=== PATIENT | female | born 1940 | race Caucasian/White ===

== ENCOUNTER 2017-02-03 16:09 | Emergency (ER) | payer OTHER ==
[~2017-02-03] VITALS: Ht 154.9 cm; Wt 76.2 kg
[~2017-02-03 16:09] MED LIST: BENAZEPRIL HCL/1 TA1 PO; BENAZEPRIL HYDR20 M1 PO; LEVAQUIN250 MG PO; PRILOSEC40 MG PO
--- NOTE | 2017-02-03 16:09 | NUR ---
Patient BIBA BLS, transferred to bed 7. Dr. Crawford and RN evaluating patient at bedside.
[2017-02-03 16:25] VITALS: BP 168/73
--- NOTE | 2017-02-03 16:25 | NUR ---
76 /F BIBA FROM HOME FOR LOW BACK PAIN ALL DAY AWAKE AND ALERT ON ARRIVAL. DENIES N/V/D; SKIN IS PINK/WARM/DRY; AAOX4 WITH EVEN AND STEADY GAIT; LUNGS CLEAR BL; HR EVEN AND REGULAR; PT DENIES ANY FEVER, CP, SOB, OR COUGH AT THIS TIME; PATIENT STATES PAIN OF 4/10 AT THIS TIME; VSS; PATIENT POSITIONED FOR COMFORT; HOB ELEVATED; BEDRAILS UP X2; BED DOWN. ER MD MADE AWARE OF PT STATUS.
--- NOTE | 2017-02-03 17:21 | NUR ---
Patient taken to CT scan via gurney by [employer].
--- NOTE | 2017-02-03 19:08 | NUR ---
Pt report given to JOSH ROSALES. Transfer of care at this time.
[2017-02-03] MEDS ORDERED: ACETAMINOPHEN 325 MG TAB PO ONE (20:30)
[2017-02-03 20:57] VITALS: BP 142/72
--- NOTE | 2017-02-03 20:57 | NUR ---
Patient discharged with v/s stable. Written and verbal after care instructions given and explained. Patient alert, oriented and verbalized understanding of instructions. Ambulatory with steady gait. All questions addressed prior to discharge. ID band removed. Patient advised to follow up with PMD. Rx of MOTRIN 600MG given. Patient educated on indication of medication including possible reaction and side effects. Opportunity to ask questions provided and answered.
== END 2017-02-03 20:57 | disposition home or self-care (01) ==
LOC: MED 16:10
DX: M54.5 Low back pain (principal); F41.9 Anxiety disorder, unspecified; I12.9 Hypertensive chronic kidney disease with stage 1 through stage 4 chronic kidney disease, or unspecified chronic kidney disease; N18.4 Chronic kidney disease, stage 4 (severe); J44.9 Chronic obstructive pulmonary disease, unspecified; Z90.710 Acquired absence of both cervix and uterus; Z90.49 Acquired absence of other specified parts of digestive tract; Z88.0 Allergy status to penicillin; Z88.2 Allergy status to sulfonamides; Z88.5 Allergy status to narcotic agent; Z98.890 Other specified postprocedural states

== ENCOUNTER 2017-03-19 13:56 | Emergency (ER) | payer OTHER ==
[~2017-03-19] VITALS: Ht 154.9 cm; Wt 74.8 kg
[~2017-03-19 13:56] MED LIST changes: +BENA20TA5 PO; -BENAZEPRIL HCL/1 TA1 PO; -BENAZEPRIL HYDR20 M1 PO; -LEVAQUIN250 MG PO; +OMEP40EC1 PO; -PRILOSEC40 MG PO
[2017-03-19 14:23] VITALS: BP 140/106
--- NOTE | 2017-03-19 19:16 | NUR ---
Patient to [facility].
--- NOTE | 2017-03-19 19:22 | NUR ---
76F BIB FAMILY C/O BL LOWER BACK PAIN, THROBBING, RADIATES UP BACK, 05/12 X 2 MONTHS; PT STATES NO TRAUMA OR INJURY TO SITE AT THIS TIME; PT STATES " I WOKE UP ONE DAY AND JUST HAD THIS PAIN"; PT AA&OX4, PERRLA, BL LUNG SOUNDS CLEAR, RR EVEN/UNLABORED, SKIN IS WARM/DRY/INTACT AT THIS TIME; PT STATES NO N/V/D AT THIS TIME; PT RESTING IN CHAIR, POSITIONED FOR COMFORT; ER MD MADE AWARE OF STATUS. WILL CONTINUE TO MONITOR.
[2017-03-19] MEDS ORDERED: KETOROLAC 30 MG/ML VIAL IM ONE (19:30)
[2017-03-19 20:00] VITALS: BP 180/83
--- NOTE | 2017-03-19 20:00 | NUR ---
Patient discharged with BP 180/83; PT STATES NO N/V/D, HEADACHE, DIZZINESS, VISION CHANGES OR BLURRY VISION AT THIS TIME ER MD DR. BLANCO NOTIFIED AND AWARE. Written and verbal after care instructions given and explained. Patient alert, oriented and verbalized understanding of instructions. Ambulatory with steady gait. All questions addressed prior to discharge. ID band removed. Patient advised to follow up with PMD. Rx of VALIUM 2MG TAB & NORCO 5MG-325MG TAB given. Patient educated on indication of medication including possible reaction and side effects. Opportunity to ask questions provided and answered.
== END 2017-03-19 20:00 | disposition home or self-care (01) ==
LOC: MED 13:56
DX: M80.08XA Age-related osteoporosis with current pathological fracture, vertebra(e), initial encounter for fracture (principal); J44.9 Chronic obstructive pulmonary disease, unspecified; I10 Essential (primary) hypertension; I12.9 Hypertensive chronic kidney disease with stage 1 through stage 4 chronic kidney disease, or unspecified chronic kidney disease; N18.4 Chronic kidney disease, stage 4 (severe); Z88.0 Allergy status to penicillin; Z88.2 Allergy status to sulfonamides; Z88.6 Allergy status to analgesic agent; Z88.5 Allergy status to narcotic agent; Z90.710 Acquired absence of both cervix and uterus
CPT/HCPCS: 72072; 72100; 96372; 99284; J1885

== ENCOUNTER 2018-06-15 19:51 | Emergency (ER) | payer OTHER ==
[~2018-06-15] VITALS: Ht 157.5 cm; Wt 82.2 kg
[~2018-06-15 19:51] MED LIST changes: -BENA20TA5 PO; +BENA20TA88 PO
[2018-06-15 20:00] VITALS: BP 170/100
--- NOTE | 2018-06-15 20:05 | NUR ---
PATIENT AMBULATED TO ER BED 11.
--- NOTE | 2018-06-15 20:26 | NUR ---
PT PRESENTS TO ED WITH C/O BILAT EYE REDNESS, ITCHING, AND BURNING X 3 WEEKS. PT REPORTS BLURRY VISION X 3 WEEKS WELL. PT DENIES ANY TRAUMA OR FOREIGN BODY IN EYE. PT PLACED IN BED. PENDING MD JO.
[2018-06-15 20:39] VITALS: BP 170/100
--- NOTE | 2018-06-15 20:40 | NUR ---
Patient discharged with v/s stable. Written and verbal after care instructions given and explained. Patient alert, oriented and verbalized understanding of instructions. Ambulatory with steady gait. All questions addressed prior to discharge. ID band removed. Patient advised to follow up with PMD. Rx of PANATOL given. Patient educated on indication of medication including possible reaction and side effects. Opportunity to ask questions provided and answered.
== END 2018-06-15 20:39 | disposition home or self-care (01) ==
LOC: MED 19:51
DX: H10.13 Acute atopic conjunctivitis, bilateral (principal); J44.9 Chronic obstructive pulmonary disease, unspecified; I12.9 Hypertensive chronic kidney disease with stage 1 through stage 4 chronic kidney disease, or unspecified chronic kidney disease; N18.4 Chronic kidney disease, stage 4 (severe); Z88.0 Allergy status to penicillin; Z88.6 Allergy status to analgesic agent; Z88.2 Allergy status to sulfonamides; Z79.899 Other long term (current) drug therapy
CPT/HCPCS: 99283

== ENCOUNTER 2018-08-18 11:42 | Observation (INO) | payer OTHER ==
[~2018-08-18] VITALS: Ht 154.9 cm; Wt 77.1 kg
[2018-08-18 11:47] VITALS: BP 183/91
[2018-08-18] MEDS ORDERED: NITROGLYCERIN 2% 1 GM PKT TP ONE (12:00)
[2018-08-18] MEDS ORDERED: ASPIRIN 81 MG TAB.CHEW PO ONE (12:00)
[2018-08-18 12:21] LABS: BASOPHILS % (AUTO) 0.4 % (0.0-2.0); EOSINOPHILS # (AUTO) 0.3 K/uL (0-0.4); EOSINOPHILS % (AUTO) 5.2 % (0.0-4.0); HEMATOCRIT 45.8 % (36-48); HEMOGLOBIN 15.3 g/dL (12.0-16.0); LYMPHOCYTES # (AUTO) 1.6 K/uL (2.5-16.5); LYMPHOCYTES % (AUTO) 32.1 % (20.5-51.1); MEAN CORPUSCULAR HEMOGLOBIN 29 pg (27-31); MEAN CORPUSCULAR HGB CONC 34 g/dL (33-37); MEAN CORPUSCULAR VOLUME 85.8 fL (80-94); MONOCYTES # (AUTO) 0.3 K/uL (0.8-1.0); MONOCYTES % (AUTO) 6.1 % (1.7-9.3); NEUTROPHILS # (AUTO) 2.8 K/uL (1.8-7.7); NEUTROPHILS % (AUTO) 56.2 % (42.2-75.2); PLATELET COUNT (AUTO) 238 K/uL (140-450); RED BLOOD CELL COUNT(AUTO) 5.34 MIL/uL (4.20-5.40); RED CELL DISTRIBUTION WIDTH 12.6 % (11.6-13.7); WHITE BLOOD COUNT (AUTO) 4.9 K/uL (4.8-10.8)
[2018-08-18 12:40] LABS: ANION GAP 11.4 (8-16); CARBON DIOXIDE 27.5 mmol/L (21-32); CHLORIDE 104 mmol/L (98-107); CREATININE 1.3 mg/dL (0.6-1.3); GLUCOSE 120 mg/dL (74-106); POTASSIUM 3.9 mmol/L (3.5-5.1); SODIUM SERUM 139 mmol/L (136-145); UREA NITROGEN, BLOOD 22 mg/dL (7-18)
[2018-08-18 12:46] LABS: ALBUMIN 4.1 g/dL (3.4-5.0); ASPARTATE AMINOTRANSFERASE 27 U/L (15-37); TOTAL BILIRUBIN 0.4 mg/dL (0.0-1.0)
[2018-08-18 12:50] LABS: D-DIMER < 100 ng/ml (0-400); PROTHROMBIN TIME 9.6 secs (10.8-13.4)
[2018-08-18] MEDS ORDERED: LORazepam 2 MG/ML VIAL IM/IVP PRN (13:50)
[2018-08-18] MEDS ORDERED: DOCUSATE SODIUM 100 MG GELCAP PO PRN (13:50)
[2018-08-18] MEDS: NACL 0.9% 1,000 ML IV SCH (13:50)
[2018-08-18] MEDS ORDERED: ACETAMINOPHEN 325 MG TAB PO PRN (13:50)
[2018-08-18] MEDS ORDERED: ONDANSETRON 4 MG/2 ML VIAL IM/IVP PRN (13:50)
[2018-08-18] MEDS ORDERED: NITROGLYCERIN 0.4 MG TAB SL PRN (14:15)
[2018-08-18] MEDS ORDERED: BENAZEPRIL 20 MG TAB PO SCH ×2 (14:15→15:10)
[2018-08-18 14:35] VITALS: BP 162/74
[2018-08-18] MEDS ORDERED: METOPROLOL 25 MG TAB PO SCH (15:07)
[2018-08-18] MEDS ORDERED: PANTOPRAZOLE 40 MG TABEC PO SCH (15:08)
[2018-08-18 16:00] VITALS: BP 142/69
[2018-08-18] MEDS ORDERED: KETOROLAC 30 MG/ML VIAL IVP PRN (17:05)
[2018-08-18 18:48] LABS: APPEARANCE,URINE CLEAR (CLEAR); BILIRUBIN,URINE NEGATIVE (NEGATIVE); BLOOD, URINE NEGATIVE (NEGATIVE); COLOR,URINE YELLOW (YELLOW); LEUKOCYTE ESTERASE ,URINE NEGATIVE (NEGATIVE); NITRITE, URINE NEGATIVE (NEGATIVE); PH,URINE 7.5 (5.0-9.0); UGLUCOSE NEGATIVE (NEGATIVE)
[2018-08-18 20:00] VITALS: BP 120/46
[2018-08-18] MEDS: METOPROLOL 25 MG TAB PO SCH (20:07)
[2018-08-18] MEDS ORDERED: ALBUTEROL SULFATE/IPRATROPIU 3 ML SOL IH PRN (20:45)
[2018-08-18] MEDS ORDERED: ADA30 PO (20:47)
[2018-08-18] MEDS ORDERED: TRI48 PO (20:47)
[2018-08-19 00:56] VITALS: BP 124/40
[2018-08-19 04:35] VITALS: BP 139/60
[2018-08-19 08:00] VITALS: BP 155/54
[2018-08-19] MEDS ORDERED: FAMOTIDINE 20 MG TAB PO SCH (09:00)
[2018-08-19] MEDS ORDERED: LISINOPRIL 5 MG TAB PO SCH (09:00)
[2018-08-19] MEDS ORDERED: NIFEdipine 30 MG TABER PO SCH (09:00)
[2018-08-19] MEDS ORDERED: ASPIRIN 81 MG TAB.CHEW PO SCH (09:00)
[2018-08-19] MEDS ORDERED: BENAZEPRIL 20 MG TAB PO SCH (09:00)
[2018-08-19] MEDS: NACL 0.9% 1,000 ML IV SCH (09:39)
[2018-08-19] MEDS: METOPROLOL 25 MG TAB PO SCH (09:41)
[2018-08-19] MEDS ORDERED: FENOFIBRATE 48 MG TAB PO SCH (11:13)
[2018-08-19 12:00] VITALS: BP 151/52
[2018-08-19 16:00] VITALS: BP 132/50
[2018-08-19] MEDS ORDERED: INFLUENZA VIRUS VACCINE QUAD 0.5 ML SYR IMVAC PRN (16:35)
[2018-08-19 17:21] VITALS: BP 132/50
[2018-08-19] MEDS ORDERED: LISI-424 PO (18:06)
[2018-08-19] MEDS ORDERED: FAMO20TA13 PO (18:06)
[2018-08-19] MEDS ORDERED: ASPI81CT95 PO (18:06)
[2018-08-19] MEDS ORDERED: TRI48 PO (18:06)
[2018-08-19] MEDS ORDERED: ADA30 PO (18:06)
[2018-08-19] MEDS ORDERED: ATOR20TA40 PO (18:06)
[2018-08-19] MEDS ORDERED: ATORVASTATIN 20 MG TAB PO SCH (21:00)
[2018-08-20] MEDS ORDERED: FENOFIBRATE 48 MG TAB PO SCH (09:00)
== END 2018-08-19 19:25 | disposition still patient (30) ==
LOC: MED 11:42 → MTU 13:57 → INTOOBSV 13:57 → MTU 08-19 15:30
PROVIDERS: ADMIT General Practice; ATTEND General Practice
DX: R07.89 Other chest pain (principal); K21.9 Gastro-esophageal reflux disease without esophagitis; J98.11 Atelectasis; I10 Essential (primary) hypertension; J44.9 Chronic obstructive pulmonary disease, unspecified; E78.5 Hyperlipidemia, unspecified; I70.0 Atherosclerosis of aorta; E66.9 Obesity, unspecified; Z68.32 Body mass index [BMI] 32.0-32.9, adult; Z88.5 Allergy status to narcotic agent; Z88.0 Allergy status to penicillin; Z88.2 Allergy status to sulfonamides
CPT/HCPCS: 36415; 71045; 80053; 81003; 83880; 84484; 85025; 85379; 85610; 85730; 87081; 93005; 93925; 94760; 96372; 96374; 99284; G0378; J1644; J1885; J7030; Q0092; 99285

== ENCOUNTER 2018-12-16 02:30 | Inpatient (IN) | payer OTHER ==
[~2018-12-16] VITALS: Ht 149.9 cm; Wt 83.0 kg
[2018-12-16] VITALS (7 sets, daily range): BP systolic 124–170; BP diastolic 45–92
[~2018-12-16 02:30] MED LIST changes: +ASPI81CT95 PO; +ATOR20TA40 PO; -BENA20TA88 PO; +FAMO20TA13 PO; +NIFE30TE98 PO; -OMEP40EC1 PO; +TRI48 PO
--- NOTE | 2018-12-16 02:35 | NUR ---
PT TAKEN TO BED 6
--- NOTE | 2018-12-16 02:40 | NUR ---
78 Y/O F PRESENTED TO ED WITH C/O CHEST PAIN X7 HOURS. AAOX4. 9/10 PAIN, CONTINUOUS AND SHARP. PER PT "IT JUST HURTS SO BAD. SO BAD I HAD MY WAKE UP MY GRANDDUAGHTER TO BRING ME HERE." L ARM NUMBESS. EQUAL BILATERAL GRASPS. ABLE TO MOVE DIGITS FREELY. PER PT FEELING NAUSEOUS. DENIES VOMITTING AND DIARRHEA. BEDRAILS X2 UP. BED IN LOWEST POSTION. ERMD NOTIFIED. WILL CONTINUE TO MONITOR. ALLERGIES; MORPHINE, PCN, SULFA, BENADRYL PMH; HTN, HYPERLIDIPEMIA, COPD
[2018-12-16] MEDS ORDERED: ASPIRIN 81 MG TAB.CHEW PO ONE (02:45)
[2018-12-16 03:02] LABS: BASOPHILS % (AUTO) 0.7 % (0.0-2.0); EOSINOPHILS # (AUTO) 0.2 K/uL (0-0.4); EOSINOPHILS % (AUTO) 3.8 % (0.0-4.0); HEMATOCRIT 44.2 % (36-48); HEMOGLOBIN 14.7 g/dL (12.0-16.0); LYMPHOCYTES % (AUTO) 31.6 % (20.5-51.1); MEAN CORPUSCULAR HEMOGLOBIN 28 pg (27-31); MEAN CORPUSCULAR HGB CONC 33 g/dL (33-37); MONOCYTES # (AUTO) 0.4 K/uL (0.8-1.0); MONOCYTES % (AUTO) 6.5 % (1.7-9.3); NEUTROPHILS # (AUTO) 3.6 K/uL (1.8-7.7); NEUTROPHILS % (AUTO) 57.4 % (42.2-75.2); PLATELET COUNT (AUTO) 218 K/uL (140-450); RED CELL DISTRIBUTION WIDTH 12.5 % (11.6-13.7); WHITE BLOOD COUNT (AUTO) 6.4 K/uL (4.8-10.8)
[2018-12-16 03:18] LABS: ALBUMIN 3.9 g/dL (3.4-5.0); ANION GAP 10.9 (8-16); ASPARTATE AMINOTRANSFERASE 19 U/L (15-37); CARBON DIOXIDE 26.5 mmol/L (21-32); CHLORIDE 101 mmol/L (98-107); CREATININE 1.3 mg/dL (0.6-1.3); GLUCOSE 138 mg/dL (74-106); POTASSIUM 3.4 mmol/L (3.5-5.1); SODIUM SERUM 135 mmol/L (136-145); TOTAL BILIRUBIN 0.5 mg/dL (0.0-1.0); UREA NITROGEN, BLOOD 28 mg/dL (7-18)
[2018-12-16 03:30] LABS: APPEARANCE,URINE CLEAR (CLEAR); BILIRUBIN,URINE NEGATIVE (NEGATIVE); BLOOD, URINE 1+ (NEGATIVE); COLOR,URINE YELLOW (YELLOW); LEUKOCYTE ESTERASE ,URINE NEGATIVE (NEGATIVE); NITRITE, URINE NEGATIVE (NEGATIVE); UGLUCOSE NEGATIVE (NEGATIVE)
[2018-12-16] MEDS ORDERED: KETOROLAC 15 MG/ML VIAL IVP ONE (03:35)
[2018-12-16 03:38] LABS: RBC,URINE 0-5 /HPF (0-5); WBC,URINE 0-5 /HPF (0-5)
--- NOTE | 2018-12-16 03:50 | NUR ---
PT STILL COMPLAINING OF CHEST PAIN, 9/[address] DIAZ NOTIFIED.
[2018-12-16] MEDS ORDERED: NITROGLYCERIN 0.4 MG TAB SL ONE (04:00)
--- NOTE | 2018-12-16 04:10 | NUR ---
PT AMBULATED TO RESTROOM. STEADY GAIT.
[2018-12-16] MEDS ORDERED: ONDANSETRON 4 MG/2 ML VIAL IM/IVP PRN (04:35)
[2018-12-16] MEDS ORDERED: ACETAMINOPHEN 325 MG TAB PO PRN (04:35)
[2018-12-16] MEDS ORDERED: DOCUSATE SODIUM 100 MG GELCAP PO PRN (04:35)
--- NOTE | 2018-12-16 04:50 | NUR ---
Patient will be admitted to care of Dr Wu. Admited to [facility] [place]. Will go to room 111A Belongings list completed. Report to Tiago Niño RN. VSS at time of transfer. Transfer of care at this time.
[2018-12-16 04:57] LABS: PROTHROMBIN TIME 9.8 secs (10.8-13.4)
--- NOTE | 2018-12-16 05:05 | NUR ---
Patient arrived in unit via rjadwin, accompanied by two ARTIFICIAL LEATHER CALENDER OPERATOR's; patient is able to ambulate from gurney to bed with no assistance. Introduced self, updated board, oriented patient to room and hospital environment. Patient is A/Ox4, able to make needs known. No SOB or distress noted, on room air. Chief complaint of chest pain. Diagnosis is chest pain. IV site on left forearm, 20 gauge, saline locked. Skin intact. Vitals upon admission are as follows: BP 124/53, RR 16, HR 63, Temp 98.4 F, O2Sat 93% on room air. Bed in the lowest position, call light within reach. Initial assessment done. Will continue to monitor.
[2018-12-16 05:15] LABS: CHOL/HDL RATIO 3.2 (1-4.5); FREE T4 (FREE THYROXINE) 1.07 ng/dL (0.76-1.46); MAGNESIUM 2.1 mg/dL (1.8-2.4); PHOSPHORUS 3.1 mg/dL (2.5-4.9); THYROID STIMULATING HORMONE 3.02 uIU/mL (0.34-3.74)
[2018-12-16] MEDS: NACL 0.9% 1,000 ML IV SCH (05:30)
--- NOTE | 2018-12-16 07:20 | NUR ---
Endorsed patient to AM shift RN for continuity of care; patient in stable condition.
--- NOTE | 2018-12-16 07:21 | NUR ---
RECEIVED BEDSIDE REPORT FROM ICE CREAM FREEZER HELPER NURSE. PATIENT IS AWAKE, ALERT AND ORIENTEDX4. NO SIGNS OF DISTRESS ON RA. SKIN IS INTACT. IV ON L FA 20G INFUSING NS AT 60. CLEAN, DRY AND INTACT. PATIENT IS CONTINENT. CALL LIGHT WITHIN REACH. NO COMPLAINTS AT THIS TIME. BED IN LOW POSITION. PATIENT ABLE TO MAKE NEEDS KNOWN.
--- NOTE | 2018-12-16 08:00 | NUR ---
RECEIVED PATIENT IN BED ,AWAKE A/OX4 NO S/S OF RESP DISTRESS NOTED COMPLAIN OF BACK PAIN ,WILL MEDICATED IV SITE LEFT FA FINESSE 22 INTACT AND PATENT .IVF INFUSING WELL. PLAN OF CARE DISCUSSED WITH THE PATIENT VITALS STABLE WILL CONTINUE TO MONITOR.
--- NOTE | 2018-12-16 08:00 | NUR ---
GAVE BEDSIDE REPORT TO JOSH DHALIWAL. ENDORSED PATIENT IN STABLE CONDITION. TOLD HER PATIENT NEEDS TO BE TRANSFERRED TO [facility]
--- NOTE | 2018-12-16 09:57 | NUR ---
PATIENT HAS BEEN SCREENED AND CATEGORIZED MODERATE NUTRITION RISK. PATIENT WILL BE SEEN WITHIN 3-5 DAYS OF ADMISSION. 12/18/18PETEY [address]
--- NOTE | 2018-12-16 10:00 | NUR ---
DUE MEDS GIVEN TOLERATED WELL. MEDICATED WITH NORCO FOR BACK PAIN , C/O NAUSEA ZOFRAN IV GIVEN . MORNING CARE GIVEN AMBULATE TO BATHROOM NO WEAKNESS NOTED AT THIS TIME
[2018-12-16] MEDS ORDERED: NITROGLYCERIN 0.4 MG TAB SL PRN (10:15)
[2018-12-16] MEDS: FENOFIBRATE 48 MG TAB PO SCH (10:16)
[2018-12-16] MEDS: NIFEdipine 30 MG TABER PO SCH (10:17)
[2018-12-16] MEDS: ECOTRIN 81 MG TABEC PO SCH (10:17)
[2018-12-16] MEDS: HYDROcodone/APAP 7.5/325 MG 1 TAB PO PRN (10:20)
[2018-12-16] MEDS ORDERED: MEDICATION REC. PHARMACY CONS. 1 EA MISC MC PRN (11:10)
[2018-12-16] MEDS ORDERED: POTASSIUM CHLORIDE 10 MEQ TABER PO SCH (11:50)
--- NOTE | 2018-12-16 12:00 | NUR ---
VITALS STABLE DUE MEDS GIVEN AT THIS TIME
--- NOTE | 2018-12-16 14:00 | NUR ---
RESTING NO DISTRESS NOTED ,DENIES ANY PAIN AT THIS TIME
--- NOTE | 2018-12-16 16:00 | NUR ---
AMBULATE TO THE BATHROOM NO WEAKNESS NOTED VITALS STABLE.
--- NOTE | 2018-12-16 18:30 | NUR ---
SAFETY MAINTAINED CALL LIGHT IN REACH , STABLE CONDITION THROUGH OUT THE DAY
--- NOTE | 2018-12-16 19:28 | NUR ---
ENDORSE THE CARE TO JENNA MORENO
--- NOTE | 2018-12-16 19:29 | NUR ---
RECEIVED PATIENT AT BEDSIDE FROM DAY SHIFT NURSE, PT AWAKE AND NO SOB OR ANY RESP DISTRESS NOTED. IV 22 GAUGE LOCATED IN LEFT FOREARM AND SITE INTACT, PATENT, AND ASYMPTOMATIC. PLAN OF CARE DISCUSSED WITH THE PATIENT. CALL LIGHT WITHIN REACH. WILL CONTINUE TO MONITOR.
[2018-12-16] MEDS: ATORVASTATIN 20 MG TAB PO SCH (21:49)
[2018-12-16] MEDS: PANTOPRAZOLE 40 MG TABEC PO SCH (21:50)
[2018-12-16] MEDS: METOPROLOL 25 MG TAB PO SCH (21:52)
--- NOTE | 2018-12-16 21:52 | NUR ---
DUE MEDICATION ADMINISTERED, PT TOLERATED WELL, NO DISTRESS NOTED, CALL LIGHT WITHIN REACH, WILL CONTINUE TO MONITOR.
[2018-12-17] VITALS: BP 132/50
--- NOTE | 2018-12-17 00:10 | NUR ---
CHECKED ON PT, V/S TAKEN, WNL, PT SLEEPING, NO DISTRESS NOTED, CALL LIGHT WITHIN REACH, WILL CONTINUE TO MONITOR.
[2018-12-17] MEDS: NACL 0.9% 1,000 ML IV SCH ×3 (00:37→21:27)
--- NOTE | 2018-12-17 02:25 | NUR ---
PT SLEEPING, CALL LIGHT WITHIN REACH, WILL CONTINUE TO MONITOR.
[2018-12-17 04:00] VITALS: BP 154/63
--- NOTE | 2018-12-17 04:36 | NUR ---
CHECKED ON PT, V/S TAKEN, WITHIN PT BASELINE, PT AMBULATED TO RESTROOM AND BACK TO BED, TOLERATED WELL, CALL LIGHT WITHIN REACH, WILL CONTINUE TO MONITOR.
--- NOTE | 2018-12-17 07:30 | NUR ---
ENDORSED PT TO DAY SHIFT NURSE MATT RN, PT STABLE, NO DISTRESS NOTED, CALL LIGHT WITHIN REACH.
--- NOTE | 2018-12-17 07:31 | NUR ---
REPORT RECEIVED FROM REGULATOR MECHANIC NURSE, PT AWAKE ALERT, RESP EVEN UNLABORED, SKIN WARM DRY COLOR WNL, PT DENIES ANY CHEST PAIN OR SOB, APPEARS IN NO ACUTE DISTRESS, POC REVIEWED, PT DENIES ANY IMMEDIATE NEEDS, ALL SAFETY MEASURES IN PLACE, WILL CONTINUE TO MONITOR.
[2018-12-17 08:00] VITALS: BP 135/36
[2018-12-17 08:09] LABS: ANION GAP 10.5 (8-16); CHLORIDE 107 mmol/L (98-107); CREATININE 1.1 mg/dL (0.6-1.3); GLUCOSE 93 mg/dL (74-106); POTASSIUM 4.5 mmol/L (3.5-5.1); SODIUM SERUM 140 mmol/L (136-145); UREA NITROGEN, BLOOD 25 mg/dL (7-18)
[2018-12-17 08:33] LABS: BASOPHILS % (AUTO) 0.5 % (0.0-2.0); EOSINOPHILS # (AUTO) 0.2 K/uL (0-0.4); EOSINOPHILS % (AUTO) 4.4 % (0.0-4.0); HEMATOCRIT 37.9 % (36-48); HEMOGLOBIN 12.7 g/dL (12.0-16.0); LYMPHOCYTES # (AUTO) 1.9 K/uL (2.5-16.5); LYMPHOCYTES % (AUTO) 34.5 % (20.5-51.1); MEAN CORPUSCULAR HEMOGLOBIN 29 pg (27-31); MEAN CORPUSCULAR HGB CONC 33 g/dL (33-37); MEAN CORPUSCULAR VOLUME 85.9 fL (80-94); MONOCYTES # (AUTO) 0.4 K/uL (0.8-1.0); MONOCYTES % (AUTO) 7.9 % (1.7-9.3); NEUTROPHILS # (AUTO) 2.8 K/uL (1.8-7.7); NEUTROPHILS % (AUTO) 52.7 % (42.2-75.2); PLATELET COUNT (AUTO) 203 K/uL (140-450); RED BLOOD CELL COUNT(AUTO) 4.41 MIL/uL (4.20-5.40); RED CELL DISTRIBUTION WIDTH 12.6 % (11.6-13.7); WHITE BLOOD COUNT (AUTO) 5.4 K/uL (4.8-10.8)
[2018-12-17] MEDS: FENOFIBRATE 48 MG TAB PO SCH (08:48)
[2018-12-17] MEDS: ECOTRIN 81 MG TABEC PO SCH (08:48)
[2018-12-17] MEDS: PANTOPRAZOLE 40 MG TABEC PO SCH ×2 (08:49→21:00)
[2018-12-17] MEDS: METOPROLOL 25 MG TAB PO SCH ×2 (09:00→21:00)
[2018-12-17] MEDS: LISINOPRIL 5 MG TAB PO SCH (09:00)
[2018-12-17] MEDS: NIFEdipine 30 MG TABER PO SCH (09:00)
--- NOTE | 2018-12-17 09:28 | NUR ---
PT UP TO BATHROOM WITHOUT ASSIST, AMBULATES WITH STEADY GAIT, PT DENIES ANY IMMEDIATE NEEDS.
--- NOTE | 2018-12-17 10:05 | NUR ---
PT UP TO BATHROOM WITHOUT ASSIST, AMBULATES WITH STEADY GAIT, PT DENIES ANY IMMEDIATE NEEDS.
[2018-12-17 12:00] VITALS: BP 130/43
--- NOTE | 2018-12-17 12:20 | NUR ---
PT SITTING UP AT SIDE OF BED EATING LUNCH
--- NOTE | 2018-12-17 12:55 | NUR ---
Susan GOODWIN AT BEDSIDE.
--- NOTE | 2018-12-17 13:45 | NUR ---
WALKING AROUND HALLWAY WITH PHYSICAL THERAPY
--- NOTE | 2018-12-17 14:47 | NUR ---
ROUNDED ON PT. PT LAYING IN BED WATCHING TV. NO VISIBLE DISTRESS. NO COMPLAINT OF PAIN. WILL CONTINUE TO MONITOR
--- NOTE | 2018-12-17 15:55 | NUR ---
PT C/O CHEST PAIN AFTER EATING A BANANA, STATES ITS SQUEEZING TIGHTNESS 12/10, DR CHAN MADE AWARE, WILL GIVE NITRO SL.
[2018-12-17 16:00] VITALS: BP 149/49
--- NOTE | 2018-12-17 17:05 | NUR ---
PT RESTING QUIETLY, STATES CHEST PAIN HAS IMPROVED, CALL CANNON WITHIN REACH, SIDE RAILS UP, WILL CONTINUE TO MONTIOR.
[2018-12-17] MEDS: HYDROcodone/APAP 7.5/325 MG 1 TAB PO PRN (18:52)
--- NOTE | 2018-12-17 19:00 | NUR ---
PT STATES THAT SHE HAS PAIN IN CHEST 5/10. PT DESCRIBES PAIN ACHY. NORCO GIVEN. NO OTHER SIGNS OF VISIBLE DISTRESS.
--- NOTE | 2018-12-17 19:29 | NUR ---
REPORT GIVEN TO PHYSICIAN RELATIONS REPRESENTATIVE NURSE, PT IN STABLE CONDITION.
--- NOTE | 2018-12-17 19:30 | NUR ---
REPORT RECEIVED FROM DAY SHIFT RN, PATIENT AWAKE WITH NO SIGNS OF DISTRESS ON RA, PATIENT IN STABLE CONDITION. CALL LIGHT IN REACH AND BED IN LOW POSITION. WILL CONTINUE TO MONITOR.
[2018-12-17 20:00] VITALS: BP 137/44
[2018-12-17] MEDS: ATORVASTATIN 20 MG TAB PO SCH (20:59)
--- NOTE | 2018-12-17 21:00 | NUR ---
ADMINISTERED SCHEDULED MEDICATION. PATIENT TOLERATED WELL. PATIENT SITTING UP IN BED TALKING ON PHONE, BED LOW, CALL LIGHT IN REACH. NO COMPLAINTS OF PAIN AT THIS TIME, WILL CONTINUE TO MONITOR.
--- NOTE | 2018-12-18 00:05 | NUR ---
PATIENT WENT TO BATHROOM, AND RETURNED TO BED. VITAL SIGNS STABLE.
[2018-12-18 00:17] VITALS: BP 122/42
--- NOTE | 2018-12-18 01:10 | NUR ---
PATIENT IS SLEEPING IN BED, NO SIGNS OF DISTRESS ON RA, BED LOW AND CALL LIGHT IN REACH. WILL CONTINUE TO MONITOR.
--- NOTE | 2018-12-18 04:00 | NUR ---
PT HAS BEEN STABLE DURING THE NIGHT.
[2018-12-18 05:42] VITALS: BP 137/50
[2018-12-18] MEDS: NACL 0.9% 1,000 ML IV SCH (06:26)
--- NOTE | 2018-12-18 07:27 | NUR ---
GAVE BEDSIDE REPORT TO DAY SHIFT RN, PATIENT IN STABLE CONDITION, WATCHING TV IN BED. ENDORSED TO DAY SHIFT NURSE FOR CONTINUITY OF CARE.
--- NOTE | 2018-12-18 07:28 | NUR ---
RECEIVED REPORT FROM SOLE SEWER HAND NURSE AT BEDSIDE FOR CONTINUITY OF CARE. PT IS AWAKE AND ORIENTED. INTRODUCED MYSELF AND UPDATED THE BOARD. PT IS ON ROOM AIR. TELE. NO SIGNS OF DISTRESS NOTED. V/S WITHIN NORMAL RANGE. SKIN INTACT. IV ON R HAND 22G, NS AT 60ML/HR. PT IS AMBULATORY. LBM 12/17/18. WILL CONTINUE TO MONITOR PT.
[2018-12-18 08:00] VITALS: BP 133/44
[2018-12-18] MEDS: FENOFIBRATE 48 MG TAB PO SCH (08:40)
[2018-12-18] MEDS: NIFEdipine 30 MG TABER PO SCH (08:40)
[2018-12-18] MEDS: LISINOPRIL 5 MG TAB PO SCH (08:41)
[2018-12-18] MEDS: PANTOPRAZOLE 40 MG TABEC PO SCH (08:41)
[2018-12-18] MEDS: ECOTRIN 81 MG TABEC PO SCH (08:41)
--- NOTE | 2018-12-18 08:45 | NUR ---
ADMINISTERED MORNING MEDS. TOLERATED WELL. WILL CONTINUE TO MONITOR PT.
[2018-12-18] MEDS ORDERED: LISI5TAB18 PO (09:20)
[2018-12-18] MEDS ORDERED: NIFE60TE5 PO (09:20)
--- NOTE | 2018-12-18 10:24 | NUR ---
PT SLEEPING. WOKE PT UP TO FIND OUT WHO WILL BE PICKING HER UP. PER PT, HER GRANDDAUGHTER GETS OFF WORK AT 4:30PM. WILL BE HERE TO PICK HER UP. D/C ORDER IS IN PLACE. WILL START D/C PROCESS.
[2018-12-18 12:00] VITALS: BP 148/47
--- NOTE | 2018-12-18 12:10 | NUR ---
PT EATING LUNCH. NO SIGNS OF DISTRESS. WILL CONTINUE TO MONITOR PT.
--- NOTE | 2018-12-18 14:15 | NUR ---
DISCUSSED DC PLANS WITH PT. WILL START PAPER WORK.
[2018-12-18 16:00] VITALS: BP 115/38
--- NOTE | 2018-12-18 16:45 | NUR ---
DC INSTRUCTIONS GIVEN TO THE PT. PT VERBALIZED UNDERSTANDING. ASKED ABOUT NITRO. NO PRESCRIPTION. PER MD, SHE IS TO HAVE ONE. WILL TALK TO RESIDENT MD AND ASK FOR A RX TO BE SENT OVER TO THE PHARMACY ALONG WITH THE NIFEDIPINE. REMOVED IV, CANNULA INTACT. NO BLEEDING NOTED. WILL GET DRESSED AND WILL LET ME KNOW WHEN HER GRANDDAUGHTER ARRIVES. WE WILL GET WHEELCHAIR READY.
--- NOTE | 2018-12-18 17:30 | NUR ---
WHEELCHAIRED PT TO THE LOBBY AND TO THE CAR. GRANDDAUGHTER WAITING IN THE CAR. PT HAS PERSONAL BELONGINGS WITH HER. PT IS IN STABLE CONDITION.
== END 2018-12-18 17:30 | disposition home or self-care (01) | DRG 640 ==
LOC: MED 02:30 → MTU 04:36 → MMU 08:14 → OBSVTOIN 10:13 → MMU 11:00
PROVIDERS: ADMIT General Practice; ATTEND General Practice
DX: E87.1 Hypo-osmolality and hyponatremia (principal); N17.0 Acute kidney failure with tubular necrosis; I42.9 Cardiomyopathy, unspecified; N18.4 Chronic kidney disease, stage 4 (severe); I13.10 Hypertensive heart and chronic kidney disease without heart failure, with stage 1 through stage 4 chronic kidney disease, or unspecified chronic kidney disease; R07.89 Other chest pain; K21.9 Gastro-esophageal reflux disease without esophagitis; R31.9 Hematuria, unspecified; E87.6 Hypokalemia; E78.5 Hyperlipidemia, unspecified; F43.9 Reaction to severe stress, unspecified; J44.9 Chronic obstructive pulmonary disease, unspecified; Z88.5 Allergy status to narcotic agent; Z88.0 Allergy status to penicillin; Z88.2 Allergy status to sulfonamides
CPT/HCPCS: 96374; 99285; G0378; 36415; 71045; 80048; 80053; 81001; 83036; 83605; 83735; 83880; 84100; 84439; 84443; 84484; 85025; 85610; 85730; 87081; 93005; J1885; J2405; J7030; Q0092

== ENCOUNTER 2019-01-21 16:04 | Emergency (ER) | payer OTHER ==
[~2019-01-21] VITALS: Ht 165.1 cm; Wt 90.7 kg
[~2019-01-21 16:04] MED LIST changes: -FAMO20TA13 PO; -NIFE30TE98 PO; +NIFE60TE5 PO
[2019-01-21 16:05] VITALS: BP 169/83
--- NOTE | 2019-01-21 16:05 | NUR ---
PATIENT BIB EMS TO BED 3 AT THIS TIME.
--- NOTE | 2019-01-21 16:20 | NUR ---
PT BIB AMBULANCE TO THE ED WITH THE CHIEF C/O BACK PAIN S/P FALL TODAY. PT SLIPPED AND HIT HER BACK ON THE CURB PER PT. DENIES LOC AFTER FALL. DENIES DIZZINESS. DENIES NAUSEA OR VOMITING. NO INJURY NOTED ON BACK. STATES PAIN 9/10 AT THIS TIME. LUNGS CLEAR. ABDOMEN SOFT, ROUND AND NON-TENDER. ACTIVE BOWEL SOUND. DENIES OTHER PROBLEM AT THIS TIME.
[2019-01-21] MEDS ORDERED: KETOROLAC 30 MG/ML VIAL IM ONE (16:35)
--- NOTE | 2019-01-21 17:04 | NUR ---
PT SENT TO CT VIA BED
--- NOTE | 2019-01-21 17:04 | NUR ---
PT BEING TAKEN TO CT
--- NOTE | 2019-01-21 17:48 | NUR ---
NO CHANGE IN LOC. DENIES DIZZINESS. NO N/V NOTED. VSS. CONTINUE TO MONITOR.
[2019-01-21 18:35] VITALS: BP 149/63
--- NOTE | 2019-01-21 18:39 | NUR ---
Patient discharged with v/s stable. Written and verbal after care instructions given and explained. Patient alert, oriented and verbalized understanding of instructions. Ambulatory with steady gait. All questions addressed prior to discharge. ID band removed. Patient advised to follow up with PMD. Rx of TRAMADOL given. Patient educated on indication of medication including possible reaction and side effects. Opportunity to ask questions provided and answered.
== END 2019-01-21 18:39 | disposition home or self-care (01) ==
LOC: MED 16:04
DX: S32.059S Unspecified fracture of fifth lumbar vertebra, sequela (principal); S32.10XS Unspecified fracture of sacrum, sequela; J44.9 Chronic obstructive pulmonary disease, unspecified; K21.9 Gastro-esophageal reflux disease without esophagitis; I12.9 Hypertensive chronic kidney disease with stage 1 through stage 4 chronic kidney disease, or unspecified chronic kidney disease; N18.4 Chronic kidney disease, stage 4 (severe); Z90.710 Acquired absence of both cervix and uterus; Z79.82 Long term (current) use of aspirin; Z79.899 Other long term (current) drug therapy; Z88.0 Allergy status to penicillin; Z88.5 Allergy status to narcotic agent; Z88.2 Allergy status to sulfonamides; Z88.8 Allergy status to other drugs, medicaments and biological substances; W10.1XXA Fall (on)(from) sidewalk curb, initial encounter; Y93.89 Activity, other specified; Y92.89 Other specified places as the place of occurrence of the external cause; Y99.8 Other external cause status
CPT/HCPCS: 72131; 72192; 96372; 99284; J1885

== ENCOUNTER 2019-03-01 17:13 | Inpatient (IN) | payer OTHER ==
[~2019-03-01] VITALS: Ht 154.9 cm; Wt 86.2 kg
[2019-03-01 17:20] VITALS: BP 163/78
--- NOTE | 2019-03-01 17:24 | NUR ---
EKG DONE IN TRIAGE. URINE SAMPLE COLLECTED.
--- NOTE | 2019-03-01 17:37 | NUR ---
PT MISSED URINE CUP. URINE HAT PLACED AT BEDSIDE SIDE FOR NEXT URINE COLLECTION.
--- NOTE | 2019-03-01 17:44 | NUR ---
PT BIB DAUGHTER C/O CHEST PAIN SINCE THIS AM THAT RADIATES TO LEFT ARM. PT REPORTS CONSTANT SHOOTING AND "OPENING UP" PAIN AT 8/10, TX WITH TRAMADOL 50MG AT 1PM WITH RELIEF TO PAIN TO LEFT ARM. NO EDEMA PRESENT CAP REFIL <2 SEC, NO N/V OR SOB. PT REPORTS FEELING DIZZY. VSS. ER MD TO SEE PT. MED HX HNT/HIGH CHOLESTEROL
[2019-03-01 18:33] LABS: BASOPHILS # (AUTO) 0.1 K/uL (0.00-0.22); BASOPHILS % (AUTO) 0.8 % (0.0-2.0); EOSINOPHILS # (AUTO) 0.2 K/uL (0-0.4); EOSINOPHILS % (AUTO) 2.6 % (0.0-4.0); HEMATOCRIT 41.3 % (36-48); LYMPHOCYTES # (AUTO) 1.7 K/uL (2.5-16.5); LYMPHOCYTES % (AUTO) 25.7 % (20.5-51.1); MEAN CORPUSCULAR HEMOGLOBIN 29 pg (27-31); MEAN CORPUSCULAR HGB CONC 34 g/dL (33-37); MEAN CORPUSCULAR VOLUME 84.5 fL (80-94); MONOCYTES # (AUTO) 0.4 K/uL (0.8-1.0); MONOCYTES % (AUTO) 6.5 % (1.7-9.3); NEUTROPHILS # (AUTO) 4.2 K/uL (1.8-7.7); NEUTROPHILS % (AUTO) 64.4 % (42.2-75.2); PLATELET COUNT (AUTO) 260 K/uL (140-450); RED BLOOD CELL COUNT(AUTO) 4.89 MIL/uL (4.20-5.40); RED CELL DISTRIBUTION WIDTH 12.6 % (11.6-13.7); WHITE BLOOD COUNT (AUTO) 6.5 K/uL (4.8-10.8)
[2019-03-01 18:42] LABS: ALBUMIN 3.9 g/dL (3.4-5.0); ASPARTATE AMINOTRANSFERASE 24 U/L (15-37); CARBON DIOXIDE 25.1 mmol/L (21-32); CHLORIDE 100 mmol/L (98-107); CREATININE 1.3 mg/dL (0.6-1.3); GLUCOSE 98 mg/dL (74-106); POTASSIUM 4.1 mmol/L (3.5-5.1); SODIUM SERUM 137 mmol/L (136-145); TOTAL BILIRUBIN 0.4 mg/dL (0.0-1.0); UREA NITROGEN, BLOOD 25 mg/dL (7-18)
[2019-03-01 19:01] LABS: PROTHROMBIN TIME 9.8 secs (10.8-13.4)
[2019-03-01 19:02] LABS: C-REACTIVE PROTEIN QUANT < 0.2 mg/dL (0.0-0.9)
--- NOTE | 2019-03-01 19:05 | NUR ---
PER ER PT OKAY TO EAT, PLACED ORDER FOR FOOD.
[2019-03-01] MEDS ORDERED: MORPHINE SULFATE 2 MG/ML SYR IVP PRN (19:15)
[2019-03-01] MEDS ORDERED: DOCUSATE SODIUM 100 MG GELCAP PO PRN (19:15)
[2019-03-01] MEDS ORDERED: MEDICATION REC. PHARMACY CONS. 1 EA MISC MC PRN (19:15)
[2019-03-01] MEDS ORDERED: ACETAMINOPHEN 325 MG TAB PO PRN (19:15)
[2019-03-01] MEDS ORDERED: ONDANSETRON 4 MG/2 ML VIAL IM/IVP PRN (19:15)
[2019-03-01] MEDS ORDERED: MELATONIN 3 MG TAB PO PRN (19:15)
--- NOTE | 2019-03-01 19:50 | NUR ---
REPORT GIVEN AND CARE TRANSFERED TO GUADALUPE RN ROOM 120A. TRANSFERED VIA RNEY WITH VSS.
[2019-03-01 19:54] LABS: PHOSPHORUS 3.3 mg/dL (2.5-4.9)
[2019-03-01 19:56] LABS: APPEARANCE,URINE CLEAR (CLEAR); BILIRUBIN,URINE NEGATIVE (NEGATIVE); BLOOD, URINE 1+ (NEGATIVE); COLOR,URINE YELLOW (YELLOW); LEUKOCYTE ESTERASE ,URINE NEGATIVE (NEGATIVE); NITRITE, URINE NEGATIVE (NEGATIVE); UGLUCOSE NEGATIVE (NEGATIVE)
--- NOTE | 2019-03-01 20:00 | NUR ---
ADMITTED THIS 78 YEAR OLD FEMALE FROM ER PER MARK WITH CC OF CHEST PAIN, AMBULATORY TO BED WITH STEADY GAIT, ASSESSMENT DONE, AAOX4, ABLE TO MAKE NEEDS KNOWN, VITAL SIGNS TAKEN, BP SLIGHTLY ELEVATED, COMPLAINING OF CHEST PAIN 6/10, WILL MEDICATE WITH NORCO SINCE PT HAS ADVERSE REACTION WITH MORPHINE, ORIENTED PT TO ROOM AND CALL LIGHT, PLAN OF CARE DISCUSSED, SAFETY MEASURES IN PLACE, CALL LIGHT WITHIN REACH.
[2019-03-01] MEDS: HYDROcodone/APAP 5/325 MG 1 TAB TAB PO PRN (20:01)
[2019-03-01] MEDS: NACL 0.9% 1,000 ML IV SCH (20:02)
[2019-03-01 20:06] LABS: RBC,URINE 0-5 /HPF (0-5); WBC,URINE 0-5 /HPF (0-5)
[2019-03-01 20:30] VITALS: BP 164/75
[2019-03-01] MEDS ORDERED: NITROGLYCERIN 0.4 MG TAB SL PRN (21:20)
[2019-03-01] MEDS: LISINOPRIL 5 MG TAB PO SCH (21:44)
--- NOTE | 2019-03-01 21:50 | NUR ---
FIRST DOSE ZESTRIL ADMINISTERED WITH EDUCATION PROVIDED, MONITORED CLOSELY.
--- NOTE | 2019-03-01 22:30 | NUR ---
PT AMBULATED TO BR WITH STEADY GAIT, VOIDED FREELY, DENIES ANY DIZZINESS OR SOB, TOLERABLE CHEST PRESSURE 3/10, MONITORED CLOSELY.
[2019-03-01] MEDS ORDERED: ALBUTEROL SULFATE/IPRATROPIU 3 ML SOL IH PRN (23:55)
[2019-03-02] VITALS: BP 115/39
--- NOTE | 2019-03-02 | NUR ---
PT SLEEPING, EASILY AROUSABLE, VITAL SIGNS TAKEN, BP ON THE LOW SIDE BUT STABLE, DENIES ANY PAIN, NO SOB NOTED, IVF INFUSING WELL, CONTINUE TO MONITOR CLOSELY.
[2019-03-02 04:00] VITALS: BP 137/62
--- NOTE | 2019-03-02 04:20 | NUR ---
PT SLEEPING, EASILY AROUSABLE TO VERBAL STIMULI, VITAL SIGNS TAKEN, LEFT ARM BP 125/39, NO DISTRESS NOTED, DR OAKES MADE AWARE, STATED TO SIT UP PT AND CHECK AGAIN, PT PUT ON SITTING POSITION, RT ARM BP-137/62, IVF INFUSING WELL, MONITORED CLOSELY
--- NOTE | 2019-03-02 06:00 | NUR ---
SEEN PT SLEEPING, NO RESP DISTRESS NOTED, IVF INFUSING WELL, MONITORED CLOSELY.
[2019-03-02 06:42] LABS: BASOPHILS % (AUTO) 0.6 % (0.0-2.0); EOSINOPHILS # (AUTO) 0.2 K/uL (0-0.4); EOSINOPHILS % (AUTO) 2.7 % (0.0-4.0); HEMATOCRIT 38.1 % (36-48); HEMOGLOBIN 12.9 g/dL (12.0-16.0); LYMPHOCYTES # (AUTO) 2.1 K/uL (2.5-16.5); LYMPHOCYTES % (AUTO) 34.2 % (20.5-51.1); MEAN CORPUSCULAR HEMOGLOBIN 29 pg (27-31); MEAN CORPUSCULAR HGB CONC 34 g/dL (33-37); MEAN CORPUSCULAR VOLUME 85.9 fL (80-94); MONOCYTES # (AUTO) 0.4 K/uL (0.8-1.0); MONOCYTES % (AUTO) 6.8 % (1.7-9.3); NEUTROPHILS # (AUTO) 3.4 K/uL (1.8-7.7); NEUTROPHILS % (AUTO) 55.7 % (42.2-75.2); PLATELET COUNT (AUTO) 243 K/uL (140-450); RED BLOOD CELL COUNT(AUTO) 4.44 MIL/uL (4.20-5.40); RED CELL DISTRIBUTION WIDTH 12.9 % (11.6-13.7); WHITE BLOOD COUNT (AUTO) 6.2 K/uL (4.8-10.8)
[2019-03-02 07:22] LABS: CHOL/HDL RATIO 4.2 (1-4.5)
--- NOTE | 2019-03-02 07:24 | NUR ---
PT AWAKE, NO DISTRESS NOTED, REPORT GIVEN TO JOSH GORMAN FOR CONTINUITY OF CARE.
--- NOTE | 2019-03-02 07:32 | NUR ---
RECEIVED REPORT FROM FLORIST DESIGNER NURSE. PT AWAKE, WATCHING TV IN BED, ORIENTED X4. RESPIRATIONS EVEN AND UNLABORED ON RA. IV ON RT HAND 22 GA RUNNING IVF PER ORDER, DRESSING CLEAN, INTACT AND DRY. RADIAL PULSE 56 REGULAR AND EVEN. BOWEL SOUNDS ACTIVE, LBM 03/01. SKIN COLOR IS APPROPRIATE TO ETHNICITY, WARM TO TOUCH, SKIN IS INTACT. REVIEWED POC WITH PT, PT VERBALIZED UNDERSTANDING. WILL CONTINUE TO MONITOR.
[2019-03-02] MEDS: ALBUTEROL SULFATE/IPRATROPIU 3 ML SOL IH SCH ×3 (07:59→19:51)
[2019-03-02 08:00] VITALS: BP 139/47
[2019-03-02] MEDS: ATORVASTATIN 20 MG TAB PO SCH (08:44)
[2019-03-02] MEDS: NIFEdipine 60 MG TABER PO SCH ×2 (08:44→08:52)
[2019-03-02] MEDS: FAMOTIDINE 20 MG TAB PO SCH (08:45)
[2019-03-02] MEDS: FENOFIBRATE 48 MG TAB PO SCH (08:45)
[2019-03-02] MEDS: HYDROcodone/APAP 5/325 MG 1 TAB TAB PO PRN ×2 (08:46→15:50)
[2019-03-02] MEDS ORDERED: ASPIRIN 81 MG TAB.CHEW PO SCH (09:00)
--- NOTE | 2019-03-02 09:41 | NUR ---
PATIENT HAS BEEN SCREENED AND CATEGORIZED MODERATE NUTRITION RISK. PATIENT WILL BE SEEN WITHIN 3-5 DAYS OF ADMISSION. 03/02/19[address]
--- NOTE | 2019-03-02 09:42 | NUR ---
PT WALKING WITH PT. NO SIGNS OF DISTRESS OR C/O PAIN AT THIS TIME.
[2019-03-02] MEDS ORDERED: KETOROLAC 15 MG/ML VIAL IVP PRN ×2 (11:49)
[2019-03-02 12:00] VITALS: BP 137/55
[2019-03-02] MEDS ORDERED: CLINICAL MONITORING MC PRN (12:00)
--- NOTE | 2019-03-02 12:12 | NUR ---
PT GIVEN TORADOL FOR PAIN PER ORDER. WILL REASSES WITHIN 1 HR.
--- NOTE | 2019-03-02 13:20 | NUR ---
I RECEIVED A CALL FROM [facility] UPDATED PT'S INFORMATION SHE STATED SHE WILL F/U TOMORROW
--- NOTE | 2019-03-02 15:30 | NUR ---
CALLED [employer] TO OBTAIN KPAD. AWAITING CALL BACK.
--- NOTE | 2019-03-02 15:45 | NUR ---
FAMILY AT BEDSIDE. PT VERBALIZED PAIN RATE OF 7/10, WILL MEDICATE PER ORDER.
[2019-03-02 16:00] VITALS: BP 145/47
--- NOTE | 2019-03-02 17:48 | NUR ---
PT AMBULATED TO RESTROOM WITH STEADY GAIT. NO C/O PAIN AT THIS TIME.
[2019-03-02] MEDS: NACL 0.9% 1,000 ML IV SCH (19:14)
--- NOTE | 2019-03-02 19:25 | NUR ---
RECEIVED REPORT FROM AM SHIFT NURSE FOR PATIENT'S CONTINUITY OF CARE. PATIENT IS LYING DOWN, AWAKE, WATCHING TV. ON ROOM AIR. IV ON THE RIGHT HAND 22 GA WITH NORMAL SALINE RUNNING AT 10 ML/HR. PATIENT DENIES ANY PAIN AT THIS TIME. BED IS IN LOW POSITION, SIDE RAILS ARE UP, AND CALL LIGHT IS WITHIN REACH. WILL MONITOR PATIENT THROUGHOUT THE SHIFT.
--- NOTE | 2019-03-02 19:25 | NUR ---
ENDORSED PT TO PHARMACY AFFAIRS ASSISTANT NURSE. NO SIGNS OF DISTRESS OR C/O PAIN AT THIS TIME.
[2019-03-02 20:00] VITALS: BP 126/53
--- NOTE | 2019-03-02 20:02 | NUR ---
PATIENT AMBULATED TO THE RESTROOM. VITAL SIGNS TAKEN AND CHARTED. NEW IV NORMAL SALINE HUNG AND RUNNING. PATIENT DENIES PAIN AT THIS TIME.
[2019-03-02] MEDS: LISINOPRIL 5 MG TAB PO SCH (21:17)
--- NOTE | 2019-03-02 21:17 | NUR ---
PATIENT LYING DOWN, AWAKE, WATCHING TV. ADMINISTERED PO AND SUBQ MEDICATIONS ORDERED. PATIENT TOLERATED THEM WELL. PATIENT DENIES PAIN AT THIS TIME. WILL CONTINUE TO MONITOR PATIENT.
[2019-03-02] MEDS ORDERED: LOPERAMIDE 2 MG CAP PO SCH (22:00)
--- NOTE | 2019-03-02 23:02 | NUR ---
PATIENT COMPLAINED OF DIARRHEA X 3 TODAY. ADMINISTERED IMODIUM PO ORDERED. WILL CONTINUE TO MONITOR PATIENT.
[2019-03-03] VITALS: BP 115/33
--- NOTE | 2019-03-03 | NUR ---
PATIENT LYING DOWN, ASLEEP. VITAL SIGNS TAKEN AND CHARTED. PATIENT DENIES ANY PAIN AT THIS TIME.
--- NOTE | 2019-03-03 01:45 | NUR ---
MADE ROUNDS. PATIENT LYING DOWN, ASLEEP WITH NO SIGNS OF DISTRESS. WILL CONTINUE TO MONITOR PATIENT.
[2019-03-03 04:00] VITALS: BP 120/42
[2019-03-03] MEDS: HYDROcodone/APAP 5/325 MG 1 TAB TAB PO PRN (04:41)
--- NOTE | 2019-03-03 04:41 | NUR ---
PATIENT AWAKE, COMPLAINS OF CHEST PAIN OF 7/10. ADMINISTERED PO PAIN MEDICATION. PATIENT TOLERATED IT WELL. WILL CONTINUE TO MONITOR PATIENT.
[2019-03-03 05:48] LABS: ANION GAP 10.4 (8-16); CARBON DIOXIDE 27.4 mmol/L (21-32); CHLORIDE 104 mmol/L (98-107); CREATININE 1.5 mg/dL (0.6-1.3); GLUCOSE 110 mg/dL (74-106); POTASSIUM 3.8 mmol/L (3.5-5.1); SODIUM SERUM 138 mmol/L (136-145); UREA NITROGEN, BLOOD 36 mg/dL (7-18)
[2019-03-03 05:56] LABS: MAGNESIUM 2.2 mg/dL (1.8-2.4); PHOSPHORUS 3.9 mg/dL (2.5-4.9)
[2019-03-03 06:20] LABS: BASOPHILS % (AUTO) 0.5 % (0.0-2.0); EOSINOPHILS # (AUTO) 0.2 K/uL (0-0.4); EOSINOPHILS % (AUTO) 2.4 % (0.0-4.0); HEMATOCRIT 37.5 % (36-48); HEMOGLOBIN 12.4 g/dL (12.0-16.0); LYMPHOCYTES # (AUTO) 1.5 K/uL (2.5-16.5); LYMPHOCYTES % (AUTO) 23.8 % (20.5-51.1); MEAN CORPUSCULAR HEMOGLOBIN 29 pg (27-31); MEAN CORPUSCULAR HGB CONC 33 g/dL (33-37); MEAN CORPUSCULAR VOLUME 86.2 fL (80-94); MONOCYTES # (AUTO) 0.4 K/uL (0.8-1.0); MONOCYTES % (AUTO) 6.2 % (1.7-9.3); NEUTROPHILS # (AUTO) 4.2 K/uL (1.8-7.7); NEUTROPHILS % (AUTO) 67.1 % (42.2-75.2); PLATELET COUNT (AUTO) 201 K/uL (140-450); RED BLOOD CELL COUNT(AUTO) 4.35 MIL/uL (4.20-5.40); RED CELL DISTRIBUTION WIDTH 12.5 % (11.6-13.7); WHITE BLOOD COUNT (AUTO) 6.2 K/uL (4.8-10.8)
--- NOTE | 2019-03-03 06:30 | NUR ---
PATIENT AWAKE, LYING DOWN IN BED, WATCHING TV, WITH NO SIGNS OF DISTRESS.
[2019-03-03] MEDS ORDERED: ALBUTEROL SULFATE/IPRATROPIU 3 ML SOL IH PRN (06:35)
[2019-03-03] MEDS: ALBUTEROL SULFATE/IPRATROPIU 3 ML SOL IH SCH (06:54)
--- NOTE | 2019-03-03 06:58 | NUR ---
RECEIVED PATIENT ON ROOM AIR, PULSE OX SAT 95%. PATIENT REFUSED SCHEDULED BREATHING TREATMENT. PT STATES SHE "DOESN'T NEED ONE THIS MORNING." NO SOB/WHEEZING. NO RESPIRATORY DISTRESS NOTED AT THIS TIME. WILL CONTINUE TO MONITOR.
--- NOTE | 2019-03-03 07:15 | NUR ---
ENDORSED PATIENT TO AM SHIFT NURSE FOR CONTINUITY OF CARE. PATIENT IS LYING DOWN, AWAKE, WATCHING TV. PATIENT DENIES ANY PAIN AT THIS TIME.
--- NOTE | 2019-03-03 07:17 | NUR ---
RECEIVED BEDSIDE REPORT FROM PSYCHIATRIC TECHNICIAN NURSE FOR CONTINUITY OF CARE. PATIENT IS AWAKE AND WATCHING TV ON BED AT THIS TIME. PATIENT IS AAOX4. DENIES PAIN, SOB AND DIZZINESS AT THIS TIME. RESPIRATION EVEN AND UNLABORED ON RA. NO SIGNS OF DISTRESS NOTED. IV ON R HAND #22G, CLEAN AND INTACT, INFUSING PER MD ORDER. SKIN INTACT AND CLAEN. PATIENT IS CONTINENT AND ABLE TO AMBULATE WITH STEADY GAIT. DISCUSSED PLAN OF CARE WITH PATIENT AT BEDSIDE, BOTH VERBALIZED UNDERSTANDING. SAFETY MEASURES IN PLACE. BED IN LOW POSITION AND CALL LIGHT WITHIN REACH. INSTRUCTED PATIENT TO USE THE CALL LIGHT FOR ANY ASSISTANCE AND PATIENT VERBALIZED OK.
[2019-03-03 08:00] VITALS: BP 104/40
[2019-03-03] MEDS ORDERED: NAPR-54 PO (08:19)
[2019-03-03] MEDS ORDERED: FAMO20TA13 PO (08:19)
[2019-03-03] MEDS: FENOFIBRATE 48 MG TAB PO SCH (08:42)
[2019-03-03] MEDS: FAMOTIDINE 20 MG TAB PO SCH (08:42)
[2019-03-03] MEDS: ATORVASTATIN 20 MG TAB PO SCH (08:43)
[2019-03-03] MEDS: NIFEdipine 60 MG TABER PO SCH (08:46)
--- NOTE | 2019-03-03 08:49 | NUR ---
ADMINISTERED MEDS PER MD ORDER, PATIENT TOLERATED WELL. HOLD NIFEDIPINE DUE TO LOW BP. MEDICATIONS EDUCATION PROVIDED TO PATIENT AT BEDSIDE AND PATIENT VERBALIZED UNDERSTANDING. INFORMED PATIENT THAT DC ORDER HAS BEEN IN. PER PATIENT, SHE WILL CONTACT HER GRANDDAUGHTER TO FIND OUT THE TIME SHE IS COMING TO PICK HER UP FROM THE HOSPITAL. PATIENT IS RESTING ON BED AND WATCHING TV AT THIS TIME. DENIES PAIN AND SOB. NO SIGNS OF DISTRESS NOTED. SAFETY MEASURES IN PLACE. TELE MONITOR ATTACHED. BED IN LOW POSITION AND CALL LIGHT WITHIN REACH. INSTRUCTED PATIENT TO USE THE CALL LIGHT FOR ANY ASSISTANCE AND PATIENT WAS AWARE.
--- NOTE | 2019-03-03 09:29 | NUR ---
PATIENT IS DOING PHYSICAL THERAPY WITH PT AT THIS TIME. NO SIGNS OF DISTRESS NOTED.
--- NOTE | 2019-03-03 10:03 | NUR ---
PER PATIENT, HER GRANDDAUGHTER WILL COME TO PICK HER UP AT 1230. INFORMED PATIENT THAT DC DOCUMENT WILL BE PREPARED AND READY WHEN HER GRANDDAUGHTER ARRIVES TO THE HOSPITAL. PATIENT IS RESTING ON BED AT THIS TIME. DENIES PAIN AND DIZZINESS. NO SIGNS OF DISTRESS NOTED. SAFETY MEASURES IN PACE. BED IN LOW POSITION AND CALL LIGHT WITHIN REACH. INSTRUCTED PATIENT TO USE THE CALL LIGHT FOR ANY ASSISTANCE AND PATIENT WAS AWARE.
--- NOTE | 2019-03-03 10:32 | NUR ---
SPOKE WITH [facility] REGARDING THE OUT PATIENT STRESS TEST F/U . PER ROMULO CAN NOT BE DONE AT [facility] OUT PATIENT STRESS TEST BECAUSE OF THE INSURANCE OUT OF THE AREA. I FAXED THE ORDER AND CARDIO CONSULT TO FAX [phone] AND ROMULO WILL F/U AND CONTACT THE PATIENT.
--- NOTE | 2019-03-03 11:35 | NUR ---
PATIENT IS AWAKE AND RESTING ON BED. DENIES PAIN, DIZZINESS AND SOB. PER PATIENT, SHE SAID SHE JUST SPOKE WITH HER GRANDDAUGHTER OVER THE PHONE THAT HE GRANDDAUGHTER WILL BE PICKING UP FROM AROUND 1230ISH. NO SIGNS OF DISTRESS NOTED, SAFETY MEASURES IN PLACE. TELE MONITOR ATTACHED. BED IN LOW POSITION AND CALL LIGHT WITHIN REACH. INSTRUCTED PATIENT TO USE THE CALL LIGHT FOR ANY ASSISTANCE AND PATIENT WAS AWARE. AWAITING FOR GRANDDAUGHTER TO ARRIVE TO HOSPITAL.
[2019-03-03 12:00] VITALS: BP 114/42
--- NOTE | 2019-03-03 12:10 | NUR ---
PATIENT IS EATING HER LUNCH ON BED. NO SIGNS OF DISTRESS NOTED. AWAITING FOR GRANDDAUGHTER TO ARRIVE FOR DC. SAFETY MEASURES IN PLACE. BED IN LOW POSITION AND CALL LIGHT WITHIN REACH.
--- NOTE | 2019-03-03 12:25 | NUR ---
PATIENT IS CHANGING INTO HER OWN CLOTHES. NO SIGNS OF DISTRESS NOTED. SAFETY MEASURES IN PLACE. AWAITING FOR GRANDDAUGHTER TO ARRIVE TO [place].
--- NOTE | 2019-03-03 12:45 | NUR ---
DISCHARGE INSTRUCTION PROVIDED TO PATIENT AT BEDSIDE. EDUCATED PATIENT ON MD FOLLOW UP, DISEASE MANAGEMENT, MEDICATIONS REGIMEN AND SIDE EFFECT, AND DIET REGIMEN. ANSWERED ALL PATIENT'S QUESTIONS AND PATIENT VERBALIZED UNDERSTANDING. D/C IV AND IV CANNULA INTACT, AND NO BLEEDING AT IV SITE. REMOVED ALL ARM BANDS. PATIENT CHANGED INTO HER OWN CLOTHES. PATIENT CHECKED ALL THE CABINETS AND TOOK ALL HER BELONGINGS. PATIENT IS GOING TO DISCHARGE AT THIS TIME IN STABLE CONDITION. PATIENT IS ACCOMPANIED BY HER GRANDDAUGHTER.
== END 2019-03-03 12:45 | disposition home or self-care (01) | DRG 205 ==
LOC: MED 17:13 → MTU 19:19
PROVIDERS: ADMIT General Practice; ATTEND General Practice
DX: M94.0 Chondrocostal junction syndrome [Tietze] (principal); N17.0 Acute kidney failure with tubular necrosis; N18.4 Chronic kidney disease, stage 4 (severe); K21.9 Gastro-esophageal reflux disease without esophagitis; E66.9 Obesity, unspecified; J44.9 Chronic obstructive pulmonary disease, unspecified; I48.91 Unspecified atrial fibrillation; F32.9 Major depressive disorder, single episode, unspecified; E78.5 Hyperlipidemia, unspecified; I27.21 Secondary pulmonary arterial hypertension; I13.10 Hypertensive heart and chronic kidney disease without heart failure, with stage 1 through stage 4 chronic kidney disease, or unspecified chronic kidney disease; I45.10 Unspecified right bundle-branch block; I70.0 Atherosclerosis of aorta; Z68.34 Body mass index [BMI] 34.0-34.9, adult; Z71.3 Dietary counseling and surveillance; Z88.5 Allergy status to narcotic agent; Z88.0 Allergy status to penicillin; Z88.2 Allergy status to sulfonamides; Z88.8 Allergy status to other drugs, medicaments and biological substances; Z90.49 Acquired absence of other specified parts of digestive tract; Z90.710 Acquired absence of both cervix and uterus; Z83.3 Family history of diabetes mellitus
CPT/HCPCS: 36415; 71045; 80048; 80053; 81001; 83036; 83690; 83735; 83880; 84100; 84484; 85025; 85379; 85610; 85730; 86140; 87081; 93005; 94640; 97110; 97116; 97161-GP; 97530; 99285; J1644; J1885; J7030; J7620; Q0092

== ENCOUNTER 2019-04-13 20:07 | Inpatient (IN) | payer OTHER ==
[~2019-04-13] VITALS: Ht 157.5 cm; Wt 79.8 kg
[~2019-04-13 20:07] MED LIST changes: +FAMO20TA13 PO; +NAPR-54 PO
[2019-04-13 20:12] VITALS: BP 154/58
--- NOTE | 2019-04-13 20:12 | NUR ---
78/F PRESENTS SELF TO ED, C/O PRESSURE ON BL CHEST, UPPER BACK AND NECK, X1 DAY SINCE THIS AM. PT REPORTS RESOLVED NAUSEA, DENIES VOMITING. DENIES FEVER OR COUGH. PT AWAKE AND ALERT, SKIN NORMAL LOOSE WARM, RR EVEN AND UNLABORED. LUNG SOUNDS CLEAR BL. HR EVEN AND REGULAR, NSR ON MONITOR. HX HTN, HLD, GERD, COPD (QUIT SMOKING 16 YEARS AGO), VENTRAL HERNIA SURGERY, CHOLECYSTECTOMY, VAG HYSTERECTOMY OTC MOTRIN WITHOUT RELIEF
--- NOTE | 2019-04-13 20:49 | NUR ---
X RAY AT BEDSIDE
[2019-04-13 21:13] LABS: BASOPHILS % (AUTO) 0.5 % (0.0-2.0); EOSINOPHILS # (AUTO) 0.1 K/uL (0-0.4); EOSINOPHILS % (AUTO) 1.9 % (0.0-4.0); HEMATOCRIT 39.1 % (36-48); HEMOGLOBIN 12.7 g/dL (12.0-16.0); LYMPHOCYTES # (AUTO) 1.6 K/uL (2.5-16.5); LYMPHOCYTES % (AUTO) 24.7 % (20.5-51.1); MEAN CORPUSCULAR HEMOGLOBIN 28 pg (27-31); MEAN CORPUSCULAR HGB CONC 33 g/dL (33-37); MEAN CORPUSCULAR VOLUME 86.6 fL (80-94); MONOCYTES # (AUTO) 0.3 K/uL (0.8-1.0); MONOCYTES % (AUTO) 4.8 % (1.7-9.3); NEUTROPHILS # (AUTO) 4.5 K/uL (1.8-7.7); NEUTROPHILS % (AUTO) 68.1 % (42.2-75.2); PLATELET COUNT (AUTO) 217 K/uL (140-450); RED BLOOD CELL COUNT(AUTO) 4.52 MIL/uL (4.20-5.40); RED CELL DISTRIBUTION WIDTH 12.7 % (11.6-13.7); WHITE BLOOD COUNT (AUTO) 6.6 K/uL (4.8-10.8)
[2019-04-13 21:27] LABS: ALBUMIN 3.6 g/dL (3.4-5.0); ANION GAP 10.6 (8-16); ASPARTATE AMINOTRANSFERASE 17 U/L (15-37); CARBON DIOXIDE 27.7 mmol/L (21-32); CHLORIDE 104 mmol/L (98-107); CREATININE 1.9 mg/dL (0.6-1.3); GLUCOSE 110 mg/dL (74-106); POTASSIUM 4.3 mmol/L (3.5-5.1); SODIUM SERUM 138 mmol/L (136-145); TOTAL BILIRUBIN 0.3 mg/dL (0.0-1.0); UREA NITROGEN, BLOOD 33 mg/dL (7-18)
--- NOTE | 2019-04-13 21:45 | NUR ---
PT LAYING IN BED. FOWLERS POSITION. VITALS STABLE. EVEN UNLABORED RESP. 6/10 PAIN. ALL NEEDS MET.
--- NOTE | 2019-04-13 22:47 | NUR ---
PT BACK FROM XRAY
[2019-04-13] MEDS ORDERED: NIFE30TE5 PO (23:28)
[2019-04-13] MEDS ORDERED: LIP80 PO (23:28)
[2019-04-14] MEDS ORDERED: ACETAMINOPHEN 325 MG TAB PO PRN (00:05)
[2019-04-14] MEDS ORDERED: HYDROcodone/APAP 7.5/325 MG 1 TAB PO PRN (00:05)
[2019-04-14] MEDS ORDERED: DOCUSATE SODIUM 100 MG GELCAP PO PRN (00:05)
[2019-04-14] MEDS ORDERED: FAMOTIDINE 20 MG/2 ML VIAL IV PRN (00:05)
[2019-04-14 00:31] LABS: PROTHROMBIN TIME 9.9 secs (10.8-13.4)
[2019-04-14 00:39] LABS: CHOL/HDL RATIO 3.5 (1-4.5); FREE T4 (FREE THYROXINE) 0.95 ng/dL (0.76-1.46); MAGNESIUM 2.1 mg/dL (1.8-2.4); THYROID STIMULATING HORMONE 0.97 uIU/mL (0.34-3.74)
--- NOTE | 2019-04-14 00:39 | NUR ---
SPOKE WITH ASHISH, PT'S DAUGHTER'S , NOTIFIED THAT PT WILL BE ADMITTED.
--- NOTE | 2019-04-14 00:42 | NUR ---
PT LAYING IN BED, RR EVEN AND UNLABORED. VSS. ALL NEEDS MET.
[2019-04-14] MEDS ORDERED: FENO145T PO ×2 (00:48→05:04)
[2019-04-14] MEDS ORDERED: ASPIRIN 81 MG TAB.CHEW PO ONE (00:55)
--- NOTE | 2019-04-14 00:55 | NUR ---
Patient will be admitted to care of VICKERS. Admited to TELE. Will go to room 127B. Belongings list completed. Report to BALTAZAR.
[2019-04-14] MEDS ORDERED: ALBUTEROL SULFATE/IPRATROPIU 3 ML SOL IH PRN ×2 (01:00→07:10)
[2019-04-14 01:05] VITALS: BP 144/65
--- NOTE | 2019-04-14 01:05 | NUR ---
RECEIVED BEDSIDE REPORT FROM CARLA MORENO. PT IS AAOX4. AMBULATED FROM GURNEY TO BED WITH STEADY GAIT. PT ON RA LUNG SOUNDS ARE CLEAR. SKIN IS INTACT. PT STATES CHEST PAIN BEGAN YESTERDAY MORNING AND TOOK IBUPROFEN WITH SOME RELIEF BUT PAIN GOT WORSE AND RADIATES TO BACK AND NECK. IV ON R HAND 22G SL. VS: 144/65 HR 62 94% RA RR 19 97.7 PAIN 6/10. MRSA SWAB OBTAINED. PLAN OF CARE DISCUSSED WITH PT. ORIENTED PT TO ROOM,STAFF,VISITING HOURS AND CALL LIGHT. SAFETY MEASURES ARE IN PLACE. BED ALARM ON. WILL ROUND FREQUENTLY.
[2019-04-14] MEDS ORDERED: MEDICATION REC. PHARMACY CONS. 1 EA MISC MC PRN (01:10)
[2019-04-14] MEDS ORDERED: MELATONIN 3 MG TAB PO PRN (01:10)
[2019-04-14] MEDS: FAMOTIDINE 20 MG/2 ML VIAL IV SCH (01:17)
--- NOTE | 2019-04-14 01:17 | NUR ---
ADMINISTERED NORCO FOR PAIN. AALIYAH MEDICATIONS GIVEN. PT TOLERATED WELL.
[2019-04-14] MEDS: HYDROcodone/APAP 10/325 MG 1 TAB TAB PO PRN ×4 (01:18→22:56)
--- NOTE | 2019-04-14 02:00 | NUR ---
DR JOHNSTON AT BEDSIDE WILL F/U ANY NEW ORDERS. PT IN STABLE CONDITION
[2019-04-14 04:00] VITALS: BP 134/57
[2019-04-14] MEDS: NACL 0.9% 1,000 ML IV SCH ×2 (04:15→16:10)
--- NOTE | 2019-04-14 04:15 | NUR ---
IVF NOW INFUSING PER ORDERS. VITAL SIGNS ARE WITHIN NORMAL LIMITS. ALL NEEDS MET AT THIS TIME.
[2019-04-14] MEDS ORDERED: hePARIN / DEXT 5% PREMIX 250 ML IV SCH (04:50)
[2019-04-14] MEDS ORDERED: HEPARIN PER PHARMACY MC PRN (04:50)
[2019-04-14] MEDS ORDERED: NIFE60TE5 PO (05:04)
[2019-04-14] MEDS ORDERED: FENO160T9 PO (05:07)
[2019-04-14] MEDS: hePARIN / DEXT 5% PREMIX 250 ML IV SCH ×3 (05:23→20:01)
--- NOTE | 2019-04-14 05:37 | NUR ---
HEPARIN BOLUS 5000U GIVEN AND HEPARIN DRIP AT 1440U/H. ORDERED PTT IN 6HRS AT 1130. PT TOLERATED WELL. WILL CONTINUE TO MONITOR.
[2019-04-14 06:44] LABS: BASOPHILS % (AUTO) 0.3 % (0.0-2.0); EOSINOPHILS # (AUTO) 0.1 K/uL (0-0.4); EOSINOPHILS % (AUTO) 1.9 % (0.0-4.0); HEMATOCRIT 35.5 % (36-48); HEMOGLOBIN 11.7 g/dL (12.0-16.0); LYMPHOCYTES # (AUTO) 1.6 K/uL (2.5-16.5); LYMPHOCYTES % (AUTO) 25.9 % (20.5-51.1); MEAN CORPUSCULAR HEMOGLOBIN 29 pg (27-31); MEAN CORPUSCULAR HGB CONC 33 g/dL (33-37); MEAN CORPUSCULAR VOLUME 87.3 fL (80-94); MONOCYTES # (AUTO) 0.5 K/uL (0.8-1.0); MONOCYTES % (AUTO) 7.5 % (1.7-9.3); NEUTROPHILS % (AUTO) 64.4 % (42.2-75.2); PLATELET COUNT (AUTO) 181 K/uL (140-450); RED BLOOD CELL COUNT(AUTO) 4.06 MIL/uL (4.20-5.40); RED CELL DISTRIBUTION WIDTH 12.6 % (11.6-13.7); WHITE BLOOD COUNT (AUTO) 6.3 K/uL (4.8-10.8)
[2019-04-14] MEDS: ALBUTEROL SULFATE/IPRATROPIU 3 ML SOL IH SCH ×3 (07:05→19:19)
--- NOTE | 2019-04-14 07:15 | NUR ---
RECEIVED REPORT FROM SALES DEVELOPER NURSE. PATIENT IS RESTING QUIETLY IN BED. PATIENT IS A & O X4 AND ON ROOM AIR. IV GAUGE TO RIGHT HAND 22. SKIN IS INTACT. WILL CONTINUE TO MONITOR.
[2019-04-14] MEDS: BUDESONIDE 0.5 MG/2 ML NEBU INH SCH ×2 (07:16→19:19)
--- NOTE | 2019-04-14 07:20 | NUR ---
GAVE BEDSIDE REPORT TO DAY RN. PT ENDORSED IN STABLE CONDITION.
[2019-04-14 07:31] LABS: ANION GAP 12.2 (8-16); CHLORIDE 107 mmol/L (98-107); CREATININE 1.7 mg/dL (0.6-1.3); GLUCOSE 109 mg/dL (74-106); POTASSIUM 4.2 mmol/L (3.5-5.1); SODIUM SERUM 141 mmol/L (136-145); UREA NITROGEN, BLOOD 35 mg/dL (7-18)
[2019-04-14 08:00] VITALS: BP_SYST 133; BP_SYST 137; BP_DIAS 48; BP_DIAS 67
[2019-04-14] MEDS: ASPIRIN 81 MG TAB.CHEW PO SCH (08:25)
[2019-04-14] MEDS: METOPROLOL 25 MG TAB PO SCH ×2 (08:27→20:51)
[2019-04-14] MEDS: FENOFIBRATE 48 MG TAB PO SCH (08:27)
--- NOTE | 2019-04-14 08:34 | NUR ---
PATIENT HAS BEEN SCREENED AND CATEGORIZED HIGH NUTRITION RISK. PATIENT WILL BE SEEN WITHIN 1-2 DAYS OF ADMISSION. 04/14/19-04/15/[address]
--- NOTE | 2019-04-14 08:40 | NUR ---
ADMINISTERED MORNING MEDICATION TO PATIENT. PATIENT TOLERATED WELL AND WAS ABLE TO SWALLOW PO. HELD MORNING DOSE OF METOPROLOL D/T NE OF 58.
--- NOTE | 2019-04-14 08:45 | NUR ---
ADMINISTERED NORCO FOR PAIN 02/09. WILL RE ASSESS PAIN IN ONE HOUR.
[2019-04-14] MEDS ORDERED: FENOFIBRATE 48 MG TAB PO SCH ×2 (09:00)
[2019-04-14] MEDS ORDERED: NIFEdipine 60 MG TABER PO SCH (09:00)
[2019-04-14] MEDS ORDERED: LISINOPRIL 10 MG TAB PO SCH (09:00)
--- NOTE | 2019-04-14 09:14 | NUR ---
ASSISTED PATIENT STANDBY WHILE SHE AMBULATED TO THE RESTROOM. PATIENT AMBULATED FINE WITH NO SOB, NO RESP DISTRESS. PATIENT IS BACK IN BED, NO FURTHER C/O
[2019-04-14] MEDS: ONDANSETRON 4 MG/2 ML VIAL IM/IVP PRN (09:52)
[2019-04-14] MEDS: AZITHROMYCIN 500 MG in DEXTROSE 5% 250 ML IV SCH (10:27)
--- NOTE | 2019-04-14 10:43 | NUR ---
*S.T. NOTE* Bedside swallow eval completed. Pt presents w/ adequate oropharyngeal swallow function w/o overt s/s aspiration. Age-related changes attributed to pt's c/o sticking sensation w/ eating bread. Recommend: 1) Continue mechanical soft diet, thin liquids ok. 2) P.O. meds whole as tolerated 3) Defer to MD/DO for dietary restrictions 4) Avoid bread or take very small bites and wash down with liquids. 5) No further tx indicated at this time. DC to [facility]. Endorsed to JOSH Claudio. Time: 4435-5330
[2019-04-14 12:00] VITALS: BP 114/48
--- NOTE | 2019-04-14 12:05 | NUR ---
RECEIVED CRITICAL LAB VALUE OF TROPONIN 0.067 AND APTT 125.4. DISCONTINUED HEPARIN DRIP FOR ONE HOUR PER PROTOCOL. WILL RESUME IN ONE HOUR AND TITRATE RATE. MD MADE AWARE FOR BOTH VALUES. NO FURTHER CHANGE IN ORDERS.
--- NOTE | 2019-04-14 13:10 | NUR ---
RESTARTED HEP DRIP WITH TITRATED RATE. WILL CONTINUE TO MONITOR PATIENT FOR S/S OF BLEEDING. FAMILY IS AT BEDSIDE.
--- NOTE | 2019-04-14 13:40 | NUR ---
DR MCINTOSH DECREASED PS TO 8 Addendum: 04/14/19 at 1357 by Kely Chao RT WRONG PT
--- NOTE | 2019-04-14 15:02 | NUR ---
04/14/19 RD INITIAL ASSESSMENT COMPLETED PLEASE REFER TO NUTRITION ASSESSMENT UNDER CARE ACTIVITY FOR ESTIMATED NUTRITIONAL NEEDS. 1. CONTINUE CARDIAC MECHANICAL SOFT DIET TOLERATED 2. RD PROVIDED HEART HEALTHY NUTRITION THERAPY EDUCATION. PT ACCEPTED 3. ENCOURAGE INCREASING PO INTAKE 4. RD TO FOLLOW-UP 3-5 DAYS, MODERATE RISK JEFFREY GARCIA RD
[2019-04-14 16:00] VITALS: BP 133/67
--- NOTE | 2019-04-14 16:16 | NUR ---
PT REFUSES IS DUE OT PAIN, IS LEFT AT BEDSIDE
[2019-04-14] MEDS: NITROGLYCERIN 0.4 MG TAB SL PRN ×3 (16:59→17:12)
--- NOTE | 2019-04-14 17:00 | NUR ---
ADMINISTERED NITROGLYCERIN SUBLINGUAL FOR CHEST PAIN. WILL RE ASSESS AFTER 5 MIN.
--- NOTE | 2019-04-14 17:16 | NUR ---
ADMINISTERED 3 NITROGLYCERIN SUBLINGUAL TABS 5 MIN APART. WILL REASSESS AND NOTIFY MD IF PATIENT IS STILL EXPERIENCING CHEST PAIN.
--- NOTE | 2019-04-14 17:50 | NUR ---
PLACED PATIENT ON NASAL CANNULA 4L WITH THE ASSISTANCE OF RT FOR ANXIETY AND SLIGHT SOB. PATIENTS VITAL SIGNS WNL. O2 SAT IS 97%. WILL CONTINUE TO MONITOR
[2019-04-14] MEDS: LORazepam 2 MG/ML VIAL IM/IVP PRN (18:30)
--- NOTE | 2019-04-14 18:36 | NUR ---
ADMINISTERED ATIVAN PRN FOR ANXIETY. WILL CONTINUE TO MONITOR
[2019-04-14 18:51] LABS: PROTHROMBIN TIME 9.8 secs (10.8-13.4)
--- NOTE | 2019-04-14 19:30 | NUR ---
RECEIVED PT FROM ALEX MORENO PT AAOX4 WITH DX CHEST PAIN AND HIGH TROPONIN ON HEPARIN DRIP 1200 UNITS/H INFUSING WELL ON RT HAND AND HEP LOCK ON LEFT FA, PENDING RESULT OF PTT TAKEN RECENTLY PT ON TELEMETRY SR BBB INITIAL ASSESSMENT DONE
[2019-04-14 20:00] VITALS: BP 132/63
--- NOTE | 2019-04-14 20:01 | NUR ---
AFTER HEPARIN IV PUSH GIVEN FOLLOWING PROTOCOL PTT 41.4 START HEPARIN DRIP RATE 1360 UNITS/H OR 13.6 ML/H, PT AMBULATORY REMAIN STABLE AT THIS TIME
[2019-04-14] MEDS ORDERED: SIMVASTATIN 10 MG TAB PO SCH (21:00)
[2019-04-14] MEDS ORDERED: NIFEdipine 30 MG TABER PO SCH (21:00)
--- NOTE | 2019-04-14 22:00 | NUR ---
PT AMBULATES TO THE RESTROOM VOIDING WELL NOT DISTRESS NOTE ON TELMETRY SR BBB
--- NOTE | 2019-04-14 23:20 | NUR ---
AFTER PAIN MEDIC GIVEN PT SLEEPING WELL
[2019-04-15] VITALS (7 sets, daily range): BP systolic 113–135; BP diastolic 56–67
[2019-04-15] MEDS: FAMOTIDINE 20 MG/2 ML VIAL IV SCH (00:24)
--- NOTE | 2019-04-15 00:32 | NUR ---
PT DENIES ANY PAIN , SHE IS ASSISTED TO THE RESTROOM ON HEPARIN DRIP 13.6 ML/H ON TELEMETRY SR BBB
--- NOTE | 2019-04-15 02:00 | NUR ---
PT ON HEPARIN DRIP NOT DISTRESS NOTED AMBULATES TOTHE RESTROOM IV INFUSING WELL ON RT HAND ON TELEMETRY SB BBB
--- NOTE | 2019-04-15 03:05 | NUR ---
AT 0305 LAB REPORT PTT 132.2 THEN HEPARIN DRIP WILL BE HOLD FOR ONE HOUR AND FOLLOW HEPARIN PROTOCOL . PT REMAIN STABLE SLEEPING WELL
[2019-04-15] MEDS: hePARIN / DEXT 5% PREMIX 250 ML IV SCH ×3 (04:13→11:00)
--- NOTE | 2019-04-15 04:13 | NUR ---
AT 0413 FOLLOW HEPARIN PROTOCOL WILL START HEPARIN DRIP AT 1120 UNITS/H ON RT HAND INFUSING WELL
[2019-04-15] MEDS: NACL 0.9% 1,000 ML IV SCH ×2 (04:40→17:58)
--- NOTE | 2019-04-15 05:00 | NUR ---
SPONGE BATH GIVEN LINEN CHANGED REPOSITIONED ON TELMETRY SB BBB INVERTED T
--- NOTE | 2019-04-15 06:03 | NUR ---
PT SLEEPING WELL , REMAIN STABLE AT THIS TIME , PT WILL BE ENDORSED TO DAY SHIFT NURSE FOR CONTINUE OF CARE
[2019-04-15 06:21] LABS: BASOPHILS % (AUTO) 0.5 % (0.0-2.0); EOSINOPHILS # (AUTO) 0.2 K/uL (0-0.4); EOSINOPHILS % (AUTO) 3.8 % (0.0-4.0); HEMATOCRIT 35.8 % (36-48); HEMOGLOBIN 11.8 g/dL (12.0-16.0); LYMPHOCYTES # (AUTO) 1.8 K/uL (2.5-16.5); LYMPHOCYTES % (AUTO) 34.6 % (20.5-51.1); MEAN CORPUSCULAR HEMOGLOBIN 29 pg (27-31); MEAN CORPUSCULAR HGB CONC 33 g/dL (33-37); MEAN CORPUSCULAR VOLUME 87.4 fL (80-94); MONOCYTES # (AUTO) 0.4 K/uL (0.8-1.0); MONOCYTES % (AUTO) 7.2 % (1.7-9.3); NEUTROPHILS # (AUTO) 2.9 K/uL (1.8-7.7); NEUTROPHILS % (AUTO) 53.9 % (42.2-75.2); PLATELET COUNT (AUTO) 200 K/uL (140-450); RED BLOOD CELL COUNT(AUTO) 4.09 MIL/uL (4.20-5.40); RED CELL DISTRIBUTION WIDTH 12.7 % (11.6-13.7); WHITE BLOOD COUNT (AUTO) 5.3 K/uL (4.8-10.8)
[2019-04-15 06:30] LABS: ANION GAP 13.4 (8-16); CARBON DIOXIDE 26.3 mmol/L (21-32); CHLORIDE 103 mmol/L (98-107); CREATININE 1.4 mg/dL (0.6-1.3); GLUCOSE 100 mg/dL (74-106); POTASSIUM 4.7 mmol/L (3.5-5.1); SODIUM SERUM 138 mmol/L (136-145); UREA NITROGEN, BLOOD 28 mg/dL (7-18)
[2019-04-15 06:39] LABS: MAGNESIUM 2.1 mg/dL (1.8-2.4); PHOSPHORUS 3.4 mg/dL (2.5-4.9)
[2019-04-15] MEDS: ALBUTEROL SULFATE/IPRATROPIU 3 ML SOL IH SCH ×3 (06:48→19:47)
[2019-04-15] MEDS: BUDESONIDE 0.5 MG/2 ML NEBU INH SCH ×2 (06:56→19:47)
--- NOTE | 2019-04-15 07:20 | NUR ---
RECEIVED REPORT FROM AUTOMOBILE MECHANIC HELPER NURSE. PATIENT IS AWAKE AND SITTING UP IN BED. PATIENT HAS A NASAL CANNULA AT 3L AND HEP DRIP IS RUNNING AT 13.2ML. PATIENT IS A&O X 4. NO COMPLAINTS, NO SIGNS OF RESP DISTRESS. WILL CONTINUE TO MONITOR.
[2019-04-15] MEDS: METOPROLOL 25 MG TAB PO SCH ×2 (09:00→20:40)
[2019-04-15] MEDS ORDERED: NIFEdipine 30 MG TABER PO SCH (09:00)
--- NOTE | 2019-04-15 09:04 | NUR ---
HELD MORNING DOSE OF METOPROLOL FOR PULSE RATE OF 60 BPM. ADMINISTERED MORNING MEDICATION, PATIENT TOLERATED WELL. PER PATIENTS REQUEST, ADMINISTERED ATIVAN IVP FOR ANXIETY.
[2019-04-15] MEDS: FENOFIBRATE 48 MG TAB PO SCH (09:06)
[2019-04-15] MEDS: LORazepam 2 MG/ML VIAL IM/IVP PRN (09:06)
[2019-04-15] MEDS: ASPIRIN 81 MG TAB.CHEW PO SCH (09:07)
--- NOTE | 2019-04-15 11:00 | NUR ---
PATIENT IS RESTING QUIETLY IN BED. NO COMPLAINTS OF PAIN AT THIS MOMENT. WILL CONTINUE TO MONITOR.
[2019-04-15] MEDS: AZITHROMYCIN 500 MG in DEXTROSE 5% 250 ML IV SCH (11:01)
--- NOTE | 2019-04-15 11:49 | NUR ---
RECEIVED CRITICAL LAB VALUE OF PTT 67.4. DID NOT CONTACT MD DUE TO HEPARIN PROTOCOL. WILL CONTINUE TO MONITOR.
--- NOTE | 2019-04-15 12:26 | NUR ---
RECEIVED A CALL FROM [facility], SHE STATED THAT THE PATIENT IS OUT OF NETWORK. IF THE PATIENT NEED TO STAY, WE HAVE TO TRANSFER THE PATIENT TO A CONTRACTED FACILITY OR SHE CAN PROVIDE A PHYSICIAN TO PHYSICIAN CALL. CALLED RESIDENT'S ROOM, DR ORTIZ IS NOT AVAILABLE LEFT MESSAGE TO DR. SEGUNDO AND DR. ANTOINE.
--- NOTE | 2019-04-15 13:44 | NUR ---
RECEIVED A CALL FROM EWA ALEJANDRO FROM [facility], SHE PROVIDED ME OF DR. MCKEON OF [facility] [phone] FOR PHYSICIAN TO PHYSICIAN CALL. DR. ORTIZ MADE AWARE. PER DR. ORTIZ, HE MADE THE CALL TO DR. MCKEON OF [facility] AND IS ABLE TO ACCEPT THE PATIENT. LEFT MESSAGE TO EWA ALEJANDRO AT [facility].
--- NOTE | 2019-04-15 14:00 | NUR ---
PATIENT RECEIVED NEW IV INSERTION D/T PAINFUL IV SITE PRIOR. NEW IV IS IN THE LEFT WRIST 22G. IV IS PATENT, INTACT AND FLUSHING WELL.
--- NOTE | 2019-04-15 14:10 | NUR ---
[facility]CE[facility] A CALL [facility]. SHE STATED TO GO AHEAD AND FAX CLINICAL TO [facility] AT [phone]. AND ALSO PROVIDED ME WITH TRANSPORT AUTH #[id number] [place] OR [facility]. ALL CLINICALS FAXED TO THE PROVIDED FAX NUMBER.
[2019-04-15] MEDS: ONDANSETRON 4 MG/2 ML VIAL IM/IVP PRN (14:59)
[2019-04-15] MEDS ORDERED: KETOROLAC 15 MG/ML VIAL IVP SCH (15:30)
--- NOTE | 2019-04-15 15:38 | NUR ---
CONTACTED THE [facility] AT [phone], ABLE TO SPEAK TO MAHENDRA. SHE STATED THAT THEY WILL REVIEW THE CASE AND SHE WILL GIVE US A CALL. I PROVIDED HER WITH THE FLOOR AND AGENT PRODUCER'S NUMBER
--- NOTE | 2019-04-15 17:50 | NUR ---
PATIENT IS UP IN BED EATING DINNER. PATIENT IS ON ROOM AIR. NO COMPLAINTS AT THIS TIME. A NEW BAG OF NS WAS INITIATED AT 80ML/HR PER MD ORDER.
--- NOTE | 2019-04-15 19:15 | NUR ---
ENDORSED PATIENT TO SOFTWARE QA SYSTEM SPECIALIST NURSE. PATIENT STABLE UPON ENDORSEMENT
--- NOTE | 2019-04-15 19:30 | NUR ---
ASSUMED CARE OF PATIENT, PATIENT IN STABLE CONDITION. NO COMPLAINS. CALL LIGHT WITHIN REACH.
--- NOTE | 2019-04-15 20:00 | NUR ---
VITAL SIGNS STABLE. CALL LIGHT WITHIN REACH. CARE BOARD UPDATED. PLAN OF CARE DISCUSSED WITH PATIENT, VERBALIZED UNDERSTANDING WELL.
--- NOTE | 2019-04-15 21:00 | NUR ---
DUE MEDS GIVEN. [facility] PATIENT MADE AWARE. CALL LIGHT WITHIN REACH.
--- NOTE | 2019-04-15 21:30 | NUR ---
RESIDENT MD AWARE, ORDER FOR DC TRANSFER NOTED. GIVE HEPARIN 5000 IV PRIOR TO DC. REPORT CALLED TO DANIELLA HOWE RN, [facility]. [facility] TO PICK BETWEEN 11-12PM. DAUGHTER JACOBO AWARE OF TRANSFER CONSUELO.
--- NOTE | 2019-04-15 23:30 | NUR ---
PICKED UP BY [facility] VIA GURNEY TO [facility]. REPORT GIVEN TO [facility]PERSONNEL.
== END 2019-04-15 23:30 | disposition short-term general hospital (02) | DRG 280 ==
LOC: MED 20:07 → MMU 04-14 00:03
PROVIDERS: ADMIT General Practice; ATTEND General Practice
DX: I21.A1 Myocardial infarction type 2 (principal); N17.0 Acute kidney failure with tubular necrosis; I50.43 Acute on chronic combined systolic (congestive) and diastolic (congestive) heart failure; E66.9 Obesity, unspecified; I10 Essential (primary) hypertension; E78.5 Hyperlipidemia, unspecified; K21.9 Gastro-esophageal reflux disease without esophagitis; J44.9 Chronic obstructive pulmonary disease, unspecified; K44.9 Diaphragmatic hernia without obstruction or gangrene; I70.0 Atherosclerosis of aorta; Z68.32 Body mass index [BMI] 32.0-32.9, adult; Z71.3 Dietary counseling and surveillance; Z90.49 Acquired absence of other specified parts of digestive tract; Z90.710 Acquired absence of both cervix and uterus; Z88.5 Allergy status to narcotic agent; Z88.0 Allergy status to penicillin; Z88.2 Allergy status to sulfonamides; Z88.8 Allergy status to other drugs, medicaments and biological substances; Z83.3 Family history of diabetes mellitus; Z87.891 Personal history of nicotine dependence
CPT/HCPCS: 36415; 71045; 71046; 80048; 80053; 82150; 83036; 83605; 83690; 83735; 83880; 84100; 84439; 84443; 84484; 85025; 85379; 85610; 85730; 87081; 92610; 93005; 94640; 97110; 97116; 97161-GP; 97530; 99285; J0456; J0696; J1644; J1885; J2060; J2405; J3490; J7030; J7060; J7620; J7626; Q0092

== ENCOUNTER 2019-07-10 00:13 | Emergency (ER) | payer OTHER ==
[~2019-07-10] VITALS: Ht 154.9 cm; Wt 81.6 kg
[~2019-07-10 00:13] MED LIST changes: -ATOR20TA40 PO; +FENO160T9 PO; -NAPR-54 PO; -TRI48 PO
[2019-07-10 00:20] VITALS: BP 190/82
--- NOTE | 2019-07-10 00:22 | NUR ---
TO LOBBY A/W BED AMBULATORY
--- NOTE | 2019-07-10 00:30 | NUR ---
PATIENT CALLED TO BED NO RESPONSE PATIENT LEFT WITHOUT BEING SEEN BY DR. CORTES. NO FURTHER CARE PROVIDED FOR PATIENT.
--- NOTE | 2019-07-10 00:35 | NUR ---
CALLED FOR THE SECOND TIME NO RESPONSE
--- NOTE | 2019-07-10 00:40 | NUR ---
CALLED FOR THE THIRD TIME NO RESPONSE
== END 2019-07-10 00:30 | disposition left against medical advice (07) ==
LOC: MED 00:13
DX: R03.0 Elevated blood-pressure reading, without diagnosis of hypertension (principal); R05 Cough; Z53.21 Procedure and treatment not carried out due to patient leaving prior to being seen by health care provider

== ENCOUNTER 2019-07-26 22:57 | Emergency (ER) | payer OTHER ==
[~2019-07-26] VITALS: Ht 154.9 cm; Wt 79.4 kg
[2019-07-26 23:01] VITALS: BP 169/61
--- NOTE | 2019-07-26 23:05 | NUR ---
PATIENT AMB TO BED 6. PLACED IN GOWN HOOKED UP TO MONITOR. EKG TO BE PREFORMED ORDERED PER PROTOCOL. ERMD MADE AWARE OF PATIENT STATUS.
[2019-07-26] MEDS ORDERED: NITROGLYCERIN 2% 1 GM PKT TP ONE (23:15)
[2019-07-26] MEDS ORDERED: ASPIRIN 325 MG TAB PO ONE (23:15)
[2019-07-26] MEDS ORDERED: ENALAPRILAT 2.5 MG/2 ML VIAL IVP ONE (23:15)
--- NOTE | 2019-07-26 23:17 | NUR ---
EKG PERFORMED AT BEDSIDE
--- NOTE | 2019-07-26 23:17 | NUR ---
79 Y/O FEMALE C/O CHEST PAIN X2 HRS. PT STATES 8/10 PRESSURE TO CHEST THAT RADIATES TO NECK AND BILATERAL SHOULDERS. PT STATES PAIN STARTED WHEN SHE WAS LAYING DOWN. NO JVD NOTED. CAP REFILL <2 SECONDS. PT RR EVEN AND UNLABORED. NO ACESSORY MUSCLE USE. PT ATTACHED TO MONITOR AT THIS TIME. PT LAYING IN BED CALM AND PLEASANT. DR CORTES TO SEE PT. MEDHX: HTN, HLD, COPD. ALLERGIES: BENADRYL, MORPHINE, SULFA, AND PENICILLIN
[2019-07-26 23:38] LABS: BASOPHILS % (AUTO) 0.3 % (0.0-2.0); EOSINOPHILS # (AUTO) 0.1 K/uL (0-0.4); EOSINOPHILS % (AUTO) 1.2 % (0.0-4.0); HEMOGLOBIN 13.8 g/dL (12.0-16.0); LYMPHOCYTES % (AUTO) 18.2 % (20.5-51.1); MEAN CORPUSCULAR HEMOGLOBIN 28 pg (27-31); MEAN CORPUSCULAR HGB CONC 33 g/dL (33-37); MEAN CORPUSCULAR VOLUME 86.9 fL (80-94); MONOCYTES # (AUTO) 0.6 K/uL (0.8-1.0); MONOCYTES % (AUTO) 5.8 % (1.7-9.3); NEUTROPHILS # (AUTO) 8.1 K/uL (1.8-7.7); NEUTROPHILS % (AUTO) 74.5 % (42.2-75.2); PLATELET COUNT (AUTO) 255 K/uL (140-450); RED BLOOD CELL COUNT(AUTO) 4.84 MIL/uL (4.20-5.40); RED CELL DISTRIBUTION WIDTH 13.3 % (11.6-13.7); WHITE BLOOD COUNT (AUTO) 10.9 K/uL (4.8-10.8)
--- NOTE | 2019-07-26 23:41 | NUR ---
PT STATES CONTINUED PRESSURE ON CHEST. MEDICATIONS GIVEN. PT RESTING IN BED ON MONITOR. VSS. WILL CONTINUE TO MONITOR.
--- NOTE | 2019-07-26 23:45 | NUR ---
XRAY AT BEDSIDE.
[2019-07-26 23:49] LABS: CHLORIDE 102 mmol/L (98-107); CREATININE 2.3 mg/dL (0.6-1.3); GLUCOSE 135 mg/dL (74-106); SODIUM SERUM 139 mmol/L (136-145); UREA NITROGEN, BLOOD 56 mg/dL (7-18)
--- NOTE | 2019-07-26 23:52 | NUR ---
REPORT CALLED TO [facility]. REPORT GIVEN TO YUE MORENO.
[2019-07-26 23:54] LABS: CHOL/HDL RATIO 3.1 (1-4.5)
[2019-07-26 23:57] LABS: ALBUMIN 4.1 g/dL (3.4-5.0); ASPARTATE AMINOTRANSFERASE 20 U/L (15-37); TOTAL BILIRUBIN 0.4 mg/dL (0.0-1.0)
--- NOTE | 2019-07-26 23:58 | NUR ---
TPatient to be transferred to [facility]. Is being transferred due to HIGHER LEVEL OF CARE. Receiving facility has accepting physician and available space. ER physician has signed transfer form. Patient or responsible constitution party has agreed to transfer and signed form. Patient belongings inventoried and will be sent with patient. Copy of nursing notes, lab reports, EKG, Physicians Orders and X-rays to be sent with patient. Report called to JOSH TURNER at receiving facility. [facility] ambulance service has been called for transfer.
[2019-07-27 00:01] VITALS: BP 153/68
[2019-07-27 00:09] LABS: CREATINE KINASE MB 1.2 ng/mL (0-3.6)
--- NOTE | 2019-07-27 01:15 | NUR ---
CALLED TROPONIN [phone] TO IAN MORENO AT [facility], FAXED REMAINING LAB RESULTS TO [phone].
== END 2019-07-27 | disposition short-term general hospital (02) ==
LOC: MED 22:57
DX: I21.3 ST elevation (STEMI) myocardial infarction of unspecified site (principal); J44.9 Chronic obstructive pulmonary disease, unspecified; K21.9 Gastro-esophageal reflux disease without esophagitis; I10 Essential (primary) hypertension; Z90.49 Acquired absence of other specified parts of digestive tract; Z90.710 Acquired absence of both cervix and uterus; Z79.82 Long term (current) use of aspirin; Z79.899 Other long term (current) drug therapy; Z88.0 Allergy status to penicillin; Z88.5 Allergy status to narcotic agent; Z88.2 Allergy status to sulfonamides; Z88.8 Allergy status to other drugs, medicaments and biological substances
CPT/HCPCS: 36415; 71045; 80053; 80061; 82550; 82553; 83880; 84484; 85025; 93005; 96374; 99291; J3490; Q0092

== ENCOUNTER 2019-08-06 23:35 | Inpatient (IN) | payer OTHER ==
[~2019-08-06] VITALS: Ht 154.9 cm; Wt 79.8 kg
[2019-08-07] MEDS ORDERED: fentaNYL 0.05 MG/ML VIAL ONE (02:20)
[2019-08-07] MEDS ORDERED: cefTRIAXone 1,000 MG VIAL ONE (03:50)
[2019-08-07] MEDS ORDERED: METOPROLOL 25 MG TAB ONE (03:52)
[2019-08-07] MEDS ORDERED: ASPIRIN 325 MG TAB ONE (04:35)
[2019-08-07] MEDS ORDERED: ONDANSETRON 4 MG TAB ONE (04:35)
[2019-08-07] MEDS ORDERED: RIVAROXABAN 10 MG TAB ONE (09:46)
[2019-08-07] MEDS ORDERED: NIFEdipine 30 MG TABER PO ONE (09:46)
[2019-08-07] MEDS ORDERED: COLCHICINE 0.6 MG TAB ONE (09:46)
[2019-08-07] MEDS ORDERED: FENOFIBRATE 48 MG TAB ONE (09:47)
[2019-08-07] MEDS ORDERED: HYDROcodone/APAP 5/325 MG 1 TAB TAB ONE (10:50)
[2019-08-07] MEDS ORDERED: FAMOTIDINE 20 MG TAB ONE (17:14)
[2019-08-07] MEDS ORDERED: ALBUTEROL SULFATE/IPRATROPIU 3 ML SOL IH ONE (18:56)
[2019-08-07] MEDS ORDERED: HYDROcodone/APAP 7.5/325 MG 1 TAB ONE (20:27)
--- NOTE | 2019-08-08 01:45 | NUR ---
PT SLEEPING, EASILY AROUSED, NO DISTRESS NOTED, CALL LIGHT WITHIN REACH, WILL CONTINUE TO MONITOR.
[2019-08-08 04:00] VITALS: BP 94/27
--- NOTE | 2019-08-08 04:35 | NUR ---
PT SLEEPING, V/S TAKEN, BP 94/27, HR 51, PT ASYMPTOMATIC, EASILY AROUSED, COMFORTABLY SLEEPING, NO DISTRESS NOTED, CALL LIGHT WITHIN REACH, WILL CONTINUE TO MONITOR. NOTIFIED DR. DRISS DR. STATED UNDERSTANDING, NO CHANGE IN ORDERS AT THIS MOMENT.
--- NOTE | 2019-08-08 07:26 | NUR ---
RECEIVED BEDSIDE REPORT FROM [employer] SERVICE TECHNICIAN NURSE JENNA. PT IS ASLEEP, NO S/S OF ACUTE DISTRESS NOTED. NO SOB. PT IS ON ROOM AIR, SKIN INTACT. IV SITE NOTED ON THE R WRIST 22 G, INFUSING NS 70 ML/HR. FALL PRECAUTIONS IN PLACE. CALL LIGHT IS WITHIN REACH.
--- NOTE | 2019-08-08 07:29 | NUR ---
ENDORSED PT TO DAY SHIFT NURSE TIRSO RN, PT STABLE, NO DISTRESS NOTED, CALL LIGHT WITHIN REACH.
[2019-08-08 08:00] VITALS: BP 166/64
[2019-08-08 12:00] VITALS: BP 133/49
[2019-08-08] MEDS ORDERED: ONDANSETRON 4 MG TAB PO PRN (12:45)
[2019-08-08] MEDS ORDERED: NIFEdipine 30 MG TABER PO SCH (12:45)
[2019-08-08] MEDS ORDERED: ALBUTEROL SULFATE/IPRATROPIU 3 ML SOL IH PRN (12:45)
[2019-08-08] MEDS ORDERED: ASPIRIN 81 MG TAB.CHEW PO SCH (12:50)
[2019-08-08] MEDS ORDERED: HYDROmorphone 1 MG/ML AMP IVP PRN (12:55)
[2019-08-08] MEDS ORDERED: FAMOTIDINE 20 MG TAB PO SCH (13:00)
[2019-08-08] MEDS ORDERED: COLCHICINE 0.6 MG TAB PO SCH (13:00)
[2019-08-08] MEDS: ASPIRIN 325 MG TAB PO SCH ×2 (13:16→18:13)
[2019-08-08] MEDS: HYDROcodone/APAP 7.5/325 MG 1 TAB PO PRN ×2 (13:18→20:50)
[2019-08-08] MEDS: NACL 0.9% 1,000 ML IV SCH (13:23)
[2019-08-08] MEDS ORDERED: FENOFIBRATE 48 MG TAB PO SCH (13:30)
--- NOTE | 2019-08-08 14:52 | NUR ---
PT COMFORTABLE WATCHING TV IN BED, NO S/S OF ACUTE DISTRESS.
[2019-08-08 16:00] VITALS: BP 129/55
--- NOTE | 2019-08-08 18:20 | NUR ---
PT'S IV INFILTRATED. WILL ENDORSE TO MANGLE CATCHER TO ATTEMPT A NEW ONE
--- NOTE | 2019-08-08 19:15 | NUR ---
PT ENDORSED TO SENIOR FINANCIAL ANALYST, IN STABLE CONDITION
--- NOTE | 2019-08-08 19:16 | NUR ---
RECEIVED REPORT FROM AM SHIFT NURSE FOR CONTINUITY OF CARE. NO APPARENT DISTRESS NOTED. PATIENT ALERT AND ORIENTED X4. BED ON LOW POSITION. WILL CONTINUE TO MONITOR.
[2019-08-08 20:00] VITALS: BP 143/60
[2019-08-08] MEDS: FAMOTIDINE 20 MG TAB PO SCH (20:49)
[2019-08-08] MEDS ORDERED: METOPROLOL 25 MG TAB PO SCH (21:00)
--- NOTE | 2019-08-08 21:16 | NUR ---
PATIENT ASLEEP IN BED. NO APPARENT DISTRESS NOTED. WILL CONTINUE TO MONITOR.
--- NOTE | 2019-08-08 22:52 | NUR ---
RECEIVED PT ON ROOM AIR WITH SP02 92%, AND A CLEAR BREATH SOUNDS. NO RESPIRATORY DISTRESS NOTED. PRN TX NOT GIVEN. WILL CONTINUE TO MONITOR PT.
--- NOTE | 2019-08-08 23:12 | NUR ---
PATIENT ASLEEP IN BED. VISIBLE CHEST RISE AND FALL NOTED. NO APPARENT DISTRESS NOTED. NO SOB. WILL CONTINUE TO MONITOR.
[2019-08-09] VITALS: BP 132/57
--- NOTE | 2019-08-09 01:10 | NUR ---
ROUNDS DONE. PATIENT ASLEEP IN BED. VISIBLE CHEST RISE AND FALL NOTED. NO APPARENT DISTRESS NOTED. WILL CONTINUE TO MONITOR.
[2019-08-09] MEDS: NACL 0.9% 1,000 ML IV SCH (02:13)
--- NOTE | 2019-08-09 02:27 | NUR ---
PATIENT ASLEEP IN BED. NO APPARENT DISTRESS NOTED. BED ON LOW POSITION. WILL CONTINUE TO MONITOR.
[2019-08-09 04:00] VITALS: BP 121/41
--- NOTE | 2019-08-09 04:23 | NUR ---
PATIENT ASLEEP IN BED. BED ON LOW POSITION. CALL LIGHT WITHIN REACH. VISIBLE CHEST RISE AND FALL NOTED. NO APPARENT DISTRESS NOTED.
--- NOTE | 2019-08-09 06:20 | NUR ---
PATIENT AWAKE IN BED. NO APPARENT DISTRESS NOTED. NO SOB NOTED. BREATHING EVEN AND UNLABORED. WILL CONTINUE TO MONITOR.
--- NOTE | 2019-08-09 07:15 | NUR ---
ENDORSED TO AM SHIFT NURSE FOR CONTINUITY OF CARE.
--- NOTE | 2019-08-09 07:26 | NUR ---
RECEIVED BEDSIDE REPORT FROM SORT SUPERVISOR NURSE. PT IS AWAKE AND ALERT NO S/S OF ACUTE DISTRESS, NO SOB. PT C/O 5/10 PAIN IN THE L SIDE. WILL MEDICATE. PT IS ON RA, SKIN INTACT. IV SITE IS IN THE L FA 22 G, INFUSING NS 70 ML/HR. FALL PRECAUTIONS IN PLACE. CALL LIGHT IS WITHIN REACH.
[2019-08-09 08:00] VITALS: BP 140/53
[2019-08-09] MEDS: NIFEdipine 30 MG TABER PO SCH (08:00)
[2019-08-09] MEDS: FENOFIBRATE 48 MG TAB PO SCH (08:00)
[2019-08-09] MEDS: FAMOTIDINE 20 MG TAB PO SCH ×2 (08:01→20:04)
[2019-08-09] MEDS: HYDROcodone/APAP 7.5/325 MG 1 TAB PO PRN ×4 (08:01→22:08)
[2019-08-09] MEDS: ASPIRIN 325 MG TAB PO SCH (08:01)
--- NOTE | 2019-08-09 08:10 | NUR ---
AM MEDS ADMINISTERED, PT TOLERATED WELL. PRN NORCO ADMINISTERED FOR 5/10 PAIN, WILL REASSESS WITHIN AN HOUR
[2019-08-09] MEDS ORDERED: ASPIRIN 81 MG TAB.CHEW PO SCH (09:00)
[2019-08-09] MEDS ORDERED: COLCHICINE 0.6 MG TAB PO SCH (09:00)
[2019-08-09 09:38] LABS: BASOPHILS % (AUTO) 0.6 % (0.0-2.0); EOSINOPHILS # (AUTO) 0.2 K/uL (0-0.4); EOSINOPHILS % (AUTO) 5.6 % (0.0-4.0); HEMATOCRIT 39.5 % (36-48); HEMOGLOBIN 12.9 g/dL (12.0-16.0); LYMPHOCYTES # (AUTO) 1.3 K/uL (2.5-16.5); LYMPHOCYTES % (AUTO) 38.3 % (20.5-51.1); MEAN CORPUSCULAR HEMOGLOBIN 28 pg (27-31); MEAN CORPUSCULAR HGB CONC 33 g/dL (33-37); MEAN CORPUSCULAR VOLUME 86.6 fL (80-94); MONOCYTES # (AUTO) 0.3 K/uL (0.8-1.0); MONOCYTES % (AUTO) 8.1 % (1.7-9.3); NEUTROPHILS # (AUTO) 1.6 K/uL (1.8-7.7); NEUTROPHILS % (AUTO) 47.4 % (42.2-75.2); PLATELET COUNT (AUTO) 185 K/uL (140-450); RED BLOOD CELL COUNT(AUTO) 4.55 MIL/uL (4.20-5.40); RED CELL DISTRIBUTION WIDTH 13.2 % (11.6-13.7); WHITE BLOOD COUNT (AUTO) 3.4 K/uL (4.8-10.8)
[2019-08-09 10:08] LABS: MAGNESIUM 2.1 mg/dL (1.8-2.4)
[2019-08-09 10:24] LABS: ANION GAP 15.5 (8-16); CARBON DIOXIDE 23.5 mmol/L (21-32); CHLORIDE 105 mmol/L (98-107); CREATININE 1.4 mg/dL (0.6-1.3); GLUCOSE 106 mg/dL (74-106); SODIUM SERUM 140 mmol/L (136-145); UREA NITROGEN, BLOOD 29 mg/dL (7-18)
--- NOTE | 2019-08-09 10:59 | NUR ---
PT RESTING IN BED COMFORTABLY, NO S/S OF ACUTE DISTRESS NOTED. CONTINUING OT MONITOR.
[2019-08-09] MEDS ORDERED: ALUMINUM HYD/MAG/SIMETHICONE 30 ML UDC PO PRN (11:30)
[2019-08-09 12:00] VITALS: BP 133/48
[2019-08-09] MEDS ORDERED: NAPROXEN 500 MG TAB PO SCH (13:01)
--- NOTE | 2019-08-09 14:48 | NUR ---
PT IS COMFORTABLE, WATCHING TV, NO C/O PAIN AT THIS TIME. WILL CONTINUE TO MONITOR.
[2019-08-09 16:00] VITALS: BP 130/61
[2019-08-09 16:55] LABS: ANION GAP 14.9 (8-16); CARBON DIOXIDE 23.1 mmol/L (21-32); CHLORIDE 106 mmol/L (98-107); SODIUM SERUM 140 mmol/L (136-145)
[2019-08-09 16:56] LABS: ALBUMIN 3.7 g/dL (3.4-5.0); ASPARTATE AMINOTRANSFERASE 21 U/L (15-37); CREATININE 1.5 mg/dL (0.6-1.3); GLUCOSE 135 mg/dL (74-106); TOTAL BILIRUBIN 0.3 mg/dL (0.0-1.0); UREA NITROGEN, BLOOD 28 mg/dL (7-18)
--- NOTE | 2019-08-09 17:38 | NUR ---
PT IS ASLEEP, NO S/S OF DISTRESS NOTED. CONTINUING TO MONITOR.
[2019-08-09 18:08] LABS: T4 (THYROXINE) 7.4 ug/dL (4.5 - 12.0)
--- NOTE | 2019-08-09 19:28 | NUR ---
PT ENDORSED TO MORNING NEWS PRODUCER NURSE IN STABLE CONDITION
--- NOTE | 2019-08-09 19:29 | NUR ---
REPORT RECEIVED FROM AM NURSE AT BEDSIDE. PT IN STABLE CONDITION. AAOX4. INTRODUCED SELF TO PT. BOARD UPDATED. NO COMPLAINTS OF PAIN. NO SOB. AFEBRILE. PT IS AMBULATORY. IV SITE L FA 22G RUNNING NS@70ML/HR PATENT AND INTACT. SKIN WARM, DRY, AND INTACT WITH NO OPEN WOUNDS. BED LOCKED IN LOW POSITION. CALL [place]NON WITHIN REACH. SAFETY PRECAUTION IN PLACE. ALL NEEDS MET AT THIS TIME.
[2019-08-09 20:00] VITALS: BP 157/67
[2019-08-09] MEDS: NAPROXEN 500 MG TAB PO SCH (20:04)
--- NOTE | 2019-08-09 20:04 | NUR ---
NAPROXEN AND PEPCID GIVEN PO. HEPARIN GIVE SUBQ. PT TOLERATED WELL.
--- NOTE | 2019-08-09 20:32 | NUR ---
RECEIVED PATIENT ON ROOM AIR, PULSE OX SAT 94%. PATIENT DENIES SOB. PRN HHN NOT INDICATED AT THIS TIME. PATIENT MADE AWARE OF MEDICATION FREQUENCY. NO ACUTE RESPIRATORY DISTRESS NOTED. WILL CONTINUE TO MONITOR.
[2019-08-09] MEDS: COLCHICINE 0.6 MG TAB PO SCH (22:03)
--- NOTE | 2019-08-09 22:08 | NUR ---
NORCO AND COLCHICINE GIVEN PO. PT TOLERATED WELL.
[2019-08-10] VITALS: BP 119/37
--- NOTE | 2019-08-10 00:30 | NUR ---
PT SLEEPING COMFORTABLY BUT AROUSABLE. NO S/S OF DISTRESS NOTED. NO COMPLAINTS OF PAIN. NO SOB. AFEBRILE. WILL CONTINUE TO MONITOR.
--- NOTE | 2019-08-10 02:45 | NUR ---
PT SLEEPING COMFORTABLY BUT AROUSABLE. NO S/S OF DISTRESS NOTED. RESPIRATIONS EVEN, UNLABORED, AND WNL. WILL CONTINUE TO MONITOR.
[2019-08-10 04:00] VITALS: BP 117/46
--- NOTE | 2019-08-10 04:50 | NUR ---
PT SLEEPING COMFORTABLY BUT AROUSABLE. NO S/S OF DISTRESS NOTED. NO COMPLAINTS OF PAIN. NO SOB. AFEBRILE. WILL CONTINUE TO MONITOR.
[2019-08-10 06:30] LABS: ANION GAP 13.3 (8-16); CARBON DIOXIDE 25.9 mmol/L (21-32); CHLORIDE 107 mmol/L (98-107); CREATININE 1.4 mg/dL (0.6-1.3); GLUCOSE 105 mg/dL (74-106); POTASSIUM 4.2 mmol/L (3.5-5.1); SODIUM SERUM 142 mmol/L (136-145); UREA NITROGEN, BLOOD 28 mg/dL (7-18)
[2019-08-10 06:33] LABS: BASOPHILS % (AUTO) 0.5 % (0.0-2.0); EOSINOPHILS # (AUTO) 0.2 K/uL (0-0.4); EOSINOPHILS % (AUTO) 5.6 % (0.0-4.0); HEMATOCRIT 36.5 % (36-48); HEMOGLOBIN 11.9 g/dL (12.0-16.0); LYMPHOCYTES # (AUTO) 1.3 K/uL (2.5-16.5); LYMPHOCYTES % (AUTO) 31.3 % (20.5-51.1); MEAN CORPUSCULAR HEMOGLOBIN 28 pg (27-31); MEAN CORPUSCULAR HGB CONC 33 g/dL (33-37); MEAN CORPUSCULAR VOLUME 86.7 fL (80-94); MONOCYTES # (AUTO) 0.3 K/uL (0.8-1.0); MONOCYTES % (AUTO) 6.1 % (1.7-9.3); NEUTROPHILS # (AUTO) 2.3 K/uL (1.8-7.7); NEUTROPHILS % (AUTO) 56.5 % (42.2-75.2); PLATELET COUNT (AUTO) 180 K/uL (140-450); RED BLOOD CELL COUNT(AUTO) 4.21 MIL/uL (4.20-5.40); RED CELL DISTRIBUTION WIDTH 13.3 % (11.6-13.7); WHITE BLOOD COUNT (AUTO) 4.1 K/uL (4.8-10.8)
[2019-08-10 06:41] LABS: MAGNESIUM 2.1 mg/dL (1.8-2.4); PHOSPHORUS 2.2 mg/dL (2.5-4.9)
--- NOTE | 2019-08-10 06:52 | NUR ---
PT SLEEPING COMFORTABLY BUT AROUSABLE. NO S/S OF DISTRESS NOTED. PT IN STABLE CONDITION.
--- NOTE | 2019-08-10 07:05 | NUR ---
RECEIVED BEDSIDE REPORT FROM POULTRY BREEDER NURSE. PATIENT IS AWAKE, ALERT AND ORIENTEDX4. NO SIGNS OF DISTRESS ON RA. SKIN IS INTACT. TELE MONITOR IN PLACE. IV ON L FA 22G SL. CLEAN, DRY AND INTACT. CONTINENT. AMBULATORY. WILL CONTINUE TO MONITOR THE PATIENT. ABLE TO MAKE NEEDS KNOWN
[2019-08-10 08:00] VITALS: BP 165/59
[2019-08-10] MEDS ORDERED: COLCHICINE 0.6 MG TAB PO SCH (09:00)
[2019-08-10] MEDS ORDERED: SODIUM PHOS / POTASSIUM PHOS 1 PKT PDR PO SCH (09:00)
[2019-08-10] MEDS: NIFEdipine 30 MG TABER PO SCH (09:07)
[2019-08-10] MEDS: NAPROXEN 500 MG TAB PO SCH (09:07)
[2019-08-10] MEDS: FAMOTIDINE 20 MG TAB PO SCH (09:07)
[2019-08-10] MEDS: FENOFIBRATE 48 MG TAB PO SCH (09:08)
[2019-08-10] MEDS: COLCHICINE 0.6 MG TAB PO SCH (09:08)
--- NOTE | 2019-08-10 09:16 | NUR ---
ADMINISTERED MEDS. PATIENT TOLERATED WELL. EDUCATED ON SIDE EFFECTS. WILL CONTINUE TO MONITOR THE PATIENT.
[2019-08-10 10:10] VITALS: BP 148/49
[2019-08-10] MEDS ORDERED: COLC0.6C PO (10:57)
[2019-08-10] MEDS ORDERED: NAPR-54 PO (10:57)
--- NOTE | 2019-08-10 11:00 | NUR ---
PATIENT IN NO DISTRESS. WILL CONTINUE TO MONITOR THE PATIENT.
[2019-08-10] MEDS ORDERED: FAMO-90 PO (11:28)
[2019-08-10 12:00] VITALS: BP 148/48
--- NOTE | 2019-08-10 12:17 | NUR ---
Called [facility], Spoke to Nevin Greenberg. She told me that [facility] is delegated. Called [facility], Spoke to CM assigned to this case, FLAVIA Araya. Gave her a verbal update. She requested clinicals to be faxed at [phone].Remote team notified. There is no H&P. Deficiency in [employer].
--- NOTE | 2019-08-10 13:05 | NUR ---
EDUCATED ON DISEASE PROCESS, ABN S/SX, WHEN TO GO TO THE ER, EDUCATED ON MEDS, MEDS SENT TO PHARMACY, EDUCATED ON FOLLOW UP W PCP. PATIENT REFUSED PNA AND FLU VACCINE AT THIS TIME. PATIENT LEFT IN STABLE CONDITION WITH FAMILY TO GO HOME. IV REMOVED, TIP INTACT. TELE MONITOR REMOVED.
[2019-08-12 00:33] LABS: HEMATOCRIT 42.1 % (36-48); HEMOGLOBIN 13.5 g/dL (12.0-16.0); MEAN CORPUSCULAR HEMOGLOBIN 28 pg (27-31); MEAN CORPUSCULAR HGB CONC 32 g/dL (33-37); MEAN CORPUSCULAR VOLUME 86.5 fL (80-94); RED BLOOD CELL COUNT(AUTO) 4.87 MIL/uL (4.20-5.40); WHITE BLOOD COUNT (AUTO) 5.9 K/uL (4.8-10.8)
[2019-08-12 00:34] LABS: MONOCYTES % (AUTO) 6.2 % (1.7-9.3); NEUTROPHILS % (AUTO) 49.9 % (42.2-75.2); PLATELET COUNT (AUTO) 246 K/uL (140-450); RED CELL DISTRIBUTION WIDTH 13.2 % (11.6-13.7)
[2019-08-12 00:35] LABS: BASOPHILS % (AUTO) 0.7 % (0.0-2.0); EOSINOPHILS # (AUTO) 0.2 K/uL (0-0.4); EOSINOPHILS % (AUTO) 4.2 % (0.0-4.0); LYMPHOCYTES # (AUTO) 2.3 K/uL (2.5-16.5); MONOCYTES # (AUTO) 0.4 K/uL (0.8-1.0)
[2019-08-12 00:51] LABS: CHLORIDE 104 mmol/L (98-107); POTASSIUM 4.3 mmol/L (3.5-5.1); SODIUM SERUM 140 mmol/L (136-145)
[2019-08-12 00:52] LABS: ANION GAP 12.5 (8-16); CARBON DIOXIDE 27.8 mmol/L (21-32); CREATININE 1.4 mg/dL (0.6-1.3); GLUCOSE 110 mg/dL (74-106); UREA NITROGEN, BLOOD 25 mg/dL (7-18)
[2019-08-12 00:54] LABS: ASPARTATE AMINOTRANSFERASE 19 U/L (15-37); TOTAL BILIRUBIN 0.3 mg/dL (0.0-1.0)
[2019-08-12 00:55] LABS: ALBUMIN 3.6 g/dL (3.4-5.0)
[2019-08-12 01:11] LABS: MAGNESIUM 2.1 mg/dL (1.8-2.4); PHOSPHORUS 3.4 mg/dL (2.5-4.9)
[2019-08-12 01:12] LABS: THYROID STIMULATING HORMONE 1.64 uIU/mL (0.34-3.74)
[2019-08-12 01:14] LABS: CHOL/HDL RATIO 3.2 (1-4.5)
[2019-08-12 01:18] LABS: HEMATOCRIT 41.6 % (36-48); HEMOGLOBIN 13.4 g/dL (12.0-16.0); MEAN CORPUSCULAR HEMOGLOBIN 28 pg (27-31); MEAN CORPUSCULAR HGB CONC 32 g/dL (33-37); MEAN CORPUSCULAR VOLUME 86.6 fL (80-94); PLATELET COUNT (AUTO) 243 K/uL (140-450); WHITE BLOOD COUNT (AUTO) 5.5 K/uL (4.8-10.8)
[2019-08-12 01:19] LABS: EOSINOPHILS % (AUTO) 2.5 % (0.0-4.0); LYMPHOCYTES % (AUTO) 28.8 % (20.5-51.1); MONOCYTES % (AUTO) 5.8 % (1.7-9.3); NEUTROPHILS % (AUTO) 62.6 % (42.2-75.2)
[2019-08-12 01:20] LABS: BASOPHILS % (AUTO) 0.3 % (0.0-2.0); EOSINOPHILS # (AUTO) 0.1 K/uL (0-0.4); LYMPHOCYTES # (AUTO) 1.6 K/uL (2.5-16.5); MONOCYTES # (AUTO) 0.3 K/uL (0.8-1.0); NEUTROPHILS # (AUTO) 3.5 K/uL (1.8-7.7)
== END 2019-08-10 13:05 | disposition home or self-care (01) | DRG 316 ==
LOC: MED 23:35 → MMU 08-07 01:58
PROVIDERS: ADMIT Family Medicine; ATTEND Family Medicine
DX: I31.9 Disease of pericardium, unspecified (principal); E78.5 Hyperlipidemia, unspecified; I10 Essential (primary) hypertension; I25.10 Atherosclerotic heart disease of native coronary artery without angina pectoris; J44.9 Chronic obstructive pulmonary disease, unspecified; Z90.710 Acquired absence of both cervix and uterus; Z88.5 Allergy status to narcotic agent; Z88.0 Allergy status to penicillin; Z88.8 Allergy status to other drugs, medicaments and biological substances; I48.91 Unspecified atrial fibrillation
CPT/HCPCS: 36415; 71045; 80048; 80053; 82150; 83036; 83690; 83735; 83880; 84100; 84436; 84443; 84484; 85025; 85610; 85730; 87081; 93005; 96374; 99285; J0696; J1644; J3010; J7030; J7060; J7620; Q0092; Q0162

== ENCOUNTER 2019-08-12 11:26 | Observation (INO) | payer OTHER ==
[~2019-08-12] VITALS: Ht 165.1 cm; Wt 77.8 kg
[~2019-08-12 11:26] MED LIST changes: +COLC0.6C PO; +FAMO-90 PO; +NAPR-54 PO
--- NOTE | 2019-08-12 11:31 | NUR ---
PATIENT AMBULATED TO BED 7.
[2019-08-12 11:41] VITALS: BP 201/88
[2019-08-12] MEDS ORDERED: NITROGLYCERIN 2% 1 GM PKT TP ONE (11:55)
[2019-08-12] MEDS ORDERED: ASPIRIN 81 MG TAB.CHEW PO ONE (11:55)
--- NOTE | 2019-08-12 12:02 | NUR ---
CXR AT BEDSIDE.
--- NOTE | 2019-08-12 12:30 | NUR ---
BP 163/70 POST NTG PATCH. PT DENIES ANY RELIEF OF SYMPTOMS AT THIS TIME WILL CONTINUE TO ASSESS.
[2019-08-12 12:31] LABS: BASOPHILS % (AUTO) 0.5 % (0.0-2.0); EOSINOPHILS # (AUTO) 0.1 K/uL (0-0.4); EOSINOPHILS % (AUTO) 2.4 % (0.0-4.0); HEMATOCRIT 43.4 % (36-48); HEMOGLOBIN 14.4 g/dL (12.0-16.0); LYMPHOCYTES % (AUTO) 24.5 % (20.5-51.1); MEAN CORPUSCULAR HEMOGLOBIN 28 pg (27-31); MEAN CORPUSCULAR HGB CONC 33 g/dL (33-37); MEAN CORPUSCULAR VOLUME 85.6 fL (80-94); MONOCYTES # (AUTO) 0.3 K/uL (0.8-1.0); MONOCYTES % (AUTO) 6.5 % (1.7-9.3); NEUTROPHILS # (AUTO) 2.8 K/uL (1.8-7.7); NEUTROPHILS % (AUTO) 66.1 % (42.2-75.2); PLATELET COUNT (AUTO) 242 K/uL (140-450); RED BLOOD CELL COUNT(AUTO) 5.08 MIL/uL (4.20-5.40); RED CELL DISTRIBUTION WIDTH 13.2 % (11.6-13.7); WHITE BLOOD COUNT (AUTO) 4.2 K/uL (4.8-10.8)
--- NOTE | 2019-08-12 12:35 | NUR ---
REPORT TO JOSH YAP FOR CONTINUATION OF CARE.
[2019-08-12 12:40] LABS: ANION GAP 14.7 (8-16); CARBON DIOXIDE 24.6 mmol/L (21-32); CHLORIDE 105 mmol/L (98-107); CREATININE 1.4 mg/dL (0.6-1.3); GLUCOSE 103 mg/dL (74-106); POTASSIUM 4.3 mmol/L (3.5-5.1); SODIUM SERUM 140 mmol/L (136-145); UREA NITROGEN, BLOOD 25 mg/dL (7-18)
[2019-08-12 12:41] LABS: APPEARANCE,URINE CLEAR (CLEAR); BILIRUBIN,URINE NEGATIVE (NEGATIVE); BLOOD, URINE TRACE-L (NEGATIVE); COLOR,URINE YELLOW (YELLOW); LEUKOCYTE ESTERASE ,URINE NEGATIVE (NEGATIVE); NITRITE, URINE NEGATIVE (NEGATIVE); UGLUCOSE NEGATIVE (NEGATIVE)
[2019-08-12 12:46] LABS: ALBUMIN 4.3 g/dL (3.4-5.0); ASPARTATE AMINOTRANSFERASE 52 U/L (15-37); TOTAL BILIRUBIN 0.3 mg/dL (0.0-1.0)
[2019-08-12 12:50] LABS: LIPASE 125 U/L (73-393)
[2019-08-12 12:50] LABS: WBC,URINE 0-5 /HPF (0-5)
--- NOTE | 2019-08-12 12:50 | NUR ---
PT PRESENTED TO THE ED WITH THE CHIEF C/O CHEST PAIN THAT RADIATES TO LEFT ARM AND BACK SINCE YESTERDAY. DENIES SOB OR DIFFICULTY BREATHING. SPO2 97% IN ROOM AIR. REPORTS DIZZINESS AND HEADAXCHE ALSO. DENIES FEVER. PT WENT TO PCP THIS MORNING, BP WAS HIGH AND EKG DONE THERE WAS ABNORMAL. PT REFERRED TO ER BY PCP. PT WAS SEEN FOR SAME REASON LAST WEEK. WAS DAIGNOSED WITH PERICARDITIS. PT CONNECTED TO MONITOR . VS STABLE. AOX4. STAEDY GAIT. WARM BLANKET PROVIDED, PT MADE COMFORTABLE . WILL CONTINUE TO MONITOR PT. PMH: HTN, HIGH CHOLESTEROL RX: PT DOESNOT REMEMBER MEDS NAME ALLERGIES: PENICILLIN, MORPHINE, BENEDRYL, HICKS
--- NOTE | 2019-08-12 13:09 | NUR ---
CHECKED ON PT. STATES HER PAIN IS 9/10. HAS FACIAL GRIMICING. WILL NOTIFY MD, NOT IN HIS ROOM AT THIS TIME.
--- NOTE | 2019-08-12 13:25 | NUR ---
ER MD NOTIFIED OF PT HAVING CP 05/12. WILL WAIT FOR THE ORDERS. PT PROVIDED WITH CRACKERS AND ORANGE JUICE.
[2019-08-12] MEDS ORDERED: ONDANSETRON 4 MG/2 ML VIAL IVP ONE (13:30)
[2019-08-12] MEDS ORDERED: fentaNYL 0.05 MG/ML VIAL IVP ONE (13:30)
[2019-08-12] MEDS ORDERED: NACL 0.9% 1,000 ML IV ONE (13:30)
[2019-08-12] MEDS ORDERED: DOCUSATE SODIUM 100 MG GELCAP PO PRN (14:05)
[2019-08-12] MEDS ORDERED: ACETAMINOPHEN 325 MG TAB PO PRN (14:05)
[2019-08-12] MEDS ORDERED: ONDANSETRON 4 MG/2 ML VIAL IM/IVP PRN (14:05)
[2019-08-12] MEDS ORDERED: ZOLPIDEM 5 MG TAB PO PRN (14:05)
[2019-08-12] MEDS ORDERED: HYDROcodone/APAP 5/325 MG 1 TAB TAB PO PRN (14:05)
[2019-08-12] MEDS ORDERED: MORPHINE SULFATE 2 MG/ML SYR IVP PRN (14:05)
[2019-08-12] MEDS ORDERED: LORazepam 2 MG/ML VIAL IM/IVP PRN ×2 (14:05→14:30)
[2019-08-12] MEDS ORDERED: NITROGLYCERIN 0.4 MG TAB SL PRN (14:10)
[2019-08-12] MEDS ORDERED: LISINOPRIL 5 MG TAB PO SCH (14:10)
--- NOTE | 2019-08-12 14:23 | NUR ---
PT STATES SHE IS SHAKY AFTER GETTING PAIN MEDS AND ZOFRAN. ER TO SEE THE PT.
--- NOTE | 2019-08-12 14:25 | NUR ---
SPOKE WITH TONY CENTENO WITH PT PERMISSION. UPDATED ON PT STATUS.
[2019-08-12 14:37] LABS: BARBITURATE, URINE NEG. ng/ml (NEG <=200); BENZODIAZEPINE, URINE NEG. ng/mL (NEG <=200); CANNABINOID, URINE NEG. ng/mL (NEG <=50); COCAINE, URINE NEG. ng/mL (NEG <=300); OPIATE, URINE NEG. ng/mL (NEG <=2000); PHENCYCLIDINE SCREEN,URINE NEG. ng/mL (NEG <=25)
--- NOTE | 2019-08-12 14:45 | NUR ---
PT TRANSFERED TO [facility]. REPORT GIVEN TO JOSH PANDA. PT STABLE AT THE TIME OF DISCHARGE.
--- NOTE | 2019-08-12 14:45 | NUR ---
Patient will be admitted to care of DR VICKERS. Admited to TELE FLOOR. Will go to [facility] A. Belongings list completed. Report to JOSH PANDA. PT STABLE AT THE TIME OF DISCHARGE.
--- NOTE | 2019-08-12 14:45 | NUR ---
RECEIVED REPORT FROM ER NURSE MARELY. PATIENT ARRIVED VIA WHEEL CHAIR. PATIENT AMBULATED TO BED WITH STEADY GAIT. PER MARELY PT RECIEVED IV ATIVAN 0.5MG IN THE ER ORDERED. PT ORIENTED TO UNIT AND STAFF. CALL LIGHT WITHIN REACH.
[2019-08-12 14:46] LABS: CHOL/HDL RATIO 2.6 (1-4.5); FREE T4 (FREE THYROXINE) 1.06 ng/dL (0.76-1.46); MAGNESIUM 2.2 mg/dL (1.8-2.4); PHOSPHORUS 2.8 mg/dL (2.5-4.9); THYROID STIMULATING HORMONE 0.7 uIU/mL (0.34-3.74)
[2019-08-12 14:52] LABS: PROTHROMBIN TIME 9.9 secs (10.8-13.4)
[2019-08-12] MEDS ORDERED: LORazepam 2 MG/ML VIAL IVP SCH (15:00)
[2019-08-12 16:00] VITALS: BP 119/62
[2019-08-12] MEDS: ATORVASTATIN 20 MG TAB PO SCH (16:18)
[2019-08-12] MEDS: METOPROLOL 25 MG TAB PO SCH ×2 (16:19→20:50)
[2019-08-12] MEDS: NACL 0.9% 1,000 ML IV SCH (16:20)
--- NOTE | 2019-08-12 17:15 | NUR ---
DR. MERCADO AT BEDSIDE.
--- NOTE | 2019-08-12 18:45 | NUR ---
PT AWAKE AND ALERT ORIENTED X4. PT ATE DINNER. DENIES PAIN OR DISCOMFORT AT THIS TIME. CALL LIGHT WITHIN REACH. PT IN STABLE CONDITION. WILL ENDORSE TO NIGHT NURSE.
[2019-08-12 20:00] VITALS: BP 112/47
--- NOTE | 2019-08-12 20:00 | NUR ---
ASSUMED CARE. RECEIVED ALERT,ORIENTD,AMBULATORY. AFEBRILE, NOT IN ACUTE DISTRESS. COMPLAINED OF "UPSET STOMACH" AND REQUESTS FOR MYLANTA. WILL NOTIFY MD. IV FLUID NS INFUSING AT 100 ML/HR VIA RIGHT HAND #20 IV LINE. SAO2=95% ON ROOM AIR. SINUS RHYTHM WITH BBB @ 60/MINUTE ON THE MONITOR. VS ARE OTHERWISE STABLE, WILL CONTINUE TO MONITOR.NEEDS ATTENDED.
[2019-08-12] MEDS: NAPROXEN 500 MG TAB PO SCH (20:49)
[2019-08-12] MEDS: COLCHICINE 0.6 MG TAB PO SCH (20:49)
--- NOTE | 2019-08-12 20:49 | NUR ---
RESIDENT ON DUTY DR.FERNANDEZ NAQVI NOTIFIED OF PT'S COMPLAINT. METOPROLOL NOT GIVEN DUE TO PARAMETER, JE=619/47. OTHER DUE MEDICATIONS GIVEN.
[2019-08-12] MEDS ORDERED: FAMOTIDINE 20 MG TAB PO SCH ×2 (21:00)
[2019-08-12] MEDS ORDERED: NON-FORMULARY ITEM (Colchicine 0.6 MG) PO SCH (21:00)
--- NOTE | 2019-08-12 21:34 | NUR ---
PEPCID 20 MG PO GIVEN ORDERED FOR "UPSET STOMACH".
[2019-08-13] VITALS: BP 126/52
--- NOTE | 2019-08-13 | NUR ---
RESTING IN BED, NOT IN ANY KIND OF DISTRESS. NO PAIN OR DISCOMFORT NOTED. VERBALIZED RESOLUTION OF UPSET STOMACH. SIDE RAILS UP, CALL LIGHT WITHIN REACH. KEPT WARM AND COMFORTABLE. VS REMAIN STABLE.
[2019-08-13] MEDS: NACL 0.9% 1,000 ML IV SCH ×2 (01:53→12:11)
[2019-08-13 04:00] VITALS: BP 100/43
--- NOTE | 2019-08-13 04:00 | NUR ---
ASLEEP, NO SIGNIFICANT CHANGED. PT.REMAINS STABLE AND PAIN FREE.
[2019-08-13 06:07] LABS: BASOPHILS % (AUTO) 0.3 % (0.0-2.0); EOSINOPHILS # (AUTO) 0.2 K/uL (0-0.4); EOSINOPHILS % (AUTO) 2.6 % (0.0-4.0); HEMATOCRIT 35.2 % (36-48); HEMOGLOBIN 11.5 g/dL (12.0-16.0); LYMPHOCYTES # (AUTO) 1.6 K/uL (2.5-16.5); LYMPHOCYTES % (AUTO) 24.8 % (20.5-51.1); MEAN CORPUSCULAR HEMOGLOBIN 28 pg (27-31); MEAN CORPUSCULAR HGB CONC 33 g/dL (33-37); MEAN CORPUSCULAR VOLUME 86.6 fL (80-94); MONOCYTES # (AUTO) 0.4 K/uL (0.8-1.0); MONOCYTES % (AUTO) 5.9 % (1.7-9.3); NEUTROPHILS # (AUTO) 4.3 K/uL (1.8-7.7); NEUTROPHILS % (AUTO) 66.4 % (42.2-75.2); PLATELET COUNT (AUTO) 188 K/uL (140-450); RED BLOOD CELL COUNT(AUTO) 4.06 MIL/uL (4.20-5.40); RED CELL DISTRIBUTION WIDTH 13.1 % (11.6-13.7); WHITE BLOOD COUNT (AUTO) 6.5 K/uL (4.8-10.8)
[2019-08-13 07:00] LABS: MAGNESIUM 2.2 mg/dL (1.8-2.4); PHOSPHORUS 2.9 mg/dL (2.5-4.9)
[2019-08-13 07:06] LABS: CARBON DIOXIDE 24.5 mmol/L (21-32); CHLORIDE 111 mmol/L (98-107); CREATININE 1.4 mg/dL (0.6-1.3); GLUCOSE 95 mg/dL (74-106); POTASSIUM 4.5 mmol/L (3.5-5.1); SODIUM SERUM 143 mmol/L (136-145); UREA NITROGEN, BLOOD 27 mg/dL (7-18)
--- NOTE | 2019-08-13 07:20 | NUR ---
RECEIVED BEDSIDE REPORT FROM NIGHTSHIFT NURSE. PT ASLEEP UPON ARRIVAL. RESPONSIVE TO VERBAL AND TACTILE STIMULI. ABLE TO MAKE NEEDS KNOWN. RESPIRATIONS EVEN AND UNLABORED WITH NO SOB OR RESPIRATORY DISTRESS. SKIN WARM AND DRY TO TOUCH. IV SITE IN RIGHT HAND 20G IS CLEAN, DRY, AND INTACT. NO COMPLICATIONS AT THIS TIME. SAFETY MEASURES IN PLACE. WILL CONTINUE TO MONITOR.
[2019-08-13 08:00] VITALS: BP 134/62
--- NOTE | 2019-08-13 08:08 | NUR ---
OBTAINED CONSENT FROM PT FOR AUTHORIZATION TO RELEASE MEDICAL RECORD FROM [facility] AND PT WAS AWARE AND AGREED. CALLED [facility] AND SPOKE WITH [employer] TO OBTAIN MEDICAL RECORD FAX #. FAX MEDICAL RECORD REQUEST FORM TO [facility] [phone], FAX WENT THROUGH SUCCESSFULLY.
[2019-08-13] MEDS: METOPROLOL 25 MG TAB PO SCH (08:41)
[2019-08-13] MEDS: COLCHICINE 0.6 MG TAB PO SCH (08:42)
[2019-08-13] MEDS: NAPROXEN 500 MG TAB PO SCH (08:42)
[2019-08-13] MEDS: ATORVASTATIN 20 MG TAB PO SCH (08:43)
--- NOTE | 2019-08-13 08:44 | NUR ---
CHECKED BLOOD PRESSURE PRIOR TO ADMINISTERING MEDICATION. BP: 130/64 AND HEART RATE 74. ADMINISTERED MEDICATION PRESCRIBED PER MD ORDER. PT TOLERATED WELL. MEDICATION EDUCATION PERFORMED. PT TOLERATED WELL AND VERBALIZED UNDERSTANDING. PT ALSO COMPLAINED OF 5/10 PAIN. PRN PAIN MEDICATION ADMINISTERED PRESCRIBED PER MD ORDER. PT TOLERATED WELL. MEDICATION ADMINISTRATION PERFORMED. PT UNDERSTOOD AND COULD TEACH BACK. SAFETY MEASURES IN PLACE. WILL CONTINUE TO MONITOR.
[2019-08-13] MEDS ORDERED: FAMOTIDINE 20 MG TAB PO SCH (09:00)
[2019-08-13] MEDS ORDERED: ASPIRIN 81 MG TAB.CHEW PO SCH ×2 (09:00)
[2019-08-13] MEDS ORDERED: FENOFIBRATE 48 MG TAB PO SCH (09:00)
[2019-08-13] MEDS ORDERED: NON-FORMULARY ITEM (Fenofibrate 1 TAB) PO SCH (09:00)
[2019-08-13] MEDS ORDERED: NIFEdipine 60 MG TABER PO SCH (09:00)
--- NOTE | 2019-08-13 09:22 | NUR ---
PATIENT HAS BEEN SCREENED AND CATEGORIZED LOW NUTRITION RISK. PATIENT WILL BE SEEN WITHIN 5-7 DAYS OF ADMISSION. 08/18/19-08/20/[address]
--- NOTE | 2019-08-13 10:15 | NUR ---
HOURLY ROUNDING. PT RESTING IN BED WATCHING TV. ABLE TO MAKE NEEDS KNOWN. NO COMPLAINTS OF PAIN OR DISCOMFORT. RESPIRATIONS EVEN AND UNLABORED WITH NO SOB OR RESPIRATORY DISTRESS. SKIN WARM AND DRY TO TOUCH. SAFETY MEASURES IN PLACE: HOB ELEVATED, BED IN LOWEST POSITION, AND CALL LIGHT WITHIN REACH. WILL CONTINUE TO MONITOR.
--- NOTE | 2019-08-13 10:35 | NUR ---
DC PLANNING 79 YRS OLD FEMALE PATIENT WAS ADMITTED FROM HOME WITH A DX OF CHEST PAIN R/O ACS. PT HAS A HX OF COPD ,HTN AND PERICARDITIS. STARTED ACS MEDS ASA 81 MG PO METOPROLOL AND ATORVASTATIN AND IVF. CONTACTED PT'S INSURANCE [facility] [phone] SPOKE WITH YARELIS ALEJANDRO PER YARELIS SHE WANTED PEER TO PEER DISCUSSION .PROVIDE DR MERCADO [facility] # [phone] NATHEN CATALAN PER THEIR DISCUSSION PT NEEDS TO BE D/C HOME AND FOLLOW UP WITH PCP AND MECHANICAL DRAFTER. YARELIS MADE APPOINTMENT WITH PT'S MECHANICAL DRAFTER DR JEFFREY CERDA [phone] AUG 20 2019 AT 0930 AM . APPOINTMENT REMINDER GIVEN TO THE PATIENT.
--- NOTE | 2019-08-13 10:45 | NUR ---
RECEIVED CALL FROM EMISSIONS REPAIR TECHNICIAN MADHURI TO INFORM PT OF HER CARVER HAND APPOINTMENT ON 08/20/19 AT 0930. PT IS INFORMED AND VERBALIZED BACK.
--- NOTE | 2019-08-13 11:15 | NUR ---
PATIENT WAS AWARE AND RESTING ON BED AT THIS TIME. PT WAS AWARE THAT SHE WILL BE DC FROM HOSPITAL TODAY.NO SIGNS OF DISTRESS NOTED. SAFETY MEASURES IN PLACE. BED IN LOW POSITION AND CALL LIGHT WITHIN REACH. INSTRUCTED PT TO USE THE CALL LIGHT FOR ANY ASSISTANCE.
[2019-08-13 12:00] VITALS: BP 146/59
[2019-08-13] MEDS ORDERED: METO25TA PO (12:59)
--- NOTE | 2019-08-13 13:21 | NUR ---
SPOKE WITH PT'S GRANDDAUGHTER JACOBO. PER JACOBO, SHE WILL TRAVEL NURSE PT AROUND 2:00PM. INFORMED PT ON REGARDS, AND PT WAS AWARE. PT IS RESTING ON BED AT THIS TIME. NO SIGNS OF DISTRESS NOTED. SAFETY MEASURES IN PLACE. BED IN LOW POSITION AND CALL LIGHT WITHIN REACH. INSTRUCTED PT TO USE THE CALL LIGHT FOR ANY ASSISTANCE AND PT WAS AWARE.
--- NOTE | 2019-08-13 13:45 | NUR ---
DISCHARGE INSTRUCTION PROVIDED TO PT AT BEDSIDE. EDUCATED PT ON MD FOLLOW UP, MEDICATIONS REGIMEN, SIDE EFFECTS, AND SEEK MEDICAL HELP IN THE CASE OF MEDICAL EMERGENCY. ANSWERED ALL PT'S QUESTIONS AND PT VERBALIZED UNDERSTANDING. REMOVED ALL ARM BANDS AND DC IV, CANNULA INTACT AND NO BLEEDING AT IV SITE. PT WAS AWARE HER MEDICATION WAS SEND TO HER PREFERRED PHARMACY. PT IS ALLERGIC TO FLU VACCINE. PATIENT CHECKED THE CABINETS AND TOOK ALL HER BELONGINGS. PT CHANGED INTO HER OWN CLOTHES. BATCH ROOM TECHNICIAN ESCORTED PT WITH WHEELCHAIR TO THE FRONT LOBBY. PT IS DC AT THIS TIME IN STABLE CONDITION ACCOMPANY BY GRANDDAUGHTER JACOBO.
--- NOTE | 2019-08-13 13:58 | NUR ---
WENT OVER DISCHARGE INFORMATION WITH PATIENT. VISITORS AT BEDSIDE. DISCHARGE DOCUMENTS SIGNED. NO COMPLICATIONS NOTED. INFORMED PT TO VISIT ED IN CASE OF ANY EMERGENCIES OR DISTRESS. PT VERBALIZED UNDERSTANDING. PRESCRIPTIONS GIVEN TO PT. INTACT IV AND INTACT IJ TRIPLE LUMEN REMOVED. PRESSURE APPLIED TO IJ SITE. NO COMPLICATIONS NOTED. ID BANDS AND ALLERGY BRACELETS WERE REMOVED. FLU AND PNA VACCINE WAS REFUSED. EDUCATED PT ON IMPORTANCE OF VACCINES. PT STILL REFUSED VACCINES. PT WHEELED OUT WITH VISITORS AT BEDSIDE. PT IS STABLE. Addendum: 08/13/19 at 1408 by Gabbie Astorga RN WRONG ENTRY
[2019-08-17 06:07] LABS: CK-BB 0 % (0); CK-MB 0 % (0-3); CK-MM 100 % (97-100)
== END 2019-08-13 13:45 | disposition home or self-care (01) ==
LOC: MED 11:26 → UNDOADMOB 14:07 → MTU 14:07
PROVIDERS: ADMIT General Practice; ATTEND General Practice
DX: R07.9 Chest pain, unspecified (principal); G62.9 Polyneuropathy, unspecified; E78.5 Hyperlipidemia, unspecified; J44.9 Chronic obstructive pulmonary disease, unspecified; R42 Dizziness and giddiness; I10 Essential (primary) hypertension; Z79.82 Long term (current) use of aspirin; Z79.899 Other long term (current) drug therapy; Z88.0 Allergy status to penicillin; Z88.2 Allergy status to sulfonamides
CPT/HCPCS: 36415; 71045; 80048; 80053; 80061; 80305; 81001; 82150; 82550; 82552; 83036; 83690; 83735; 83880; 84100; 84439; 84443; 84484; 85025; 85610; 85730; 87081; 93005; 96361; 96374; 96375; 99285; G0378; J2060; J2405; J3010; J7030; Q0092

== ENCOUNTER 2019-08-23 13:07 | Inpatient (IN) | payer OTHER ==
[~2019-08-23] VITALS: Ht 160 cm; Wt 77.6 kg
[~2019-08-23 13:07] MED LIST changes: +METO25TA PO
--- NOTE | 2019-08-23 13:13 | NUR ---
Patient ambulated to bed 7. RN evaluating patient at bedside.
--- NOTE | 2019-08-23 13:18 | NUR ---
EKG completed at bedside by EMT.
--- NOTE | 2019-08-23 13:20 | NUR ---
Dr. Francisco is evaluating the patient at bedside.
[2019-08-23 13:22] VITALS: BP 225/90
[2019-08-23] MEDS ORDERED: ONDANSETRON 4 MG/2 ML VIAL IVP ONE (13:30)
[2019-08-23] MEDS ORDERED: ASPIRIN 81 MG TAB.CHEW PO ONE (13:30)
[2019-08-23] MEDS ORDERED: methylPREDNISolone SS 125 MG/2 ML VIAL IVP ONE (13:30)
[2019-08-23] MEDS ORDERED: LORazepam 2 MG/ML VIAL IVP ONE (13:30)
[2019-08-23] MEDS ORDERED: ENALAPRILAT 2.5 MG/2 ML VIAL IVP ONE (13:30)
[2019-08-23 14:33] LABS: BASOPHILS % (AUTO) 0.3 % (0.0-2.0); EOSINOPHILS # (AUTO) 0.1 K/uL (0-0.4); HEMATOCRIT 42.5 % (36-48); HEMOGLOBIN 13.8 g/dL (12.0-16.0); LYMPHOCYTES # (AUTO) 1.3 K/uL (2.5-16.5); LYMPHOCYTES % (AUTO) 22.6 % (20.5-51.1); MEAN CORPUSCULAR HEMOGLOBIN 28 pg (27-31); MEAN CORPUSCULAR HGB CONC 33 g/dL (33-37); MEAN CORPUSCULAR VOLUME 86.6 fL (80-94); MONOCYTES # (AUTO) 0.3 K/uL (0.8-1.0); MONOCYTES % (AUTO) 4.8 % (1.7-9.3); NEUTROPHILS # (AUTO) 3.9 K/uL (1.8-7.7); NEUTROPHILS % (AUTO) 70.3 % (42.2-75.2); PLATELET COUNT (AUTO) 216 K/uL (140-450); RED CELL DISTRIBUTION WIDTH 13.1 % (11.6-13.7); WHITE BLOOD COUNT (AUTO) 5.5 K/uL (4.8-10.8)
[2019-08-23 14:37] LABS: PROTHROMBIN TIME 10.7 secs (10.8-13.4)
[2019-08-23 14:38] LABS: ALBUMIN 4.2 g/dL (3.4-5.0); ANION GAP 16.2 (8-16); ASPARTATE AMINOTRANSFERASE 17 U/L (15-37); CHLORIDE 107 mmol/L (98-107); CREATININE 1.5 mg/dL (0.6-1.3); GLUCOSE 109 mg/dL (74-106); POTASSIUM 4.2 mmol/L (3.5-5.1); SODIUM SERUM 142 mmol/L (136-145); TOTAL BILIRUBIN 0.7 mg/dL (0.0-1.0); UREA NITROGEN, BLOOD 28 mg/dL (7-18)
[2019-08-23 14:58] LABS: C-REACTIVE PROTEIN QUANT < 0.2 mg/dL (0.0-0.9)
[2019-08-23 14:59] LABS: MAGNESIUM 2.3 mg/dL (1.8-2.4); THYROID STIMULATING HORMONE 0.55 uIU/mL (0.34-3.74)
[2019-08-23] MEDS: NACL 0.9% 1,000 ML IV SCH (15:15)
[2019-08-23] MEDS ORDERED: ACETAMINOPHEN 325 MG TAB PO PRN (15:15)
[2019-08-23] MEDS ORDERED: NITROGLYCERIN 0.4 MG TAB SL PRN (15:15)
[2019-08-23] MEDS ORDERED: ALBUTEROL SULFATE/IPRATROPIU 3 ML SOL IH PRN (15:15)
[2019-08-23] MEDS ORDERED: ONDANSETRON 4 MG/2 ML VIAL IVP PRN (15:15)
[2019-08-23 15:38] LABS: D-DIMER < 100 ng/ml (0-400)
--- NOTE | 2019-08-23 16:00 | NUR ---
Dr. Gil is evaluating the patient at bedside.
[2019-08-23 16:05] LABS: PHOSPHORUS 3.2 mg/dL (2.5-4.9)
--- NOTE | 2019-08-23 16:15 | NUR ---
Patient will be admitted to care of DR. VICKERS. Admited to MED SURG TELE. Will go to [facility]. Belongings list completed. Report to JOSH PAGAN.
[2019-08-23 16:24] LABS: THYROID STIMULATING HORMONE 0.5 uIU/mL (0.34-3.74)
[2019-08-23] MEDS ORDERED: MEDICATION REC. PHARMACY CONS. 1 EA MISC MC PRN (16:40)
--- NOTE | 2019-08-23 16:40 | NUR ---
PT ARRIVED ON THE UNIT PT AMBULATED FROM RNEY TO BED. PT AMBULATED WITH A STEADY GAIT. PLACED PT ON TELE MONITOR. RECEIVED BEDSIDE REPORT FROM ROLL GRINDER OPERATOR. ORIENTED PT TO UNIT AND ROOM. PERFORMED HEAD TO TOE ASSESSMENT. PERFORMED ADMISSION QUESTIONS. COLLECTED MRSA NARES.
--- NOTE | 2019-08-23 17:34 | NUR ---
FREQUENT ROUNDING ON PT PT APPEARS STABLE AND IN NO APPARENT DISTRESS. ALL SAFETY MEASURES ARE IN PLACE WILL CONTINUE TO MONITOR
[2019-08-23] MEDS ORDERED: ALBUTEROL SULFATE/IPRATROPIU 3 ML SOL IH SCH (18:00)
[2019-08-23 18:08] LABS: APPEARANCE,URINE CLEAR (CLEAR); BILIRUBIN,URINE NEGATIVE (NEGATIVE); BLOOD, URINE NEGATIVE (NEGATIVE); COLOR,URINE YELLOW (YELLOW); LEUKOCYTE ESTERASE ,URINE NEGATIVE (NEGATIVE); NITRITE, URINE NEGATIVE (NEGATIVE); PH,URINE 5.5 (5.0-9.0); UGLUCOSE NEGATIVE (NEGATIVE)
--- NOTE | 2019-08-23 19:30 | NUR ---
ENDORSED PT TO PM RN PT AWAKE IN BED PT APPEARS STABLE AND IN NO APPARENT DISTRESS. ALL SAFETY MEASURES ARE IN PLACE PT MONITORING ON TELE. PT IVF INFUSING IV SITE PATENT AND SHOWS NO SIGNS OF INFLAMMATION OR INFILTRATION
--- NOTE | 2019-08-23 19:35 | NUR ---
RECEIVED PT IN STABLE CONDITION FROM AM NURSE FOR CONTINUITY OF CARE. AWAKE,ALERT AND ORIENTED X4. ON TELE MONITOR. NO C/O ANY DISCOMFORT NOR SOB NOTED. IVF INFUSING WELL ON THE LT FA G@22. AMBULATORY TO BATHROOM WITH STANDBY ASSIST. PLAN OF CARE DISCUSSED AND VERBALIZED UNDERSTANDING. FREQ ROUNDS NEEDED, BED ON LOW POSITION. CALL LIGHT PLACED WITHIN REACH. INSTRUCTED TO CALL IF NEED TO GET UP TO BATHROOM AND FOR ANY NEEDS AT ANYTIME. WILL CONTINUE TO MONITOR.
[2019-08-23 20:00] VITALS: BP 153/52
[2019-08-23] MEDS: COLCHICINE 0.6 MG TAB PO SCH (20:18)
[2019-08-23] MEDS: DOCUSATE SODIUM 100 MG GELCAP PO SCH (20:18)
[2019-08-23] MEDS: ATORVASTATIN 20 MG TAB PO SCH (20:18)
[2019-08-23] MEDS: FAMOTIDINE 20 MG TAB PO SCH (20:19)
[2019-08-23] MEDS: METOPROLOL 25 MG TAB PO SCH (20:19)
[2019-08-23] MEDS: HYDROcodone/APAP 5/325 MG 1 TAB TAB PO PRN (20:20)
--- NOTE | 2019-08-23 20:20 | NUR ---
TOOK ALL DUE MEDS . C/O MILD PAIN .MEDICATED ORDERED. WILL CONTINUE TO MONITOR.
[2019-08-23] MEDS ORDERED: NON-FORMULARY ITEM (Colchicine 0.6 MG) PO SCH (21:00)
--- NOTE | 2019-08-23 23:00 | NUR ---
ASSISTED UP TO BATHROOM. NO S/S OF ANY SOB/DISTRESS NOTED.
[2019-08-24] VITALS: BP 124/46
--- NOTE | 2019-08-24 01:00 | NUR ---
MADE ROUNDS. NO S/S OF ANY DISTRESS NOR ANY DISCOMFORT . WILL CONTINUE TO MONITOR.
[2019-08-24] MEDS: NACL 0.9% 1,000 ML IV SCH ×4 (02:35→22:35)
[2019-08-24 03:55] VITALS: BP 118/47
--- NOTE | 2019-08-24 04:00 | NUR ---
PT SIGNED THE AUTHORIZATION TO GET MEDICAL RECORDS IN [facility] FOR HER LATEST CARDIAC CATH . WILL FAX .
[2019-08-24] MEDS: HYDROcodone/APAP 5/325 MG 1 TAB TAB PO PRN ×2 (05:43→16:24)
[2019-08-24 06:44] LABS: ANION GAP 12.7 (8-16); CARBON DIOXIDE 24.1 mmol/L (21-32); CHLORIDE 109 mmol/L (98-107); CREATININE 1.4 mg/dL (0.6-1.3); GLUCOSE 134 mg/dL (74-106); POTASSIUM 4.8 mmol/L (3.5-5.1); SODIUM SERUM 141 mmol/L (136-145); UREA NITROGEN, BLOOD 33 mg/dL (7-18)
[2019-08-24 06:50] LABS: BASOPHILS % (AUTO) 0.2 % (0.0-2.0); HEMATOCRIT 37.7 % (36-48); HEMOGLOBIN 12.1 g/dL (12.0-16.0); LYMPHOCYTES # (AUTO) 0.7 K/uL (2.5-16.5); LYMPHOCYTES % (AUTO) 14.8 % (20.5-51.1); MEAN CORPUSCULAR HEMOGLOBIN 28 pg (27-31); MEAN CORPUSCULAR HGB CONC 32 g/dL (33-37); MEAN CORPUSCULAR VOLUME 87.4 fL (80-94); MONOCYTES # (AUTO) 0.1 K/uL (0.8-1.0); MONOCYTES % (AUTO) 2.8 % (1.7-9.3); NEUTROPHILS # (AUTO) 3.6 K/uL (1.8-7.7); NEUTROPHILS % (AUTO) 82.2 % (42.2-75.2); PLATELET COUNT (AUTO) 223 K/uL (140-450); RED BLOOD CELL COUNT(AUTO) 4.31 MIL/uL (4.20-5.40); RED CELL DISTRIBUTION WIDTH 12.9 % (11.6-13.7); WHITE BLOOD COUNT (AUTO) 4.4 K/uL (4.8-10.8)
[2019-08-24 06:51] LABS: PHOSPHORUS 2.6 mg/dL (2.5-4.9)
--- NOTE | 2019-08-24 07:25 | NUR ---
ENDORSED PT IN STABLE CONDITION TO AM NURSE FOR CONTINUITY OF CARE.
[2019-08-24 08:00] VITALS: BP 150/54
--- NOTE | 2019-08-24 08:24 | NUR ---
PATIENT HAS BEEN SCREENED AND CATEGORIZED MODERATE NUTRITION RISK. PATIENT WILL BE SEEN WITHIN 3-5 DAYS OF ADMISSION. 08/26/19 08/28/[address]
[2019-08-24] MEDS: METOPROLOL 25 MG TAB PO SCH ×2 (09:00→22:19)
[2019-08-24] MEDS ORDERED: NON-FORMULARY ITEM (Fenofibrate 1 TAB) PO SCH (09:00)
--- NOTE | 2019-08-24 09:15 | NUR ---
DOING ROUNDS, PATIENT TALKING ON THE PHONE, NO DISTRESS NOTED AT THIS TIME. WILL CONTINUE TO MONITOR.
[2019-08-24] MEDS: DOCUSATE SODIUM 100 MG GELCAP PO SCH ×2 (09:50→21:00)
[2019-08-24] MEDS: ASPIRIN 81 MG TAB.CHEW PO SCH (09:50)
[2019-08-24] MEDS: COLCHICINE 0.6 MG TAB PO SCH ×2 (09:50→22:18)
[2019-08-24] MEDS: LEVOFLOXACIN 500 MG/D5W PREMIX 100 ML IV SCH (09:52)
[2019-08-24] MEDS: LISINOPRIL 5 MG TAB PO SCH (10:13)
[2019-08-24] MEDS: NIFEdipine 60 MG TABER PO SCH (10:13)
[2019-08-24] MEDS: FENOFIBRATE 48 MG TAB PO SCH (10:14)
--- NOTE | 2019-08-24 11:10 | NUR ---
PATIENT SENT TO CT VIA WHEELCHAIR WITH CHECKROOM CHIEF, GAIT IS STEADY. PATIENT IS STABLE AT THIS TIME.
--- NOTE | 2019-08-24 11:45 | NUR ---
PATIENT RETURN BACK FROM CT, VITALS NORMAL. WILL CONTINUE TO MONITOR
[2019-08-24 12:00] VITALS: BP 145/68
--- NOTE | 2019-08-24 12:05 | NUR ---
PATIENT AMBULATED TO THE RESTROOM WITHOUT DISTRESS, PATIENT'S GAIT IS STEADY, BY THE BATHROOM FOR BY ASSISTANCE. . WILL CONTINUE TO MONITOR.
[2019-08-24] MEDS: ALBUTEROL SULFATE/IPRATROPIU 3 ML SOL IH SCH ×2 (13:00→19:55)
--- NOTE | 2019-08-24 13:23 | NUR ---
pt refused breathing tx stating that tx hurts her heart no sob or signs of distress noted hr 54 rr 18 and sat 98% 0n 2lnc
--- NOTE | 2019-08-24 15:15 | NUR ---
PATIENT RESTING IN BED C/O PAIN IN HER CHEST, INTERMITTENT PRESSURE, PAIN MEDICATIONS WILL BE GIVEN PER PROTOCOL AND WILL CONTINUE TO MONITOR.
[2019-08-24 16:00] VITALS: BP 133/85
--- NOTE | 2019-08-24 17:20 | NUR ---
PATIENT IN BED, RESTING. NO C/O PAIN AT THE TIME. WILL CONTINUE TO MONITOR
--- NOTE | 2019-08-24 19:03 | NUR ---
ENDORSED CARE TO POCKET SETTER NURSE, PATIENT IS STABLE AT THIS TIME.
--- NOTE | 2019-08-24 19:04 | NUR ---
RECEIVED PT FROM AM NURSE FOR CONTINUITY OF CARE. AWAKE,ALERT AND ORIENTED X4. ON TELE MONITOR. NO C/O ANY DISCOMFORT NOR SOB NOTED. IVF LEAKING PER PATIENT'S COMPLAINT. WILL REINSERT LATER. AMBULATORY TO BATHROOM WITH STANDBY ASSIST. POC REVIEWED. BED ON LOW POSITION. CALL LIGHT PLACED WITHIN REACH. WILL CONTINUE TO MONITOR
[2019-08-24] MEDS: BUDESONIDE 0.5 MG/2 ML NEBU INH SCH (19:30)
[2019-08-24 20:00] VITALS: BP 145/80
[2019-08-24] MEDS: FAMOTIDINE 20 MG TAB PO SCH (22:18)
[2019-08-24] MEDS: ATORVASTATIN 20 MG TAB PO SCH (22:28)
--- NOTE | 2019-08-24 22:29 | NUR ---
NON ADMIN OF COLACE- PT HAD A [address] OLGUIN AWARE. HOLD CPOLACE FOR NOW
--- NOTE | 2019-08-24 22:47 | NUR ---
STILL [id number] FOR A LINE; PATIENT HARDSTICK; PT DRINKS WATER REGULARLY. WILL LOOK FOR A LINE LATER
--- NOTE | 2019-08-24 23:00 | NUR ---
LINE STARTED ON PATIENT ON THE LEFT HAND G 22, PATENT AND INTACT. NO SIGNS OF INFECTION NOR BLEEDING. PT TOLERATED PROCEDURE WELL
[2019-08-25] VITALS: BP 130/85
[2019-08-25] MEDS: HYDROcodone/APAP 5/325 MG 1 TAB TAB PO PRN ×2 (00:14→09:07)
--- NOTE | 2019-08-25 00:14 | NUR ---
PT SMELLING OF URINE; BUT REFUSED TO BE CHANGED WITH NEW UNDERWEAR AND NEW UNDERPANTS; SHE SAID THAT SHE IS NOT BEDWETTING. SO WE OFFERED TO CHANGE THE CHUX INSTEAD. PT AGREED. PT STILL SMELLING OF URINE
[2019-08-25] MEDS: ALBUTEROL SULFATE/IPRATROPIU 3 ML SOL IH SCH ×2 (00:49→07:12)
--- NOTE | 2019-08-25 01:20 | NUR ---
PT GETTING UP STEADY GAIT; WENT TO THE BATHROOM VOIDED.
--- NOTE | 2019-08-25 03:56 | NUR ---
REPORTED TO DR. CLAU BOONE C BBB VS A FLUUTER. ON EKG. PATIENT ASYMPTOMATIC. PT WENT TO THE BATHROOM W/O SIGNS SYMPTOMS OF CHEST PAIN/ CARDIAC DISTRESS
[2019-08-25 04:03] VITALS: BP 90/38
--- NOTE | 2019-08-25 04:32 | NUR ---
EKG 12 LEADS TO CONFIRM THE AFIB W/ BBB VS AFLUTTER .POULTRY FARMER MEAT AT BEDSIDE TAKING THE READING
--- NOTE | 2019-08-25 04:40 | NUR ---
DR ANG MADE AWARE THAT PT'S BP DROPPED TO 90/38, 60 HEART RATE. AT BEDSIDE, AND REASSESSED PATIENT LET HER SIT UP PATIENT'S BP IS NOW 152/70 WITH HR OF 97. NO NEW ORDERS FOR BOTH BP AND EKG RESULT
--- NOTE | 2019-08-25 04:51 | NUR ---
DR. ANG AWARE THE RESULT OF A 12 LEAD EKG, COMPARED TO PREVIOUS PT HAD AFIB AND BBB.
[2019-08-25 05:52] LABS: BASOPHILS % (AUTO) 0.6 % (0.0-2.0); EOSINOPHILS # (AUTO) 0.1 K/uL (0-0.4); HEMATOCRIT 42.1 % (36-48); HEMOGLOBIN 13.8 g/dL (12.0-16.0); LYMPHOCYTES # (AUTO) 2.7 K/uL (2.5-16.5); LYMPHOCYTES % (AUTO) 41.6 % (20.5-51.1); MEAN CORPUSCULAR HEMOGLOBIN 28 pg (27-31); MEAN CORPUSCULAR HGB CONC 33 g/dL (33-37); MEAN CORPUSCULAR VOLUME 86.3 fL (80-94); MONOCYTES # (AUTO) 0.4 K/uL (0.8-1.0); MONOCYTES % (AUTO) 5.7 % (1.7-9.3); NEUTROPHILS # (AUTO) 3.3 K/uL (1.8-7.7); NEUTROPHILS % (AUTO) 50.1 % (42.2-75.2); PLATELET COUNT (AUTO) 239 K/uL (140-450); RED BLOOD CELL COUNT(AUTO) 4.87 MIL/uL (4.20-5.40); RED CELL DISTRIBUTION WIDTH 13.2 % (11.6-13.7); WHITE BLOOD COUNT (AUTO) 6.6 K/uL (4.8-10.8)
[2019-08-25 06:16] LABS: ANION GAP 11.6 (8-16); CARBON DIOXIDE 24.8 mmol/L (21-32); CHLORIDE 106 mmol/L (98-107); CREATININE 1.3 mg/dL (0.6-1.3); GLUCOSE 98 mg/dL (74-106); POTASSIUM 4.4 mmol/L (3.5-5.1); SODIUM SERUM 138 mmol/L (136-145); UREA NITROGEN, BLOOD 37 mg/dL (7-18)
[2019-08-25 06:23] LABS: PHOSPHORUS 2.2 mg/dL (2.5-4.9)
--- NOTE | 2019-08-25 06:37 | NUR ---
PT ASLEEP BUT EASILY AROUSABLE, PT W/ AFIB WITH BBB VS AFLUTTER . PT ASYMPTOMATIC, AWAKE, ALERT ORIENTED X 4.
[2019-08-25] MEDS: BUDESONIDE 0.5 MG/2 ML NEBU INH SCH (07:22)
--- NOTE | 2019-08-25 07:22 | NUR ---
PT REFUSED TX SAYING THE MEDICATION HURTS HER CHEST WHEN ADMINISTERED. PT IS IN RA SAT 94%. NO DISTRESS NOTED. WILL CONT TO MONITOR
--- NOTE | 2019-08-25 07:27 | NUR ---
UPON CHANGE OF SHIFT, PATIENT C/O OF UPSET STOMACH. PT HAS SHOWN AFIB WITH BBB EARLIER. DR. ANG MADE AWARE AND SHE SAID THAT WILL GO AND SEE THE PATIENT
--- NOTE | 2019-08-25 07:29 | NUR ---
RECEIVED BEDSIDE REPORT FROM PHYSICIAN OFFICE CLIN ASST NURSE FOR CONTINUITY OF CARE. PT AWAKE AND RESTING ON BED AT THIS TIME. PT IS AAOX4. PT STATED THAT "MT STOMACH FEELS A LITTLE DISCOMFORT, BUT NOT LIKE I AM HURTING." DENIED NAUSEA, VOMITING AND DIZZINESS AT THIS TIME. RESPIRATION EVEN AND UNLABORED ON RA, SPO2 AT 93%. NO SIGNS OF DISTRESS NOTED. IV ON L HAND 22G, CLEAN AND INTACT, INFUSING PER MD ORDER. SKIN CLEAN AND DRY. PT IS CONTINENT AND ABLE TO AMBULATE WITH STANDBY ASSIST. DISCUSSED PLAN OF CARE WITH PT AND PT VERBALIZED UNDERSTANDING. SAFETY MEASURES IN PLACE. BED IN LOW POSITION AND CALL LIGHT WITHIN REACH. TELE MONITOR ATTACHED. INSTRUCTED PT TO USE THE CALL LIGHT FOR ANY ASSISTANCE AND PT WAS AWARE.
[2019-08-25 08:00] VITALS: BP 148/68
[2019-08-25] MEDS ORDERED: MORPHINE SULFATE 2 MG/ML SYR IVP SCH (08:36)
[2019-08-25] MEDS ORDERED: ONDANSETRON 4 MG/2 ML VIAL IVP SCH (08:40)
[2019-08-25] MEDS: DOCUSATE SODIUM 100 MG GELCAP PO SCH (09:00)
[2019-08-25] MEDS: NACL 0.9% 1,000 ML IV SCH (09:03)
[2019-08-25] MEDS: ASPIRIN 81 MG TAB.CHEW PO SCH (09:04)
[2019-08-25] MEDS: FENOFIBRATE 48 MG TAB PO SCH (09:04)
[2019-08-25] MEDS: COLCHICINE 0.6 MG TAB PO SCH (09:05)
[2019-08-25] MEDS: NIFEdipine 60 MG TABER PO SCH (09:05)
[2019-08-25] MEDS: METOPROLOL 25 MG TAB PO SCH (09:06)
[2019-08-25] MEDS: LISINOPRIL 5 MG TAB PO SCH (09:06)
[2019-08-25] MEDS: LEVOFLOXACIN 500 MG/D5W PREMIX 100 ML IV SCH (09:10)
--- NOTE | 2019-08-25 09:10 | NUR ---
CHECKED BP PRIOR TO MEDS ADMINISTRATION, BP 132/66 PULSE 87. ADMINISTERED AM SCHEDULED MEDS PER MD ORDER, PT REFUSED COLACE AND MORPHINE AND STATED THAT "I HAVE DIARRHEA AT HOME AND I DONT NEED ANY STOOL SOFTENER. AND I DON'T FEEL GOOD AFTER THE GOTTEN THE MORPHINE LAST TIME. I DONT WANT IT. IT MADE MY HEART FEEL WEIRD." MEDS EDUCATION PROVIDED TO PT AND PT VERBALIZED UNDERSTANDING. PT COMPLAINED 5/10 PAIN AROUND HER HEART, MEDICATED WITH PRN NORCO. NOTIFIED DR OWENS ON REGARDS OF PT IS NOT ABLE TO TOLERATE MORPHINE AND CAUSES DISCOMFORT, DR OWENS WAS AWARE AND WAS AT BEDSIDE. PT IS AWAKE AND RESTING ON BED AT THIS TIME. NO SIGNS OF DISTRESS NOTED. SAFETY MEASURES IN PLACE. TELE MONITOR ATTACHED, BED IN LOW POSITION AND CALL LIGHT WITHIN REACH. INSTRUCTED PT TO USE THE CALL LIGHT FOR ANY ASSISTANCE AND PT WAS AWARE.
--- NOTE | 2019-08-25 09:20 | NUR ---
DR BROWN AND DR OWENS ARE ASSESSING AND TALKING TO PT AT BEDSIDE. NO SIGNS OF DISTRESS NOTED. TELE MONITOR ATTACHED. SAFETY MEASURES IN PLACE.
[2019-08-25] MEDS ORDERED: APIXABAN 2.5 MG TAB PO SCH (10:25)
[2019-08-25] MEDS ORDERED: SODIUM PHOS / POTASSIUM PHOS 1 PKT PDR PO SCH (10:30)
[2019-08-25] MEDS ORDERED: METO25TA PO (10:44)
[2019-08-25] MEDS ORDERED: APIX2.5 PO ×2 (10:44→14:14)
[2019-08-25] MEDS ORDERED: ASPI81CT95 PO (10:44)
[2019-08-25] MEDS ORDERED: MECLIZINE 25 MG TAB PO SCH (10:47)
[2019-08-25] MEDS ORDERED: MECL-272 PO (10:53)
[2019-08-25] MEDS ORDERED: ONDA-24 SL (10:53)
--- NOTE | 2019-08-25 11:11 | NUR ---
ADMINISTERED MEDS PER MD ORDER, MEDS EDUCATION PROVIDED TO PT AND PT VERBALIZED UNDERSTANDING. PT TOLERATED PO MEDS WELL. INFORMED PT THAT SHE WILL BE DC FROM THE HOSPITAL TODAY, PT WAS AWARE AND STATED "I WILL GO AFTER LUNCH, MY GRANDDAUGHTER LIVES NEARBY. I CAN CALL HER AND SHE WILL BE HERE RIGHT AWAY." PT AWAKE AND WATCHING TV ON BED AT THIS TIME. NO SIGNS OF DISTRESS NOTED. TELE MONITOR ATTACHED. SAFETY MEASURES IN PLACE. BED IN LOW POSITION AND CALL LIGHT WITHIN REACH. INSTRUCTED PT TO USE THE CALL LIGHT FOR ANY ASSISTANCE AND PT WAS AWARE.
[2019-08-25 12:00] VITALS: BP 148/88
--- NOTE | 2019-08-25 12:36 | NUR ---
PT IS CHANGING INTO HER OWN CLOTHES AT THIS TIME AND STATED "MY GRANDDAUGHTER IS ON HER WAY." NO SIGNS OF DISTRESS NOTED.
--- NOTE | 2019-08-25 12:43 | NUR ---
DISCHARGE INSTRUCTION PROVIDED TO PT AT BEDSIDE. EDUCATED PT ON FOLLOW UP WITH MD, SEEK MEDICAL HELP IN THE CASE OF MEDICAL EMERGENCY, DISEASE MANAGEMENT, MEDICATION REGIMEN, SIDE EFFECTS, AND DIET. ANSWERED ALL PT'S QUESTIONS, AND PT VERBALIZED UNDERSTANDING. DC IV AND CANNULA INTACT, NO BLEEDING AT IV SITE. REMOVED ALL ARM BANDS. REMOVED TELE MONITOR AND RETURN TO CLINIC NURSE. PT ALLERGIC TO FLU VACCINE AND UP TO DATE WITH PNA VACCINE. PT AWARE THAT PRESCRIPTION SEND BY TO HER PREFERRED PHARMACY. PT CHANGED INTO HER OWN CLOTHES AND CHECKED ALL CABINETS. PT TOOK ALL HER BELONGINGS HOME. QUILTING MACHINE HELPER ESCORTED PT WITH WHEELCHAIR TO THE FRONT LOBBY WITH WHEELCHAIR. PT IS GOING TO DC HOME AT THIS TIME IN STABLE CONDITION.
--- NOTE | 2019-08-27 10:16 | NUR ---
RECEIVED A CALL FROM [facility], REQUESTING H&P. PROVIDED ME WITH FAX NUMBER [phone]. H&P SENT TO THE PROVIDED NUMBER.
== END 2019-08-25 12:43 | disposition home or self-care (01) | DRG 314 ==
LOC: MED 13:07 → MMU 15:25
PROVIDERS: ADMIT General Practice; ATTEND General Practice
DX: I31.9 Disease of pericardium, unspecified (principal); N17.0 Acute kidney failure with tubular necrosis; J44.0 Chronic obstructive pulmonary disease with (acute) lower respiratory infection; N17.9 Acute kidney failure, unspecified; I16.1 Hypertensive emergency; K21.9 Gastro-esophageal reflux disease without esophagitis; R94.31 Abnormal electrocardiogram [ECG] [EKG]; I13.10 Hypertensive heart and chronic kidney disease without heart failure, with stage 1 through stage 4 chronic kidney disease, or unspecified chronic kidney disease; I48.91 Unspecified atrial fibrillation; N18.9 Chronic kidney disease, unspecified; E78.5 Hyperlipidemia, unspecified; Z90.710 Acquired absence of both cervix and uterus; Z90.49 Acquired absence of other specified parts of digestive tract; Z88.5 Allergy status to narcotic agent; Z88.0 Allergy status to penicillin; Z88.2 Allergy status to sulfonamides; Z88.8 Allergy status to other drugs, medicaments and biological substances; I25.2 Old myocardial infarction; Z79.899 Other long term (current) drug therapy; Z79.82 Long term (current) use of aspirin; Z87.891 Personal history of nicotine dependence; Z83.3 Family history of diabetes mellitus
CPT/HCPCS: 36415; 71045; 71250; 80048; 80053; 81003; 82150; 83690; 83735; 83880; 84100; 84443; 84484; 85025; 85379; 85610; 85730; 86140; 87081; 93005; 96374; 96375; 99285; J1644; J1956; J2060; J2405; J2930; J3490; J7030; J7620; J8597; Q0092

== ENCOUNTER 2019-08-31 01:25 | Inpatient (IN) | payer OTHER ==
[~2019-08-31] VITALS: Ht 154.9 cm; Wt 78.0 kg
[~2019-08-31 01:25] MED LIST changes: +APIX2.5 PO; +MECL-272 PO; +ONDA-24 SL
[2019-08-31 01:38] VITALS: BP 206/80
--- NOTE | 2019-08-31 01:42 | NUR ---
PT TAKEN BACK TO LOBBY
--- NOTE | 2019-08-31 01:45 | NUR ---
PT TAKEN TO BED 4
[2019-08-31] MEDS ORDERED: NACL 0.9% 1,000 ML IV ONE (02:00)
[2019-08-31 02:15] LABS: BASOPHILS % (AUTO) 0.8 % (0.0-2.0); EOSINOPHILS # (AUTO) 0.2 K/uL (0-0.4); EOSINOPHILS % (AUTO) 4.6 % (0.0-4.0); HEMATOCRIT 39.3 % (36-48); HEMOGLOBIN 12.8 g/dL (12.0-16.0); LYMPHOCYTES # (AUTO) 1.8 K/uL (2.5-16.5); LYMPHOCYTES % (AUTO) 38.5 % (20.5-51.1); MEAN CORPUSCULAR HEMOGLOBIN 28 pg (27-31); MEAN CORPUSCULAR HGB CONC 33 g/dL (33-37); MEAN CORPUSCULAR VOLUME 85.7 fL (80-94); MONOCYTES # (AUTO) 0.4 K/uL (0.8-1.0); MONOCYTES % (AUTO) 7.9 % (1.7-9.3); NEUTROPHILS # (AUTO) 2.2 K/uL (1.8-7.7); NEUTROPHILS % (AUTO) 48.2 % (42.2-75.2); PLATELET COUNT (AUTO) 228 K/uL (140-450); RED BLOOD CELL COUNT(AUTO) 4.59 MIL/uL (4.20-5.40); RED CELL DISTRIBUTION WIDTH 12.8 % (11.6-13.7); WHITE BLOOD COUNT (AUTO) 4.6 K/uL (4.8-10.8)
[2019-08-31] MEDS ORDERED: ONDANSETRON 4 MG/2 ML VIAL IVP ONE (02:20)
[2019-08-31] MEDS ORDERED: PANTOPRAZOLE 40 MG INJ VIAL IVP ONE (02:20)
[2019-08-31 02:38] LABS: CHLORIDE 102 mmol/L (98-107); POTASSIUM 4.1 mmol/L (3.5-5.1); SODIUM SERUM 141 mmol/L (136-145)
[2019-08-31 02:39] LABS: ANION GAP 14.2 (8-16); CARBON DIOXIDE 28.9 mmol/L (21-32); GLUCOSE 109 mg/dL (74-106); UREA NITROGEN, BLOOD 42 mg/dL (7-18)
[2019-08-31 02:40] LABS: ASPARTATE AMINOTRANSFERASE 15 U/L (15-37); TOTAL BILIRUBIN 0.4 mg/dL (0.0-1.0)
[2019-08-31 02:41] LABS: ALBUMIN 3.6 g/dL (3.4-5.0)
[2019-08-31] MEDS ORDERED: LEVOFLOXACIN 500 MG/D5W PREMIX 100 ML IV ONE (03:30)
--- NOTE | 2019-08-31 03:50 | NUR ---
79 YEAR OLD FEMALE COMPLAINS OF A DULL CHEST PAIN RATED 9/10 ON ADMISSION. PATIENT STATES THAT CHEST PAIN IS NOW A 4/10. PATIENT STATES CHEST PAIN DOES NOT RADIATE FROM HER CHEST. PATIENT BREATHING EVEN AND UNLABORED. PATIENT STATES SOME NAUSEA PRESENT. BOWEL SOUNDS ACTIVE X4, PAIN ON PALPATION IN UPPER QUADRANT. PATIENT ALERT AND ORIENTED, SKIN WARM AND DRY. BED IN LOWEST POSITION, LOCKED, BED RAIL UPX1. PMH - HYPERTENSION, COPD, HIGH CHOLESTEROL, AND PERICARDITIS
[2019-08-31] MEDS ORDERED: ACETAMINOPHEN 325 MG TAB PO PRN (04:40)
[2019-08-31] MEDS ORDERED: ONDANSETRON 4 MG/2 ML VIAL IVP PRN (04:40)
[2019-08-31] MEDS ORDERED: HYDROcodone/APAP 7.5/325 MG 1 TAB PO PRN (04:40)
--- NOTE | 2019-08-31 04:40 | NUR ---
PATIENT ALERT AND AWAKE, BREATHING EVEN AND UNLABORED, WILL CONTINUE TO MONITOR
[2019-08-31] MEDS: NACL 0.9% 1,000 ML IV SCH (05:30)
--- NOTE | 2019-08-31 05:35 | NUR ---
PATIENT AMBULATED TO BATHROOM, ALERT AND ORIENTED, BREATHING EVEN AND UNLABORED
--- NOTE | 2019-08-31 06:40 | NUR ---
PATIENT ALERT AND AWAKE, WALKED TO BATHROOM
--- NOTE | 2019-08-31 07:00 | NUR ---
Patient will be admitted to care of DR VICKERS. Admited to TELE. Will go to room 128B. Belongings list completed. Report to JES MORENO.
[2019-08-31 07:05] VITALS: BP 153/55
--- NOTE | 2019-08-31 07:05 | NUR ---
RECEIVED PT FROM ER NURSE VIA MARK GOSS, PT IS AWAKE AND, AMBULATED TO THE BED AND MADE COMFORTABLE, PERIPHERAL LINE ON THE RT HAND G.. 22 WITH IVF NS INFUSING, PT C/O PAIN RATE OF 5/10 ON THE CHEST AND WILL MEDICATE, DENIES SOB AND NO SIGN OF DISTRESS NOTED, ALLERGY AND FALL RISK BANDS WERE PLACED, EDUCATED PT ON FALL PRECAUTION AND VERBALIZED UNDERSTANDING, BRUISE NOTED ON THE RT FA, TEACHING ON BLOOD THINNER MEDICATION WAS GIVEN TO PT AND VERBALIZED UNDERSTANDING, SKIN IS INTACT AND NO OPEN WOUND NOTED, AND WILL MONITOR PT.
[2019-08-31 07:37] LABS: MAGNESIUM 2.1 mg/dL (1.8-2.4)
--- NOTE | 2019-08-31 07:40 | NUR ---
MRSA SWAB DONE TO PT NOW AND SAMPLE SENT TO LAB.
[2019-08-31] MEDS: DOCUSATE SODIUM 100 MG GELCAP PO SCH ×2 (08:32→20:47)
--- NOTE | 2019-08-31 08:33 | NUR ---
PT IS AWAKE AND SEATED ON THE BED, C/O PAIN RATE OF 6/10 AND PAIN MEDICATION WAS GIVEN, COLACE AND HEPARIN WERE GIVEN WELL AND TOLERFATED, PARAMETER CHECKED, PLATELET IS 228, WILL CONTINUE TO MONITOR PT.
--- NOTE | 2019-08-31 09:00 | NUR ---
PATIENT HAS BEEN SCREENED AND CATEGORIZED MODERATE NUTRITION RISK. PATIENT WILL BE SEEN WITHIN 3-5 DAYS OF ADMISSION. 09/02/18 09/04/[address]
--- NOTE | 2019-08-31 12:30 | NUR ---
PT WAS RESTING AND WATCHING TV.
[2019-08-31] MEDS ORDERED: MECLIZINE 25 MG TAB PO PRN (13:55)
[2019-08-31] MEDS ORDERED: ALBUTEROL SULFATE/IPRATROPIU 3 ML SOL IH PRN (15:05)
[2019-08-31 15:07] LABS: BASOPHILS % (AUTO) 0.4 % (0.0-2.0); EOSINOPHILS # (AUTO) 0.2 K/uL (0-0.4); EOSINOPHILS % (AUTO) 4.5 % (0.0-4.0); HEMATOCRIT 36.9 % (36-48); LYMPHOCYTES # (AUTO) 1.3 K/uL (2.5-16.5); LYMPHOCYTES % (AUTO) 37.1 % (20.5-51.1); MEAN CORPUSCULAR HEMOGLOBIN 28 pg (27-31); MEAN CORPUSCULAR HGB CONC 33 g/dL (33-37); MEAN CORPUSCULAR VOLUME 86.1 fL (80-94); MONOCYTES # (AUTO) 0.3 K/uL (0.8-1.0); MONOCYTES % (AUTO) 7.7 % (1.7-9.3); NEUTROPHILS # (AUTO) 1.7 K/uL (1.8-7.7); NEUTROPHILS % (AUTO) 50.3 % (42.2-75.2); PLATELET COUNT (AUTO) 215 K/uL (140-450); RED BLOOD CELL COUNT(AUTO) 4.28 MIL/uL (4.20-5.40); WHITE BLOOD COUNT (AUTO) 3.5 K/uL (4.8-10.8)
--- NOTE | 2019-08-31 15:14 | NUR ---
MURALI SANABRIA FAXED ALL THE INQUIRIES TO [facility] [phone] AND CALLED AND LEFT A MESSAGE FOR PRIETO [phone] Addendum: 08/31/19 at 1630 by Portia Shields Per patient, if her health insurance plan authorizes for short snf placement she would like to go to [facility] if possible, Briar Shop Supervisor Brissa made aware. Patient stated [facility] is near her home and her granddaughter Gabrielle can visit her. Per [employer]ar [employer] Supervisor Brissa, [facility] might not have a bed available tomorrow. I faxed inquiry to [facility] (also located in [place], [place]) in case [facility] does not have a bed available tomorrow. Addendum: 09/01/19 at 1350 by Brissa German CM DC PLANNING [facility] [phone] WITH GRANT [facility]OSSUE # [id number] AND THE SAME AUTH FOR TRANSPORT FOR [facility] Addendum: 09/01/19 at 1419 by Brissa German CM DC PLANNING [facility] PATIENT CAN GO TO ROOM 6A # TO GIVE REPORT [phone] ARRANGED TRANSPORT WITH [facility]STR[facility]UL[facility] GUIDANCE ADVISER TIME 4 PM NOTIFIED DANIEL MORENO.
[2019-08-31 15:37] LABS: ANION GAP 9.6 (8-16); CARBON DIOXIDE 28.9 mmol/L (21-32); CHLORIDE 107 mmol/L (98-107); CREATININE 1.7 mg/dL (0.6-1.3); GLUCOSE 99 mg/dL (74-106); POTASSIUM 4.5 mmol/L (3.5-5.1); SODIUM SERUM 141 mmol/L (136-145); UREA NITROGEN, BLOOD 30 mg/dL (7-18)
[2019-08-31 16:00] VITALS: BP 14/58
[2019-08-31 16:09] LABS: BILIRUBIN,URINE NEGATIVE (NEGATIVE); BLOOD, URINE TRACE-I (NEGATIVE); LEUKOCYTE ESTERASE ,URINE NEGATIVE (NEGATIVE); NITRITE, URINE NEGATIVE (NEGATIVE); PH,URINE 6.5 (5.0-9.0); UGLUCOSE NEGATIVE (NEGATIVE)
[2019-08-31 16:13] LABS: APPEARANCE,URINE CLEAR (CLEAR); COLOR,URINE YELLOW (YELLOW)
[2019-08-31 16:15] LABS: PHOSPHORUS 2.9 mg/dL (2.5-4.9)
[2019-08-31 16:32] LABS: WBC,URINE NONE SEEN /HPF (0-5)
--- NOTE | 2019-08-31 17:00 | NUR ---
PT VERBALIZED OF CHEST PAIN 02/09. PERCOCET GIVEN PO FOR PAIN. TOLERATED WELL. WILL CONTINUE MONITORING
[2019-08-31] MEDS: oxyCODONE/APAP 5/325 MG 1 TAB TAB PO PRN (17:06)
--- NOTE | 2019-08-31 19:23 | NUR ---
ENDORSED PT TO MENTAL HEALTH SOCIAL WORKER NURSEWIN, FOR CONTINUITY FOR CARE.
--- NOTE | 2019-08-31 19:24 | NUR ---
REPORT RECEIVED FROM AM NURSE AT BEDSIDE. PT IN STABLE CONDITION. AAOX4. INTRODUCED SELF TO PT. BOARD UPDATED. NO COMPLAINTS OF PAIN. NO SOB. AFEBRILE. PT IS AMBULATORY. IV SITE R HAND 22G RUNNING NS@10ML/HR PATENT AND INTACT. SKIN WARM, DRY, AND INTACT BUT HAS BRUISING ON THE R FOREARM. BED LOCKED IN LOW POSITION. CALL CANNON WITHIN REACH. SAFETY PRECAUTION IN PLACE. ALL NEEDS MET AT THIS TIME.
[2019-08-31 20:00] VITALS: BP 109/34
[2019-08-31] MEDS: metroNIDAZOLE 500 MG/NS PREMIX 100 ML IV SCH (20:47)
[2019-08-31] MEDS: COLCHICINE 0.6 MG TAB PO SCH (20:47)
--- NOTE | 2019-08-31 20:47 | NUR ---
ALEXIA HUNG AND RUNNING. COLACE, COLCHICINE, AND ELIQUIS GIVEN PO. LOPRESSOR HELD DUE TO A DECREASED DBP. PT TOLERATED WELL.
[2019-08-31] MEDS: APIXABAN 2.5 MG TAB PO SCH (20:48)
[2019-08-31] MEDS: METOPROLOL 25 MG TAB PO SCH (20:48)
--- NOTE | 2019-08-31 22:00 | NUR ---
PT LAYING IN BED WATCHING TV. NO S/S OF DISTRESS NOTED. WILL CONTINUE TO MONITOR.
--- NOTE | 2019-08-31 23:40 | NUR ---
PT AWAKE AND ALERT JUST RETURNED FROM THE RESTROOM. NO S/S OF DISTRESS NOTED. VS STABLE. WILL CONTINUE TO MONITOR.
[2019-09-01] VITALS: BP 103/41
--- NOTE | 2019-09-01 01:45 | NUR ---
PT SLEEPING COMFORTABLY BUT AROUSABLE. NO S/S OF DISTRESS NOTED. NO COMPLAINTS OF PAIN. NO SOB. AFEBRILE. WILL CONTINUE TO MONITOR.
[2019-09-01 04:00] VITALS: BP 109/40
[2019-09-01] MEDS: NACL 0.9% 1,000 ML IV SCH (04:03)
[2019-09-01] MEDS: metroNIDAZOLE 500 MG/NS PREMIX 100 ML IV SCH ×2 (04:09→12:13)
--- NOTE | 2019-09-01 04:09 | NUR ---
ALEXIA HUNG AND RUNNING. PT TOLERATING WELL.
--- NOTE | 2019-09-01 05:51 | NUR ---
PROTONIX GIVEN PO. PT TOLERATED WELL.
[2019-09-01] MEDS: oxyCODONE/APAP 5/325 MG 1 TAB TAB PO PRN ×2 (06:23→12:14)
--- NOTE | 2019-09-01 06:23 | NUR ---
PERCOCET GIVEN FOR 6/10 CHEST PAIN PT STATES SHE HAS AFTER RECEIVING PROTONIX PO. PT TOLERATED WELL.
[2019-09-01 06:24] LABS: BASOPHILS % (AUTO) 0.5 % (0.0-2.0); EOSINOPHILS # (AUTO) 0.2 K/uL (0-0.4); EOSINOPHILS % (AUTO) 5.8 % (0.0-4.0); HEMATOCRIT 33.2 % (36-48); HEMOGLOBIN 10.8 g/dL (12.0-16.0); LYMPHOCYTES # (AUTO) 1.5 K/uL (2.5-16.5); MEAN CORPUSCULAR HEMOGLOBIN 28 pg (27-31); MEAN CORPUSCULAR HGB CONC 33 g/dL (33-37); MEAN CORPUSCULAR VOLUME 86.9 fL (80-94); MONOCYTES # (AUTO) 0.3 K/uL (0.8-1.0); MONOCYTES % (AUTO) 8.2 % (1.7-9.3); NEUTROPHILS % (AUTO) 49.5 % (42.2-75.2); PLATELET COUNT (AUTO) 195 K/uL (140-450); RED BLOOD CELL COUNT(AUTO) 3.82 MIL/uL (4.20-5.40); RED CELL DISTRIBUTION WIDTH 13.2 % (11.6-13.7); WHITE BLOOD COUNT (AUTO) 4.1 K/uL (4.8-10.8)
[2019-09-01] MEDS ORDERED: PANTOPRAZOLE 40 MG TABEC PO SCH (06:30)
[2019-09-01 06:35] LABS: ANION GAP 12.1 (8-16); CARBON DIOXIDE 28.4 mmol/L (21-32); CHLORIDE 108 mmol/L (98-107); CREATININE 1.6 mg/dL (0.6-1.3); GLUCOSE 97 mg/dL (74-106); POTASSIUM 4.5 mmol/L (3.5-5.1); SODIUM SERUM 144 mmol/L (136-145); UREA NITROGEN, BLOOD 29 mg/dL (7-18)
--- NOTE | 2019-09-01 06:49 | NUR ---
PT AWAKE AND ALERT IN BED. PT IN STABLE CONDITION.
[2019-09-01 06:51] LABS: CHOL/HDL RATIO 3.4 (1-4.5); PHOSPHORUS 2.9 mg/dL (2.5-4.9)
--- NOTE | 2019-09-01 07:20 | NUR ---
RECEIVED REPORT FROM THE ADMISSION LIAISON NURSE. PT IS AWAKE AND ORIENTED. INTRODUCED MYSELF AND UPDATED THE BOARD. PT HAS AN IV ON R HAND 22G NS AT 10ML. PT IS ON ON ROOM AIR. DENIES ANY CHEST PAIN OR SOB AT THIS TIME. PER PT, SHE HAD PAIN EARLIER BUT HAD MEDS. NOW BETTER. PT IS ON TELE, SR/SB W/ BBB. SKIN IS INTACT. LAST BM ON 08/30. WILL CONTINUE TO MONITOR PT.
[2019-09-01 08:00] VITALS: BP 136/56
--- NOTE | 2019-09-01 08:30 | NUR ---
ADMINISTERED MEDS. PT TOLERATED WELL.
[2019-09-01] MEDS: DOCUSATE SODIUM 100 MG GELCAP PO SCH (08:48)
[2019-09-01] MEDS: COLCHICINE 0.6 MG TAB PO SCH (08:49)
[2019-09-01] MEDS: APIXABAN 2.5 MG TAB PO SCH (08:50)
[2019-09-01] MEDS: METOPROLOL 25 MG TAB PO SCH (08:51)
[2019-09-01] MEDS ORDERED: FENOFIBRATE 48 MG TAB PO SCH (09:00)
[2019-09-01] MEDS ORDERED: FAMOTIDINE 20 MG TAB PO SCH (09:00)
[2019-09-01] MEDS ORDERED: ASPIRIN 81 MG TAB.CHEW PO SCH (09:00)
[2019-09-01] MEDS ORDERED: NIFEdipine 60 MG TABER PO SCH (09:00)
[2019-09-01] MEDS ORDERED: LACTOBACILLUS RHAMNOSUS GG 1 EACH CAP PO SCH (09:00)
--- NOTE | 2019-09-01 09:00 | NUR ---
PT SIGNED THE CONSENT FOR PICC LINE INSERTION. PT IS AWARE OF RISKS AND BENEFITS. DR OWENS HAD EXPLAINED TO PT YESTERDAY. PT AGREES ON HAVING THE PROCEDURE DONE AND D/C TO A SNF FOR ABX THERAPY. PUT THE CONSENT IN CHART. NOTIFIED THE CHARGE NURSE THAT THE CONSENT HAS BEEN SIGNED AND NEEDS TO CALL PICC LINE RN TO COME IN.
--- NOTE | 2019-09-01 10:49 | NUR ---
PT RESTING COMFORTABLY. NO SIGNS OF DISTRESS. WILL CONTINUE TO MONITOR PT.
[2019-09-01] MEDS ORDERED: NITR0.4T2 SL (11:18)
[2019-09-01] MEDS ORDERED: DEXT100S62 IV (11:21)
[2019-09-01] MEDS ORDERED: METR500S14 IV (11:21)
[2019-09-01 12:00] VITALS: BP 133/50
--- NOTE | 2019-09-01 12:18 | NUR ---
ADMINISTERED PERCOCET FOR MOD PAIN AND FLAGYL. PT TOLERATED WELL. PICC LINE KIT AT BEDSIDE PICC LINE RN REQUESTED WITH STERILE GLOVES SIZE 7. WILL REQUEST US FOR PLACEMENT FROM .
--- NOTE | 2019-09-01 13:28 | NUR ---
PICC LINE PLACED. XRAY DONE FOR PLACEMENT. OK TO USE PER PICC LINE RN.
[2019-09-01 16:00] VITALS: BP 130/54
--- NOTE | 2019-09-01 16:15 | NUR ---
DC INSTRUCTIONS GIVEN. IV IN HAND REMOVED. PICC LINE REMAINS IN R UA. PT IS STABLE. TELE REMOVED. [facility] IS HERE TO TAKE PT TO [facility]A. REPORT GIVEN TO ROSA, CHARGE NURSE.
[2019-09-01] MEDS ORDERED: ATORVASTATIN 20 MG TAB PO SCH (21:00)
[2019-09-02] MEDS ORDERED: LEVOFLOXACIN 500 MG/D5W PREMIX 100 ML IV SCH (09:00)
== END 2019-09-01 16:15 | DRG 391 ==
LOC: MED 01:25 → UNDOADMIN 04:45 → MMU 04:45
PROVIDERS: ADMIT General Practice; ATTEND General Practice
PROC: 02HV33Z Insertion of Infusion Device into Superior Vena Cava, Percutaneous Approach (ICD-10-PCS; principal; 2019-09-01)
PROC: B548ZZA Ultrasonography of Superior Vena Cava, Guidance (ICD-10-PCS; 2019-09-01)
DX: K21.9 Gastro-esophageal reflux disease without esophagitis (principal); J69.0 Pneumonitis due to inhalation of food and vomit; N17.0 Acute kidney failure with tubular necrosis; I31.9 Disease of pericardium, unspecified; N18.4 Chronic kidney disease, stage 4 (severe); I48.91 Unspecified atrial fibrillation; J44.9 Chronic obstructive pulmonary disease, unspecified; I12.9 Hypertensive chronic kidney disease with stage 1 through stage 4 chronic kidney disease, or unspecified chronic kidney disease; E78.5 Hyperlipidemia, unspecified; Z88.5 Allergy status to narcotic agent; Z88.0 Allergy status to penicillin; Z88.2 Allergy status to sulfonamides; Z88.8 Allergy status to other drugs, medicaments and biological substances; Z90.49 Acquired absence of other specified parts of digestive tract; Z90.710 Acquired absence of both cervix and uterus; Z87.891 Personal history of nicotine dependence
CPT/HCPCS: 36415; 71045; 74018; 80048; 80053; 81001; 82150; 83690; 83735; 83880; 84100; 84484; 85025; 85610; 85730; 87040; 87081; 96361; 96365; 96375; 99285; C1751; C9113; J1644; J1956; J2405; J3490; Q0092

== ENCOUNTER 2019-09-02 01:45 | Emergency (ER) | payer OTHER ==
[~2019-09-02] VITALS: Ht 154.9 cm; Wt 78.0 kg
[2019-09-02 01:45] VITALS: BP 174/57
[~2019-09-02 01:45] MED LIST changes: +DEXT100S62 IV; +METR500S14 IV; +NITR0.4T2 SL
--- NOTE | 2019-09-02 01:45 | NUR ---
Pt transfered from [facility] to bed 11.
[2019-09-02] MEDS ORDERED: oxyCODONE/APAP 5/325 MG 1 TAB TAB PO ONE (01:50)
--- NOTE | 2019-09-02 02:05 | NUR ---
PATIENT ASSESSMENT COMPLETED AT THIS TIME FOR CHEST PAIN. PATIENT HOOKED UP TO MONITOR. SIDE RAILS UP ON BOTH SIDES WITH BED IN LOW LOCKED POSITON.
[2019-09-02 02:09] LABS: MEAN CORPUSCULAR HEMOGLOBIN 28 pg (27-31); MEAN CORPUSCULAR HGB CONC 33 g/dL (33-37); RED CELL DISTRIBUTION WIDTH 12.9 % (11.6-13.7)
--- NOTE | 2019-09-02 02:09 | NUR ---
XRAY AT BEDSIDE
[2019-09-02 02:12] LABS: BASOPHILS % (AUTO) 0.6 % (0.0-2.0); EOSINOPHILS # (AUTO) 0.1 K/uL (0-0.4); EOSINOPHILS % (AUTO) 1.4 % (0.0-4.0); HEMATOCRIT 39.5 % (36-48); HEMOGLOBIN 12.9 g/dL (12.0-16.0); LYMPHOCYTES # (AUTO) 1.3 K/uL (2.5-16.5); LYMPHOCYTES % (AUTO) 18.2 % (20.5-51.1); MONOCYTES # (AUTO) 0.5 K/uL (0.8-1.0); MONOCYTES % (AUTO) 7.4 % (1.7-9.3); NEUTROPHILS # (AUTO) 5.3 K/uL (1.8-7.7); NEUTROPHILS % (AUTO) 72.4 % (42.2-75.2); PLATELET COUNT (AUTO) 236 K/uL (140-450); RED BLOOD CELL COUNT(AUTO) 4.59 MIL/uL (4.20-5.40); WHITE BLOOD COUNT (AUTO) 7.4 K/uL (4.8-10.8)
[2019-09-02 02:17] LABS: ANION GAP 15.9 (8-16); CARBON DIOXIDE 24.6 mmol/L (21-32); CHLORIDE 104 mmol/L (98-107); CREATININE 1.8 mg/dL (0.6-1.3); GLUCOSE 128 mg/dL (74-106); POTASSIUM 4.5 mmol/L (3.5-5.1); SODIUM SERUM 140 mmol/L (136-145); UREA NITROGEN, BLOOD 35 mg/dL (7-18)
[2019-09-02 02:25] LABS: ALBUMIN 3.6 g/dL (3.4-5.0); ASPARTATE AMINOTRANSFERASE 20 U/L (15-37); TOTAL BILIRUBIN 0.3 mg/dL (0.0-1.0)
--- NOTE | 2019-09-02 03:00 | NUR ---
SPOKE WITH NURSE AT [facility] AND INFORMED THEM THAT THE PATIENT WOULD BE RETURNING.
[2019-09-02 03:24] VITALS: BP 142/56
--- NOTE | 2019-09-02 03:25 | NUR ---
Patient discharged with v/s stable. Written and verbal after care instructions given and explained. Patient alert, oriented and verbalized understanding of instructions. Ambulatory with steady gait. Patient picked up by leidy to be taken back to [facility]. [facility] aware. All questions addressed prior to discharge. ID band removed. Patient advised to follow up with PMD. Rx of percocet given. Patient educated on indication of medication including possible reaction and side effects. Opportunity to ask questions provided and answered.
== END 2019-09-02 03:25 | disposition home or self-care (01) ==
LOC: MED 01:45
DX: J18.9 Pneumonia, unspecified organism (principal); I12.9 Hypertensive chronic kidney disease with stage 1 through stage 4 chronic kidney disease, or unspecified chronic kidney disease; J44.9 Chronic obstructive pulmonary disease, unspecified; K21.9 Gastro-esophageal reflux disease without esophagitis; Z86.79 Personal history of other diseases of the circulatory system; Z88.0 Allergy status to penicillin; Z88.2 Allergy status to sulfonamides; Z88.5 Allergy status to narcotic agent; Z88.8 Allergy status to other drugs, medicaments and biological substances; Z79.899 Other long term (current) drug therapy; Z79.82 Long term (current) use of aspirin
CPT/HCPCS: 36415; 71045; 80053; 84484; 85025; 93005; 99284; Q0092

== ENCOUNTER 2019-09-21 09:58 | Emergency (ER) | payer OTHER ==
[~2019-09-21] VITALS: Ht 154.9 cm; Wt 75.3 kg
[~2019-09-21 09:58] MED LIST changes: -FAMO-90 PO; -NAPR-54 PO
[2019-09-21 10:02] VITALS: BP 161/72
--- NOTE | 2019-09-21 10:12 | NUR ---
BIB SELF C/O EPIGASTRIC/ ABD BURNING PAIN X 3 DAYS, PATIENT BELIEVES THIS IS A GERD EXACERBATION. REPORTS TASTES OF ACID IN HER MOUTH/LIPS. NAUSEA/DIARRHEA X 2 DAYS. DENIES VOMITING. BOWEL SOUNDS NORMOACTIVE IN ALL QUADRANTS. BURNING CHEST PAIN, 8/10 NON RADIATING. PT REPORTS TO HAVE TAKEN PRILOSEC FOR THE PAST 3 DAYS WITH NO RELIEF. DENIES ANY SOB. RESPIRATIONS EVEN AND UNLABORED. AAOX3. VSS. PMH: COPD, GERD, HTN, HIGH CHOLESTEROL, RENAL DISEASE
[2019-09-21] MEDS ORDERED: ALUMINUM HYD/MAG/SIMETHICONE 30 ML, DICYCLOMINE HCL LIQUID 20 MG, LIDOCAINE VISCOUS 2% ... PO ONE ×3 (10:30)
[2019-09-21] MEDS ORDERED: LIDOCAINE VISCOUS 2% 20 ML UDC ONE (10:31)
[2019-09-21] MEDS ORDERED: ALUMINUM HYD/MAG/SIMETHICONE 30 ML UDC ONE (10:32)
[2019-09-21] MEDS ORDERED: DICYCLOMINE HCL LIQUID 10 MG/5 ML UDC ONE (10:32)
--- NOTE | 2019-09-21 10:38 | NUR ---
PROVIDED PATIENT WITH CUP TO URINATE IN, PT STATES SHE IS UNABLE TO URINATE AT THIS TIME.
[2019-09-21 11:09] LABS: ALBUMIN 3.4 g/dL (3.4-5.0); ANION GAP 13.8 (8-16); ASPARTATE AMINOTRANSFERASE 31 U/L (15-37); CARBON DIOXIDE 26.1 mmol/L (21-32); CHLORIDE 107 mmol/L (98-107); CREATININE 1.3 mg/dL (0.6-1.3); GLUCOSE 108 mg/dL (74-106); LIPASE 160 U/L (73-393); POTASSIUM 3.9 mmol/L (3.5-5.1); SODIUM SERUM 143 mmol/L (136-145); TOTAL BILIRUBIN 0.5 mg/dL (0.0-1.0); UREA NITROGEN, BLOOD 26 mg/dL (7-18)
[2019-09-21 11:11] LABS: BASOPHILS % (AUTO) 0.6 % (0.0-2.0); EOSINOPHILS # (AUTO) 0.4 K/uL (0-0.4); EOSINOPHILS % (AUTO) 6.7 % (0.0-4.0); HEMATOCRIT 41.9 % (36-48); HEMOGLOBIN 13.7 g/dL (12.0-16.0); LYMPHOCYTES # (AUTO) 1.3 K/uL (2.5-16.5); LYMPHOCYTES % (AUTO) 24.2 % (20.5-51.1); MEAN CORPUSCULAR HEMOGLOBIN 28 pg (27-31); MEAN CORPUSCULAR HGB CONC 33 g/dL (33-37); MEAN CORPUSCULAR VOLUME 84.9 fL (80-94); MONOCYTES # (AUTO) 0.4 K/uL (0.8-1.0); MONOCYTES % (AUTO) 7.3 % (1.7-9.3); NEUTROPHILS # (AUTO) 3.2 K/uL (1.8-7.7); NEUTROPHILS % (AUTO) 61.2 % (42.2-75.2); PLATELET COUNT (AUTO) 244 K/uL (140-450); RED BLOOD CELL COUNT(AUTO) 4.94 MIL/uL (4.20-5.40); RED CELL DISTRIBUTION WIDTH 12.7 % (11.6-13.7); WHITE BLOOD COUNT (AUTO) 5.2 K/uL (4.8-10.8)
--- NOTE | 2019-09-21 11:19 | NUR ---
PT AMBULATED TO RESTROOM AND WAS ABLE TO PROVIDE URINE SAMPLE.
[2019-09-21] MEDS ORDERED: FAMOTIDINE 20 MG TAB PO ONE (11:25)
[2019-09-21 11:32] LABS: APPEARANCE,URINE HAZY (CLEAR); BILIRUBIN,URINE NEGATIVE (NEGATIVE); BLOOD, URINE TRACE-I (NEGATIVE); LEUKOCYTE ESTERASE ,URINE NEGATIVE (NEGATIVE); NITRITE, URINE NEGATIVE (NEGATIVE); UGLUCOSE NEGATIVE (NEGATIVE)
[2019-09-21 11:40] LABS: COLOR,URINE YELLOW (YELLOW); RBC,URINE 0-5 /HPF (0-5); WBC,URINE 0-5 /HPF (0-5)
[2019-09-21 12:24] VITALS: BP 163/88
--- NOTE | 2019-09-21 12:27 | NUR ---
Patient discharged with v/s stable. Written and verbal after care instructions given and explained. Patient alert, oriented and verbalized understanding of instructions. Ambulatory with steady gait. All questions addressed prior to discharge. ID band removed. Patient advised to follow up with PMD. Rx of sucralfate given. Patient educated on indication of medication including possible reaction and side effects. Opportunity to ask questions provided and answered.
== END 2019-09-21 12:27 | disposition home or self-care (01) ==
LOC: MED 09:58
DX: R10.84 Generalized abdominal pain (principal); J44.9 Chronic obstructive pulmonary disease, unspecified; K21.9 Gastro-esophageal reflux disease without esophagitis; I12.9 Hypertensive chronic kidney disease with stage 1 through stage 4 chronic kidney disease, or unspecified chronic kidney disease; N18.4 Chronic kidney disease, stage 4 (severe); Z79.82 Long term (current) use of aspirin; Z79.899 Other long term (current) drug therapy; Z88.0 Allergy status to penicillin; Z88.2 Allergy status to sulfonamides; Z88.5 Allergy status to narcotic agent
CPT/HCPCS: 36415; 80053; 81001; 83690; 85025; 99283

== ENCOUNTER 2019-09-24 23:48 | Emergency (ER) | payer OTHER ==
[~2019-09-24] VITALS: Ht 154.9 cm; Wt 75.3 kg
[2019-09-24 23:50] VITALS: BP 150/72
--- NOTE | 2019-09-24 23:53 | NUR ---
TO LOBBY A/W BED AMBULATORY
--- NOTE | 2019-09-25 03:16 | NUR ---
PT AMBULATED TO BED 04 WITH STEADY GAIT.
--- NOTE | 2019-09-25 03:30 | NUR ---
79 Y/O FEMALE C/O BODY PAIN X Sep. PT STATES THE ACID IN HER STOMACH IS CAUSING PAIN AND IS RADIATING TO BILAT FLANK TO ENTIRE BACK WELL UP THE ESOPHAGUS. LUNG SOUNDS CLEAR ALL THROGHUOUT. PT STATES SHE WAS HOSPITALIZED FOR PNA IN THE BEGINNING OF THE MONTH AND WAS SENT TO A NURSING FACILITY AND GOT OUT LAST SATURDAY. PT STATES SHES BEEN HAVING DIAHRREA EVERDAY SINCE Sep 5-6 EPSDOES A DAY. CHANGES OF APPETITE. ABD IS SOFT, ROUND, NONTENDER, ACTIVE BS. ALLERGIES: PENCILLIN, MORPHINE, BENADRYL, SULFA. PMH: HIGH CHOLSTEROL, HTN, COPD, HIATAL HERNIA REPIAR, GALLBLADDER REMOVAL, HYSTERECTOMY, PERICARDITIS, GERD.
[2019-09-25] MEDS ORDERED: DICYCLOMINE 20 MG/2 ML VIAL IM ONE (04:10)
[2019-09-25] MEDS ORDERED: PANTOPRAZOLE 40 MG INJ VIAL IVP ONE (04:10)
[2019-09-25 04:54] LABS: BASOPHILS % (AUTO) 0.5 % (0.0-2.0); EOSINOPHILS # (AUTO) 0.3 K/uL (0-0.4); EOSINOPHILS % (AUTO) 7.7 % (0.0-4.0); HEMATOCRIT 44.1 % (36-48); HEMOGLOBIN 14.5 g/dL (12.0-16.0); LYMPHOCYTES # (AUTO) 1.4 K/uL (2.5-16.5); LYMPHOCYTES % (AUTO) 38.3 % (20.5-51.1); MEAN CORPUSCULAR HEMOGLOBIN 28 pg (27-31); MEAN CORPUSCULAR HGB CONC 33 g/dL (33-37); MEAN CORPUSCULAR VOLUME 85.1 fL (80-94); MONOCYTES # (AUTO) 0.3 K/uL (0.8-1.0); MONOCYTES % (AUTO) 8.2 % (1.7-9.3); NEUTROPHILS # (AUTO) 1.7 K/uL (1.8-7.7); NEUTROPHILS % (AUTO) 45.3 % (42.2-75.2); PLATELET COUNT (AUTO) 235 K/uL (140-450); RED BLOOD CELL COUNT(AUTO) 5.18 MIL/uL (4.20-5.40); RED CELL DISTRIBUTION WIDTH 12.6 % (11.6-13.7); WHITE BLOOD COUNT (AUTO) 3.8 K/uL (4.8-10.8)
[2019-09-25 04:59] LABS: ANION GAP 12.1 (8-16); CARBON DIOXIDE 30.5 mmol/L (21-32); CHLORIDE 103 mmol/L (98-107); CREATININE 1.1 mg/dL (0.6-1.3); GLUCOSE 108 mg/dL (74-106); POTASSIUM 3.6 mmol/L (3.5-5.1); SODIUM SERUM 142 mmol/L (136-145); UREA NITROGEN, BLOOD 19 mg/dL (7-18)
[2019-09-25 05:06] LABS: AMYLASE 28 U/L (25-115); ASPARTATE AMINOTRANSFERASE 30 U/L (15-37); LIPASE 120 U/L (73-393); TOTAL BILIRUBIN 0.5 mg/dL (0.0-1.0)
[2019-09-25 05:15] LABS: APPEARANCE,URINE CLEAR (CLEAR); BILIRUBIN,URINE NEGATIVE (NEGATIVE); BLOOD, URINE TRACE-I (NEGATIVE); COLOR,URINE YELLOW (YELLOW); LEUKOCYTE ESTERASE ,URINE NEGATIVE (NEGATIVE); NITRITE, URINE NEGATIVE (NEGATIVE); UGLUCOSE NEGATIVE (NEGATIVE)
[2019-09-25] MEDS ORDERED: fentaNYL 0.05 MG/ML VIAL IM ONE (05:20)
[2019-09-25 05:22] LABS: RBC,URINE 0-5 /HPF (0-5); WBC,URINE 0-5 /HPF (0-5)
[2019-09-25 06:44] VITALS: BP 152/67
--- NOTE | 2019-09-25 06:44 | NUR ---
Patient discharged with v/s stable. Written and verbal after care instructions given and explained. Patient alert, oriented and verbalized understanding of instructions. Ambulatory with steady gait. All questions addressed prior to discharge. ID band removed. Patient advised to follow up with PMD. Rx of PROTONIX, BENTYL, AND LACTULOSE given. Patient educated on indication of medication including possible reaction and side effects. Opportunity to ask questions provided and answered.
== END 2019-09-25 06:44 | disposition home or self-care (01) ==
LOC: MED 23:48
DX: K29.70 Gastritis, unspecified, without bleeding (principal); R42 Dizziness and giddiness; J44.9 Chronic obstructive pulmonary disease, unspecified; K21.9 Gastro-esophageal reflux disease without esophagitis; I10 Essential (primary) hypertension; E11.22 Type 2 diabetes mellitus with diabetic chronic kidney disease; I12.9 Hypertensive chronic kidney disease with stage 1 through stage 4 chronic kidney disease, or unspecified chronic kidney disease; N18.4 Chronic kidney disease, stage 4 (severe); Z90.710 Acquired absence of both cervix and uterus; Z98.890 Other specified postprocedural states; Z90.49 Acquired absence of other specified parts of digestive tract; Z88.0 Allergy status to penicillin; Z88.2 Allergy status to sulfonamides; Z88.5 Allergy status to narcotic agent; Z88.8 Allergy status to other drugs, medicaments and biological substances
CPT/HCPCS: 36415; 80053; 81001; 82150; 83690; 84703; 85025; 96372; 96374; 99283; C9113; J0500; J3010

== ENCOUNTER 2019-09-27 09:01 | Inpatient (IN) | payer OTHER ==
[~2019-09-27] VITALS: Ht 154.9 cm; Wt 75.3 kg
[2019-09-27 09:38] VITALS: BP 174/94
--- NOTE | 2019-09-27 09:48 | NUR ---
PT AMB TO BED 11.
--- NOTE | 2019-09-27 09:59 | NUR ---
79 YO FEMALE CO OF CHEST PAIN THAT RADIATES TO RIGHT JAW AREA. PAIN IS 8/10. PT HAS HX OF HTN, HIG CHOLESTEROL AND COPD. TAKING MEDS FOR ALL MED HX PROBLEMS. URINE OBTAINED.
--- NOTE | 2019-09-27 10:04 | NUR ---
LAB AND RAD AT BEDSIDE.
[2019-09-27 10:14] LABS: BASOPHILS % (AUTO) 0.5 % (0.0-2.0); EOSINOPHILS # (AUTO) 0.2 K/uL (0-0.4); EOSINOPHILS % (AUTO) 6.6 % (0.0-4.0); HEMOGLOBIN 13.5 g/dL (12.0-16.0); LYMPHOCYTES # (AUTO) 1.3 K/uL (2.5-16.5); LYMPHOCYTES % (AUTO) 37.8 % (20.5-51.1); MEAN CORPUSCULAR HEMOGLOBIN 28 pg (27-31); MEAN CORPUSCULAR HGB CONC 33 g/dL (33-37); MEAN CORPUSCULAR VOLUME 85.2 fL (80-94); MONOCYTES # (AUTO) 0.3 K/uL (0.8-1.0); MONOCYTES % (AUTO) 8.9 % (1.7-9.3); NEUTROPHILS # (AUTO) 1.6 K/uL (1.8-7.7); NEUTROPHILS % (AUTO) 46.2 % (42.2-75.2); PLATELET COUNT (AUTO) 221 K/uL (140-450); RED BLOOD CELL COUNT(AUTO) 4.81 MIL/uL (4.20-5.40); RED CELL DISTRIBUTION WIDTH 12.4 % (11.6-13.7); WHITE BLOOD COUNT (AUTO) 3.4 K/uL (4.8-10.8)
[2019-09-27 10:32] LABS: ALBUMIN 3.5 g/dL (3.4-5.0); ASPARTATE AMINOTRANSFERASE 22 U/L (15-37); CARBON DIOXIDE 29.8 mmol/L (21-32); CHLORIDE 102 mmol/L (98-107); CREATININE 1.6 mg/dL (0.6-1.3); GLUCOSE 109 mg/dL (74-106); POTASSIUM 4.8 mmol/L (3.5-5.1); SODIUM SERUM 139 mmol/L (136-145); TOTAL BILIRUBIN 0.3 mg/dL (0.0-1.0); UREA NITROGEN, BLOOD 29 mg/dL (7-18)
[2019-09-27] MEDS ORDERED: fentaNYL 0.05 MG/ML VIAL IVP ONE (10:45)
[2019-09-27] MEDS ORDERED: MORPHINE SULFATE 4 MG/ML SYR IVP ONE (10:45)
[2019-09-27] MEDS ORDERED: MORPHINE SULFATE 2 MG/ML SYR IVP PRN (12:40)
[2019-09-27] MEDS ORDERED: DOCUSATE SODIUM 100 MG GELCAP PO PRN (12:40)
[2019-09-27] MEDS ORDERED: ACETAMINOPHEN 325 MG TAB PO PRN (12:40)
[2019-09-27] MEDS ORDERED: ONDANSETRON 4 MG/2 ML VIAL IM/IVP PRN (12:40)
[2019-09-27 13:45] VITALS: BP 125/44
--- NOTE | 2019-09-27 13:45 | NUR ---
RECEIVE REPORT FROM ER NURSE, PT AMBULATED TO BED, PT IS STABLE, PT INTRODUCE TO ROOM, PT HAS A LH 20G SALINE FLUSHED AND PATENT, UPDATE WHITEBOARD, SAFETY MEASURES IN PLACE, CALL LIGHT WITHIN REACH.
[2019-09-27 13:57] LABS: CHOL/HDL RATIO 3.8 (1-4.5); MAGNESIUM 2.3 mg/dL (1.8-2.4); PHOSPHORUS 3.1 mg/dL (2.5-4.9); THYROID STIMULATING HORMONE 0.51 uIU/mL (0.34-3.74)
[2019-09-27 14:07] LABS: PROTHROMBIN TIME 10.4 secs (10.8-13.4)
[2019-09-27] MEDS: NACL 0.9% 1,000 ML IV SCH (14:11)
[2019-09-27] MEDS: HYDROcodone/APAP 7.5/325 MG 1 TAB PO PRN ×2 (15:51→20:12)
--- NOTE | 2019-09-27 15:51 | NUR ---
GAVE PT NORCO FOR CHEST PAIN OF 6/10, PT STATES SHE FEELS A SHARP PAIN, EDUCATION GIVEN, CALL LIGHT WITHIN REACH.
[2019-09-27 16:00] VITALS: BP 115/43
--- NOTE | 2019-09-27 18:00 | NUR ---
PT IS RESTING IN BED, NO SIGNS OF DISTRESS NOTED, CALL LIGHT WITHIN REACH
[2019-09-27] MEDS ORDERED: hePARIN / DEXT 5% PREMIX 250 ML IV SCH (18:55)
[2019-09-27] MEDS ORDERED: HEPARIN PER PHARMACY MC PRN (18:55)
--- NOTE | 2019-09-27 19:04 | NUR ---
GAVE REPORT TO NIGHT NURSE FOR CONTINUITY OF CARE, PT IS STABLE
--- NOTE | 2019-09-27 19:05 | NUR ---
RECEIVED BEDSIDE REPORT FROM DAY SHIFT NURSE. NO SOB OR ANY RESPIRATORY DISTRESS NOTED. BREATHING EVEN AND UNLABORED. IV SITE ON LFA 22G, PATENT, INTACT, AND ASYMPTOMATIC. SKIN INTACT, WARM AND DRY TO TOUCH. BED IN LOW POSITION, CALL LIGHT WITHIN REACH. Addendum: 09/27/19 at 2234 by Johnson Keyes RN IV 24G
[2019-09-27 20:00] VITALS: BP 126/70
[2019-09-27] MEDS: METOPROLOL 25 MG TAB PO SCH (20:12)
--- NOTE | 2019-09-27 20:12 | NUR ---
GIVEN METOPROLOL, PT C/O CHEST PAIN 5/10, GIVEN NORCO MD ORDERED. PT TOLERATED WELL.
[2019-09-27] MEDS ORDERED: APIXABAN 2.5 MG TAB PO SCH (21:00)
[2019-09-27] MEDS: hePARIN / DEXT 5% PREMIX 250 ML IV SCH (21:09)
--- NOTE | 2019-09-27 21:09 | NUR ---
GIVEN METOPROLOL, PT C/O CHEST PAIN 01/09, GIVEN NORCO MD ORDERED. PT TOLERATED WELL. Addendum: 09/27/19 at 2236 by Johnson Keyes RN WRONG TIME
--- NOTE | 2019-09-27 21:09 | NUR ---
GIVEN HEPARIN 3,500UNIT AND STARTED HEPARIN DRIP MD ORDERED. PT TOLERATED WELL.
[2019-09-27] MEDS ORDERED: traMADol 50 MG TAB PO ONE (23:55)
[2019-09-28] VITALS (7 sets, daily range): BP systolic 97–157; BP diastolic 45–68
--- NOTE | 2019-09-28 | NUR ---
VS CHECKED, WITHIN PT'S BASELINE. WILL CONTINUE TO MONITOR.
[2019-09-28] MEDS: HYDROcodone/APAP 7.5/325 MG 1 TAB PO PRN ×3 (00:15→10:13)
--- NOTE | 2019-09-28 00:15 | NUR ---
PT C/O CHEST PAIN 02/09, GIVEN NORCO MD ORDERED. PT TOLERATED WELL.
--- NOTE | 2019-09-28 02:01 | NUR ---
RECEIVED CALL FROM LAB FOR TROPONIN LEVEL [phone]. REPORTED TO RESIDENT
[2019-09-28] MEDS: hePARIN / DEXT 5% PREMIX 250 ML IV SCH ×2 (03:09→04:49)
--- NOTE | 2019-09-28 03:50 | NUR ---
RECEIVED CALL FROM LAB FOR APTT 53.8. WITHIN THERAPEUTIC RANGE OF HEPARIN DRIP. Addendum: 09/28/19 at 0456 by Johnson Keyes RN CONTINUE CURRENT RATE.
--- NOTE | 2019-09-28 04:11 | NUR ---
PT C/O 02/09 CHEST PAIN. GIVEN NORCO MD ORDERED. PT TOLERATED WELL. Addendum: 09/28/19 at 0516 by Johnson Keyes RN PT ASKING PERCOCET OR TYLENOL #[address] TURNER ORDERED TRAMADOL. HOWEVER, PT REFUSED TRAMADOL AND WANTED TO TAKE NORCO AGAIN.
[2019-09-28 06:49] LABS: BASOPHILS % (AUTO) 0.6 % (0.0-2.0); EOSINOPHILS # (AUTO) 0.3 K/uL (0-0.4); EOSINOPHILS % (AUTO) 6.5 % (0.0-4.0); HEMATOCRIT 37.1 % (36-48); HEMOGLOBIN 11.9 g/dL (12.0-16.0); LYMPHOCYTES # (AUTO) 2.2 K/uL (2.5-16.5); LYMPHOCYTES % (AUTO) 48.6 % (20.5-51.1); MEAN CORPUSCULAR HEMOGLOBIN 28 pg (27-31); MEAN CORPUSCULAR HGB CONC 32 g/dL (33-37); MEAN CORPUSCULAR VOLUME 86.1 fL (80-94); MONOCYTES # (AUTO) 0.4 K/uL (0.8-1.0); MONOCYTES % (AUTO) 9.6 % (1.7-9.3); NEUTROPHILS # (AUTO) 1.5 K/uL (1.8-7.7); NEUTROPHILS % (AUTO) 34.7 % (42.2-75.2); PLATELET COUNT (AUTO) 208 K/uL (140-450); RED BLOOD CELL COUNT(AUTO) 4.31 MIL/uL (4.20-5.40); RED CELL DISTRIBUTION WIDTH 12.8 % (11.6-13.7); WHITE BLOOD COUNT (AUTO) 4.4 K/uL (4.8-10.8)
[2019-09-28 07:05] LABS: ANION GAP 11.4 (8-16); CARBON DIOXIDE 29.1 mmol/L (21-32); CHLORIDE 106 mmol/L (98-107); CREATININE 1.3 mg/dL (0.6-1.3); GLUCOSE 82 mg/dL (74-106); POTASSIUM 4.5 mmol/L (3.5-5.1); SODIUM SERUM 142 mmol/L (136-145); UREA NITROGEN, BLOOD 26 mg/dL (7-18)
[2019-09-28 07:12] LABS: MAGNESIUM 2.1 mg/dL (1.8-2.4); PHOSPHORUS 3.2 mg/dL (2.5-4.9)
--- NOTE | 2019-09-28 07:20 | NUR ---
RECEIVED PT FROM [facility] SHIFT NURSEDENNISE, PT IS AWAKE AND AMBULATED FROM BATHROOM TO TH BED, SIDE RAILS WERE UP AND CALL LIGHT WITHIN REACH, PERIPHERAL LINE ON THE LEFT FA G.24 AND ON CONTINUOS HEPARIN DRIP AT 700 UNITS/HR, IV LINE ON THE LEFT HAND G. 20 WAS REMOVED DUE TO INFILTRATION, PT ON ROOM AIR, C/O PAIN RATE OF 4/10, WILL MEDICATE AND NO SIGN OF DISTRESS NOTED. WILL MONITOR PT.
--- NOTE | 2019-09-28 07:47 | NUR ---
PT C/O NAUSEA DN ZOFRAN WAS GIVEN NOW VIA IV PUSH, BP IS 141/45, PULSE IS 52, WILL MONITOR PT.
[2019-09-28 08:10] LABS: T4 (THYROXINE) 8.5 ug/dL (4.5-12.0)
[2019-09-28] MEDS: NACL 0.9% 1,000 ML IV SCH (08:36)
[2019-09-28] MEDS: METOPROLOL 25 MG TAB PO SCH ×2 (09:00→20:19)
[2019-09-28] MEDS ORDERED: ASPIRIN 81 MG TAB.CHEW PO SCH (09:00)
[2019-09-28] MEDS ORDERED: FAMOTIDINE 20 MG TAB PO SCH (09:00)
[2019-09-28] MEDS ORDERED: NIFEdipine 60 MG TABER PO SCH (09:00)
--- NOTE | 2019-09-28 09:11 | NUR ---
DISCHARGE PLANNING: RECEIVED AN ORDER FOR HIGHER LEVEL OF CARE ([facility]) FOR CARDIO CATH. CONTACTED FLAVIA MEYERS AT [phone], NO ANSWER. LEFT MESSAGE. FLAVIA WILL FOLLOW UP. Addendum: 09/28/19 at 1055 by Haley Neff CM 0920: RECEIVED A CALL FROM MIRA OF [facility], SHE REQUESTED A DOC TO DOC CALL WITH DR. JACOBS CHRIS OF [facility]. DR HANSEN MADE AWARE. PROVIDED HIM OF THE PHONE NUMBER. 1030: RECEIVED A VOICE MESSAGE FROM FLAVIA MEYERS TO FOLLOW UP ON THE DOC TO DOC CALL. PER DR. HANSEN, DR. JACOBS OF [facility] IS ABLE TO ACCEPT THE PATIENT. FLAVIA MEYERS MADE AWARE. SHE PROVIDED ME OF [facility]'S FAX NUMBER [phone] TO SEND CLINICALS. CLINICALS SENT TO THE PROVIDED NUMBER. SHE STATED SHE WILL FOLLOW UP WITH BED AVAILABILITY. FLAVIA WILL FOLLOW UP. Addendum: 09/28/19 at 1226 by Haley Neff CM CONTACTED FLAVIA MEYERS TO FOLLOW UP ON TRANSFER, SHE STATED THEY DO NOT HAVE ANY BEDS AT THIS TIME AND 3 PEOPLE IN THE D ARE WAITING FOR A ROOM. SHE STATED SHE WILL CONTACT ME LATER THIS AFTERNOON TO UPDATE ME. Addendum: 09/28/19 at 1525 by Haley Neff CM CONTACTED FLAVIA MEYERS TO FOLLOW UP BED AVAILABILITY AT [facility]. SHE STATED NO BEDS YET AT THIS TIME. SHE ALSO STATED SHE WILL UPDATE ME IN AN HOUR. Addendum: 09/28/19 at 1607 by Haley Neff CM RECEIVED A CALL FROM CM NAJARA, SHE STATED NO BEDS AVAILABLE AT THIS TIME. SHE PROVIDED ME WITH BED CONTROL NUMBER [phone] AND FOR AFTER HOUR NURSE [phone]. DR. ORTIZ MADE AWARE AND WILL RELAY THE MESSAGE TO DR. HANSEN. Addendum: 09/28/19 at 1616 by Haley Neff PRIMARY RN MADE AWARE.
--- NOTE | 2019-09-28 09:21 | NUR ---
PATIENT HAS BEEN SCREENED AND CATEGORIZED MODERATE NUTRITION RISK. PATIENT WILL BE SEEN WITHIN 3-5 DAYS OF ADMISSION. 09/30/19 10/02/[address]
--- NOTE | 2019-09-28 10:16 | NUR ---
PT WAS GIVEN THE SCHEDULED AM MEDICATIONS, METOPROLOL WAS HELD DUE TO PULSE IS 56 MANUALLY, BP IS 124/52, PAIN MEDCIATION WSA GIVEN ALSO FOR C/O PAIN ON CHEST FO A RATE OF 6/10. WILL MONITOR PT.
[2019-09-28] MEDS ORDERED: KETOROLAC 15 MG/ML VIAL IVP PRN (12:40)
[2019-09-28] MEDS ORDERED: DEXT 5% /NACL 0.9% 1,000 ML IV SCH (13:15)
[2019-09-28] MEDS: oxyCODONE/APAP 5/325 MG 1 TAB TAB PO PRN ×2 (13:19→20:18)
--- NOTE | 2019-09-28 13:19 | NUR ---
PT WAS GIVEN PAIN MEDICATION FOR A BURNING PAIN RATE OF 9/10, WILL RE-ASSESS AND MONITOR PT.
--- NOTE | 2019-09-28 14:03 | NUR ---
PT WAS STARTED ON IVF OF D5NS AT 20ML/HR NOW.
[2019-09-28] MEDS ORDERED: PANTOPRAZOLE 40 MG INJ VIAL IVP SCH ×2 (16:30→23:00)
--- NOTE | 2019-09-28 17:44 | NUR ---
PT WAS GIVEN IV PUSH MEDICATION NOW.
--- NOTE | 2019-09-28 19:10 | NUR ---
ENDORSED PT TO CONDEMNATION ENGINEER NURSELEONARD FOR CONTINUITY OF CARE.
--- NOTE | 2019-09-28 19:11 | NUR ---
RECEIVED BEDSIDE REPORT FROM DAY SHIFT NURSE. NO SOB OR ANY RESPIRATORY DISTRESS NOTED. BREATHING EVEN AND UNLABORED. IV SITE ON LFA 24G, RUNNING HEPARIN DRIP, RH 24G, RUNNING FLUID, PATENT, INTACT, AND ASYMPTOMATIC. SKIN INTACT, WARM AND DRY TO TOUCH. BED IN LOW POSITION, CALL LIGHT WITHIN REACH.
--- NOTE | 2019-09-28 20:18 | NUR ---
PT C/O 02/09 PAIN, GIVEN PERCOCET MD ORDERED. HELD METOPROLOL D/T DECREASED BP, HR.
--- NOTE | 2019-09-28 21:50 | NUR ---
RH, 24G IV SITE LEAKING, REMOVED IV LINE. CANNULA INTACT.
--- NOTE | 2019-09-28 22:00 | NUR ---
MADE 5 CALLS TO INFORM FAMILY, PT TRANSFERRING. NO ANSWERING. JACOBO ROCK AT [phone] AND LILA ROCK AT [phone]. LEFT MSG TO LILA ROCK.
--- NOTE | 2019-09-28 22:30 | NUR ---
REPORT GIVEN TO JOSH MCCARTHY, [facility], RM 200C
--- NOTE | 2019-09-28 23:05 | NUR ---
AT 1954 ALEXANDRE FROM [facility] CALLED AND GAVE ME ROOM FOR PT.PT WILL GO TO ROOM 200 C .THE #TO CALL FOR REPORT [phone] INFORM LEONARD PT NURSE.HE CALLED AND GAVE REPORT AND DID DC PROCESS.I ARRANGED FOR TRANSPORT.[facility] W/ACLS NURSE CAME AND PICKED PT UP NOW.
--- NOTE | 2019-09-28 23:10 | NUR ---
TRANSPORTATION CAME, REMOVE NAME BAND AND TELEMETRY. REPORT GIVEN TO RN. PT LEFT WITH HEPARIN DRIP.
== END 2019-09-28 23:10 | disposition short-term general hospital (02) | DRG 280 ==
LOC: MED 09:01 → MMU 12:40
PROVIDERS: ADMIT General Practice; ATTEND General Practice
DX: I21.3 ST elevation (STEMI) myocardial infarction of unspecified site (principal); N17.0 Acute kidney failure with tubular necrosis; N18.4 Chronic kidney disease, stage 4 (severe); I24.9 Acute ischemic heart disease, unspecified; K21.9 Gastro-esophageal reflux disease without esophagitis; J44.9 Chronic obstructive pulmonary disease, unspecified; E78.00 Pure hypercholesterolemia, unspecified; I13.10 Hypertensive heart and chronic kidney disease without heart failure, with stage 1 through stage 4 chronic kidney disease, or unspecified chronic kidney disease; I48.91 Unspecified atrial fibrillation; E78.5 Hyperlipidemia, unspecified; I45.10 Unspecified right bundle-branch block; D64.9 Anemia, unspecified; Z88.5 Allergy status to narcotic agent; Z88.0 Allergy status to penicillin; Z88.2 Allergy status to sulfonamides; Z79.899 Other long term (current) drug therapy; Z79.01 Long term (current) use of anticoagulants; Z90.710 Acquired absence of both cervix and uterus; Z90.49 Acquired absence of other specified parts of digestive tract
CPT/HCPCS: 36415; 71045; 80048; 80053; 82150; 83036; 83690; 83735; 83880; 84100; 84436; 84443; 84484; 85025; 85610; 85730; 87081; 93005; 96374; 99285; C9113; J1644; J2270; J2405; J3010; J7030; J7042; Q0092

== ENCOUNTER 2019-10-20 10:40 | Emergency (ER) | payer OTHER ==
[~2019-10-20] VITALS: Ht 154.9 cm; Wt 73.5 kg
[~2019-10-20 10:40] MED LIST changes: -DEXT100S62 IV; -MECL-272 PO; +MECL-303 PO; -METR500S14 IV
[2019-10-20 10:45] VITALS: BP 139/95
--- NOTE | 2019-10-20 10:50 | NUR ---
PATIENT WHEELCHAIR ASSISTED TO BED 3.
[2019-10-20] MEDS ORDERED: KETOROLAC 30 MG/ML VIAL IM ONE (11:00)
[2019-10-20 11:28] LABS: BASOPHILS % (AUTO) 0.6 % (0.0-2.0); EOSINOPHILS # (AUTO) 0.1 K/uL (0-0.4); EOSINOPHILS % (AUTO) 3.5 % (0.0-4.0); HEMATOCRIT 42.3 % (36-48); HEMOGLOBIN 14.2 g/dL (12.0-16.0); LYMPHOCYTES % (AUTO) 31.5 % (20.5-51.1); MEAN CORPUSCULAR HEMOGLOBIN 28 pg (27-31); MEAN CORPUSCULAR HGB CONC 34 g/dL (33-37); MEAN CORPUSCULAR VOLUME 82.4 fL (80-94); MONOCYTES # (AUTO) 0.3 K/uL (0.8-1.0); MONOCYTES % (AUTO) 8.9 % (1.7-9.3); NEUTROPHILS # (AUTO) 1.7 K/uL (1.8-7.7); NEUTROPHILS % (AUTO) 55.5 % (42.2-75.2); PLATELET COUNT (AUTO) 201 K/uL (140-450); RED BLOOD CELL COUNT(AUTO) 5.13 MIL/uL (4.20-5.40); RED CELL DISTRIBUTION WIDTH 12.7 % (11.6-13.7); WHITE BLOOD COUNT (AUTO) 3.1 K/uL (4.8-10.8)
[2019-10-20 11:37] LABS: BILIRUBIN,URINE NEGATIVE (NEGATIVE); BLOOD, URINE TRACE-I (NEGATIVE); COLOR,URINE YELLOW (YELLOW); LEUKOCYTE ESTERASE ,URINE 1+ (NEGATIVE); NITRITE, URINE NEGATIVE (NEGATIVE); PH,URINE 5.5 (5.0-9.0); UGLUCOSE NEGATIVE (NEGATIVE)
[2019-10-20 11:39] LABS: ALBUMIN 4.2 g/dL (3.4-5.0); ANION GAP 13.7 (8-16); ASPARTATE AMINOTRANSFERASE 134 U/L (15-37); CARBON DIOXIDE 24.7 mmol/L (21-32); CHLORIDE 104 mmol/L (98-107); CREATININE 1.6 mg/dL (0.6-1.3); GLUCOSE 120 mg/dL (74-106); LIPASE 135 U/L (73-393); POTASSIUM 4.4 mmol/L (3.5-5.1); SODIUM SERUM 138 mmol/L (136-145); TOTAL BILIRUBIN 0.5 mg/dL (0.0-1.0); UREA NITROGEN, BLOOD 36 mg/dL (7-18)
[2019-10-20 11:45] LABS: APPEARANCE,URINE HAZY (CLEAR)
[2019-10-20 11:47] LABS: RBC,URINE NONE SEEN /HPF (0-5)
[2019-10-20 12:37] VITALS: BP 156/84
--- NOTE | 2019-10-20 12:38 | NUR ---
Stable. VSS. Pain free. States that she feels much better. MD has reassessed and Dc'd home. To exit.
== END 2019-10-20 12:38 | disposition home or self-care (01) ==
LOC: MED 10:40
DX: M79.10 Myalgia, unspecified site (principal); J44.9 Chronic obstructive pulmonary disease, unspecified; K21.9 Gastro-esophageal reflux disease without esophagitis; N18.4 Chronic kidney disease, stage 4 (severe); Z90.49 Acquired absence of other specified parts of digestive tract; Z90.710 Acquired absence of both cervix and uterus; Z88.0 Allergy status to penicillin; Z88.2 Allergy status to sulfonamides; Z88.5 Allergy status to narcotic agent; Z88.8 Allergy status to other drugs, medicaments and biological substances
CPT/HCPCS: 36415; 71045; 74176; 80053; 81001; 83690; 84484; 85025; 87086; 87804; 93005; 96372; 99285; J1885

== ENCOUNTER 2019-11-08 18:18 | Emergency (ER) | payer OTHER ==
[~2019-11-08] VITALS: Ht 154.9 cm; Wt 71.2 kg
[2019-11-08 18:25] VITALS: BP 160/73
--- NOTE | 2019-11-08 18:45 | NUR ---
79 y/o F presents to ER for constipation x3 days. Per pt she took a laxative today and strained while trying to have a BM. Pt has hemorrhoids and had rectal bleeding. Pt currently on blood thinners but unaware of medication name and dose. Pt currently in an adult brief. Upon assessment pt stating "Now I can't stop going to the bathroom." Pt alert and oriented. Respirations even and unlabored. Waiting for ERMD to evaluate pt. Allergies: Penicillin, Morphine, Sulfa, and Benadryl Med hx: HTN, HDL, COPD, A.Fib
--- NOTE | 2019-11-08 19:01 | NUR ---
Report recieved. Patient diaper changed. no blood seen in stool, upon wiping and observation of rectum minimal bleeding seen.
--- NOTE | 2019-11-08 19:01 | NUR ---
Transfer of care and report given to JOSH Davenport
--- NOTE | 2019-11-08 19:10 | NUR ---
RECEIVED REPORT FROM JOANNE MORENO.
--- NOTE | 2019-11-08 19:15 | NUR ---
PT HAD LARGE LOOSE INC BROWN STOOL. SLIGHT BLOOD FROM HEMHORROIDS.
[2019-11-08 20:14] VITALS: BP 160/73
--- NOTE | 2019-11-08 20:15 | NUR ---
Patient discharged with v/s stable. Written and verbal after care instructions given and explained. Patient verbalized understanding. Ambulatory with steady gait. All questions addressed prior to discharge. Advised to follow up with PMD.
== END 2019-11-08 20:15 | disposition home or self-care (01) ==
LOC: MED 18:18
DX: K64.9 Unspecified hemorrhoids (principal); J44.9 Chronic obstructive pulmonary disease, unspecified; I10 Essential (primary) hypertension; Z90.49 Acquired absence of other specified parts of digestive tract; Z90.710 Acquired absence of both cervix and uterus; Z85.42 Personal history of malignant neoplasm of other parts of uterus; Z79.82 Long term (current) use of aspirin; Z79.899 Other long term (current) drug therapy; Z88.0 Allergy status to penicillin; Z88.2 Allergy status to sulfonamides; Z88.5 Allergy status to narcotic agent; Z88.8 Allergy status to other drugs, medicaments and biological substances
CPT/HCPCS: 99281

== ENCOUNTER 2019-12-09 10:33 | Emergency (ER) | payer OTHER ==
[~2019-12-09] VITALS: Ht 154.9 cm; Wt 70.3 kg
[2019-12-09 10:36] VITALS: BP 183/89
[2019-12-09 11:21] LABS: BASOPHILS % (AUTO) 0.7 % (0.0-2.0); EOSINOPHILS # (AUTO) 0.2 K/uL (0-0.4); EOSINOPHILS % (AUTO) 4.8 % (0.0-4.0); HEMATOCRIT 42.6 % (36-48); HEMOGLOBIN 13.9 g/dL (12.0-16.0); LYMPHOCYTES # (AUTO) 1.3 K/uL (2.5-16.5); LYMPHOCYTES % (AUTO) 29.4 % (20.5-51.1); MEAN CORPUSCULAR HEMOGLOBIN 28 pg (27-31); MEAN CORPUSCULAR HGB CONC 33 g/dL (33-37); MEAN CORPUSCULAR VOLUME 86.2 fL (80-94); MONOCYTES # (AUTO) 0.3 K/uL (0.8-1.0); MONOCYTES % (AUTO) 5.8 % (1.7-9.3); NEUTROPHILS # (AUTO) 2.6 K/uL (1.8-7.7); NEUTROPHILS % (AUTO) 59.3 % (42.2-75.2); PLATELET COUNT (AUTO) 218 K/uL (140-450); RED BLOOD CELL COUNT(AUTO) 4.94 MIL/uL (4.20-5.40); RED CELL DISTRIBUTION WIDTH 14.1 % (11.6-13.7); WHITE BLOOD COUNT (AUTO) 4.3 K/uL (4.8-10.8)
[2019-12-09 11:36] LABS: ALBUMIN 3.9 g/dL (3.4-5.0); ANION GAP 13.3 (8-16); ASPARTATE AMINOTRANSFERASE 24 U/L (15-37); CARBON DIOXIDE 26.2 mmol/L (21-32); CHLORIDE 105 mmol/L (98-107); CREATININE 1.4 mg/dL (0.6-1.3); GLUCOSE 102 mg/dL (74-106); LIPASE 153 U/L (73-393); POTASSIUM 4.5 mmol/L (3.5-5.1); SODIUM SERUM 140 mmol/L (136-145); TOTAL BILIRUBIN 0.2 mg/dL (0.0-1.0); UREA NITROGEN, BLOOD 29 mg/dL (7-18)
[2019-12-09] MEDS ORDERED: KETOROLAC 15 MG/ML VIAL IVP ONE (12:45)
[2019-12-09 13:17] LABS: APPEARANCE,URINE CLEAR (CLEAR); BILIRUBIN,URINE NEGATIVE (NEGATIVE); BLOOD, URINE TRACE-I (NEGATIVE); COLOR,URINE YELLOW (YELLOW); LEUKOCYTE ESTERASE ,URINE NEGATIVE (NEGATIVE); NITRITE, URINE NEGATIVE (NEGATIVE); PH,URINE 6.5 (5.0-9.0); UGLUCOSE NEGATIVE (NEGATIVE)
[2019-12-09 13:24] LABS: RBC,URINE 0-5 /HPF (0-5); WBC,URINE 0-5 /HPF (0-5)
[2019-12-09 14:03] VITALS: BP 119/79
== END 2019-12-09 14:02 | disposition home or self-care (01) ==
LOC: MED 10:33
DX: R10.31 Right lower quadrant pain (principal); J44.9 Chronic obstructive pulmonary disease, unspecified; I10 Essential (primary) hypertension; E78.5 Hyperlipidemia, unspecified; Z79.899 Other long term (current) drug therapy; Z88.0 Allergy status to penicillin; Z88.2 Allergy status to sulfonamides; Z88.5 Allergy status to narcotic agent; Z88.8 Allergy status to other drugs, medicaments and biological substances; Z90.710 Acquired absence of both cervix and uterus
CPT/HCPCS: 36415; 74176; 80053; 81001; 83690; 85025; 96374; 99284; J1885

== ENCOUNTER 2019-12-11 22:15 | Inpatient (IN) | payer OTHER ==
[~2019-12-11] VITALS: Ht 154.9 cm; Wt 70.3 kg
[2019-12-11 22:19] VITALS: BP 140/76
--- NOTE | 2019-12-11 22:21 | NUR ---
Pt ambulated to ER bed 06
--- NOTE | 2019-12-11 22:25 | NUR ---
79 Y/O FEMALE C/O LEFT CHEST PAIN (BREAST AREA) STARTED AT 730PM WHILE PT WAS AT REST. PT STATES PAIN IS 9/10 AND PAINFUL AND TOOK A NORCO 5 WITH NO RELIEF. PT DOES NOT APPEAR ANXIOUS, RR ARE 16 AND EVEN AND UNLABORED WITH O2 SAT 93% ROOM AIR . HR 55. BP 140/76. CHEST PAIN IS NON-RADIATING. PT ALSO HAS LOW BACK PAIN. DENIES N/V/D; SKIN IS PINK/WARM/DRY; AAOX4 WITH EVEN AND STEADY GAIT; PT DENIES ANY FEVER, SOB, OR COUGH AT THIS TIME; PATIENT POSITIONED FOR COMFORT; HOB ELEVATED; BEDRAILS UP X2; BED DOWN AND WHEELS LOCKED. ER MADE AWARE OF PT STATUS. MEDICAL HX: COPD/A-FIB/HTN/HIGH CHOLESTEROL/HYSTERECTOMY/PNA IN 09/2019 ALLERGIES: PCN/SULFA/DIPHENHYDRAMINE/MORPHINE
[2019-12-11] MEDS ORDERED: ASPIRIN 325 MG TAB PO ONE (22:30)
[2019-12-11] MEDS ORDERED: NITROGLYCERIN 0.4 MG TAB SL ONE (22:30)
--- NOTE | 2019-12-11 22:45 | NUR ---
LABS DRAWN FROM IV START AND HANDED TO LAB
--- NOTE | 2019-12-11 22:50 | NUR ---
PT O2 SAT 90-92 ON ROOM AIR, SO PLACED PT ON NASAL CANNULA 2 L/MIN
--- NOTE | 2019-12-11 22:51 | NUR ---
PT O2 SAT NOW 99% ON 2 L/MIN NASAL CANNULA
--- NOTE | 2019-12-11 22:52 | NUR ---
POST ADMINISTRATION OF 2 NITRO'S PT STATES NO RELIEF. BP WAS 124/65 AFTER SECOND NITRO AND EACH TIME SBP WAS DROPPING BY 20mmHg AND INFORMED DR. GRACIA AND HE STATED HOLD LAST NITRO, SO PT ONLY RECEIVED 2 NITRO'S THE THIRD WAS HELD
[2019-12-11 22:57] LABS: BASOPHILS % (AUTO) 0.4 % (0.0-2.0); EOSINOPHILS # (AUTO) 0.2 K/uL (0-0.4); EOSINOPHILS % (AUTO) 4.5 % (0.0-4.0); HEMATOCRIT 40.9 % (36-48); HEMOGLOBIN 13.4 g/dL (12.0-16.0); LYMPHOCYTES # (AUTO) 1.7 K/uL (2.5-16.5); MEAN CORPUSCULAR HEMOGLOBIN 28 pg (27-31); MEAN CORPUSCULAR HGB CONC 33 g/dL (33-37); MEAN CORPUSCULAR VOLUME 86.2 fL (80-94); MONOCYTES # (AUTO) 0.3 K/uL (0.8-1.0); MONOCYTES % (AUTO) 6.4 % (1.7-9.3); NEUTROPHILS # (AUTO) 2.1 K/uL (1.8-7.7); NEUTROPHILS % (AUTO) 49.7 % (42.2-75.2); PLATELET COUNT (AUTO) 218 K/uL (140-450); RED BLOOD CELL COUNT(AUTO) 4.74 MIL/uL (4.20-5.40); WHITE BLOOD COUNT (AUTO) 4.3 K/uL (4.8-10.8)
--- NOTE | 2019-12-11 22:59 | NUR ---
xr at bedside.
[2019-12-11 23:10] LABS: PROTHROMBIN TIME 11.5 secs (10.8-13.4)
[2019-12-11 23:14] LABS: ASPARTATE AMINOTRANSFERASE 30 U/L (15-37); CHLORIDE 102 mmol/L (98-107); CREATININE 1.6 mg/dL (0.6-1.3); GLUCOSE 99 mg/dL (74-106); SODIUM SERUM 140 mmol/L (136-145); TOTAL BILIRUBIN 0.4 mg/dL (0.0-1.0); UREA NITROGEN, BLOOD 28 mg/dL (7-18)
--- NOTE | 2019-12-12 00:10 | NUR ---
INFORMED PT C/O PAIN AND WOULD LIKE PAIN MEDICATION. DR. GRACIA GAVE A VERBAL ORDER FOR PERCOCET. ORDER NOTED AND CARRIED OUT.
[2019-12-12] MEDS ORDERED: oxyCODONE/APAP 5/325 MG 1 TAB TAB PO ONE (00:20)
--- NOTE | 2019-12-12 00:22 | NUR ---
PT RESTING IN BED IN POSITION OF COMFORT. VSS. BED LOW AND LOCKED AND 2 SIDERAILS UP. WILL CONTINUE TO MONITOR.
[2019-12-12] MEDS ORDERED: ONDANSETRON 4 MG/2 ML VIAL IVP PRN (00:40)
[2019-12-12] MEDS ORDERED: LORazepam 2 MG/ML VIAL IVP PRN (00:40)
[2019-12-12] MEDS ORDERED: MORPHINE SULFATE 4 MG/ML SYR IVP PRN (00:40)
[2019-12-12] MEDS ORDERED: NITROGLYCERIN 0.4 MG TAB SL PRN (00:40)
[2019-12-12] MEDS ORDERED: HYDROcodone/APAP 5/325 MG 1 TAB TAB PO PRN (00:40)
[2019-12-12] MEDS ORDERED: MORPHINE SULFATE 2 MG/ML SYR IVP PRN (00:40)
--- NOTE | 2019-12-12 01:06 | NUR ---
PT CONNECTED TO PORTABLE MONITOR AND TRANSPORTING TO [facility] FOR ADMISSION SOON.
--- NOTE | 2019-12-12 01:20 | NUR ---
Patient will be admitted to care of DR. BEAUCHAMP. Admited to [facility]. Will go to room 124B. Belongings list completed. Report GIVEN TO JOSH MAJOR. TRANSFER OF CARE AT THIS TIME.
[2019-12-12 01:22] LABS: CREATINE KINASE MB 3.6 ng/mL (0-3.6)
--- NOTE | 2019-12-12 01:40 | NUR ---
RECEIVED BEDSIDE REPORT FROM ED RN CIARAN AT 0120, FOR PT'S CONTINUITY OF CARE. PT IS AAOX4, AMBULATORY TO THE BATHROOM WITH STEADY GAIT. PT IS ON REVENUE AGENT SR WITH BBB ON TELE, IS ON 2L O2 VIA NC SATURATING AT 100% RESPIRATIONS EVEN AND UNLABORED, HAS RIGHT AC 20G SALINE LOCK, HAS MULTIPLE SCATTERED RASHES THROUGHOUT THE BODY. PT DENIES ANY PAIN AT THIS TIME, STATES RASHES ONLY ITCHES INTERMITTENTLY, STATES HAS BEEN IN THIS HOSPITAL BEFORE, FAMILIAR WITH HOSPITAL ROUTINE. SAFETY MEASURES IN PLACE, AND CALL LIGHT WITHIN REACH. WILL MONITOR PT THROUGHOUT SHIFT.
--- NOTE | 2019-12-12 03:30 | NUR ---
PT ASLEEP WITH NO SIGNS OF DISTRESS. WILL CONTINUE TO MONITOR PT.
[2019-12-12 04:00] VITALS: BP 104/35
--- NOTE | 2019-12-12 04:30 | NUR ---
VS CHECKED AND CHARTED. PT ASLEEP WITH NO SIGNS OF DISTRESS. WILL CONTINUE TO MONITOR PT.
--- NOTE | 2019-12-12 06:00 | NUR ---
MADE ROUNDS. PT REQUESTED FOR PAIN MEDICATION, STATES CHEST PAIN IS BACK, RATE OF 6/10. WILL MEDICATE PT.
--- NOTE | 2019-12-12 06:30 | NUR ---
MEDICATION NOT ADMIN. PT ASLEEP WITH NO SIGNS OF DISTRESS. WILL ENDORSE TO AM SHIFT RN FOR PT'S CONTINUITY OF CARE.
--- NOTE | 2019-12-12 07:25 | NUR ---
RECEIVED REPORT FROM NIGHT NURSE. PATIENT IN STABLE CONDITION. AWAKE, ALERT, ORIENTED X4. NO DISTRESS NOTED. CALL LIGHT WITHIN REACH.
[2019-12-12 08:00] VITALS: BP 124/37
[2019-12-12] MEDS ORDERED: FENOFIBRATE 48 MG TAB PO SCH (09:00)
[2019-12-12] MEDS ORDERED: ENOXAPARIN 40 MG/0.4 ML SYR SUBQ SCH (09:00)
[2019-12-12] MEDS ORDERED: APIXABAN 2.5 MG TAB PO SCH (09:00)
[2019-12-12] MEDS ORDERED: NIFEdipine 60 MG TABER PO SCH (09:00)
--- NOTE | 2019-12-12 09:30 | NUR ---
ROUNDS MADE. PATIENT ASLEEP, RESPIRATION EVEN AND UNLABORED. NO DISTRESS NOTED.
--- NOTE | 2019-12-12 10:25 | NUR ---
DR. Chema CAMARA IN UNIT. MADE AWARE OF TROPONIN LEVEL 1.109.
--- NOTE | 2019-12-12 10:32 | NUR ---
PATIENT HAS BEEN SCREENED AND CATEGORIZED MODERATE NUTRITION RISK. PATIENT WILL BE SEEN WITHIN 3-5 DAYS OF ADMISSION. 12/15/19 - 12/17/19 COLE LANDA MBA, RD
[2019-12-12] MEDS ORDERED: oxyCODONE/APAP 5/325 MG 1 TAB TAB PO PRN (10:35)
--- NOTE | 2019-12-12 11:09 | NUR ---
PATIENT C/O 8/ CHEST PAIN. OFFERED NITRO TAB, GIVEN ORDERED FOR CHEST PAIN.
--- NOTE | 2019-12-12 11:15 | NUR ---
PATIENT REPORTS THAT SHE HAS USED NITRO BEFORE AND "IT NEVER WORKS." NOTIFIED DR. CAMARA IN REGARDS TO PATIENT'S CHEST PAIN. ORDERED PERCOCET PRN.
--- NOTE | 2019-12-12 11:30 | NUR ---
PATIENT STABLE. DENIES SOB. NO RESPIRATORY DISTRESS NOTED.
[2019-12-12 12:00] VITALS: BP 119/47
--- NOTE | 2019-12-12 12:00 | NUR ---
PATIENT GIVEN PERCOCET. PATIENT REPORTS NORCO IS INEFFECTIVE FOR HER.
--- NOTE | 2019-12-12 14:27 | NUR ---
PATIENT IN STABLE CONDITION. PATIENT IS DISCHARGED TO HOME VIA PRIVATE VEHICLE. PICKED UP BY DAUGHTER. BROUGHT PATIENT TO LOBBY FOR DIRECTIONAL DRILLER VIA W/C. IV REMOVED, CANNULA INTACT AND ID BANDS REMOVED. ALL DISCHARGED INSTRUCTIONS PAPERWORK GIVEN, SIGNED FOR AND ALL BELONGINGS GIVEN TO PATIENT.
[2019-12-12] MEDS ORDERED: METOPROLOL 25 MG TAB PO SCH (21:00)
[2019-12-13] MEDS ORDERED: ASPIRIN 81 MG TAB.CHEW PO SCH (09:00)
== END 2019-12-12 15:06 | disposition home or self-care (01) | DRG 204 ==
LOC: MED 22:15 → MTU 12-12 00:45
PROVIDERS: ADMIT Internal Medicine Pulmonary Disease; ATTEND Internal Medicine Pulmonary Disease
DX: R07.1 Chest pain on breathing (principal); Z88.0 Allergy status to penicillin; Z88.2 Allergy status to sulfonamides; Z88.5 Allergy status to narcotic agent; Z88.8 Allergy status to other drugs, medicaments and biological substances; J44.9 Chronic obstructive pulmonary disease, unspecified; Z90.710 Acquired absence of both cervix and uterus; Z87.891 Personal history of nicotine dependence; E78.5 Hyperlipidemia, unspecified; I11.9 Hypertensive heart disease without heart failure; Z85.42 Personal history of malignant neoplasm of other parts of uterus; Z83.3 Family history of diabetes mellitus; R07.89 Other chest pain; I45.10 Unspecified right bundle-branch block
CPT/HCPCS: 36415; 71045; 80053; 82550; 82553; 83880; 84484; 85025; 85610; 85730; 87081; 99285; Q0092

== ENCOUNTER 2019-12-21 14:19 | Inpatient (IN) | payer OTHER ==
[~2019-12-21] VITALS: Ht 152.4 cm; Wt 68.0 kg
[~2019-12-21 14:19] MED LIST changes: -COLC0.6C PO; -FAMO20TA13 PO; -MECL-303 PO; -METO25TA PO; -NITR0.4T2 SL
[2019-12-21 14:24] VITALS: BP 173/96
--- NOTE | 2019-12-21 14:27 | NUR ---
Patient to bed 12. RN evaluating patient at bedside.
--- NOTE | 2019-12-21 14:30 | NUR ---
79 YR OLD FEMALE COMING IN TODAY WITH COMPLAINT OF RLQ PAIN PERSISTANT X 2-3 DAYS. PATIENT DENIES N/V, NO DIARRHEA, REGULAR DAILY BOWEL MOVEMENTS. ABDOMEN SOFT, ROUND, TENDER TO RLQ.
--- NOTE | 2019-12-21 15:00 | NUR ---
20G IV PLACED TO [facility], LABS DRAWN AT THAT TIME, COLLECTED BY LAB
--- NOTE | 2019-12-21 15:10 | NUR ---
MD ALSTON AT BEDSIDE WITH PATIENT
[2019-12-21 15:15] LABS: BASOPHILS # (AUTO) 0.1 K/uL (0.00-0.22); EOSINOPHILS # (AUTO) 0.2 K/uL (0-0.4); EOSINOPHILS % (AUTO) 4.2 % (0.0-4.0); HEMATOCRIT 41.7 % (36-48); HEMOGLOBIN 13.8 g/dL (12.0-16.0); LYMPHOCYTES # (AUTO) 1.4 K/uL (2.5-16.5); LYMPHOCYTES % (AUTO) 24.8 % (20.5-51.1); MEAN CORPUSCULAR HEMOGLOBIN 28 pg (27-31); MEAN CORPUSCULAR HGB CONC 33 g/dL (33-37); MEAN CORPUSCULAR VOLUME 85.5 fL (80-94); MONOCYTES # (AUTO) 0.3 K/uL (0.8-1.0); MONOCYTES % (AUTO) 6.3 % (1.7-9.3); NEUTROPHILS # (AUTO) 3.5 K/uL (1.8-7.7); NEUTROPHILS % (AUTO) 63.7 % (42.2-75.2); PLATELET COUNT (AUTO) 213 K/uL (140-450); RED BLOOD CELL COUNT(AUTO) 4.88 MIL/uL (4.20-5.40); RED CELL DISTRIBUTION WIDTH 14.2 % (11.6-13.7); WHITE BLOOD COUNT (AUTO) 5.5 K/uL (4.8-10.8)
--- NOTE | 2019-12-21 15:20 | NUR ---
CONSENT FOR CT WITH IV CONTRAST SIGNED BY PATIENT
--- NOTE | 2019-12-21 15:23 | NUR ---
PATIENT TAKEN TO CT
--- NOTE | 2019-12-21 15:26 | NUR ---
Patient taken to CT scan via gurney by [employer].
[2019-12-21 15:39] LABS: ALBUMIN 4.1 g/dL (3.4-5.0); ANION GAP 15.7 (8-16); ASPARTATE AMINOTRANSFERASE 28 U/L (15-37); CARBON DIOXIDE 24.5 mmol/L (21-32); CHLORIDE 100 mmol/L (98-107); CREATININE 1.6 mg/dL (0.6-1.3); GLUCOSE 104 mg/dL (74-106); LIPASE 188 U/L (73-393); POTASSIUM 4.2 mmol/L (3.5-5.1); SODIUM SERUM 136 mmol/L (136-145); TOTAL BILIRUBIN 0.4 mg/dL (0.0-1.0); UREA NITROGEN, BLOOD 36 mg/dL (7-18)
--- NOTE | 2019-12-21 15:39 | NUR ---
PT BACK FROM CT AND PLACED BACK ON THE MONITOR
[2019-12-21] MEDS ORDERED: fentaNYL 0.05 MG/ML VIAL IVP ONE (15:45)
[2019-12-21] MEDS ORDERED: ONDANSETRON 4 MG/2 ML VIAL IVP ONE (15:45)
[2019-12-21 15:58] LABS: APPEARANCE,URINE CLEAR (CLEAR); BILIRUBIN,URINE NEGATIVE (NEGATIVE); BLOOD, URINE TRACE-I (NEGATIVE); COLOR,URINE YELLOW (YELLOW); LEUKOCYTE ESTERASE ,URINE TRACE (NEGATIVE); NITRITE, URINE NEGATIVE (NEGATIVE); PH,URINE 5.5 (5.0-9.0); UGLUCOSE NEGATIVE (NEGATIVE)
[2019-12-21 16:07] LABS: RBC,URINE 0-5 /HPF (0-5)
[2019-12-21 16:08] LABS: WBC,URINE 0-5 /HPF (0-5)
--- NOTE | 2019-12-21 16:14 | NUR ---
PATIENT PLACED ON 2L O2 NC AFTER PAIN MED ADMINISTERED
[2019-12-21] MEDS ORDERED: NACL 0.9% 1,000 ML IV ONE (16:20)
--- NOTE | 2019-12-21 17:10 | NUR ---
PATIENT RESTING MORE COMFORTABLY AT THIS TIME, PAIN REMAINS 2/10. DENIES ANY N/V MD ALSTON AT BEDSIDE FOR REASSESSMENT
--- NOTE | 2019-12-21 17:37 | NUR ---
PATIENT UP AND AMBULATED TO RESTROOM WITH STEADY GAIT. CONTINUES TO DENY N/V, PAIN HAS INCREASED A LITTLE BIT AT THIS TIME.
[2019-12-21] MEDS: LACTATED RINGERS 1,000 ML IV SCH (18:00)
[2019-12-21] MEDS ORDERED: MORPHINE SULFATE 4 MG/ML SYR IVP PRN (18:00)
[2019-12-21] MEDS ORDERED: LORazepam 2 MG/ML VIAL IVP PRN (18:00)
[2019-12-21] MEDS ORDERED: ALBUTEROL 0.083% 2.5 MG/3 ML NEBU INH PRN (18:00)
[2019-12-21] MEDS ORDERED: ACETAMINOPHEN 325 MG TAB PO PRN (18:00)
[2019-12-21] MEDS ORDERED: MORPHINE SULFATE 2 MG/ML SYR IVP PRN (18:00)
--- NOTE | 2019-12-21 18:22 | NUR ---
PATIENT CONTINUES TO HAVE RLQ PAIN, WILL BE ADMITTED FOR FURTHER EVALUATION
[2019-12-21] MEDS ORDERED: LEVOFLOXACIN 500 MG/D5W PREMIX 100 ML IV SCH (19:00)
--- NOTE | 2019-12-21 19:00 | NUR ---
RECEIVED PATIENT IN STABLE CONDITION FROM ER VIA WHEELCHAIR FOR CONTINUITY OF CARE. AAOX4. RESPIRATIONS EVEN, UNLABORED. SKIN WARM, DRY AND INTACT. SKIN ASSESSMENT COMPLETE. IV SITE NOTED TO RIGHT AC 20G PATENT/INTACT. PATIENT C/O ABDOMINAL PAIN 3/10, TOLERABLE AT THIS TIME. NO S/SX ACUTE DISTRESS NOTED. ABDOMEN SOFT, TENDER WITH ACTIVE BOWEL SOUNDS IN ALL 4 QUADRANTS. PATIENT IS CONTINENT OF BOWEL/BLADDER AND AMBULATORY. MRSA SCREEN COMPLETED. ORIENTED PATIENT TO ROOM/STAFF/CALL LIGHT. SAFETY PRECAUTIONS IN PLACE. CALL LIGHT WITHIN REACH. WILL CONTINUE TO MONITOR.
--- NOTE | 2019-12-21 19:06 | NUR ---
Patient will be admitted to care of DR VICKERS. Admited to TELE. Will go to [id number]. Belongings list completed. Report to JOSH URBINA.
[2019-12-21 20:00] VITALS: BP 150/65
[2019-12-21] MEDS: metroNIDAZOLE 500 MG/NS PREMIX 100 ML IV SCH (20:17)
--- NOTE | 2019-12-21 20:48 | NUR ---
PATIENT C/O ACHING ABDOMINAL PAIN 02/09. ASKED ABOUT ALLERGY TO MORPHINE, PATIENT STATED NO ALLERGY TO MORPHINE BUT IT DOES "CAUSE HER SOME PAIN". PROVIDED EDUCATION REGARDING PAIN MANAGEMENT. REPOSITIONED PATIENT FOR COMFORT AND MEDICATED ORDERED. CALL LIGHT WITHIN REACH. WILL CONTINUE TO MONITOR. Addendum: 12/21/19 at 2300 by Debbie Alcantar RN SPOKE TO Shahid ALCARAZ PAVER FOR DR AYALA REGARDING PAIN MANAGEMENT. NO NEW ORDERS. WILL CONTINUE TO MONITOR.
[2019-12-21] MEDS: APIXABAN 2.5 MG TAB PO SCH (20:53)
--- NOTE | 2019-12-21 21:00 | NUR ---
CONTINUE TO MONITOR FOR ANY ADVERSE REACTION TO MORPHINE. PATIENT IS ALERT WITH NO S/SX ACUTE DISTRESS. NO S/SX RESPIRATORY DISTRESS WITH O2 SAT 96%. NO SOB NOTED. PATIENT VERBALIZED MINIMAL PAIN RELIEF. CALL LIGHT WITHIN REACH WILL CONTINUE TO MONITOR.
--- NOTE | 2019-12-21 21:48 | NUR ---
REASSESSED PAIN LEVEL AT 3/10, TOLERABLE AT THIS TIME. PATIENT IS WATCHING TV AT THIS TIME. NO S/SX ACUTE DISTRESS. CALL LIGHT WITHIN REACH. WILL CONTINUE TO MONITOR.
--- NOTE | 2019-12-21 23:02 | NUR ---
PATIENT IS IN STABLE CONDITION. ASLEEP. NO S/SX ACUTE DISTRESS. CALL LIGHT WITHIN REACH. WILL CONTINUE TO MONITOR.
[2019-12-22] VITALS: BP 96/54
--- NOTE | 2019-12-22 01:27 | NUR ---
ASLEEP AND IN STABLE CONDITION. NO C/O PAIN. NO S/SX ACUTE DISTRESS. CALL LIGHT WITHIN REACH. WILL CONTINUE TO MONITOR.
--- NOTE | 2019-12-22 03:04 | NUR ---
PATIENT CONTINUES IN STABLE CONDITION. ASLEEP. NO C/O PAIN. NO S/SX ACUTE DISTRESS. CALL LIGHT WITHIN REACH. WILL CONTINUE TO MONITOR.
[2019-12-22 04:00] VITALS: BP 149/60
[2019-12-22] MEDS: metroNIDAZOLE 500 MG/NS PREMIX 100 ML IV SCH ×2 (04:40→16:38)
--- NOTE | 2019-12-22 05:00 | NUR ---
PATIENT IN STABLE CONDITION. NO C/O PAIN. NO S/SX ACUTE DISTRESS. CALL LIGHT WITHIN REACH. WILL CONTINUE TO MONITOR.
[2019-12-22 06:23] LABS: BASOPHILS % (AUTO) 0.6 % (0.0-2.0); EOSINOPHILS # (AUTO) 0.2 K/uL (0-0.4); EOSINOPHILS % (AUTO) 3.7 % (0.0-4.0); HEMOGLOBIN 12.2 g/dL (12.0-16.0); LYMPHOCYTES # (AUTO) 1.4 K/uL (2.5-16.5); LYMPHOCYTES % (AUTO) 29.1 % (20.5-51.1); MEAN CORPUSCULAR HEMOGLOBIN 28 pg (27-31); MEAN CORPUSCULAR HGB CONC 33 g/dL (33-37); MEAN CORPUSCULAR VOLUME 85.9 fL (80-94); MONOCYTES # (AUTO) 0.3 K/uL (0.8-1.0); MONOCYTES % (AUTO) 6.9 % (1.7-9.3); NEUTROPHILS # (AUTO) 2.9 K/uL (1.8-7.7); NEUTROPHILS % (AUTO) 59.7 % (42.2-75.2); PLATELET COUNT (AUTO) 173 K/uL (140-450); RED BLOOD CELL COUNT(AUTO) 4.31 MIL/uL (4.20-5.40); RED CELL DISTRIBUTION WIDTH 13.9 % (11.6-13.7); WHITE BLOOD COUNT (AUTO) 4.9 K/uL (4.8-10.8)
[2019-12-22 06:43] LABS: ALBUMIN 3.2 g/dL (3.4-5.0); ANION GAP 12.3 (8-16); ASPARTATE AMINOTRANSFERASE 21 U/L (15-37); CARBON DIOXIDE 26.3 mmol/L (21-32); CHLORIDE 103 mmol/L (98-107); CREATININE 1.2 mg/dL (0.6-1.3); GLUCOSE 103 mg/dL (74-106); POTASSIUM 3.6 mmol/L (3.5-5.1); SODIUM SERUM 138 mmol/L (136-145); TOTAL BILIRUBIN 0.4 mg/dL (0.0-1.0); UREA NITROGEN, BLOOD 28 mg/dL (7-18)
--- NOTE | 2019-12-22 07:15 | NUR ---
ENDORSED PATIENT IN STABLE CONDITION TO AM SHIFT NURSE.
--- NOTE | 2019-12-22 07:20 | NUR ---
RECEIVED PT FROM GAS LEAK TESTER NURSE, SABIHA, PT IS AWAKE AND LYING ON THE BED WITH SIDE RAILS UP AND CALL LIGHT WITHIN REACH, ON ROOM AIR, AOX4, AMBULATES, SAFETY PRECAUTION INITIATED, NO SIGN OF DISTRESS NOTED AND WILL CONTINUE TO BE MONITORED.
[2019-12-22 08:00] VITALS: BP 139/64
[2019-12-22] MEDS ORDERED: ASPIRIN 81 MG TAB.CHEW PO SCH (09:00)
[2019-12-22] MEDS ORDERED: FENOFIBRATE 48 MG TAB PO SCH ×2 (09:00)
[2019-12-22] MEDS ORDERED: NIFEdipine 60 MG TABER PO SCH (09:00)
--- NOTE | 2019-12-22 09:01 | NUR ---
PATIENT HAS BEEN SCREENED AND CATEGORIZED MODERATE NUTRITION RISK. PATIENT WILL BE SEEN WITHIN 3-5 DAYS OF ADMISSION. 12/24/19 12/26/[address]
[2019-12-22] MEDS: APIXABAN 2.5 MG TAB PO SCH (09:19)
--- NOTE | 2019-12-22 09:19 | NUR ---
PT IS AWAKE AND VERBALIZED A MILD PAIN OF 4/10 AND WAS GIVEN TYLENOL, SCHEDULED AM MEDICATIONS WERE GIVEN WELL, BP IS 138/65, PULSE IS 78, O2 SATURATION IS 955 ON ROOM AIR, PT TOLERATED ALL, SWALLOWED THE PILLS WHOLE, NO SWALLOWING DIFFICULTY NOTED AND WILL CONTINUE TO MONITOR.
--- NOTE | 2019-12-22 09:55 | NUR ---
Executive Recruiter Note: Basic Screen: Yes High Risk DC Screen Yes Name: JACOBO ROCK Home Relationship: GRANDDAUGHTER Pre-Admission Living Arrangements: Lives with Other Prior ADL Needs Assistance Current Home Health Name/Tel: N/A Current DME/02 Name/Tel: N/A Current Hospice Name/Tel: N/A Current Dialysis Name/Tel: N/A Healthcare Decision Maker: Patient Advance Directive No Physician Orders for Life Sustaining Treatment Form No Patient/Family Have Educational Needs No Discipline: Case Mgt/Social Svcs Tentative Discharge Plan/Destination: No Needs Identified Will require assistance post discharge: No Referred to Bisque Cleaner: No Tentative Discharge Plan Summary: Patient is a 79-year-old female admitted forr gastroenteritis. Patient has PMHX of cardiac disorders, COPD, GERD, and hypertension. Patient was admitted from home where she lives with her granddaughter and greatros amariaon. SW contacted granddaughter Jacobo Rock [phone] to verify demographics. Per Jacobo, patient needs assistance with ADLS such as cooking, laundry, picking up medication, and being brought to doctor's appointments. Jacobo stated that patient is independent for all other ADLs and does not drive. SW assessed for risk factors. Jacobo stated that she is patient's primary caregiver and all of patient's needs are being met. Jacobo reported no history of mental health or substance abuse for patient. Tentative discharge plan is for patient to return home. No further needs identified. Signature: ADRYAN Marquez Date: Dec 22, 2019 Time: 09:55
--- NOTE | 2019-12-22 11:45 | NUR ---
PT IS RESTING NOW AND WATCHING TC, DENIES PAIN AND NO SIGN OF DISTRESS NOTED.
[2019-12-22 12:00] VITALS: BP 135/70
--- NOTE | 2019-12-22 14:47 | NUR ---
DC PLANNIN YRS OLD FEMALE PATIENT WAS ADMITTED FROM HOME WITH A DX OF GASTROENTERITIS. PT HAS A HX OF HTN, A-FIB ON ELIQUIS COPD AND GERD. CT ABDOMEN SHOWED GASTROENTERITIS STARTED ON IVF, IV ABX FLAGYL AND LEVAQUIN. CONTINUE HOME MEDS , ORDERED PT EVAL. DC PLAN TO GO HOME WHEN STABLE CM TO FOLLOW.
[2019-12-22] MEDS ORDERED: traMADol 50 MG TAB PO PRN (15:10)
[2019-12-22] MEDS ORDERED: hydrOXYzine HCL 10 MG TAB PO ONE (15:10)
[2019-12-22] MEDS ORDERED: predniSONE 20 MG TAB PO SCH (15:10)
[2019-12-22] MEDS ORDERED: LORATADINE 10 MG TAB PO SCH (15:10)
[2019-12-22] MEDS ORDERED: LORA10TA19 PO (15:14)
[2019-12-22] MEDS ORDERED: PRED20TA5 PO (15:14)
[2019-12-22] MEDS ORDERED: TRAM50TA3 PO (15:14)
[2019-12-22 16:00] VITALS: BP 141/81
[2019-12-22] MEDS: LACTATED RINGERS 1,000 ML IV SCH ×2 (16:37→19:00)
--- NOTE | 2019-12-22 16:38 | NUR ---
PT WAS GIVEN IV AND ORAL MEDICATIONS NOW, WILL MONITOR PT.
[2019-12-22] MEDS ORDERED: LEVOFLOXACIN 250 MG/D5 PREMIX 50 ML IV SCH (19:00)
--- NOTE | 2019-12-22 19:30 | NUR ---
RECEIVED BEDSIDE REPORT FROM AM SHIFT RN FOR PT'S CONTINUITY OF CARE. PT IS BEING DISCHARGED TO HOME. PT VERBALIZED UNDERSTANDING. AM SHIFT RN AT BEDSIDE DISCONTINUING IV AND PT EDUCATION GIVEN. WILL FINALIZE DISCHARGE PAPERWORK AND HAVE PT SIGN.
--- NOTE | 2019-12-22 19:35 | NUR ---
ENDORSED PT TO SLEEPER CUTTER NURSE, MORIAH, FOR THE REST OF THE DISCHARGE PROCESS, PAPER WORK HANDED TO CHARGE AIDESLEEPER CUTTER, PICK FOR PT HAS NOT ARRIVED YET, PT IS STABLE AT THIS TIME.
--- NOTE | 2019-12-22 19:50 | NUR ---
PT DISCHARGED TO HOME, PICKED UP BY GRANDDAUGHTER, DISCHARGE PAPERWORK SIGNED, NO ADDITIONAL QUESTIONS. PT IN STABLE CONDITION UPON DISCHARGE.
== END 2019-12-22 20:00 | disposition home or self-care (01) | DRG 372 ==
LOC: MED 14:19 → MTU 18:05
PROVIDERS: ADMIT Hospitalist; ATTEND Hospitalist
DX: A04.9 Bacterial intestinal infection, unspecified (principal); I48.20 Chronic atrial fibrillation, unspecified; M48.50XA Collapsed vertebra, not elsewhere classified, site unspecified, initial encounter for fracture; J44.9 Chronic obstructive pulmonary disease, unspecified; I10 Essential (primary) hypertension; K21.9 Gastro-esophageal reflux disease without esophagitis; E78.5 Hyperlipidemia, unspecified; K57.90 Diverticulosis of intestine, part unspecified, without perforation or abscess without bleeding; E66.3 Overweight; R21 Rash and other nonspecific skin eruption; Z88.5 Allergy status to narcotic agent; Z88.2 Allergy status to sulfonamides; Z88.0 Allergy status to penicillin; Z88.8 Allergy status to other drugs, medicaments and biological substances; Z79.01 Long term (current) use of anticoagulants; Z79.82 Long term (current) use of aspirin; Z79.899 Other long term (current) drug therapy; Z90.49 Acquired absence of other specified parts of digestive tract; Z90.710 Acquired absence of both cervix and uterus; Z68.29 Body mass index [BMI] 29.0-29.9, adult
CPT/HCPCS: 36415; 80053; 81001; 83690; 84484; 85025; 87081; 96361; 96374; 96375; 99285; J1956; J2270; J2405; J3010; J3490; J7120; J7512; Q9967

== ENCOUNTER 2020-01-31 20:40 | Emergency (ER) | payer OTHER ==
[~2020-01-31] VITALS: Ht 154.9 cm; Wt 71.7 kg
[~2020-01-31 20:40] MED LIST changes: +LORA10TA19 PO; -ONDA-24 SL; +PRED20TA5 PO; +TRAM50TA3 PO
[2020-01-31 20:48] VITALS: BP 166/95
--- NOTE | 2020-01-31 20:50 | NUR ---
79 YO F BIB SELF FOR C/C OF 7/10 MID UPPER GASRTIC PAIN X30 MIN. PT STATES THAT THE PAIN BEGAN 30 MIN "OUT OF NO WHERE," DENIES PAIN STARTING AFTER COMSUMING FOOD. PT DENIES EATING ANY SPICY FOODS OR GI IRRITANTS TODAY. PT FEELS NAUSEOUS WITHOUT VOMITING. LBM WAS THIS MORNING, SOFT AND FORMED. BOWEL SOUNDS NORMOACTIVE THROUGHOUT. DENIES FEVER, COUGH, OR SOB. PT PLACED ON COLLECTION CLERK. BED LOCKED AND IN LOWEST POSITION. SIDE RAILS X1. MED HX: HYPERLIPID, COPD, HTN ALLERGIES TO BENADRYL, MORPHINE, SULFA, PENICILLIN Addendum: 01/31/20 at 2132 by [email or web address] 79 YO F BIB SELF FOR C/C OF 7/10 MID UPPER GASRTIC PAIN X30 MIN. PT STATES THAT THE PAIN BEGAN 30 MIN "OUT OF NO WHERE," DENIES PAIN STARTING AFTER COMSUMING FOOD. PT DENIES EATING ANY SPICY FOODS OR GI IRRITANTS TODAY. PT FEELS NAUSEOUS WITHOUT VOMITING. LBM WAS THIS MORNING, SOFT AND FORMED. BOWEL SOUNDS NORMOACTIVE THROUGHOUT. DENIES FEVER, COUGH, OR SOB. PT PLACED ON COLLECTION CLERK. BED LOCKED AND IN LOWEST POSITION. SIDE RAILS X1. MED HX: HYPERLIPID, COPD, HTN ALLERGIES TO BENADRYL, MORPHINE, SULFA, PENICILLIN RX: SEE MED REC
--- NOTE | 2020-01-31 20:52 | NUR ---
PT AMBULATED WITHOUT ASSISTANCE TO ER BED 4
--- NOTE | 2020-01-31 20:58 | NUR ---
Dr. Dawn examining patient.
[2020-01-31] MEDS ORDERED: ALUMINUM HYD/MAG/SIMETHICONE 30 ML UDC PO ONE (21:00)
[2020-01-31] MEDS ORDERED: LIDOCAINE VISCOUS 2% 20 ML UDC PO ONE (21:00)
[2020-01-31] MEDS ORDERED: FAMOTIDINE 20 MG/2 ML VIAL IVP ONE (21:00)
[2020-01-31 21:19] LABS: BASOPHILS % (AUTO) 0.8 % (0.0-2.0); EOSINOPHILS # (AUTO) 0.4 K/uL (0-0.4); EOSINOPHILS % (AUTO) 5.9 % (0.0-4.0); HEMATOCRIT 40.3 % (36-48); HEMOGLOBIN 13.5 g/dL (12.0-16.0); LYMPHOCYTES # (AUTO) 1.8 K/uL (2.5-16.5); LYMPHOCYTES % (AUTO) 27.2 % (20.5-51.1); MEAN CORPUSCULAR HEMOGLOBIN 29 pg (27-31); MEAN CORPUSCULAR HGB CONC 33 g/dL (33-37); MEAN CORPUSCULAR VOLUME 86.5 fL (80-94); MONOCYTES # (AUTO) 0.2 K/uL (0.8-1.0); MONOCYTES % (AUTO) 3.8 % (1.7-9.3); NEUTROPHILS % (AUTO) 62.3 % (42.2-75.2); PLATELET COUNT (AUTO) 285 K/uL (140-450); RED BLOOD CELL COUNT(AUTO) 4.66 MIL/uL (4.20-5.40); RED CELL DISTRIBUTION WIDTH 13.5 % (11.6-13.7); WHITE BLOOD COUNT (AUTO) 6.5 K/uL (4.8-10.8)
[2020-01-31 21:19] LABS: BILIRUBIN,URINE NEGATIVE (NEGATIVE); BLOOD, URINE TRACE-I (NEGATIVE); COLOR,URINE YELLOW (YELLOW); LEUKOCYTE ESTERASE ,URINE 2+ (NEGATIVE); NITRITE, URINE NEGATIVE (NEGATIVE); UGLUCOSE NEGATIVE (NEGATIVE)
[2020-01-31 21:35] LABS: APPEARANCE,URINE HAZY (CLEAR)
[2020-01-31 21:37] LABS: RBC,URINE 0-5 /HPF (0-5)
[2020-01-31 21:39] LABS: ALBUMIN 4.3 g/dL (3.4-5.0); AMYLASE 63 U/L (25-115); ASPARTATE AMINOTRANSFERASE 25 U/L (15-37); CREATININE 1.9 mg/dL (0.6-1.3); GLUCOSE 122 mg/dL (74-106); LIPASE 375 U/L (73-393); TOTAL BILIRUBIN 0.3 mg/dL (0.0-1.0); UREA NITROGEN, BLOOD 42 mg/dL (7-18)
--- NOTE | 2020-01-31 21:41 | NUR ---
PT STATES HER PAIN IS SLIGHTLY REDUCED FROM 7/1O TO 6/10 POST GI COCKTAIL AND PEPCID IVP. PT REQUESTING MORE MEDICATIONS FOR THE PAIN. HAYDEND MADE AWARE.
[2020-01-31 21:44] LABS: ANION GAP 15.1 (8-16); CARBON DIOXIDE 27.2 mmol/L (21-32); CHLORIDE 101 mmol/L (98-107); POTASSIUM 3.3 mmol/L (3.5-5.1); SODIUM SERUM 140 mmol/L (136-145)
[2020-01-31] MEDS ORDERED: LEVOFLOXACIN 500 MG/D5W PREMIX 100 ML IV ONE (21:50)
[2020-01-31] MEDS ORDERED: fentaNYL 0.05 MG/ML VIAL IVP ONE (21:55)
--- NOTE | 2020-01-31 22:41 | NUR ---
PT AMBULATED TO RR
--- NOTE | 2020-01-31 22:44 | NUR ---
PT RETURNED TO ROOM FROM RR. PLACED BACK ON [employer] MANAGER. PT STATES HER PAIN IS NOW 0/10 POST IVP OF FENTANYL.
[2020-01-31 23:24] VITALS: BP 139/52
--- NOTE | 2020-01-31 23:24 | NUR ---
Patient discharged with v/s stable. Written and verbal after care instructions given and explained. Patient alert, oriented and verbalized understanding of instructions. Ambulatory with steady gait. All questions addressed prior to discharge. ID band removed. Patient advised to follow up with PMD. Rx of MACROBID, PEPCID given. Patient educated on indication of medication including possible reaction and side effects. Opportunity to ask questions provided and answered.
== END 2020-01-31 23:24 | disposition home or self-care (01) ==
LOC: MED 20:40
DX: N39.0 Urinary tract infection, site not specified (principal); K21.9 Gastro-esophageal reflux disease without esophagitis; J44.9 Chronic obstructive pulmonary disease, unspecified; I10 Essential (primary) hypertension; E78.5 Hyperlipidemia, unspecified; Z79.82 Long term (current) use of aspirin; Z79.899 Other long term (current) drug therapy; Z88.0 Allergy status to penicillin; Z88.2 Allergy status to sulfonamides; Z88.5 Allergy status to narcotic agent; Z88.8 Allergy status to other drugs, medicaments and biological substances
CPT/HCPCS: 36415; 80053; 81001; 82150; 83690; 85025; 87086; 93005; 96365; 96375; 99284; J1956; J3010; J3490

== ENCOUNTER 2020-02-28 07:21 | Inpatient (IN) | payer OTHER ==
[~2020-02-28] VITALS: Ht 154.9 cm; Wt 68.0 kg
--- NOTE | 2020-02-28 07:30 | NUR ---
PT AMBULATED TO ER BED 04
[2020-02-28 07:35] VITALS: BP 163/68
--- NOTE | 2020-02-28 07:42 | NUR ---
C/O CONSTANT LUQ PAIN 05/12 RADIATING UP TO L SIDE OF CHEST X3-4 DAYS ACCOMPANIED BY NAUSEA. PT STATES " I THINK I HAVE A HERNIA." ABD SOFT, ROUND, NON TENDER TO PALPATION. BOWEL SOUNDS PRESENT X4. LBM YESTERDAY 02/28/2020, NORMAL PER PT. PT DENIES VOMITING, DIARRHEA, CONSTIPATION, FEVER/COUGH, SOB. BED IN LOW POSITION, SIDE RAIL UP X1
--- NOTE | 2020-02-28 07:50 | NUR ---
ERMD AT BEDSIDE EVALUATING PT
[2020-02-28] MEDS ORDERED: ONDANSETRON 4 MG/2 ML VIAL IVP ONE (08:00)
[2020-02-28] MEDS ORDERED: KETOROLAC 30 MG/ML VIAL IVP ONE (08:00)
[2020-02-28 08:11] LABS: EOSINOPHILS # (AUTO) 0.3 K/uL (0-0.4); EOSINOPHILS % (AUTO) 6.7 % (0.0-4.0); HEMATOCRIT 41.7 % (36-48); HEMOGLOBIN 13.9 g/dL (12.0-16.0); LYMPHOCYTES # (AUTO) 1.4 K/uL (2.5-16.5); LYMPHOCYTES % (AUTO) 30.8 % (20.5-51.1); MEAN CORPUSCULAR HEMOGLOBIN 29 pg (27-31); MEAN CORPUSCULAR HGB CONC 33 g/dL (33-37); MEAN CORPUSCULAR VOLUME 87.2 fL (80-94); MONOCYTES # (AUTO) 0.3 K/uL (0.8-1.0); MONOCYTES % (AUTO) 6.6 % (1.7-9.3); NEUTROPHILS # (AUTO) 2.4 K/uL (1.8-7.7); NEUTROPHILS % (AUTO) 54.9 % (42.2-75.2); PLATELET COUNT (AUTO) 221 K/uL (140-450); RED BLOOD CELL COUNT(AUTO) 4.78 MIL/uL (4.20-5.40); WHITE BLOOD COUNT (AUTO) 4.4 K/uL (4.8-10.8)
[2020-02-28 08:31] LABS: ALBUMIN 3.7 g/dL (3.4-5.0); ANION GAP 8.2 (8-16); ASPARTATE AMINOTRANSFERASE 27 U/L (15-37); CARBON DIOXIDE 29.6 mmol/L (21-32); CHLORIDE 105 mmol/L (98-107); CREATININE 1.7 mg/dL (0.6-1.3); GLUCOSE 97 mg/dL (74-106); LIPASE 2117 U/L (73-393); POTASSIUM 3.8 mmol/L (3.5-5.1); SODIUM SERUM 139 mmol/L (136-145); TOTAL BILIRUBIN 0.2 mg/dL (0.0-1.0); UREA NITROGEN, BLOOD 29 mg/dL (7-18)
[2020-02-28] MEDS ORDERED: NACL 0.9% 1,000 ML IV ONE (08:45)
[2020-02-28] MEDS ORDERED: NIFE30TE5 PO (08:49)
[2020-02-28] MEDS ORDERED: fentaNYL 0.05 MG/ML VIAL IVP ONE (08:55)
--- NOTE | 2020-02-28 09:20 | NUR ---
pt reports feeling anxious after receiving fentanyl. informed dr barger and he will order ativan
[2020-02-28] MEDS ORDERED: LORazepam 2 MG/ML VIAL IVP ONE (09:25)
--- NOTE | 2020-02-28 09:31 | NUR ---
pt reports pain is improved, 4/10 at this time
--- NOTE | 2020-02-28 10:30 | NUR ---
RECEIVED PT. FROM ER NURSE, DUSTY, FOR CONTINUITY OF CARE. PATIENT IS AWAKE AND IN BED, ABLE TO AMBULATE TOWARDS RESTROOM WITH STEADY GAIT. RESPIRATIONS EVEN AND UNLABORED, NO COMPLAINS OF COUGH, ON ROOM AIR WITH SAO2 AT 97%. IV ON THE RIGHT AC 20G ON SL. NO SIGNS OF DISTRESS NOTED. SAFETY PRECAUTIONS IN PLACE, CALL LIGHT WITHIN REACH, POC DISCUSSED AND PATIENT VERBALIZES UNDERSTANDING. WILL CONTINUE TO MONITOR.
--- NOTE | 2020-02-28 10:44 | NUR ---
Patient will be admitted to care of dr. shah. Admited to m/s. Will go to room 107b. Belongings list completed. Report to kiara De La Fuente.
--- NOTE | 2020-02-28 10:50 | NUR ---
PATIENT ASSESSMENT DONE. V/S TAKEN WNL EXCEPT BP OF 116/38, WILL REPORT TO MD. ROSADO, ABLE TO MAKE NEEDS KNOWN AND FOLLOW COMMANDS. LUNG SOUNDS CLEAR, HEART SOUNDS REGULAR. NO EDEMA PRESENT, CAP REFILL <3 SEC. SKIN INTACT. BOWEL SOUNDS ACTIVE, ABDOMEN TENDER WITH PALPATION. NO COMPLAINS OF PAIN AND NO DISTRESS NOTED. WILL CONTINUE TO MONITOR.
--- NOTE | 2020-02-28 11:00 | NUR ---
PAGED DR. SORIANO FOR ADMISSION ORDERS. WILL CONTINUE TO MONITOR.
--- NOTE | 2020-02-28 11:30 | NUR ---
DR. SORIANO BY THE BEDSIDE, REPORTED PATIENT'S BP OF 116/38 AND HR 53. NEW ORDER TO GIVE NS 1L BOLUS TO PATIENT. WILL FOLLOW THROUGH.
[2020-02-28] MEDS ORDERED: MAG SULF 2000 MG/WATER PREMIX 50 ML IV PRN (11:40)
[2020-02-28] MEDS ORDERED: POTASSIUM CHLORIDE 10 MEQ TABER PO PRN (11:40)
[2020-02-28] MEDS ORDERED: MORPHINE SULFATE 2 MG/ML SYR IVP PRN (11:40)
[2020-02-28] MEDS ORDERED: ONDANSETRON 4 MG/2 ML VIAL IVP PRN (11:40)
[2020-02-28] MEDS ORDERED: ACETAMINOPHEN 650 MG SUPP RC PRN (11:40)
[2020-02-28] MEDS ORDERED: MAGNESIUM OXIDE 400 MG TAB PO PRN (11:40)
[2020-02-28] MEDS ORDERED: ACETAMINOPHEN 325 MG TAB PO PRN (11:40)
[2020-02-28 11:43] VITALS: BP 116/38
[2020-02-28 11:44] LABS: CHOL/HDL RATIO 2.5 (1-4.5)
[2020-02-28] MEDS: DEXT 5% /NACL 0.9% 1,000 ML IV SCH (13:37)
--- NOTE | 2020-02-28 14:20 | NUR ---
PATIENT IS ASLEEP AND IN BED, VERBALIZES NO PAIN. WILL CONTINUE TO MONITOR.
[2020-02-28 16:00] VITALS: BP 110/47
--- NOTE | 2020-02-28 17:20 | NUR ---
PATIENT COMPLAINS OF ABDOMINAL PAIN 02/09. WILL MEDICATE PER ORDERS. WILL CONTINUE TO MONITOR.
[2020-02-28] MEDS: HYDROcodone/APAP 5/325 MG 1 TAB TAB PO PRN ×2 (17:23→22:44)
--- NOTE | 2020-02-28 19:10 | NUR ---
ENDORSED TO COPY AND PRINT ASSOCIATE RN FOR CONTINUITY OF CARE.
--- NOTE | 2020-02-28 19:11 | NUR ---
RECEIVED PT. FROM AM NURSE FOR CONTINUITY OF CARE. PATIENT IS AWAKE AND IN BED, RESPIRATIONS EVEN AND UNLABORED, W/IV ON THE RIGHT AC 20G ON SL. NO SIGNS OF DISTRESS NOTED. SAFETY PRECAUTIONS IN PLACE, CALL LIGHT WITHIN REACH, POC DISCUSSED AND PATIENT VERBALIZES UNDERSTANDING. WILL CONTINUE TO MONITOR.
--- NOTE | 2020-02-28 22:44 | NUR ---
PATIENT C/O OF ABDOMINAL PAIN 6/10 ; NON RADIATING INTERMITTENT, PT GIVEN NORCO TAB. PT IS ALLERGIC TO MORPHINE.
--- NOTE | 2020-02-28 23:44 | NUR ---
PT RE ASSESED FOR PAIN SCALE; DENIES PAIN, PT TRYING TO GET SOME SLEEP
[2020-02-29] VITALS: BP 100/43
[2020-02-29] MEDS: DEXT 5% /NACL 0.9% 1,000 ML IV SCH ×3 (00:23→21:20)
--- NOTE | 2020-02-29 00:24 | NUR ---
CHANGED THE D5 NS AND PLACED A NEW BAG; ES CORADO NOT SCANNING, MANUALLY INPUTTED IT, CARLOS EDUARDO MORENO VERIFIED W/ ME
--- NOTE | 2020-02-29 02:40 | NUR ---
PT SLEEPING, NO COMPLAINTS OF PAIN, WILL MONITOR, ROUNDING DONE FREQUENTLY.
[2020-02-29 04:00] VITALS: BP 101/45
--- NOTE | 2020-02-29 04:26 | NUR ---
PT SLEEPING, NO SIGNS OF RESPIRATORY DISTRESS; WILL CONTINUE TO MONITOR
[2020-02-29 06:50] LABS: ALBUMIN 2.8 g/dL (3.4-5.0); AMYLASE 47 U/L (25-115); ANION GAP 9.5 (8-16); ASPARTATE AMINOTRANSFERASE 21 U/L (15-37); CARBON DIOXIDE 27.2 mmol/L (21-32); CHLORIDE 112 mmol/L (98-107); CREATININE 1.4 mg/dL (0.6-1.3); GLUCOSE 95 mg/dL (74-106); LIPASE 383 U/L (73-393); MAGNESIUM 1.9 mg/dL (1.8-2.4); POTASSIUM 3.7 mmol/L (3.5-5.1); SODIUM SERUM 145 mmol/L (136-145); TOTAL BILIRUBIN 0.2 mg/dL (0.0-1.0); UREA NITROGEN, BLOOD 27 mg/dL (7-18)
[2020-02-29 06:59] LABS: BASOPHILS % (AUTO) 1.1 % (0.0-2.0); EOSINOPHILS # (AUTO) 0.3 K/uL (0-0.4); EOSINOPHILS % (AUTO) 7.7 % (0.0-4.0); HEMATOCRIT 35.2 % (36-48); HEMOGLOBIN 11.4 g/dL (12.0-16.0); LYMPHOCYTES # (AUTO) 1.2 K/uL (2.5-16.5); MEAN CORPUSCULAR HEMOGLOBIN 29 pg (27-31); MEAN CORPUSCULAR HGB CONC 32 g/dL (33-37); MEAN CORPUSCULAR VOLUME 88.8 fL (80-94); MONOCYTES # (AUTO) 0.2 K/uL (0.8-1.0); MONOCYTES % (AUTO) 6.9 % (1.7-9.3); NEUTROPHILS # (AUTO) 1.8 K/uL (1.8-7.7); NEUTROPHILS % (AUTO) 51.3 % (42.2-75.2); PLATELET COUNT (AUTO) 166 K/uL (140-450); RED BLOOD CELL COUNT(AUTO) 3.97 MIL/uL (4.20-5.40); RED CELL DISTRIBUTION WIDTH 13.1 % (11.6-13.7); WHITE BLOOD COUNT (AUTO) 3.5 K/uL (4.8-10.8)
--- NOTE | 2020-02-29 06:59 | NUR ---
PT A AO X 4, AMBULATORY, NOT IN RESPIRATORY DISTRESS, NO COMPLAINTS OF PAIN, WILL ENDORSE TO NEXT SHIFT
--- NOTE | 2020-02-29 07:30 | NUR ---
RECEIVED PT AAOX4. NO SOB NOTED. NO C/O PAIN AT THIS TIME. IV TO RT AC PATENT AND INTACT. CHEST CLEAR. ABDOMEN SOFT, BOWEL SOUNDS PRESENT. NO EDEMA NOTED. NPO MAINTAINED. INSTRUCTED PT TO CALL FOR ASSISTANCE, CALL LIGHT WITHIN REACH, PT VERBALIZED UNDERSTANDING.
[2020-02-29 08:00] VITALS: BP 127/74
--- NOTE | 2020-02-29 09:21 | NUR ---
PATIENT HAS BEEN SCREENED AND CATEGORIZED MODERATE NUTRITION RISK. PATIENT WILL BE SEEN WITHIN 3-5 DAYS OF ADMISSION. 03/01/20 03/03/[address]
--- NOTE | 2020-02-29 10:30 | NUR ---
PRESENT IV LEAKING, IV REMOVED, CANNULA TIP INTACT. ESTABLISHED A NEW IV LINE ON THE LEFT HAND WITH GAUGE 22.
--- NOTE | 2020-02-29 11:54 | NUR ---
DISCHARGE PLANNING: THIS IS A 79 Y/O FEMALE PATIENT FROM HOME, WHO WAS BROUGHT IN DUE TO ABDOMINAL PAIN. PAST MEDICAL HISTORY INCLUDE HTN, CHRONIC A FIB-ON ELIQUIS AND HYPERLIPIDEMIA. INITIAL DIAGNOSIS OF ACUTE PANCREATITIS. CURRENT LABS INCLUDE WBC 3.5, H/H 11.4/35.2, NA/K 145/3.7, BUN/CREA 27/1.4, ALB 2.8, LIP/MINOO 47/383. MRSA NARES PENDING. ABD/PELVIS CT NO ACUTE ABDOMINAL OR PELVIC FINDINGS. NO CONSULTS AT THIS TIME. DC PLAN BACK TO HOME ONCE STABLE. Addendum: 03/01/20 at 1110 by Brissa German DC PLANNING: LIPASE LEVEL IMPROVING 383, TODAY'S LAB 115, ADVANCED DIET TO CLEAR LIQUID, PAIN CONTROLLED CONTINUE IVF AND ELIQUIS AND HOME MEDS. TOLERATED DIET. DC PLAN TO GO HOME WHEN STABLE CM TO FOLLOW
[2020-02-29] MEDS: HYDROcodone/APAP 5/325 MG 1 TAB TAB PO PRN ×2 (13:23→21:41)
--- NOTE | 2020-02-29 13:40 | NUR ---
PICKLING OPERATOR NOTE: Patient's Orientation Person Situation Place Time Information Provided By PATIENT Comments SW MET WITH PATIENT AT BEDSIDE TO VERIFY DEMOGRAPHICS. Credit Card Specialist, Realtionship and Phone Number JACOBO ROCK DAUGHTER [phone] [facility] [place] [employer] Systems Programmer Analyst No Does Patient Have a POLST No Identifying Problems No Social Work Triggers Is A Social Work Consult Needed No Mandate Report Filed No Explanation Of Identifying Problems PATIENT IS A 79-YEAR-OLD FEMALE ADMITTED FOR ACUTE PANCREATITIS. PATIENT HAS PMHX OF CHF AND HYPERTENSION. Admitted From Home Pre-Admission Level Of Functioning Status Independent/Ambulatory Prior Resources/Services Used In Last 12 Months No Prior Resources Used Prior DME No Prior DME Used Living Situation Apartment Lives With Family Patient Had Caregiver No Home Support No Caregiver Issues Financial Issues No Known Financial Issue Factors/Needs No D/C Needs Identified Pt/Rep Participated In Discharge Plan Yes Patient/Family Agress With Discharge Plan Yes Discharge Plan Comments TENTATIVE DISCHARGE PLAN IS FOR PATIENT TO RETURN HOME. DC Plan Status Initiated
--- NOTE | 2020-02-29 15:35 | NUR ---
PT SEEN BY DR. MILLAN AT THE BEDSIDE.
[2020-02-29 16:00] VITALS: BP 103/50
--- NOTE | 2020-02-29 17:30 | NUR ---
CLEAR LIQUIDS TOLERATED WELL BY PT.
--- NOTE | 2020-02-29 19:00 | NUR ---
PT RESTING. NO SOB NOTED. NO COMPLAINTS MADE, WILL ENDORSE TO NEXT SHIFT NURSE FOR CONTINUITY OF CARE.
--- NOTE | 2020-02-29 19:15 | NUR ---
RECEIVED PT FROM SHARON RN PT IS AAOX4 AMBULATORY IV ON LEFT ARM INFUSING WELL NOT DISTRESS NOTED
[2020-02-29] MEDS: APIXABAN 2.5 MG TAB PO SCH (21:20)
--- NOTE | 2020-02-29 22:00 | NUR ---
PT REMAIN STABLE AFTER PAIN MEDIC GIVEN , GETTING SLEEP
[2020-03-01] VITALS: BP 95/41
--- NOTE | 2020-03-01 04:00 | NUR ---
SPONGE BATH GIVEN LINEN CHANGED , DENIES ANY PAIN
[2020-03-01] MEDS: HYDROcodone/APAP 5/325 MG 1 TAB TAB PO PRN ×2 (05:34→11:22)
[2020-03-01] MEDS: DEXT 5% /NACL 0.9% 1,000 ML IV SCH ×2 (06:15→14:37)
--- NOTE | 2020-03-01 07:00 | NUR ---
PT IS ENDORSED TO DAY SHIFT NURSE FOR CONTINUE OF CARE
--- NOTE | 2020-03-01 07:05 | NUR ---
RECEIVED PT FROM BLOCK SPLITTER OPERATOR NURSEJANET, PT IS AWAKE AND LYING ON THE BED WITH SAFETY AND FALL PRECAUTION INITIATED, IV LINE NOTED ON THE RT HAND G. 22 WITH IVF D5 NS INFUSING AT 100ML/HR, INTACT, PATENT, PT IS ON ROOM AIR AND NO SIGN OF DISTRESS NOTED, CARRIE CONTINUE TO MONITOR PT.
[2020-03-01 07:38] LABS: BASOPHILS % (AUTO) 0.6 % (0.0-2.0); EOSINOPHILS # (AUTO) 0.3 K/uL (0-0.4); HEMATOCRIT 36.5 % (36-48); HEMOGLOBIN 11.8 g/dL (12.0-16.0); LYMPHOCYTES # (AUTO) 1.2 K/uL (2.5-16.5); LYMPHOCYTES % (AUTO) 28.6 % (20.5-51.1); MEAN CORPUSCULAR HEMOGLOBIN 29 pg (27-31); MEAN CORPUSCULAR HGB CONC 32 g/dL (33-37); MEAN CORPUSCULAR VOLUME 88.4 fL (80-94); MONOCYTES # (AUTO) 0.3 K/uL (0.8-1.0); MONOCYTES % (AUTO) 7.2 % (1.7-9.3); NEUTROPHILS # (AUTO) 2.3 K/uL (1.8-7.7); NEUTROPHILS % (AUTO) 56.6 % (42.2-75.2); PLATELET COUNT (AUTO) 186 K/uL (140-450); RED BLOOD CELL COUNT(AUTO) 4.12 MIL/uL (4.20-5.40); RED CELL DISTRIBUTION WIDTH 13.2 % (11.6-13.7); WHITE BLOOD COUNT (AUTO) 4.1 K/uL (4.8-10.8)
[2020-03-01 08:12] LABS: ASPARTATE AMINOTRANSFERASE 33 U/L (15-37); CARBON DIOXIDE 27.5 mmol/L (21-32); CHLORIDE 111 mmol/L (98-107); CREATININE 1.3 mg/dL (0.6-1.3); GLUCOSE 80 mg/dL (74-106); LIPASE 115 U/L (73-393); POTASSIUM 3.5 mmol/L (3.5-5.1); SODIUM SERUM 145 mmol/L (136-145); TOTAL BILIRUBIN 0.2 mg/dL (0.0-1.0); UREA NITROGEN, BLOOD 16 mg/dL (7-18)
[2020-03-01] MEDS ORDERED: ASPIRIN 81 MG TAB.CHEW PO SCH (09:00)
[2020-03-01] MEDS: APIXABAN 2.5 MG TAB PO SCH (09:53)
--- NOTE | 2020-03-01 10:12 | NUR ---
PT C/O SOB AND O2 SATURATION WAS CHECKED AND IS 89%-90% ON ROOM AIR, WILL ADMINISTER OXYGEN TO SUPPORT BREATHING.
--- NOTE | 2020-03-01 10:16 | NUR ---
PT WAS PLACED ON A 2L O2 VIA NC FOR SUPPORT FOR BREATHING AND C/O SOB. WILL MONITOR PT. O2 SATURATION NOW IS 91%.
--- NOTE | 2020-03-01 11:22 | NUR ---
PT WAS MEDICATED WITH NORCO FOR PAIN LEVEL OF 6/10 ON THE EPIGASTRIC AREA, WILL RE-ASSESS PAIN AND MONITOR PT.
[2020-03-01] MEDS ORDERED: ACET-9525 PO (15:13)
[2020-03-01] MEDS ORDERED: ONDA4ODT2 PO (15:14)
[2020-03-01 18:00] VITALS: BP 149/85
--- NOTE | 2020-03-01 19:10 | NUR ---
ENDORSED PT TO CHILDREN'S LUNCHROOM SUPERVISOR NURSE FOR CONTINUITY OF CARE.
--- NOTE | 2020-03-01 19:10 | NUR ---
RECD. SITTING ON CHAIR, A/OX4. ALREADY DRESSED READY TO GO HOME. NO MORE IV LINE. SIGNED ALL DISCHARGE PAPERS. STATED HER GRAND DAUGHTER WILL COME AND PICK HER UP.
--- NOTE | 2020-03-01 19:30 | NUR ---
PRESCRIPTION GIVEN, ALL BELONGINGS PREPARED. PATIENT COPY OF DISCHARGE PAPERS GIVEN. TAKEN TO HOSPITAL LOBBY PARKING IN STABLE CONDITION VIA W/C TO WAITING PRIVATE VEHICLE FOR DISCHARGE TO HOME.
== END 2020-03-01 19:35 | disposition home or self-care (01) | DRG 439 ==
LOC: MED 07:21 → MTU 10:29
PROVIDERS: ADMIT Internal Medicine Pulmonary Disease; ATTEND Internal Medicine Pulmonary Disease
DX: K85.90 Acute pancreatitis without necrosis or infection, unspecified (principal); I48.20 Chronic atrial fibrillation, unspecified; J44.9 Chronic obstructive pulmonary disease, unspecified; K21.9 Gastro-esophageal reflux disease without esophagitis; I10 Essential (primary) hypertension; E78.5 Hyperlipidemia, unspecified; K57.90 Diverticulosis of intestine, part unspecified, without perforation or abscess without bleeding; Z88.5 Allergy status to narcotic agent; Z88.0 Allergy status to penicillin; Z88.8 Allergy status to other drugs, medicaments and biological substances
CPT/HCPCS: 36415; 71045; 80053; 82150; 83690; 83735; 84484; 85025; 87081; 93005; 96361; 96374; 96375; 99285; J1885; J2060; J2405; J3010; J7030; J7042; Q0092

== ENCOUNTER 2020-10-11 22:00 | Emergency (ER) | payer OTHER ==
[~2020-10-11] VITALS: Ht 154.9 cm; Wt 66.7 kg
[~2020-10-11 22:00] MED LIST changes: +ACET-9525 PO; +CIPR500T4 PO; -LORA10TA19 PO; +METR-520 PO; +NIFE30TE5 PO; -NIFE60TE5 PO; +ONDA4ODT2 PO; -PRED20TA5 PO; -TRAM50TA3 PO
[2020-10-11 22:18] VITALS: BP 149/79
--- NOTE | 2020-10-11 22:40 | NUR ---
TO ER BED 3
--- NOTE | 2020-10-11 22:41 | NUR ---
80 Y/O FEMALE PRESENTS TO ER WITH C/O RIGHT GROIN PAIN WITH RADIATION TO RIGHT FLANK X 3 DAYS 8/10 PAIN. PT STATES SHE HAS PMH WITH ABDOMINAL HERNIAS, AND CHOLECYSTECTOMY. PT ALSO C/O NAUSEA, CONSTIPATION, BUT HAS FLATUS. ABDOMEM IS TTP. NO DEFORMITIES NOTED. DENIES TRAUMA/INJURY TO AREA, BURNING WITH URINATION, VOMITING, DIARRHEA. BP ELEVATED 155/78, P: 67; R: 18: SPO2: 98% RA. R/R EQUAL, AND UNLABORED. SIDE RAIL X1, BED IN LOW POSITION, HOB ELEVATED, WILL CONTINUE TO MONITOR. PMH: A-FIB; ABDOMINAL HERNIA, CHOLECYTECTOMY ALLERGY: MORPHINE, PENICILLINS, SULFA
[2020-10-11] MEDS ORDERED: MORPHINE SULFATE 2 MG/ML SYR IVP ONE (23:05)
[2020-10-11] MEDS ORDERED: NACL 0.9% 1,000 ML IV SCH (23:05)
[2020-10-11 23:23] LABS: BASOPHILS % (AUTO) 0.6 % (0.0-2.0); EOSINOPHILS # (AUTO) 0.2 K/uL (0-0.4); EOSINOPHILS % (AUTO) 5.4 % (0.0-4.0); HEMATOCRIT 41.6 % (36-48); HEMOGLOBIN 14.1 g/dL (12.0-16.0); LYMPHOCYTES # (AUTO) 1.2 K/uL (2.5-16.5); LYMPHOCYTES % (AUTO) 28.1 % (20.5-51.1); MEAN CORPUSCULAR HEMOGLOBIN 29 pg (27-31); MEAN CORPUSCULAR HGB CONC 34 g/dL (33-37); MEAN CORPUSCULAR VOLUME 84.8 fL (80-94); MONOCYTES # (AUTO) 0.4 K/uL (0.8-1.0); MONOCYTES % (AUTO) 8.5 % (1.7-9.3); NEUTROPHILS # (AUTO) 2.4 K/uL (1.8-7.7); NEUTROPHILS % (AUTO) 57.4 % (42.2-75.2); PLATELET COUNT (AUTO) 228 K/uL (140-450); RED BLOOD CELL COUNT(AUTO) 4.91 MIL/uL (4.20-5.40); RED CELL DISTRIBUTION WIDTH 13.6 % (11.6-13.7); WHITE BLOOD COUNT (AUTO) 4.2 K/uL (4.8-10.8)
--- NOTE | 2020-10-11 23:36 | NUR ---
CT AT BEDSIDE
[2020-10-11 23:44] LABS: ALBUMIN 3.9 g/dL (3.4-5.0); AMYLASE 55 U/L (25-115); ANION GAP 10.2 (8-16); ASPARTATE AMINOTRANSFERASE 20 U/L (15-37); CHLORIDE 104 mmol/L (98-107); CREATININE 1.4 mg/dL (0.6-1.3); GLUCOSE 107 mg/dL (74-106); LIPASE 258 U/L (73-393); POTASSIUM 4.2 mmol/L (3.5-5.1); SODIUM SERUM 140 mmol/L (136-145); TOTAL BILIRUBIN 0.3 mg/dL (0.0-1.0); UREA NITROGEN, BLOOD 38 mg/dL (7-18)
[2020-10-12] MEDS ORDERED: HYDROcodone/APAP 5/325 MG 1 TAB TAB ONE (00:50)
[2020-10-12] MEDS ORDERED: HYDROcodone/APAP 5/325 MG 1 TAB TAB PO ONE (00:50)
--- NOTE | 2020-10-12 00:53 | NUR ---
PT ADMINISTERED NORCO 5-325MG FOR RIGHT GROIN PAIN. VSS, R/R EQUAL, AND UNLABORED. SIDE RAIL X2, BED IN LOW POSITION, WILL CONTINUE TO MONITOR
--- NOTE | 2020-10-12 01:02 | NUR ---
PT RESTING QUIETLY IN BED. NO DISTRESS NOTED, OR VERBALIZED AT THIS TIME. VSS, R/R EQUAL, AND UNLABORED. HOB ELEVATED, SIDE RAIL X2, BED IN LOW POSITION WILL CONTINUE TO MONITOR.
[2020-10-12 01:26] LABS: APPEARANCE,URINE CLEAR (CLEAR); BILIRUBIN,URINE NEGATIVE (NEGATIVE); BLOOD, URINE TRACE-L (NEGATIVE); COLOR,URINE YELLOW (YELLOW); LEUKOCYTE ESTERASE ,URINE NEGATIVE (NEGATIVE); NITRITE, URINE NEGATIVE (NEGATIVE); PH,URINE 6.5 (5.0-9.0); UGLUCOSE NEGATIVE (NEGATIVE)
[2020-10-12 01:37] LABS: RBC,URINE 0-5 /HPF (0-5); WBC,URINE 0-5 /HPF (0-5)
[2020-10-12 01:38] LABS: URINE AMORPHOUS URATE 1+ /HPF (None Seen)
[2020-10-12] MEDS ORDERED: cefTRIAXone 1,000 MG VIAL ONE (02:13)
--- NOTE | 2020-10-12 02:25 | NUR ---
ROCEPHIN 1GM/D5% IN 50 ML IVPB ADMINISTERED TO PT. NO DISTRESS NOTED, OR VERBALIZED AT THIS TIME. VSS, R/R EQUAL, AND UNLABORED. HOB ELEVATED, SIDE RAIL X2, BED IN LOW POSITION WILL CONTINUE TO MONITOR.
--- NOTE | 2020-10-12 03:06 | NUR ---
Patient discharged with v/s stable. Written and verbal after care instructions given and explained. Patient alert, oriented and verbalized understanding of instructions. Ambulatory with steady gait. All questions addressed prior to discharge. ID band removed. Patient advised to follow up with PMD. Rx of NORCO; KEFLEX given. Patient educated on indication of medication including possible reaction and side effects. Opportunity to ask questions provided and answered.
[2020-10-12 03:12] VITALS: BP 149/79
== END 2020-10-12 03:06 | disposition home or self-care (01) ==
LOC: MED 22:00
DX: R10.31 Right lower quadrant pain (principal); K21.9 Gastro-esophageal reflux disease without esophagitis; I10 Essential (primary) hypertension; Z79.899 Other long term (current) drug therapy; Z79.82 Long term (current) use of aspirin; Z88.0 Allergy status to penicillin; Z88.5 Allergy status to narcotic agent; Z88.2 Allergy status to sulfonamides; Z88.8 Allergy status to other drugs, medicaments and biological substances
CPT/HCPCS: 36415; 74176; 80053; 81001; 82150; 83690; 85025; 87086; 96361; 96365; 99284; J0696; J7030; J2270

== ENCOUNTER 2020-10-30 11:57 | Inpatient (IN) | payer OTHER, SELFPAY ==
[~2020-10-30] VITALS: Ht 154.9 cm; Wt 63.5 kg
[2020-10-30 11:59] VITALS: BP 153/53
--- NOTE | 2020-10-30 12:07 | NUR ---
PT AMBULATED TO BATHROOM, STEADY GAIT.
--- NOTE | 2020-10-30 12:11 | NUR ---
80 Y/F PRESENTS TO ED FOR CONSTANT DULL 7/10 CHEST PAIN THAT RADIATES TO BACK X 1 DAY C SOB. PT ALSO REPORTS HEADACHE AND NAUSEA. PT TOOK TYLENOL C NO RELIEF. DENIES ANY ALLEVIATING OR AGGRAVATING FACTORS. PT ALSO REPORTS NON PRODUCTIVE COUGH, THAT IS A LITTLE MORE THAN USUAL. PT A &O X 4, LUNGS CLEAR. PULSES 2+ PMH-HTN, CHOLESTEROL, COPD, AFIB ALLERGIES- MORPHINE, SULFA AND PENICILLIN RX-NEFEDEPINE ER, FENOFIBRATE, ELOQUIS
--- NOTE | 2020-10-30 12:17 | NUR ---
DR. GRACIA AT BEDSIDE EVALUATING PT.
--- NOTE | 2020-10-30 12:40 | NUR ---
GUILLAUME SWAB AND STAT LABS DRAWN AND GIVEN TO PHLEB TO BE PROCESSED.
--- NOTE | 2020-10-30 12:40 | NUR ---
PT PLACED ON 2L VIA NC.
--- NOTE | 2020-10-30 12:46 | NUR ---
XR AT BEDSIDE.
[2020-10-30] MEDS ORDERED: NITROGLYCERIN 0.4 MG TAB SL ONE (12:50)
--- NOTE | 2020-10-30 12:55 | NUR ---
PT AMBULATED TO BATHROOM, STEADY GAIT.
[2020-10-30 12:56] LABS: BASOPHILS % (AUTO) 0.5 % (0.0-2.0); EOSINOPHILS # (AUTO) 0.2 K/uL (0-0.4); EOSINOPHILS % (AUTO) 3.4 % (0.0-4.0); LYMPHOCYTES # (AUTO) 0.7 K/uL (2.5-16.5); LYMPHOCYTES % (AUTO) 15.8 % (20.5-51.1); MEAN CORPUSCULAR HEMOGLOBIN 28 pg (27-31); MEAN CORPUSCULAR HGB CONC 33 g/dL (33-37); MEAN CORPUSCULAR VOLUME 83.6 fL (80-94); MONOCYTES # (AUTO) 0.4 K/uL (0.8-1.0); MONOCYTES % (AUTO) 8.6 % (1.7-9.3); NEUTROPHILS # (AUTO) 3.2 K/uL (1.8-7.7); NEUTROPHILS % (AUTO) 71.7 % (42.2-75.2); PLATELET COUNT (AUTO) 264 K/uL (140-450); RED BLOOD CELL COUNT(AUTO) 4.66 MIL/uL (4.20-5.40); RED CELL DISTRIBUTION WIDTH 12.3 % (11.6-13.7); WHITE BLOOD COUNT (AUTO) 4.5 K/uL (4.8-10.8)
[2020-10-30 13:26] LABS: PROTHROMBIN TIME 10.7 secs (10.8-13.4)
[2020-10-30 13:27] LABS: ALBUMIN 3.4 g/dL (3.4-5.0); ANION GAP 14.2 (8-16); ASPARTATE AMINOTRANSFERASE 17 U/L (15-37); CARBON DIOXIDE 25.5 mmol/L (21-32); CHLORIDE 103 mmol/L (98-107); CREATININE 1.3 mg/dL (0.6-1.3); GLUCOSE 166 mg/dL (74-106); POTASSIUM 3.7 mmol/L (3.5-5.1); SODIUM SERUM 139 mmol/L (136-145); TOTAL BILIRUBIN 0.3 mg/dL (0.0-1.0); UREA NITROGEN, BLOOD 26 mg/dL (7-18)
--- NOTE | 2020-10-30 13:37 | NUR ---
DR. GRACIA AT BEDSIDE.
--- NOTE | 2020-10-30 13:37 | NUR ---
Dr. Astorga is reevaluating the patient at bedside.
--- NOTE | 2020-10-30 13:51 | NUR ---
Patient taken to CT scan via wheelchair by tech.
--- NOTE | 2020-10-30 14:02 | NUR ---
Patient returned from CT scan.
[2020-10-30] MEDS ORDERED: NACL 0.9% 500 ML IV ONE (14:25)
--- NOTE | 2020-10-30 15:10 | NUR ---
RECEIVED PATIENT FROM ER NURSE. PATIENT IS AO X4. ABLE TO MAKE NEEDS KNOWN. RESPIRATIONS EVEN AND UNLABORED. NO RESPIRATORY DISTRESS NOTED. ON ROOM AIR. NO COMPLAIN OF CHEST PAIN AT THE MOMENT. SKIN IS INTACT. IV SITE ON RAC 20G S.L. INTACT AND PATENT. AMBULATORY AND CONTINENT. ABDOMEN SOFT, FLAT, AND NON-DISTENDED. PLAN OF CARE DISCUSSED. SAFETY PRECAUTIONS IN PLACE. BED IN LOW POSITION AND CALL LIGHT WITHIN REACH. WILL CONTINUE TO MONITOR.
--- NOTE | 2020-10-30 15:11 | NUR ---
PT AMBULATED TO BATHROOM,STEADY GAIT.
--- NOTE | 2020-10-30 15:59 | NUR ---
PT REPORTING 6/10 PAIN, DR. MACEDO MADE AWARE.
[2020-10-30] MEDS ORDERED: MORPHINE SULFATE 4 MG/ML SYR IVP ONE (16:00)
[2020-10-30] MEDS ORDERED: fentaNYL citrate 0.05 MG/ML VIAL IVP ONE (16:05)
--- NOTE | 2020-10-30 16:42 | NUR ---
PT REPORTS DECREASED PAIN. NADR.
[2020-10-30] MEDS ORDERED: MAG SULF 2000 MG/WATER PREMIX 50 ML IV PRN (16:45)
[2020-10-30] MEDS ORDERED: ONDANSETRON 4 MG/2 ML VIAL IVP PRN (16:45)
[2020-10-30] MEDS ORDERED: LORazepam 1 MG TAB PO PRN (16:45)
[2020-10-30] MEDS ORDERED: MAGNESIUM OXIDE 400 MG TAB PO PRN (16:45)
[2020-10-30] MEDS ORDERED: KCL 20 MEQ/WATER INJ PREMIX 200 ML IV PRN (16:45)
[2020-10-30] MEDS ORDERED: ZOLPIDEM 5 MG TAB PO PRN (16:45)
[2020-10-30] MEDS ORDERED: POTASSIUM CHLORIDE 10 MEQ TABER PO PRN (16:45)
--- NOTE | 2020-10-30 16:53 | NUR ---
REPORT GIVEN TO JOSH BARCENAS. PT WILL BE TAKEN TO ROOM 110-B
--- NOTE | 2020-10-30 16:55 | NUR ---
RECEIVED TELEPHONE REPORT FROM ER NURSE. AWAITING PATIENT TO ARRIVE
--- NOTE | 2020-10-30 17:08 | NUR ---
Patient will be admitted to care of DR. AYALA. Admited to TELE. Will go to room 110 B . Belongings list completed. Report to JOSH BARCENAS.
[2020-10-30 17:10] VITALS: BP 158/71
[2020-10-30] MEDS ORDERED: ALUMINUM HYD/MAG/SIMETHICONE 30 ML UDC PO PRN (17:30)
--- NOTE | 2020-10-30 19:10 | NUR ---
ENDORSED TO STUDENT TRUCK DRIVER NURSE FOR CONTINUITY OF CARE. PT IS STABLE.
--- NOTE | 2020-10-30 19:11 | NUR ---
RECEIVING PATIENT FROM AM NURSE FOR CONTINUITY OF CARE. PATIENT IS A/A/O X4. ON TELE MONITOR. DENIES ANY PAIN AT THIS TIME. RESPIRATORY EVEN AND UNLABORED, ON ROOM AIR. SKIN WARM, DRY, NON-DIAPHORETIC. IV ON RIGHT AC 20G SALINE LOCK. PLAN OF CARE DISCUSSED. CALL LIGHT WITHIN REACH. WILL CONTINUE TO MONITOR.
[2020-10-30 20:00] VITALS: BP 108/46
[2020-10-30] MEDS ORDERED: NITROGLYCERIN 0.4 MG TAB SL PRN (20:45)
[2020-10-30] MEDS: SODIUM CHLORIDE FLUSH 10 ML SYR IVF SCH (21:00)
--- NOTE | 2020-10-30 21:40 | NUR ---
ROUND CHECK. PATIENT AWAKE TO WATCH TV. PATIENT COMPLAINS GENERALIZED PAIN. CALL LIGHT WITHIN REACH. WILL MEDICATE ORDER.
[2020-10-30] MEDS: HYDROcodone/APAP 5/325 MG 1 TAB TAB PO PRN (21:42)
--- NOTE | 2020-10-30 22:42 | NUR ---
RE-ASSESS PAIN. PATIENT SEEN SLEEPING IN COMFORTABLE POSITION. CALL LIGHT WITHIN REACH. WILL CONTINUE TO MONITOR.
--- NOTE | 2020-10-30 23:58 | NUR ---
ROUND CHECK. PATIENT IS SLEEPING IN WARM, AND COMFORTABLE. NO SIGN OF RESPIRATORY DISTRESS NOTED. WILL CONTINUE TO MONITOR.
[2020-10-31] VITALS: BP 113/48
--- NOTE | 2020-10-31 02:25 | NUR ---
ROUND CHECK. PATIENT IS AWAKE, RESTING IN BED. NO SIGN OF RESPIRATORY DISTRESS NOTED. WILL CONTINUE TO MONITOR.
--- NOTE | 2020-10-31 03:32 | NUR ---
ROUND CHECK. PATIENT IS SLEEPING. CHEST RISE AND FALL NOTED. CALL LIGHT WITHIN REACH. WILL CONTINUE TO MONITOR.
[2020-10-31 04:00] VITALS: BP 108/44
[2020-10-31] MEDS: SODIUM CHLORIDE FLUSH 10 ML SYR IVF SCH ×3 (05:05→20:12)
--- NOTE | 2020-10-31 05:30 | NUR ---
ROUND CHECK. PATIENT IS SLEEPING. CHEST RISE AND FALL NOTED. CALL LIGHT WITHIN REACH. WILL CONTINUE TO MONITOR.
[2020-10-31 06:25] LABS: BASOPHILS % (AUTO) 0.9 % (0.0-2.0); EOSINOPHILS # (AUTO) 0.4 K/uL (0-0.4); EOSINOPHILS % (AUTO) 8.1 % (0.0-4.0); HEMATOCRIT 34.6 % (36-48); HEMOGLOBIN 11.6 g/dL (12.0-16.0); LYMPHOCYTES % (AUTO) 21.8 % (20.5-51.1); MEAN CORPUSCULAR HEMOGLOBIN 28 pg (27-31); MEAN CORPUSCULAR HGB CONC 34 g/dL (33-37); MEAN CORPUSCULAR VOLUME 83.6 fL (80-94); MONOCYTES # (AUTO) 0.5 K/uL (0.8-1.0); MONOCYTES % (AUTO) 10.2 % (1.7-9.3); NEUTROPHILS # (AUTO) 2.6 K/uL (1.8-7.7); PLATELET COUNT (AUTO) 241 K/uL (140-450); RED BLOOD CELL COUNT(AUTO) 4.14 MIL/uL (4.20-5.40); RED CELL DISTRIBUTION WIDTH 12.4 % (11.6-13.7); WHITE BLOOD COUNT (AUTO) 4.4 K/uL (4.8-10.8)
[2020-10-31 06:48] LABS: CHOL/HDL RATIO 3.1 (1-4.5)
[2020-10-31 06:50] LABS: ANION GAP 11.5 (8-16); ASPARTATE AMINOTRANSFERASE 16 U/L (15-37); CARBON DIOXIDE 26.3 mmol/L (21-32); CHLORIDE 106 mmol/L (98-107); CREATININE 1.2 mg/dL (0.6-1.3); GLUCOSE 94 mg/dL (74-106); POTASSIUM 3.8 mmol/L (3.5-5.1); SODIUM SERUM 140 mmol/L (136-145); TOTAL BILIRUBIN 0.3 mg/dL (0.0-1.0); UREA NITROGEN, BLOOD 29 mg/dL (7-18)
--- NOTE | 2020-10-31 07:32 | NUR ---
ENDORSED PATIENT TO AM SHIFT NURSE FOR CONTINUITY OF CARE.
[2020-10-31 08:00] VITALS: BP 130/61
--- NOTE | 2020-10-31 08:33 | NUR ---
PATIENT HAS BEEN SCREENED AND CATEGORIZED MODERATE NUTRITION RISK. PATIENT WILL BE SEEN WITHIN 3-5 DAYS OF ADMISSION. 11/02/20 11/04/[address]
[2020-10-31] MEDS: HYDROcodone/APAP 5/325 MG 1 TAB TAB PO PRN ×2 (09:08→15:12)
[2020-10-31] MEDS: DOCUSATE SODIUM 100 MG GELCAP PO SCH (09:08)
--- NOTE | 2020-10-31 11:44 | NUR ---
SOCIAL WORK NOTE: Patient's Orientation Unable To Assess Information Provided By JACOBO SHWETA - ELISHA Comments SW WAS UNABLE TO MEET PATIENT AT BEDSIDE. SW COMPLETED ASSESSMENT WITH PATIENT'S GRANDDAUGHTER. White Sugar Boiler, Realtionship and Phone Number JACOBO TELLO [phone] Healthcare Power of Plastic Bubble Packer No Does Patient Have a POLST No Identifying Problems No Social Work Triggers Is A Social Work Consult Needed No Mandate Report Filed No Explanation Of Identifying Problems PATIENT IS AN 80-YEAR-OLD FEMALE ADMITTED FOR CHEST PAIN. PATIENT HAS PMHX OF HYPERTENSION, DM, AND GERD. Admitted From Home Pre-Admission Level Of Functioning Status Independent/Ambulatory Prior Resources/Services Used In Last 12 Months No Prior Resources Used Prior DME No Prior DME Used Dialysis Comments N/A Living Situation Apartment Lives With Family Patient Had Caregiver No Home Support No Caregiver Issues Financial Issues No Known Financial Issue Referral To The Financial Counselor Needed No Factors/Needs No D/C Needs Identified Pt/Rep Participated In Discharge Plan Yes Patient/Family Agress With Discharge Plan Yes Discharge Plan Comments TENTATIVE DISCHARGE PLAN IS FOR PATIENT TO RETURN HOME. DC Plan Status Initiated
[2020-10-31 12:00] VITALS: BP 128/71
[2020-10-31] MEDS ORDERED: SOTALOL 80 MG TAB PO SCH (13:00)
[2020-10-31 16:00] VITALS: BP 112/65
[2020-10-31] MEDS ORDERED: SOTA80TA PO (17:04)
--- NOTE | 2020-10-31 19:10 | NUR ---
RECEIVED PATIENT FROM AM SHIFT NURSE FOR CONTINUITY OF CARE. AAOX4. RESPIRATIONS EVEN, UNLABORED. SKIN WARM, DRY. SALINE LOCK 20G PATENT/INTACT. NO C/O PAIN. NO S/S ACUTE DISTRESS. ABDOMEN SOFT, NONTENDER, NONDISTENDED. BOWEL SOUNDS ACTIVE X4 QUADRANTS. PATIENT IS CONTINENT OF B/B. PLAN OF CARE DISCUSSED. CALL LIGHT WITHIN REACH.
[2020-10-31 20:00] VITALS: BP 117/64
[2020-10-31] MEDS: ACETAMINOPHEN 325 MG TAB PO PRN (20:09)
[2020-10-31] MEDS: SOTALOL 80 MG TAB PO SCH (20:12)
--- NOTE | 2020-10-31 23:16 | NUR ---
PATIENT IS RESTING COMFORTABLY IN BED. NO S/S ACUTE DISTRESS. CALL LIGHT WITHIN REACH.
[2020-11-01] VITALS (7 sets, daily range): BP systolic 97–133; BP diastolic 40–78
--- NOTE | 2020-11-01 01:00 | NUR ---
PT FOUND ASLEEP ON LEFT SIDE. PT HAS VISIBLE EQUAL RISE AND FALL UPON RESPIRATION. NO DISTRESS NOTED. BED LOCKED IN LOWEST POSITION WITH 2 SIDE RAILS UP FOR SAFETY.
[2020-11-01] MEDS: ACETAMINOPHEN 325 MG TAB PO PRN ×3 (04:02→23:33)
[2020-11-01] MEDS: SODIUM CHLORIDE FLUSH 10 ML SYR IVF SCH ×3 (04:41→20:59)
--- NOTE | 2020-11-01 06:14 | NUR ---
EKG PERFORMED W/ ABNORMAL RESULTS. COPY OF EKG IS IN PT CHART AND ANOTHER COPY PROVIDED TO RN.
[2020-11-01 06:19] LABS: BASOPHILS % (AUTO) 0.7 % (0.0-2.0); EOSINOPHILS # (AUTO) 0.3 K/uL (0-0.4); EOSINOPHILS % (AUTO) 7.6 % (0.0-4.0); HEMATOCRIT 35.4 % (36-48); HEMOGLOBIN 11.9 g/dL (12.0-16.0); LYMPHOCYTES # (AUTO) 0.8 K/uL (2.5-16.5); LYMPHOCYTES % (AUTO) 18.4 % (20.5-51.1); MEAN CORPUSCULAR HEMOGLOBIN 28 pg (27-31); MEAN CORPUSCULAR HGB CONC 34 g/dL (33-37); MEAN CORPUSCULAR VOLUME 83.6 fL (80-94); MONOCYTES # (AUTO) 0.4 K/uL (0.8-1.0); MONOCYTES % (AUTO) 9.6 % (1.7-9.3); NEUTROPHILS # (AUTO) 2.8 K/uL (1.8-7.7); NEUTROPHILS % (AUTO) 63.7 % (42.2-75.2); PLATELET COUNT (AUTO) 239 K/uL (140-450); RED BLOOD CELL COUNT(AUTO) 4.24 MIL/uL (4.20-5.40); RED CELL DISTRIBUTION WIDTH 12.4 % (11.6-13.7); WHITE BLOOD COUNT (AUTO) 4.5 K/uL (4.8-10.8)
--- NOTE | 2020-11-01 06:29 | NUR ---
MD AWARE OF EKG ORDER. MD TO FOLLOW UP IN THE AM.
--- NOTE | 2020-11-01 07:02 | NUR ---
TRANSFER OF CARE REPORT PROVIDED TO FELICITAS MOERNO.
--- NOTE | 2020-11-01 07:05 | NUR ---
REC'D REPORT FROM BEDSIDE NURSE. PT A/OX 4, RESTING, RA. BED LOWEST POSITION. ON TELEMONITOR, CALL LIGHT WITHIN REACH. PT STABLE, NO SIGN OF DISTRESS.
[2020-11-01 07:22] LABS: ASPARTATE AMINOTRANSFERASE 17 U/L (15-37); CARBON DIOXIDE 24.9 mmol/L (21-32); CHLORIDE 106 mmol/L (98-107); CREATININE 1.3 mg/dL (0.6-1.3); GLUCOSE 93 mg/dL (74-106); LIPASE 103 U/L (73-393); MAGNESIUM 2.1 mg/dL (1.8-2.4); POTASSIUM 3.9 mmol/L (3.5-5.1); SODIUM SERUM 139 mmol/L (136-145); TOTAL BILIRUBIN 0.3 mg/dL (0.0-1.0); UREA NITROGEN, BLOOD 38 mg/dL (7-18)
[2020-11-01] MEDS: DOCUSATE SODIUM 100 MG GELCAP PO SCH (09:00)
[2020-11-01] MEDS: SOTALOL 80 MG TAB PO SCH ×2 (09:17→20:58)
[2020-11-01] MEDS: HYDROcodone/APAP 5/325 MG 1 TAB TAB PO PRN ×3 (09:18→23:36)
--- NOTE | 2020-11-01 09:21 | NUR ---
ADMINISTERED MEDICATION PER MD ORDER, PT TOLERATED PO MEDICATIONS WELL. HELD COLACE D/T PT REPORTING DIARRHEA. PT STABLE ,RA CALL LIGHT WITHIN REACH.
--- NOTE | 2020-11-01 12:21 | NUR ---
PT STABLE, CURRENTLY HAVING LUNCH, STATES MILD CHEST DISCOMFORT DUE TO COUGH. WILL CONTINUE TO MONITOR.CALL LIGHT WITHIN REACH.
[2020-11-01] MEDS: guaiFENesin 20 MG/ML UDC PO PRN ×2 (13:02→21:01)
--- NOTE | 2020-11-01 13:04 | NUR ---
ADMINISTERED COUGH MEDICATION PER MD ORDER, PT TOLERATED PO MEDICATION. CURRENTLY STABLE, CALL LIGHT WITHIN REACH.
--- NOTE | 2020-11-01 13:16 | NUR ---
DC PLANNING: SPOKE WITH DR MARIEE REGARDING DC PLAN ,HE STATED DR HOA Bear ORDERED NEW CARDIAC MEDS YESTERDAY SOTALOL 80 MG PO AND RECOMMENDED TO OBSERVE OVERNIGHT. PT'S HEART RATE WENT DOWN TO 61-[address] OHARA IF CARDIO CLEARED HER PT CAN BE DISCHARGED. CALLED DR HOA Bear HE IS IN THE PROCEDURE AT [facility] [place] LEFT A MESSAGE. CM TO FOLLOW. Addendum: 11/01/20 at 1533 by Brissa German RN DC PLANNING: RECEIVED A CALL FROM DR HOA AMADO TO DC PATIENT WITH SOTALOL 80 MG PO BID, AND F/U WITH HIM WITH IN 7-10 DAYS. SPOKE WITH A PATIENT SHE STATED HER PHARMACY IS [facility] AND WANTED TO FOLLOW UP WITH DR CAMARA. PROVIDED THE NUMBER OF [facility] [phone] CAMARA, FAXED THE OUT PATIENT F/U ORDER TO [facility]. CM TO FOLLOW Addendum: 11/01/20 at 1541 by Brissa German RN DC PLANNING: RECEIVED A CALL FROM DR MARIEE STATED NOT DC PT TODAY BECAUSE WITH SOTALOL SHE IS COMPLAINING OF NOT FEELING WELL AFTER NEW MEDICATION WANTED TO OBSERVE HER AND DC TOMORROW. HR 57 AT THIS TIME. CM TO FOLLOW Addendum: 11/02/20 at 1346 by Supriya Keene CM DC CASINO ASSISTANT MANAGER: SPOKE TO FLAVIA CHAHAL FROM [facility] SHE STATED THAT DR. EMETERIO CAMARA IS NOT CONTRACTED WITH PATIENTS INSURANCE. SHE ASKED THAT I SCHEDULE PATIENTS APPOINTMENT WITH [facility] SPECIALIST RATNA COSTELLO. AUTH FOR APPOINTMENT [id number]. Addendum: 11/02/20 at 1435 by Supriya Keene CM DC CASINO ASSISTANT MANAGER: SCHEDULED PATIENT A FOLLOW UP APPOINTMENT WITH [facility] SERVICE SPECIALIST. APPOINTMENT IS SCHEDULED ON October AT 10:15 AM. [id number] Zully ADAMS MENDEL Delmar PINA PUGH Addendum: 11/02/20 at 1534 by Brissa German RN DC PLANNING PER DR MARIEE PT IS NOT STABLE FOR DISCHARGE. HR 49. DC PLAN ONCE HR WNL TO GO HOME CM TO FOLLOW Addendum: 11/03/20 at 1532 by Brissa German RN DC PLANNING: RECEIVED A CALL FROM BAUNAT SR [phone] SPOKE WITH CM NAME LARY UPDATED PT'S CLINICALS AND CONDITIONS PT'S HEART RATE IS BETWEEN 46-56 , ADJUSTING SOTALOL 40 MG PO BID. AND FAMILY DINNER SERVICE SPECIALIST AND ATTENDING WANTED THE HR TO BE WNL PRIOR TO DISCHARGE. PER LARY TO RECOMMEND HOME HEALTH FOR HOME SAFETY EVAL AND MEDICATION MANAGEMENT. WILL NOTIFY DR MARIEE. I ASKED AUTH FOR STAY, HE STATED APPROVAL IS AFTER DISCHARGE. BUT HE PROVIDE THE PENDING AUTH# [id number]. FAX # [phone] CM TO FOLLOW Addendum: 11/03/20 at 1637 by Supriya Keene CM MURALI STACY: FAXED ORDER FOR HOME HEALTH TO [facility].
--- NOTE | 2020-11-01 16:04 | NUR ---
ADMINISTERED PO ANALGESIC PER PT REQUEST. PT TOLERATED PO MEDS WELL.
--- NOTE | 2020-11-01 19:46 | NUR ---
ENDORSED PT TO SKEIN BLEACHER NURSE FOR CONTINUITY OF CARE. PT STABLE. RA. NO SIGN OF DISTRESS. STABLE
[2020-11-01] MEDS: traMADol 50 MG TAB PO SCH (20:56)
[2020-11-02] VITALS: BP 127/69
[2020-11-02 04:00] VITALS: BP 123/64
[2020-11-02] MEDS: HYDROcodone/APAP 5/325 MG 1 TAB TAB PO PRN ×4 (04:05→21:53)
[2020-11-02] MEDS: SODIUM CHLORIDE FLUSH 10 ML SYR IVF SCH ×3 (04:11→21:58)
[2020-11-02 06:21] LABS: BASOPHILS % (AUTO) 0.7 % (0.0-2.0); EOSINOPHILS # (AUTO) 0.5 K/uL (0-0.4); EOSINOPHILS % (AUTO) 10.5 % (0.0-4.0); HEMOGLOBIN 11.8 g/dL (12.0-16.0); LYMPHOCYTES # (AUTO) 0.9 K/uL (2.5-16.5); LYMPHOCYTES % (AUTO) 20.4 % (20.5-51.1); MEAN CORPUSCULAR HEMOGLOBIN 28 pg (27-31); MEAN CORPUSCULAR HGB CONC 34 g/dL (33-37); MEAN CORPUSCULAR VOLUME 83.4 fL (80-94); MONOCYTES # (AUTO) 0.5 K/uL (0.8-1.0); MONOCYTES % (AUTO) 10.7 % (1.7-9.3); NEUTROPHILS # (AUTO) 2.7 K/uL (1.8-7.7); NEUTROPHILS % (AUTO) 57.7 % (42.2-75.2); PLATELET COUNT (AUTO) 245 K/uL (140-450); RED BLOOD CELL COUNT(AUTO) 4.19 MIL/uL (4.20-5.40); RED CELL DISTRIBUTION WIDTH 12.3 % (11.6-13.7); WHITE BLOOD COUNT (AUTO) 4.7 K/uL (4.8-10.8)
[2020-11-02 06:39] LABS: ASPARTATE AMINOTRANSFERASE 22 U/L (15-37); CARBON DIOXIDE 25.1 mmol/L (21-32); CHLORIDE 105 mmol/L (98-107); CREATININE 1.2 mg/dL (0.6-1.3); GLUCOSE 96 mg/dL (74-106); LIPASE 158 U/L (73-393); MAGNESIUM 2.3 mg/dL (1.8-2.4); POTASSIUM 4.1 mmol/L (3.5-5.1); SODIUM SERUM 137 mmol/L (136-145); TOTAL BILIRUBIN 0.2 mg/dL (0.0-1.0); UREA NITROGEN, BLOOD 36 mg/dL (7-18)
[2020-11-02 08:00] VITALS: BP 148/48
[2020-11-02] MEDS: SOTALOL 80 MG TAB PO SCH ×2 (09:00→21:45)
[2020-11-02] MEDS: traMADol 50 MG TAB PO SCH ×3 (09:00→21:00)
[2020-11-02] MEDS: DOCUSATE SODIUM 100 MG GELCAP PO SCH (09:06)
--- NOTE | 2020-11-02 11:42 | NUR ---
RECEIVED PT AAOX4, NO SOB NOTED. NO C/O PAIN AT THIS TIME. IV TO RAC PATENT AND INTACT. CHEST CLEAR. ABDOMEN SOFT, BOWEL SOUNDS PRESENT. NO EDEMA NOTED. CALL LIGHT WITHIN REACH, VERBALIZED UNDERSTANDING.
[2020-11-02 12:00] VITALS: BP 138/79
[2020-11-02] MEDS ORDERED: PANTOPRAZOLE 40 MG TABEC PO SCH (13:00)
[2020-11-02] MEDS: guaiFENesin 20 MG/ML UDC PO PRN (14:18)
[2020-11-02 16:00] VITALS: BP 136/82
--- NOTE | 2020-11-02 16:29 | NUR ---
ADMINISTERED PRESCRIBED PRN MEDICATION FOR 03/11 PAIN. PATIENT TOLERATED WELL. MEDICATION EDUCATION PROVIDED. PATIENT VERBALIZED UNDERSTANDING. SAFETY MEASURES IN PLACE. WILL CONTINUE TO MONITOR.
--- NOTE | 2020-11-02 19:33 | NUR ---
BEDSIDE ENDORSEMENT PROVIDED TO NIGHTSHIFT NURSE FOR CONTINUITY OF CARE.
--- NOTE | 2020-11-02 19:35 | NUR ---
RECEIVED PT IN STABLE CONDITION FROM AM NURSE FOR CONTINUITY OF CARE. ON TELE MONITOR . AWAKE,ALERT AND ORIENTED X4. NO C/O ANY DISCOMFORT NOTED. HAS HL ON RT AC g20 . CLEAR AND PATENT. PT HAS CONCERN ABOUT HER ELIQUIS THAT SHE TAKES AT HOME. WILL HAVE MD MADE AWARE. PLAN OF CARE DISCUSSED AND VERBALIZED UNDERSTANDING. FREQ ROUNDS NEEDED. BED ON LOW POSITION. SIDE RAILS UP X2. CALL LIGHT PLACED WITHIN REACH. INSTRUCTED TO CALL FOR ANY ASSISTANCE. WILL CONTINUE TO MONITOR.
--- NOTE | 2020-11-02 19:41 | NUR ---
DR. CAMARAY HERE AND ORDERED RUPESH TO CONTINUE HERE.
[2020-11-02 21:20] VITALS: BP 155/66
[2020-11-02] MEDS ORDERED: CRUSHER, PILL MC ONE (21:36)
[2020-11-02] MEDS: APIXABAN 2.5 MG TAB PO SCH (21:48)
--- NOTE | 2020-11-02 21:48 | NUR ---
ALL DUE MEDS GIVEN. ELIQUIS RESTARTED PER MD ORDER.
--- NOTE | 2020-11-02 23:58 | NUR ---
TELE MONITOR WITH HR-45. CHECKED ON PT. FOUND ASLEEP.SHE SAID SHE IS OK . ASYMPTOMATIC. WILL CONTINUE TO MONITOR.
[2020-11-03] VITALS: BP 117/59
--- NOTE | 2020-11-03 02:00 | NUR ---
MADE ROUNDS. PT SLEEPING WITH NO S/S OF ANY DISCOMFORT NOTED.
[2020-11-03] MEDS: HYDROcodone/APAP 5/325 MG 1 TAB TAB PO PRN ×2 (03:47→10:45)
[2020-11-03] MEDS: guaiFENesin 20 MG/ML UDC PO PRN ×2 (03:49→10:45)
[2020-11-03 04:00] VITALS: BP 110/48
--- NOTE | 2020-11-03 04:00 | NUR ---
CHECKED ON PT . SLEEPING WITH NO RESPIRATORY DISTRESS NOTED.
--- NOTE | 2020-11-03 06:00 | NUR ---
LINDSEY UGALDE GT FEEDING . PT TOLERATING WELL. Addendum: 11/03/20 at 0659 by Cammie Patiño RN CANCEL ABOVE NOTES. WRONG PT.
[2020-11-03 06:43] LABS: BASOPHILS % (AUTO) 0.7 % (0.0-2.0); EOSINOPHILS # (AUTO) 0.4 K/uL (0-0.4); HEMOGLOBIN 11.7 g/dL (12.0-16.0); LYMPHOCYTES % (AUTO) 21.3 % (20.5-51.1); MEAN CORPUSCULAR HEMOGLOBIN 28 pg (27-31); MEAN CORPUSCULAR HGB CONC 34 g/dL (33-37); MEAN CORPUSCULAR VOLUME 83.5 fL (80-94); MONOCYTES # (AUTO) 0.5 K/uL (0.8-1.0); MONOCYTES % (AUTO) 10.4 % (1.7-9.3); NEUTROPHILS # (AUTO) 2.8 K/uL (1.8-7.7); NEUTROPHILS % (AUTO) 59.6 % (42.2-75.2); PLATELET COUNT (AUTO) 263 K/uL (140-450); RED BLOOD CELL COUNT(AUTO) 4.19 MIL/uL (4.20-5.40); RED CELL DISTRIBUTION WIDTH 12.2 % (11.6-13.7); WHITE BLOOD COUNT (AUTO) 4.7 K/uL (4.8-10.8)
[2020-11-03 07:10] LABS: ALBUMIN 2.9 g/dL (3.4-5.0); ANION GAP 11.4 (8-16); ASPARTATE AMINOTRANSFERASE 25 U/L (15-37); CARBON DIOXIDE 25.7 mmol/L (21-32); CHLORIDE 105 mmol/L (98-107); CREATININE 1.1 mg/dL (0.6-1.3); GLUCOSE 98 mg/dL (74-106); LIPASE 106 U/L (73-393); MAGNESIUM 2.3 mg/dL (1.8-2.4); POTASSIUM 4.1 mmol/L (3.5-5.1); SODIUM SERUM 138 mmol/L (136-145); TOTAL BILIRUBIN 0.4 mg/dL (0.0-1.0); UREA NITROGEN, BLOOD 32 mg/dL (7-18)
--- NOTE | 2020-11-03 07:35 | NUR ---
ENDORSED PT IN STABLE CONDITION TO AM NURSE.
--- NOTE | 2020-11-03 07:36 | NUR ---
Received bedside report from pm nurse Ashley. Patient resting in bed, awake, responds appropriately to questions. No c/o discomfort, respirations even & nonlabored in room air. Right AC IV 20G intact & asymptomatic. Call light within reach.
[2020-11-03 08:00] VITALS: BP 148/64
[2020-11-03] MEDS: SODIUM CHLORIDE FLUSH 10 ML SYR IVF SCH (08:30)
[2020-11-03] MEDS: DOCUSATE SODIUM 100 MG GELCAP PO SCH (08:32)
[2020-11-03] MEDS: SOTALOL 80 MG TAB PO SCH (08:32)
[2020-11-03] MEDS: APIXABAN 2.5 MG TAB PO SCH (08:35)
[2020-11-03] MEDS: traMADol 50 MG TAB PO SCH (08:38)
[2020-11-03] MEDS ORDERED: PANTOPRAZOLE 40 MG TABEC PO SCH (09:00)
--- NOTE | 2020-11-03 09:00 | NUR ---
Patient refused routine Tramadol and Pantoprazole. Pt states that the meds upset her stomach. States no pain at this time. Educated patient on benefits of pantoprazole to prevent GI upset, and of routine pain med for adequate pain management. Patient verbalized understanding and continue to refuse tramadol and pantoprazole.
[2020-11-03] MEDS ORDERED: SOTA80TA PO (11:36)
[2020-11-03] MEDS ORDERED: PANT40EC PO (11:37)
[2020-11-03 12:00] VITALS: BP 132/58
[2020-11-03 12:35] VITALS: BP 148/64
--- NOTE | 2020-11-03 13:30 | NUR ---
All written and verbal discharge instructions provided to patient, who verbalized understanding. Instructed patient on f/u appt with Dr Cuadra on 11/09/20 @ 1015. New prescription pads provided by Dr Copeland for [place], sotalol, and protonix. Patient able to repeat back instructions. Right AC IV discontinued, cannula intact, site with minimal bleeding covered with dry gauze and tape. Patient states her son-on-law will come pick her up in 1 hr
--- NOTE | 2020-11-03 14:10 | NUR ---
Patient left unit via wheelchair; son-in-law waiting in lobby with private car. Pt able to amb with steady gait. All belongings with patient upon departure.
== END 2020-11-03 14:10 | disposition home health service (06) | DRG 313 ==
LOC: MED 11:57 → MTU 16:32
PROVIDERS: ADMIT Hospitalist; ATTEND Hospitalist
DX: R07.89 Other chest pain (principal); N18.30 Chronic kidney disease, stage 3 unspecified; Z79.01 Long term (current) use of anticoagulants; E11.22 Type 2 diabetes mellitus with diabetic chronic kidney disease; E78.5 Hyperlipidemia, unspecified; J44.9 Chronic obstructive pulmonary disease, unspecified; I13.10 Hypertensive heart and chronic kidney disease without heart failure, with stage 1 through stage 4 chronic kidney disease, or unspecified chronic kidney disease; K21.9 Gastro-esophageal reflux disease without esophagitis; M81.0 Age-related osteoporosis without current pathological fracture; I48.0 Paroxysmal atrial fibrillation; Z88.5 Allergy status to narcotic agent; Z88.0 Allergy status to penicillin; Z88.2 Allergy status to sulfonamides; Z88.8 Allergy status to other drugs, medicaments and biological substances; Z20.822 Contact with and (suspected) exposure to COVID-19
CPT/HCPCS: 36415; 71045; 71275; 80053; 83036; 83690; 83735; 83880; 84484; 85025; 85610; 85730; 87081; 93005; 96374; 99291; J3010; J7030; Q9967

== ENCOUNTER 2020-12-22 13:53 | Emergency (ER) | payer OTHER, SELFPAY ==
[~2020-12-22] VITALS: Ht 152.4 cm; Wt 64.4 kg
[~2020-12-22 13:53] MED LIST changes: -CIPR500T4 PO; -METR-520 PO; -ONDA4ODT2 PO; +PANT40EC PO
[2020-12-22 14:03] VITALS: BP 191/80
--- NOTE | 2020-12-22 14:33 | NUR ---
80 Y/O FEMALE C/O RLQ PAIN THAT STARTED YESTERDAY. PT RATES PAIN 9/10 THAT IS SHARP, CONSTANT AND RADIATES FROM RLQ TO LLQ/LUQ. PT TOOK TYLENOL WITH NO RELIEF. ABD IS FLAT, SOFT, AND TENDER WITH ACTIVE BOWEL SOUNDS X4 QUADS. DENIES N/V/D/ DYSURIA. PT A/O X4 WITH EVEN AND UNLABORED RESPIRATIONS. PT IN GOWN, LAYING IN BED WITH BED IN LOWEST POSITION, BRAKES LOCKED, X2 SIDERAIL UP FOR SAFETY. MEDHX: COPD, AFIB, HTN, HLD
--- NOTE | 2020-12-22 14:35 | NUR ---
LAB AT BEDSIDE FOR BLOOD DRAW
--- NOTE | 2020-12-22 14:38 | NUR ---
DR ANDINO AT BEDSIDE
[2020-12-22 14:44] LABS: APPEARANCE,URINE CLEAR (CLEAR); BILIRUBIN,URINE NEGATIVE (NEGATIVE); BLOOD, URINE NEGATIVE (NEGATIVE); COLOR,URINE YELLOW (YELLOW); LEUKOCYTE ESTERASE ,URINE NEGATIVE (NEGATIVE); NITRITE, URINE NEGATIVE (NEGATIVE); UGLUCOSE NEGATIVE (NEGATIVE)
[2020-12-22] MEDS ORDERED: fentaNYL citrate 0.05 MG/ML VIAL IVP ONE (14:45)
[2020-12-22] MEDS ORDERED: ONDANSETRON 4 MG/2 ML VIAL IVP ONE (14:45)
--- NOTE | 2020-12-22 14:49 | NUR ---
PT TAKEN TO CT VIA MARK
--- NOTE | 2020-12-22 15:05 | NUR ---
PT BACK FROM CT AND CONNECTED TO MONITOR
[2020-12-22 15:08] LABS: BASOPHILS # (AUTO) 0.1 K/uL (0.00-0.22); BASOPHILS % (AUTO) 1.3 % (0.0-2.0); EOSINOPHILS # (AUTO) 0.3 K/uL (0-0.4); EOSINOPHILS % (AUTO) 6.8 % (0.0-4.0); HEMATOCRIT 40.4 % (36-48); HEMOGLOBIN 13.3 g/dL (12.0-16.0); LYMPHOCYTES # (AUTO) 1.7 K/uL (2.5-16.5); LYMPHOCYTES % (AUTO) 33.5 % (20.5-51.1); MEAN CORPUSCULAR HEMOGLOBIN 28 pg (27-31); MEAN CORPUSCULAR HGB CONC 33 g/dL (33-37); MEAN CORPUSCULAR VOLUME 84.2 fL (80-94); MONOCYTES # (AUTO) 0.3 K/uL (0.8-1.0); MONOCYTES % (AUTO) 7.1 % (1.7-9.3); NEUTROPHILS # (AUTO) 2.5 K/uL (1.8-7.7); NEUTROPHILS % (AUTO) 51.3 % (42.2-75.2); PLATELET COUNT (AUTO) 175 K/uL (140-450); RED BLOOD CELL COUNT(AUTO) 4.79 MIL/uL (4.20-5.40); RED CELL DISTRIBUTION WIDTH 12.7 % (11.6-13.7); WHITE BLOOD COUNT (AUTO) 4.9 K/uL (4.8-10.8)
[2020-12-22 15:27] LABS: ALBUMIN 3.7 g/dL (3.4-5.0); AMYLASE 57 U/L (25-115); ANION GAP 10.1 (8-16); ASPARTATE AMINOTRANSFERASE 20 U/L (15-37); CARBON DIOXIDE 25.9 mmol/L (21-32); CHLORIDE 105 mmol/L (98-107); CREATININE 1.3 mg/dL (0.6-1.3); GLUCOSE 91 mg/dL (74-106); LIPASE 131 U/L (73-393); SODIUM SERUM 137 mmol/L (136-145); TOTAL BILIRUBIN 0.2 mg/dL (0.0-1.0); UREA NITROGEN, BLOOD 26 mg/dL (7-18)
[2020-12-22] MEDS ORDERED: MIRABULK PO (15:43)
[2020-12-22] MEDS ORDERED: ACET-9527 PO (15:43)
[2020-12-22 16:14] VITALS: BP 191/80
--- NOTE | 2020-12-22 16:15 | NUR ---
Patient discharged with v/s stable. Written and verbal after care instructions given and explained. Patient alert, oriented and verbalized understanding of instructions. Ambulatory with steady gait. All questions addressed prior to discharge. ID band removed. Patient advised to follow up with PMD. Rx of HYDROCODONE/ACETAMINOPHEN 5/325 AND POLYETHLYLENE GLYCOL 3350 (MIRALAX) given. Patient educated on indication of medication including possible reaction and side effects. Opportunity to ask questions provided and answered.
== END 2020-12-22 16:15 | disposition home or self-care (01) ==
LOC: MED 13:53
DX: R10.31 Right lower quadrant pain (principal); R30.9 Painful micturition, unspecified; I11.9 Hypertensive heart disease without heart failure; K21.9 Gastro-esophageal reflux disease without esophagitis; Z88.0 Allergy status to penicillin; Z88.2 Allergy status to sulfonamides; Z88.5 Allergy status to narcotic agent; Z88.8 Allergy status to other drugs, medicaments and biological substances; Z79.899 Other long term (current) drug therapy
CPT/HCPCS: 36415; 74176; 80053; 81003; 82150; 83690; 85025; 96374; 96375; 99284; J2405; J3010

== ENCOUNTER 2021-02-01 12:15 | Emergency (ER) | payer OTHER ==
[~2021-02-01] VITALS: Ht 154.9 cm; Wt 65.3 kg
[~2021-02-01 12:15] MED LIST changes: -ACET-9525 PO; +ACET-9527 PO; +MIRABULK PO
[2021-02-01 12:21] VITALS: BP 165/55
--- NOTE | 2021-02-01 12:30 | NUR ---
80 Y/F PRESENTS TO ED FOR L ELBOW PAIN SINCE SATURDAY, DENIES INJURY. PT REPORTS 03/11 ELBOW PAIN UNRELIEVED BY TYLENOL. PMH- AFIB, HTN, HLD, COPD RX- ELOQUIS, FENOFIBRATE, NEFEDIPINE ER, ASA
[2021-02-01] MEDS ORDERED: HYDROcodone/APAP 5/325 MG 1 TAB TAB PO ONE (13:15)
[2021-02-01] MEDS ORDERED: DOXY100C9 PO (13:17)
[2021-02-01] MEDS ORDERED: ACET-8386 PO (13:17)
--- NOTE | 2021-02-01 13:44 | NUR ---
APPLIED SLING TO LEFT ARM WITHOUT ANY ISSUES
[2021-02-01 13:56] VITALS: BP 165/55
--- NOTE | 2021-02-01 13:56 | NUR ---
Patient discharged with v/s stable. Written and verbal after care instructions given and explained. Patient alert, oriented and verbalized understanding of instructions. Ambulatory with steady gait. All questions addressed prior to discharge. ID band removed. Patient advised to follow up with PMD. Rx of Hydrocodone/Acetaminophen, Doxycycline Hyclate given. Patient educated on indication of medication including possible reaction and side effects. Opportunity to ask questions provided and answered.
== END 2021-02-01 13:56 | disposition home or self-care (01) ==
LOC: MED 12:15
DX: L03.114 Cellulitis of left upper limb (principal); J44.9 Chronic obstructive pulmonary disease, unspecified; I10 Essential (primary) hypertension; Z79.899 Other long term (current) drug therapy; Z88.0 Allergy status to penicillin; Z88.2 Allergy status to sulfonamides; Z88.5 Allergy status to narcotic agent; Z88.8 Allergy status to other drugs, medicaments and biological substances; Z79.82 Long term (current) use of aspirin
CPT/HCPCS: 73090; 90471; 90715; 99283

== ENCOUNTER 2021-02-22 14:52 | Emergency (ER) | payer OTHER ==
[~2021-02-22] VITALS: Ht 152.4 cm; Wt 66.2 kg
[~2021-02-22 14:52] MED LIST changes: +ACET-8386 PO; +DOXY100C9 PO
[2021-02-22 14:55] VITALS: BP 153/70
--- NOTE | 2021-02-22 14:55 | NUR ---
PATIENT ABMULATED TO RESTROOM; GAIT WAS STEADY
--- NOTE | 2021-02-22 15:02 | NUR ---
PATIENT AMBULATED TO BED 11; GAIT WAS STEADY; APPLICATION SUPPORT TECHNICIAN PERFORMED 12 LEAD EKG BEDSIDE
--- NOTE | 2021-02-22 15:11 | NUR ---
darkroom technician at pt bedside.
--- NOTE | 2021-02-22 15:13 | NUR ---
Dr. Angelo at pt bedside for further evaluation.
[2021-02-22] MEDS ORDERED: fentaNYL citrate 0.05 MG/ML VIAL IVP ONE (15:15)
[2021-02-22] MEDS ORDERED: ONDANSETRON 4 MG/2 ML VIAL IVP ONE (15:15)
--- NOTE | 2021-02-22 15:15 | NUR ---
80/F C/O CHEST PAIN STARTING TODAY RADIATING UP TO UPPER BACK/SHOULDERS/NECK THAT FEELS LIKE "PRESSURE." CURRENTLY PAIN IS 7/10 FOR X1 DAY. STATES FEELS DIZZY/LIGHT HEADED WHEN STANDING. +N/-V X2 DAYS. HX HTN, HIGH CHOLESTEROL, COPD, A.FIB TOOK ASA 81MG TAX SERVICES SPECIALIST
--- NOTE | 2021-02-22 15:16 | NUR ---
director of digital technology at pt bedside.
[2021-02-22 15:26] LABS: BASOPHILS % (AUTO) 0.4 % (0.0-2.0); EOSINOPHILS # (AUTO) 0.4 K/uL (0-0.4); EOSINOPHILS % (AUTO) 7.5 % (0.0-4.0); HEMATOCRIT 39.5 % (36-48); HEMOGLOBIN 13.2 g/dL (12.0-16.0); LYMPHOCYTES # (AUTO) 1.8 K/uL (2.5-16.5); LYMPHOCYTES % (AUTO) 32.1 % (20.5-51.1); MEAN CORPUSCULAR HEMOGLOBIN 28 pg (27-31); MEAN CORPUSCULAR HGB CONC 33 g/dL (33-37); MEAN CORPUSCULAR VOLUME 84.2 fL (80-94); MONOCYTES # (AUTO) 0.3 K/uL (0.8-1.0); MONOCYTES % (AUTO) 6.3 % (1.7-9.3); NEUTROPHILS # (AUTO) 2.9 K/uL (1.8-7.7); NEUTROPHILS % (AUTO) 53.7 % (42.2-75.2); PLATELET COUNT (AUTO) 244 K/uL (140-450); RED BLOOD CELL COUNT(AUTO) 4.69 MIL/uL (4.20-5.40); RED CELL DISTRIBUTION WIDTH 13.8 % (11.6-13.7); WHITE BLOOD COUNT (AUTO) 5.5 K/uL (4.8-10.8)
[2021-02-22 15:36] LABS: ALBUMIN 3.7 g/dL (3.4-5.0); ANION GAP 11.9 (8-16); ASPARTATE AMINOTRANSFERASE 18 U/L (15-37); CARBON DIOXIDE 26.5 mmol/L (21-32); CHLORIDE 106 mmol/L (98-107); CREATININE 1.4 mg/dL (0.6-1.3); GLUCOSE 98 mg/dL (74-106); POTASSIUM 4.4 mmol/L (3.5-5.1); SODIUM SERUM 140 mmol/L (136-145); TOTAL BILIRUBIN 0.2 mg/dL (0.0-1.0); UREA NITROGEN, BLOOD 40 mg/dL (7-18)
--- NOTE | 2021-02-22 16:21 | NUR ---
PATIENT AMBULATED TO RESTROOM; GAIT WAS STEADY
--- NOTE | 2021-02-22 16:23 | NUR ---
Pt ambulated to ER bed 11 with a steady gait.
--- NOTE | 2021-02-22 16:32 | NUR ---
PATIENT DESATED TO 91% ON RA; ATTATCHED PATIENT TO NC 2L O2, SATING 95%
--- NOTE | 2021-02-22 17:15 | NUR ---
SPOKE TO PATIENTS GRANDDAUGHTER JACOBO. ASKED PATIENT FOR PERMISSION TO SPEAK TO GRANDDAUGHTER AND WAS GIVEN PERMISSION. GAVE UPDATE IN REGARDS TO PATIENTS CURRENT STATUS
--- NOTE | 2021-02-22 17:41 | NUR ---
Pt ambulated to restroom with stand-by assistance.
--- NOTE | 2021-02-22 17:49 | NUR ---
Pt ambulated to ER bed 11 with stand-by assistance.
--- NOTE | 2021-02-22 18:25 | NUR ---
TUBE REBUILDER MANAN BLOOD BEDSIDE
[2021-02-22] MEDS ORDERED: ACET-8386 PO (18:44)
[2021-02-22 19:13] VITALS: BP 172/75
--- NOTE | 2021-02-22 19:14 | NUR ---
Patient discharged with v/s stable. Written and verbal after care instructions given and explained. Patient alert, oriented and verbalized understanding of instructions. Ambulatory with steady gait. All questions addressed prior to discharge. ID band removed. Patient advised to follow up with PMD. Rx of HYDROCODONE/ACETAMINOPHEN 5-325 MG 1 TAB PO Q 6 HOURS FOR PAIN given. Patient educated on indication of medication including possible reaction and side effects. Opportunity to ask questions provided and answered.
== END 2021-02-22 19:14 | disposition home or self-care (01) ==
LOC: MED 14:52
DX: R07.9 Chest pain, unspecified (principal); R53.1 Weakness; I11.9 Hypertensive heart disease without heart failure; J44.0 Chronic obstructive pulmonary disease with (acute) lower respiratory infection; Z88.0 Allergy status to penicillin; Z88.2 Allergy status to sulfonamides; Z88.5 Allergy status to narcotic agent; Z79.899 Other long term (current) drug therapy; Z90.49 Acquired absence of other specified parts of digestive tract
CPT/HCPCS: 36415; 71045; 80053; 81002; 83880; 84484; 85025; 93005; 96374; 96375; 99285; J2405; J3010

== ENCOUNTER 2021-04-17 16:49 | Emergency (ER) | payer OTHER ==
[~2021-04-17] VITALS: Ht 152.9 cm; Wt 68.2 kg
[~2021-04-17 16:49] MED LIST changes: -DOXY100C9 PO; +VIB100 PO
[2021-04-17 17:02] VITALS: BP 137/59
[2021-04-17] MEDS ORDERED: KETOROLAC 15 MG/ML VIAL IVP ONE (18:25)
[2021-04-17] MEDS ORDERED: NACL 0.9% 500 ML IV ONE ×2 (18:25→20:25)
[2021-04-17 18:53] LABS: BASOPHILS % (AUTO) 0.5 % (0.0-2.0); EOSINOPHILS # (AUTO) 0.3 K/uL (0-0.4); EOSINOPHILS % (AUTO) 7.8 % (0.0-4.0); HEMATOCRIT 40.9 % (36-48); HEMOGLOBIN 13.3 g/dL (12.0-16.0); LYMPHOCYTES # (AUTO) 1.5 K/uL (2.5-16.5); LYMPHOCYTES % (AUTO) 35.4 % (20.5-51.1); MEAN CORPUSCULAR HEMOGLOBIN 29 pg (27-31); MEAN CORPUSCULAR HGB CONC 33 g/dL (33-37); MEAN CORPUSCULAR VOLUME 87.9 fL (80-94); MONOCYTES # (AUTO) 0.3 K/uL (0.8-1.0); MONOCYTES % (AUTO) 6.5 % (1.7-9.3); NEUTROPHILS # (AUTO) 2.1 K/uL (1.8-7.7); NEUTROPHILS % (AUTO) 49.8 % (42.2-75.2); PLATELET COUNT (AUTO) 242 K/uL (140-450); RED BLOOD CELL COUNT(AUTO) 4.65 MIL/uL (4.20-5.40); RED CELL DISTRIBUTION WIDTH 12.9 % (11.6-13.7); WHITE BLOOD COUNT (AUTO) 4.1 K/uL (4.8-10.8)
[2021-04-17 18:53] LABS: APPEARANCE,URINE CLEAR (CLEAR); BILIRUBIN,URINE NEGATIVE (NEGATIVE); BLOOD, URINE NEGATIVE (NEGATIVE); COLOR,URINE YELLOW (YELLOW); LEUKOCYTE ESTERASE ,URINE NEGATIVE (NEGATIVE); NITRITE, URINE NEGATIVE (NEGATIVE); UGLUCOSE NEGATIVE (NEGATIVE)
[2021-04-17 19:10] LABS: ASPARTATE AMINOTRANSFERASE 18 U/L (15-37); CARBON DIOXIDE 31.1 mmol/L (21-32); CHLORIDE 105 mmol/L (98-107); CREATININE 1.5 mg/dL (0.6-1.3); GLUCOSE 101 mg/dL (74-106); POTASSIUM 4.1 mmol/L (3.5-5.1); SODIUM SERUM 140 mmol/L (136-145); TOTAL BILIRUBIN 0.3 mg/dL (0.0-1.0); UREA NITROGEN, BLOOD 32 mg/dL (7-18)
--- NOTE | 2021-04-17 19:35 | NUR ---
PT AMBULATED TO BED 09.
--- NOTE | 2021-04-17 19:45 | NUR ---
CONSENT OBTAINED FOR CT.
--- NOTE | 2021-04-17 19:45 | NUR ---
BIB SELF FOR C/C LOWER ABDOMINAL PAIN, LOWER BACK PAIN X 2 DAYS. +NAUSEA. DENIES S/SX OF UTI. PMH: AFIB, COPD, HTN, HERNIA REPAIR, CHOLECYSTECTOMY, HYSTERECTOMY
--- NOTE | 2021-04-17 20:21 | NUR ---
PT AMBULATED TO RESTROOM WITH STEADY GAIT.
--- NOTE | 2021-04-17 20:36 | NUR ---
PT TAKEN TO CT
--- NOTE | 2021-04-17 20:52 | NUR ---
PT RETURN FROM CT
--- NOTE | 2021-04-17 21:35 | NUR ---
PT C/O PAIN TO LOWER BACK. ERMD MADE AWARE. AWAITING NEW ORDERS.
--- NOTE | 2021-04-17 21:51 | NUR ---
PT AMBULATED TO RESTROOM WITH EVEN AND STEADY GAIT.
[2021-04-17] MEDS ORDERED: HYDROcodone/APAP 5/325 MG 1 TAB TAB PO ONE (22:05)
[2021-04-17] MEDS ORDERED: ACET-6951 PO (22:07)
[2021-04-17 22:30] VITALS: BP 151/87
--- NOTE | 2021-04-17 22:30 | NUR ---
Patient discharged with v/s stable. Written and verbal after care instructions given and explained. Patient alert, oriented and verbalized understanding of instructions. Ambulatory with steady gait. All questions addressed prior to discharge. ID band removed. Patient advised to follow up with PMD. Rx of ACETAMINOPHEN-COD #3 given. Patient educated on indication of medication including possible reaction and side effects. Opportunity to ask questions provided and answered.
== END 2021-04-17 22:30 | disposition home or self-care (01) ==
LOC: MED 16:49
DX: N20.0 Calculus of kidney (principal); G89.29 Other chronic pain; M54.9 Dorsalgia, unspecified; J44.9 Chronic obstructive pulmonary disease, unspecified; I10 Essential (primary) hypertension; Z79.899 Other long term (current) drug therapy; Z79.82 Long term (current) use of aspirin; Z88.0 Allergy status to penicillin; Z88.2 Allergy status to sulfonamides; Z88.5 Allergy status to narcotic agent; Z88.8 Allergy status to other drugs, medicaments and biological substances
CPT/HCPCS: 36415; 74177; 80053; 81003; 83690; 85025; 96361; 96374; 99285; J1885; J7030; Q9967

== ENCOUNTER 2021-05-12 10:44 | Emergency (ER) | payer OTHER ==
[~2021-05-12] VITALS: Ht 154.9 cm; Wt 68.2 kg
[~2021-05-12 10:44] MED LIST changes: +ACET-6951 PO
[2021-05-12 10:53] VITALS: BP 173/120
--- NOTE | 2021-05-12 11:00 | NUR ---
PT AMB TO BED 8.
[2021-05-12 11:54] LABS: BASOPHILS % (AUTO) 0.4 % (0.0-2.0); EOSINOPHILS # (AUTO) 0.2 K/uL (0-0.4); EOSINOPHILS % (AUTO) 4.7 % (0.0-4.0); HEMATOCRIT 37.8 % (36-48); HEMOGLOBIN 12.5 g/dL (12.0-16.0); LYMPHOCYTES # (AUTO) 1.3 K/uL (2.5-16.5); LYMPHOCYTES % (AUTO) 29.1 % (20.5-51.1); MEAN CORPUSCULAR HEMOGLOBIN 29 pg (27-31); MEAN CORPUSCULAR HGB CONC 33 g/dL (33-37); MEAN CORPUSCULAR VOLUME 87.1 fL (80-94); MONOCYTES # (AUTO) 0.3 K/uL (0.8-1.0); MONOCYTES % (AUTO) 6.9 % (1.7-9.3); NEUTROPHILS # (AUTO) 2.7 K/uL (1.8-7.7); NEUTROPHILS % (AUTO) 58.9 % (42.2-75.2); PLATELET COUNT (AUTO) 200 K/uL (140-450); RED BLOOD CELL COUNT(AUTO) 4.34 MIL/uL (4.20-5.40); RED CELL DISTRIBUTION WIDTH 12.5 % (11.6-13.7); WHITE BLOOD COUNT (AUTO) 4.6 K/uL (4.8-10.8)
--- NOTE | 2021-05-12 11:54 | NUR ---
80 Y/O F BIB SELF FROM HOME, PT PRESENTS TO ED WITH EPIGASTRIC PAIN THAT RADIATES TO CHEST AND BACK 10/10 SHARP CONTINUOUS PAIN. ALSO C/O SOB AND NAUSEA. DENIES ANY COUGH, FEVER, VOMITING, DIARRHEA, CONSTIPATION, DYSURIA AND HEMATURIA. SKIN IS PINK/WARM/DRY; AAOX4 WITH EVEN AND STEADY GAIT; LUNGS CLEAR BL; HR EVEN AND REGULAR; PATIENT POSITIONED FOR COMFORT; HOB ELEVATED; BEDRAILS UP X2; BED DOWN. ER MD MADE AWARE OF PT STATUS. PMH: DIVERTICULITIS, COPD, HTN, AFIB MED: TYLENOL 500MG THIS AM NO RELIEF ALLERGY: PENICILLIN (RASH, SWELLING), MORPHINE ("MAKES MY HEART HURT")
[2021-05-12] MEDS ORDERED: fentaNYL citrate 0.05 MG/ML VIAL IM ONE (12:35)
[2021-05-12 12:45] LABS: ALBUMIN 3.5 g/dL (3.4-5.0); ANION GAP 11.3 (8-16); ASPARTATE AMINOTRANSFERASE 20 U/L (15-37); CARBON DIOXIDE 29.1 mmol/L (21-32); CHLORIDE 107 mmol/L (98-107); CREATININE 1.5 mg/dL (0.6-1.3); GLUCOSE 99 mg/dL (74-106); LIPASE 255 U/L (73-393); POTASSIUM 4.4 mmol/L (3.5-5.1); SODIUM SERUM 143 mmol/L (136-145); TOTAL BILIRUBIN 0.3 mg/dL (0.0-1.0); UREA NITROGEN, BLOOD 38 mg/dL (7-18)
--- NOTE | 2021-05-12 12:47 | NUR ---
PT SENT TO CT AAOX4 AT THIS TIME VIA BED
--- NOTE | 2021-05-12 12:56 | NUR ---
IM MEDS GIVEN-NADR AT THIS TIME
[2021-05-12] MEDS ORDERED: ONDANSETRON 4 MG ODT PO ONE (13:50)
[2021-05-12] MEDS ORDERED: ONDA8TAB87 PO (14:00)
[2021-05-12] MEDS ORDERED: ACET-8386 PO (14:00)
[2021-05-12 14:55] VITALS: BP 173/120
--- NOTE | 2021-05-12 14:56 | NUR ---
Patient discharged with v/s stable. Written and verbal after care instructions given and explained. Patient alert, oriented and verbalized understanding of instructions. Ambulatory with to car. All questions addressed prior to discharge. ID band removed. Patient advised to follow up with PMD. Rx of HYDROCODONE/ACETAMINOPHEN, ONDANSETRON given. Patient educated on indication of medication including possible reaction and side effects. Opportunity to ask questions provided and answered.
== END 2021-05-12 14:56 | disposition home or self-care (01) ==
LOC: MED 10:44
DX: R10.13 Epigastric pain (principal); J44.9 Chronic obstructive pulmonary disease, unspecified; I10 Essential (primary) hypertension; Z88.0 Allergy status to penicillin; Z88.2 Allergy status to sulfonamides; Z88.5 Allergy status to narcotic agent; Z88.8 Allergy status to other drugs, medicaments and biological substances; Z90.49 Acquired absence of other specified parts of digestive tract; Z79.899 Other long term (current) drug therapy; Z98.890 Other specified postprocedural states; Z90.710 Acquired absence of both cervix and uterus
CPT/HCPCS: 36415; 74176; 80053; 81002; 83690; 85025; 96372; 99284; J3010; Q0162

== ENCOUNTER 2021-06-13 03:15 | Observation (INO) | payer OTHER ==
[~2021-06-13] VITALS: Ht 154.9 cm; Wt 70.3 kg
[~2021-06-13 03:15] MED LIST changes: +ONDA8TAB87 PO
[2021-06-13 03:19] VITALS: BP 156/68
--- NOTE | 2021-06-13 03:23 | NUR ---
81 YO/F BIBA W C/O DULL CHEST PAIN 8/10 RADIATING TO NECK X5 HOURS INTEMITTENT, REPORTS PAIN BEGAN WHILE RESTING + NAUSEA +HTN. PT ALSO REPORTS SOB BUT RELATES IT TO WEARING HER HERNIA BELT, HAD HERNIA SURGERY 05/26/21. S1S2 PRESENT, SKIN WARM AND DRY, +2RADIAL AND PEDAL PULSES W CAP REFIL <3SEC, LUNG SOUNDS CLEAR THROUGHOUT W BREATHING EVEN AND UNLABORED, BOWEL SOUNDS PRESENT, UNABLE TO FULLY ASSESS ABDOMEN D/T HERNIA BELT. PT WAS GIVEN .4MG NITROGLYCERIN AND 325 ASA BY [facility] ON ROUTE, PATIENT REPORTS MILD RELIEF OF SYMPTOMS. VSS ON MONITOR. PATIENT LAYING IN BED LOCKED IN LOWEST POSITION W X1 SIDERAIL. PROVIDED PATIENT W BLANKET. NAD NOTED, WILL CONTINUE TO MONITOR. PMH:HTN, COPD, HLD, AFIB, HERNIA SURGERY ON 05/26/21 ALLERGIES: PENICILLIN, MORPHINE, BENADRYL, SULFA
--- NOTE | 2021-06-13 03:23 | NUR ---
PT MEHNAZ ALS. TAKEN TO BED 8
[2021-06-13] MEDS ORDERED: NITROGLYCERIN 2% 1 GM PKT TP ONE (03:40)
[2021-06-13] MEDS ORDERED: MORPHINE SULFATE 4 MG/ML SYR IVP ONE (03:40)
--- NOTE | 2021-06-13 03:59 | NUR ---
PATIENT AMBULATED TO BATHROOM W STEADY GAIT.
[2021-06-13] MEDS ORDERED: KETOROLAC 30 MG/ML VIAL IVP ONE (04:05)
[2021-06-13 04:10] LABS: BASOPHILS % (AUTO) 0.1 % (0.0-2.0); EOSINOPHILS # (AUTO) 0.3 K/uL (0-0.4); EOSINOPHILS % (AUTO) 6.1 % (0.0-4.0); HEMATOCRIT 37.3 % (36-48); HEMOGLOBIN 12.4 g/dL (12.0-16.0); LYMPHOCYTES # (AUTO) 1.6 K/uL (2.5-16.5); LYMPHOCYTES % (AUTO) 34.3 % (20.5-51.1); MEAN CORPUSCULAR HEMOGLOBIN 29 pg (27-31); MEAN CORPUSCULAR HGB CONC 33 g/dL (33-37); MEAN CORPUSCULAR VOLUME 85.8 fL (80-94); MONOCYTES # (AUTO) 0.3 K/uL (0.8-1.0); MONOCYTES % (AUTO) 6.7 % (1.7-9.3); NEUTROPHILS # (AUTO) 2.5 K/uL (1.8-7.7); NEUTROPHILS % (AUTO) 52.8 % (42.2-75.2); PLATELET COUNT (AUTO) 210 K/uL (140-450); RED BLOOD CELL COUNT(AUTO) 4.35 MIL/uL (4.20-5.40); RED CELL DISTRIBUTION WIDTH 12.3 % (11.6-13.7); WHITE BLOOD COUNT (AUTO) 4.7 K/uL (4.8-10.8)
--- NOTE | 2021-06-13 04:12 | NUR ---
PATIENT REFUSED TORADOL MEDICATION, REPORTS SHE HAS BEEN TOLD BY MD IN THE PAST THAT HER KIDNEYS DO NOT FUNCTION WELL ENOUGH FOR TORADOL. REPORTS FENTANYL WORKS. MARIANO MADE AWARE.
[2021-06-13] MEDS ORDERED: fentaNYL citrate 0.05 MG/ML VIAL IVP ONE (04:15)
[2021-06-13 04:17] LABS: ALBUMIN 3.6 g/dL (3.4-5.0); ANION GAP 11.2 (8-16); ASPARTATE AMINOTRANSFERASE 17 U/L (15-37); CARBON DIOXIDE 28.7 mmol/L (21-32); CHLORIDE 105 mmol/L (98-107); CREATININE 1.5 mg/dL (0.6-1.3); GLUCOSE 106 mg/dL (74-106); POTASSIUM 3.9 mmol/L (3.5-5.1); SODIUM SERUM 141 mmol/L (136-145); TOTAL BILIRUBIN 0.3 mg/dL (0.0-1.0); UREA NITROGEN, BLOOD 25 mg/dL (7-18)
[2021-06-13 04:19] LABS: CHOL/HDL RATIO 2.6 (1-4.5)
[2021-06-13] MEDS ORDERED: ONDANSETRON 4 MG/2 ML VIAL IVP ONE (04:20)
--- NOTE | 2021-06-13 04:48 | NUR ---
PATIENT REPORTS PAIN IMPROVEMENT AT THIS TIME.
[2021-06-13] MEDS ORDERED: ACETAMINOPHEN 325 MG TAB PO PRN (05:20)
[2021-06-13] MEDS ORDERED: POTASSIUM CHLORIDE 10 MEQ TABER PO PRN (05:20)
[2021-06-13] MEDS ORDERED: ONDANSETRON 4 MG/2 ML VIAL IVP PRN (05:20)
[2021-06-13] MEDS ORDERED: KCL 20 MEQ/WATER INJ PREMIX 200 ML IV PRN (05:20)
[2021-06-13] MEDS ORDERED: HYDROmorphone 1 MG/ML AMP IVP PRN (05:20)
[2021-06-13] MEDS ORDERED: MAGNESIUM OXIDE 400 MG TAB PO PRN (05:20)
[2021-06-13] MEDS ORDERED: MAG SULF 2000 MG/WATER PREMIX 50 ML IV PRN (05:20)
[2021-06-13] MEDS ORDERED: HYDROcodone/APAP 5/325 MG 1 TAB TAB PO PRN ×2 (05:20→14:50)
--- NOTE | 2021-06-13 05:35 | NUR ---
Pt report given to JOSH REGALADO. Transfer of care at this time.
--- NOTE | 2021-06-13 05:48 | NUR ---
Patient will be admitted to care of DR. MARIEE. Admited to TELEMETRY. Will go to room 121-B. Belongings list completed. Report to JOSH REGALADO.
[2021-06-13 08:00] VITALS: BP 125/74
--- NOTE | 2021-06-13 08:15 | NUR ---
RECEIVED REPORT FROM NIGHT NURSE PT IS ALERT ORIENTED X 4 VERBALLY RESPONSIVE, DENIES PAIN AND DISCOMFORT. ON SINUS RHYTHM. CARDIAC DIET. IV ACCESS ON L AC 20 GAUGE SALINE LOCK SKIN. PT VACCINATED FOR COVID. POC DISCUSSED WILL CONTINUE TO MONITOR.
[2021-06-13] MEDS: NIFEdipine 30 MG TABER PO SCH (08:39)
[2021-06-13] MEDS ORDERED: NON-FORMULARY ITEM (Fenofibrate 1 TAB) PO SCH (09:00)
[2021-06-13] MEDS ORDERED: APIXABAN 2.5 MG TAB PO SCH (09:00)
[2021-06-13] MEDS ORDERED: ASPIRIN 81 MG TAB.CHEW PO SCH (09:00)
[2021-06-13 12:00] VITALS: BP 127/53
[2021-06-13] MEDS ORDERED: traMADol 50 MG TAB PO PRN (14:50)
[2021-06-13] MEDS: SENNA 8.6 MG TAB PO SCH (17:29)
[2021-06-13 18:08] VITALS: BP 122/58
--- NOTE | 2021-06-13 19:13 | NUR ---
ENDORSED NIGHT NURSE FOR CONTINUITY OF CARE PT IS STABLE.
--- NOTE | 2021-06-13 19:14 | NUR ---
RECEIVED PATIENT ENDORSEMENT FROM AM SHIFT RN. PT IS A&O X4, AMBULATORY, SAFETY MEASURES IN PLACE, CALL LIGHT WITHIN REACH, SALINE LOCK, LAC 20G, SKIN INTACT, ON ROOM AIR, PT STABLE. WILL CONTINUE TO MONITOR.
[2021-06-13] MEDS: LACTULOSE 20 GM/30 ML UDC PO SCH (20:48)
[2021-06-13] MEDS: AMITRIPTYLINE 25 MG TAB PO SCH (20:48)
--- NOTE | 2021-06-13 20:48 | NUR ---
ADMINISTERED SCHEDULED MEDS. PROVIDED MEDICATION EDUCATION, PT VERBALIZES UNDERSTANDING, PT STABLE. WILL CONTINUE TO MONITOR.
--- NOTE | 2021-06-13 22:00 | NUR ---
PT STATED PAIN. GIVEN NORCO PER DR'S MEDICATION ORDERS. PT STABLE. WILL CONTINUE TO MONITOR.
--- NOTE | 2021-06-13 23:15 | NUR ---
PT IS ASLEEP, NO SIGNS OF DISTRESS, SAFETY MEASURES IN PLACE, STABLE, WILL CONTINUE TO MONITOR.
[2021-06-14] VITALS: BP 95/32
[2021-06-14 04:00] VITALS: BP 103/34
[2021-06-14 05:54] LABS: ANION GAP 12.5 (8-16); CARBON DIOXIDE 25.8 mmol/L (21-32); CHLORIDE 108 mmol/L (98-107); CREATININE 1.8 mg/dL (0.6-1.3); GLUCOSE 91 mg/dL (74-106); POTASSIUM 4.3 mmol/L (3.5-5.1); SODIUM SERUM 142 mmol/L (136-145); UREA NITROGEN, BLOOD 39 mg/dL (7-18)
[2021-06-14 06:21] LABS: BASOPHILS % (AUTO) 0.3 % (0.0-2.0); EOSINOPHILS # (AUTO) 0.2 K/uL (0-0.4); EOSINOPHILS % (AUTO) 5.9 % (0.0-4.0); HEMATOCRIT 32.8 % (36-48); LYMPHOCYTES # (AUTO) 1.5 K/uL (2.5-16.5); LYMPHOCYTES % (AUTO) 37.3 % (20.5-51.1); MEAN CORPUSCULAR HEMOGLOBIN 29 pg (27-31); MEAN CORPUSCULAR HGB CONC 34 g/dL (33-37); MEAN CORPUSCULAR VOLUME 87.6 fL (80-94); MONOCYTES # (AUTO) 0.3 K/uL (0.8-1.0); MONOCYTES % (AUTO) 6.5 % (1.7-9.3); PLATELET COUNT (AUTO) 203 K/uL (140-450); RED BLOOD CELL COUNT(AUTO) 3.75 MIL/uL (4.20-5.40); RED CELL DISTRIBUTION WIDTH 12.1 % (11.6-13.7); WHITE BLOOD COUNT (AUTO) 4.1 K/uL (4.8-10.8)
--- NOTE | 2021-06-14 06:26 | NUR ---
PATIENT HAS BEEN SCREENED AND CATEGORIZED MODERATE NUTRITION RISK. PATIENT WILL BE SEEN WITHIN 3-5 DAYS OF ADMISSION. 06/15/21 06/17/[address]
--- NOTE | 2021-06-14 07:29 | NUR ---
PASSED ON BEDSIDE REPORT TO AM SHIFT RN. PT STABLE.
--- NOTE | 2021-06-14 07:30 | NUR ---
RECEIVED REPORT FROM DENTAL PROFESSIONAL. PT RESTING IN BED, AWAKE, AXO4. RESPIRATION EVEN AND UNLABORED, NO C/O PAIN. IV SALINE LOCK AT THE LEFT AC, PATENT AND INTACT. NPO FOR EGD TODAY WITH DR MON[place]. INDEPENDENT AND AMBULATORY, B/B CONTINENT. POC DISCUSSED. CALL LIGHT WITHIN REACH. WILL CONTINUE TO MONITOR
[2021-06-14 08:00] VITALS: BP 108/44
--- NOTE | 2021-06-14 08:50 | NUR ---
PT REFUSED LAXATIVES, VERBALIZED THAT SHE HAD MULTIPLE BOWEL MOVEMENTS LAST NIGHT
[2021-06-14] MEDS: FENOFIBRATE 48 MG TAB PO SCH (08:53)
[2021-06-14] MEDS: SENNA 8.6 MG TAB PO SCH ×3 (08:53→16:53)
[2021-06-14] MEDS: NIFEdipine 30 MG TABER PO SCH (08:53)
[2021-06-14] MEDS: LACTULOSE 20 GM/30 ML UDC PO SCH ×2 (08:53→20:51)
--- NOTE | 2021-06-14 11:20 | NUR ---
PT RESTING IN BED, NO C/O PAIN, NO SOB ON RA
[2021-06-14 12:00] VITALS: BP 114/64
--- NOTE | 2021-06-14 12:00 | NUR ---
PT OFF UNIT TO OR FOR EGD
[2021-06-14] MEDS ORDERED: diphenhydrAMINE 50 MG/ML VIAL ONE (13:29)
[2021-06-14] MEDS ORDERED: fentaNYL citrate 0.05 MG/ML VIAL ONE (13:30)
[2021-06-14] MEDS ORDERED: MIDAZOLAM 5 MG/5 ML VIAL ONE (13:30)
--- NOTE | 2021-06-14 14:15 | NUR ---
PT BACK TO UNIT FROM OR FOR EGD. RESULTS INCLUDE DUODENITIS WITH EROSIONS
[2021-06-14] MEDS ORDERED: MAGNESIUM CITRATE 300 ML BTL PO SCH (14:30)
[2021-06-14 16:00] VITALS: BP 139/68
[2021-06-14] MEDS ORDERED: fentaNYL citrate 0.05 MG/ML VIAL IVP ONE (16:05)
[2021-06-14] MEDS ORDERED: MIDAZOLAM 2 MG/2 ML VIAL IVP ONE (16:05)
--- NOTE | 2021-06-14 16:30 | NUR ---
PT AWAKE IN BED. ANSWERED PT'S QUESTIONS ABOUT RESULT OF EGD
[2021-06-14] MEDS ORDERED: MAGNESIUM CITRATE 300 ML BTL ONE (16:39)
[2021-06-14] MEDS: SUCRALFATE 1 GM TAB PO SCH (16:53)
--- NOTE | 2021-06-14 18:39 | NUR ---
PT IN BED. NO C/O PAIN, NO RESPIRATORY DISTRESS
--- NOTE | 2021-06-14 19:20 | NUR ---
RECEIVED BEDSIDE REPORT FROM AM SHIFT NURSE. PT IS A&OX4, AMBULATORY. ON RA. SALINE LOCK ON LEFT AC 20 GAUGE. SKIN IS INTACT DESPITE VENTRAL HERNIA REPAIR. PT HAS ABDOMINAL DRESSING. SAFETY MEASURES IN PLACE. CALL LIGHT WITHIN REACH. PT IS STABLE. WILL CONTINUE TO MONITOR.
[2021-06-14 20:00] VITALS: BP 99/38
[2021-06-14] MEDS: AMITRIPTYLINE 25 MG TAB PO SCH (20:51)
[2021-06-14] MEDS: FAMOTIDINE 20 MG TAB PO SCH (20:51)
--- NOTE | 2021-06-14 20:52 | NUR ---
ADMINISTERED MEDS. PROVIDED EDUCATION AND PT VERBALIZED UNDERSTANDING. PT REFUSED LACTULOSE. ALL SAFETY MEASURES IN PLACE. WILL CONTINUE TO MONITOR.
--- NOTE | 2021-06-14 22:52 | NUR ---
GAVE PT PAIN MEDS FOR ABDOMINAL PAIN WITH PAIN SCALE OF 8/10. PROVIDED EDUCATION AND PT VERBALIZED UNDERSTANDING. WILL CONTINUE TO MONITOR.
[2021-06-15] VITALS: BP 100/41
--- NOTE | 2021-06-15 01:20 | NUR ---
PT IS ASLEEP, NO SIGNS OF DISTRESS. SAFETY MEASURES IN PLACE. OBSERVATION OF SYMMETRICAL CHEST RISE AND FALL. PT IS STABLE. WILL CONTINUE TO MONITOR.
--- NOTE | 2021-06-15 03:30 | NUR ---
PT AMBULATED TO THE BATHROOM. WENT BACK INTO BED. ASK PT IF SHE NEED ASSISTANCE WITH ANYTHING AND SHE SAYS NO. PT IS NOT IN ANY SIGNS OF DISTRESS. PT IS STABLE. WILL CONTINUE TO MONITOR.
[2021-06-15 04:00] VITALS: BP 117/31
--- NOTE | 2021-06-15 05:40 | NUR ---
MADE ROUNDS ON PT,SHE IS SLEEPING. NO SIGNS OF ANY DISTRESS. CALL LIGHT WITHIN REACH. ALL SAFETY PRECAUTIONS IN PLACE.
[2021-06-15 06:30] LABS: BASOPHILS % (AUTO) 0.5 % (0.0-2.0); EOSINOPHILS # (AUTO) 0.3 K/uL (0-0.4); EOSINOPHILS % (AUTO) 5.6 % (0.0-4.0); HEMATOCRIT 34.2 % (36-48); HEMOGLOBIN 11.2 g/dL (12.0-16.0); LYMPHOCYTES # (AUTO) 1.4 K/uL (2.5-16.5); MEAN CORPUSCULAR HEMOGLOBIN 28 pg (27-31); MEAN CORPUSCULAR HGB CONC 33 g/dL (33-37); MEAN CORPUSCULAR VOLUME 86.9 fL (80-94); MONOCYTES # (AUTO) 0.3 K/uL (0.8-1.0); MONOCYTES % (AUTO) 6.1 % (1.7-9.3); NEUTROPHILS % (AUTO) 59.8 % (42.2-75.2); PLATELET COUNT (AUTO) 194 K/uL (140-450); RED BLOOD CELL COUNT(AUTO) 3.94 MIL/uL (4.20-5.40); RED CELL DISTRIBUTION WIDTH 12.5 % (11.6-13.7); WHITE BLOOD COUNT (AUTO) 5.1 K/uL (4.8-10.8)
[2021-06-15 06:32] LABS: ANION GAP 13.7 (8-16); CARBON DIOXIDE 24.7 mmol/L (21-32); CHLORIDE 109 mmol/L (98-107); CREATININE 1.5 mg/dL (0.6-1.3); GLUCOSE 89 mg/dL (74-106); POTASSIUM 4.4 mmol/L (3.5-5.1); SODIUM SERUM 143 mmol/L (136-145); UREA NITROGEN, BLOOD 38 mg/dL (7-18)
[2021-06-15] MEDS: SUCRALFATE 1 GM TAB PO SCH (06:55)
--- NOTE | 2021-06-15 07:25 | NUR ---
ENDORSED PT TO AM SHIFT NURSE, FOR CONTINUITY OF CARE. PT IS STABLE.
[2021-06-15 08:00] VITALS: BP 128/57
[2021-06-15] MEDS: LACTULOSE 20 GM/30 ML UDC PO SCH (09:00)
[2021-06-15] MEDS: SENNA 8.6 MG TAB PO SCH (09:00)
[2021-06-15] MEDS: FENOFIBRATE 48 MG TAB PO SCH (09:47)
[2021-06-15] MEDS: FAMOTIDINE 20 MG TAB PO SCH (09:48)
[2021-06-15] MEDS: NIFEdipine 30 MG TABER PO SCH (09:48)
--- NOTE | 2021-06-15 10:39 | NUR ---
DC PLANNING: CM SPOKE WITH THE PATIENTS GRANDWENDY CENTENO BY PHONE REGARDING DC PLANNING. CONFIRMED THE PATIENTS ADDRESS AND PHONE NUMBER PER THE FACE SHEET, THE PATIENT LIVES IN A GROUND FLOOR APARTMENT WITH HER GRANDDAUGHTER AND 2 GREAT GRANDCHILDREN. THE PATIENT IS INDEPENDENT WITH AMBULATION AND ADLS AND HAS NO H/O HOME HEALTH OR DME USE. SHE DOES TELEHEALTH VISITS WITH HER PCP DR DIAL REGULARLY, AND HAS NO ISSUES WITH MENTATION OR MEMORY. DC PLAN IS FOR HER TO RETURN HOME WITH HER FAMILY WITH GI FOLLOW UP AND MEDICATIONS PER GI RECOMMENDATION REGARDING EGD FINDINGS OF EROSIVE GASTRITIS. CM WILL FOLLOW FOR NEEDS.
[2021-06-15] MEDS ORDERED: LACTULOSE 20 GM/30 ML UDC PO SCH (10:55)
[2021-06-15 12:00] VITALS: BP 134/35
[2021-06-15] MEDS ORDERED: PANT40EC PO (13:19)
[2021-06-15 13:42] VITALS: BP 134/35
--- NOTE | 2021-06-15 15:05 | NUR ---
0715 AM: PATIENT IS RESTING IN BED QUIETLY. NO ADDITIONAL DISTRESS NOTED. CALL LIGHT WITHIN REACH. BED IN LOW ANDS LOCK POSITION. PATIENT IS AAOX4 ABLE TO MAKE NEEDS KNOWN. STABLE CONDITION AT THIS TIME. AMBULATE INDEPENDENTLY. WILL CONT TO MONITOR. 0800 AM: EXPLAINED PLAN OF CARE AND PATIENT VERBALIZED UNDERSTANDING. ABLE TO SELF TURN IN BED. WILL CONT TO MONITOR. 1000 MA: PATIENT IN THE BATHROOM DOING HER HYGIENE. WILL CONT TO MONITOR. 1200PM: PATIENT IS SITTING AT THE SIDE OF THE BED EATING HER LUNCH. STABLE CONDITION AT THIS TIME. 1400: PATIENT IS RESTING IN BED AND MADE AWARE OF DC HOME TODAY PER DR. MARIEE. PER PATIENT HER GRANDDAUGHTER WILL PICK HER UP. 1435: EXPLAINED AND GAVE DC INSTRUCTIONS, ER PRECAUTION, AND PRESCRIPTION (COPY IN THE CHART). PATIENT VERBALIZED UNDERSTANDING. GRANDDAUGHTER WILL BE HERE AT 3PM AFTER SHE PICKED UP HER SON FROM SCHOOL. WILL CONT TO MONITOR. 1500: IV REMOVED FROM THE LEFT AC. IV CATH INTACT WHEN REMOVED. NO BLEEDING NOTED. COVER SITE WITH GAUZE AND SECURE WITH TAPE. 1505: PATIENT REFUSED WC. PATIENT AMBULATED (STEADY GAIT) ACCOMPANIED BY PRIMARY NURSE. ALL PERSONAL BELONGINGS TAKEN BY PATIENT AND STATED NO MISSING ITEMS. LEFT THE FACILITY IN A STABLE CONDITION. NO ADDITIONAL DISTRESS NOTED. PICKED UP BY GRANDDAUGHTER. I&0 ATE 100% DURING BREAKFAST AND LUNCH. TOTAL PO INTAKE FLUIDS 560ML. 2X LOOSE MODERATE STOOLS BROWN IN COLOR. URINE OUTPUT X3.
[2021-06-15] MEDS ORDERED: AMITRIPTYLINE 10 MG TAB PO SCH (21:00)
== END 2021-06-15 15:00 | disposition home or self-care (01) ==
LOC: MED 03:15 → MTU 05:24
PROVIDERS: ADMIT Internal Medicine; ATTEND Internal Medicine
DX: K29.70 Gastritis, unspecified, without bleeding (principal); K25.9 Gastric ulcer, unspecified as acute or chronic, without hemorrhage or perforation; R07.89 Other chest pain; K26.9 Duodenal ulcer, unspecified as acute or chronic, without hemorrhage or perforation; I20.9 Angina pectoris, unspecified; I48.0 Paroxysmal atrial fibrillation; I11.0 Hypertensive heart disease with heart failure; I50.32 Chronic diastolic (congestive) heart failure; K21.9 Gastro-esophageal reflux disease without esophagitis; J44.9 Chronic obstructive pulmonary disease, unspecified; E78.5 Hyperlipidemia, unspecified; I35.8 Other nonrheumatic aortic valve disorders; M81.0 Age-related osteoporosis without current pathological fracture; M48.55XA Collapsed vertebra, not elsewhere classified, thoracolumbar region, initial encounter for fracture; I27.20 Pulmonary hypertension, unspecified; Z88.0 Allergy status to penicillin; Z79.899 Other long term (current) drug therapy; Z87.891 Personal history of nicotine dependence; Z90.710 Acquired absence of both cervix and uterus
CPT/HCPCS: 36415; 43239; 71045; 74018; 76705; 80048; 80053; 80061; 83880; 84484; 85025; 85379; 86677; 87081; 88305; 88312; 88313; 88342; 93005; 96374; 96375; 99291; G0378; J2250; J2405; J3010; J7030; Q0092; J1200; J1885

== ENCOUNTER 2021-09-27 11:32 | Emergency (ER) | payer OTHER ==
[~2021-09-27] VITALS: Ht 151.1 cm; Wt 69.9 kg
[~2021-09-27 11:32] MED LIST changes: -ACET-6951 PO; -ACET-9527 PO; -ASPI81CT95 PO; -MIRABULK PO; -VIB100 PO
[2021-09-27 11:57] VITALS: BP 156/57
--- NOTE | 2021-09-27 12:13 | NUR ---
novel swabbed at this time. ekg done at this time. informed md glover of findings at this time. ermd with pt in triage for assessment
[2021-09-27 12:36] LABS: BASOPHILS % (AUTO) 0.3 % (0.0-2.0); EOSINOPHILS # (AUTO) 0.2 K/uL (0-0.4); EOSINOPHILS % (AUTO) 3.2 % (0.0-4.0); HEMATOCRIT 41.6 % (36-48); HEMOGLOBIN 14.1 g/dL (12.0-16.0); LYMPHOCYTES # (AUTO) 1.7 K/uL (2.5-16.5); LYMPHOCYTES % (AUTO) 27.5 % (20.5-51.1); MEAN CORPUSCULAR HEMOGLOBIN 28 pg (27-31); MEAN CORPUSCULAR HGB CONC 34 g/dL (33-37); MEAN CORPUSCULAR VOLUME 83.8 fL (80-94); MONOCYTES # (AUTO) 0.3 K/uL (0.8-1.0); NEUTROPHILS # (AUTO) 3.9 K/uL (1.8-7.7); PLATELET COUNT (AUTO) 237 K/uL (140-450); RED BLOOD CELL COUNT(AUTO) 4.97 MIL/uL (4.20-5.40); RED CELL DISTRIBUTION WIDTH 12.8 % (11.6-13.7)
[2021-09-27 14:17] LABS: ALBUMIN 3.8 g/dL (3.4-5.0); ANION GAP 13.2 (8-16); ASPARTATE AMINOTRANSFERASE 43 U/L (15-37); CARBON DIOXIDE 27.6 mmol/L (21-32); CHLORIDE 104 mmol/L (98-107); CREATININE 1.2 mg/dL (0.6-1.3); GLUCOSE 103 mg/dL (74-106); POTASSIUM 4.8 mmol/L (3.5-5.1); SODIUM SERUM 140 mmol/L (136-145); TOTAL BILIRUBIN 0.3 mg/dL (0.0-1.0); UREA NITROGEN, BLOOD 26 mg/dL (7-18)
[2021-09-27 18:58] VITALS: BP 156/57
--- NOTE | 2021-09-27 18:58 | NUR ---
pt left without paperwork at this time
== END 2021-09-27 18:58 | disposition home or self-care (01) ==
LOC: MED 11:32
DX: R07.89 Other chest pain (principal); Z20.822 Contact with and (suspected) exposure to COVID-19; J44.9 Chronic obstructive pulmonary disease, unspecified; I10 Essential (primary) hypertension; Z90.49 Acquired absence of other specified parts of digestive tract; Z90.710 Acquired absence of both cervix and uterus; Z79.899 Other long term (current) drug therapy; Z88.0 Allergy status to penicillin; Z88.2 Allergy status to sulfonamides; Z88.5 Allergy status to narcotic agent; Z88.8 Allergy status to other drugs, medicaments and biological substances
CPT/HCPCS: 36415; 71045; 80053; 84484; 85025; 93005; 99285; U0003

== ENCOUNTER 2021-12-25 11:27 | Observation (INO) | payer OTHER ==
[~2021-12-25] VITALS: Ht 154.9 cm; Wt 69.9 kg
[2021-12-25 11:44] VITALS: BP 118/83
--- NOTE | 2021-12-25 12:25 | NUR ---
81 Y/O FEMALE STATES SHE HAS PALPITATIONS AND HAS PAIN WHEN URINATING WITH FREQUENT URGE TO URINATE. PATIENT IS CURRENTLY ON PLAVIX FOR HISTORY OF AFIB.
[2021-12-25 12:36] LABS: BASOPHILS % (AUTO) 0.5 % (0.0-2.0); EOSINOPHILS # (AUTO) 0.2 K/uL (0-0.4); EOSINOPHILS % (AUTO) 4.4 % (0.0-4.0); HEMATOCRIT 39.8 % (36-48); HEMOGLOBIN 13.1 g/dL (12.0-16.0); LYMPHOCYTES # (AUTO) 1.5 K/uL (2.5-16.5); LYMPHOCYTES % (AUTO) 27.6 % (20.5-51.1); MEAN CORPUSCULAR HEMOGLOBIN 28 pg (27-31); MEAN CORPUSCULAR HGB CONC 33 g/dL (33-37); MEAN CORPUSCULAR VOLUME 84.8 fL (80-94); MONOCYTES # (AUTO) 0.3 K/uL (0.8-1.0); MONOCYTES % (AUTO) 6.4 % (1.7-9.3); NEUTROPHILS # (AUTO) 3.2 K/uL (1.8-7.7); NEUTROPHILS % (AUTO) 61.1 % (42.2-75.2); PLATELET COUNT (AUTO) 232 K/uL (140-450); RED CELL DISTRIBUTION WIDTH 12.6 % (11.6-13.7); WHITE BLOOD COUNT (AUTO) 5.3 K/uL (4.8-10.8)
[2021-12-25 12:53] LABS: APPEARANCE,URINE SL CLOUDY (CLEAR); BILIRUBIN,URINE NEGATIVE (NEGATIVE); BLOOD, URINE 1+ (NEGATIVE); COLOR,URINE YELLOW (YELLOW); LEUKOCYTE ESTERASE ,URINE NEGATIVE (NEGATIVE); NITRITE, URINE NEGATIVE (NEGATIVE); UGLUCOSE NEGATIVE (NEGATIVE)
[2021-12-25 13:10] LABS: RBC,URINE 0-5 /HPF (0-5); WBC,URINE 0-5 /HPF (0-5)
[2021-12-25 13:11] LABS: CALCIUM OXALATE CRYSTALS,UR None Seen /HPF (None Seen); OTHER CRYSTALS,URINE None Seen /HPF (None Seen); TRICHOMONAS,URINE None Seen /HPF (None Seen); TRIPLE PHOSPHATE CRYSTAL,UR None Seen /HPF (None Seen); URIC ACID CRYSTALS,URINE None Seen /HPF (None Seen); YEAST,URINE Rare /HPF (None Seen)
[2021-12-25 13:12] LABS: COARSE GRANULAR CASTS,URINE None Seen /LPF (None Seen); FINE GRANULAR CASTS,URINE None Seen /LPF (None Seen); HYALINE CASTS, URINE None Seen /LPF (None Seen); OTHER CASTS, URINE None Seen /LPF (None Seen); RED BLOOD CELL CASTS,URINE None Seen /LPF (None Seen); URINE AMORPHOUS URATE None Seen /HPF (None Seen); WAXY CASTS,URINE None Seen /LPF (None Seen)
[2021-12-25 13:17] LABS: ALBUMIN 3.3 g/dL (3.4-5.0); ANION GAP 10.3 (8-16); ASPARTATE AMINOTRANSFERASE 19 U/L (15-37); CARBON DIOXIDE 28.8 mmol/L (21-32); CHLORIDE 105 mmol/L (98-107); CREATININE 1.2 mg/dL (0.6-1.3); GLUCOSE 88 mg/dL (74-106); POTASSIUM 4.1 mmol/L (3.5-5.1); SODIUM SERUM 140 mmol/L (136-145); TOTAL BILIRUBIN 0.4 mg/dL (0.0-1.0); UREA NITROGEN, BLOOD 25 mg/dL (7-18)
--- NOTE | 2021-12-25 13:26 | NUR ---
INFORMED DR POND ABOUT BLOOD PRESSURE 103/44 LOW DIASTOLIC PRESSURE NO ORDERS RECIEVED
[2021-12-25 13:47] LABS: THYROID STIMULATING HORMONE 0.57 uIU/mL (0.34-3.74)
--- NOTE | 2021-12-25 13:58 | NUR ---
TARIK SWANN SWABBED FOR COVID. SPECIMEN WALKED TO LAB, HANDED TO DIALLO
--- NOTE | 2021-12-25 14:00 | NUR ---
Pt provided with apple juice.
[2021-12-25] MEDS ORDERED: ATOR10TA PO (16:41)
[2021-12-25] MEDS ORDERED: [UNRECOGNIZED DRUG - CODE] PO (16:41)
[2021-12-25] MEDS ORDERED: APIX2.5 PO (16:41)
[2021-12-25] MEDS: NACL 0.9% 1,000 ML IV SCH (16:55)
[2021-12-25] MEDS ORDERED: LORazepam 1 MG TAB PO PRN (16:55)
[2021-12-25] MEDS ORDERED: MORPHINE SULFATE 4 MG/ML SYR IVP PRN (16:55)
[2021-12-25] MEDS ORDERED: ACETAMINOPHEN 325 MG TAB PO PRN (16:55)
[2021-12-25] MEDS ORDERED: ONDANSETRON 4 MG/2 ML VIAL IVP PRN (16:55)
[2021-12-25] MEDS ORDERED: POTASSIUM CHLORIDE 10 MEQ TABER PO PRN (16:55)
[2021-12-25] MEDS ORDERED: HYDROcodone/APAP 5/325 MG 1 TAB TAB PO PRN (17:00)
--- NOTE | 2021-12-25 17:34 | NUR ---
Patient will be admitted to care of . Admited to TELE. Will go to room 110A. Belongings list completed. Report to JEFFREY DEE.
--- NOTE | 2021-12-25 17:35 | NUR ---
PT ARRIVED ONTO UNIT FROM ER. ARRIVED VIA GURNEY, ACCOMPANIED BY ER NURSE AND TRANSPORTER. PT IS AWAKE, ALERT, AND COOPERATIVE. ABLE TO VERBALIZE NEEDS TO STAFF. RESPIRATIONS ARE EVEN AND UNLABORED ON ROOM AIR. PT IS ON CARDIAC MONITORING. PT IS ON CARDIAC DIET, ABD IS NONTENDER, NONDISTENDED WITH BOWEL SOUNDS PRESENT. PT IS CONTINENT OF BOWEL AND BLADDER. ABLE TO AMBULATE TO REST PARAMJIT INDEPENDENTLY. SKIN IS WARM, DRY, AND INTACT. NO IV ACCESS AT THIS TIME. PER ED NURSE, PT DID NOT HAVE AN ORDER FOR AN IV SO ONE WAS NOT PLACED. THIS NURSE WILL ATTEMPT IV ACCESS. MRSA SCREEN DONE. VITALS TAKEN. ORIENTED PT TO CALL LIGHT AND HOSPITAL POLICY. ALL SAFETY MEASURES IN PLACE. CALL LIGHT WITHIN REACH. WILL CONTINUE TO MONITOR.
--- NOTE | 2021-12-25 17:49 | NUR ---
IV PLACED, R WRIST, 24G. WILL CONTINUE TO MONITOR.
[2021-12-25] MEDS: HYDROcodone/APAP 5/325 MG 1 TAB TAB PO PRN (18:40)
--- NOTE | 2021-12-25 19:40 | NUR ---
ENDORSED PT TO ENGINEERING TECH NURSE FOR CONTINUITY OF CARE. PT IS STABLE.
--- NOTE | 2021-12-25 20:00 | NUR ---
RECEIVED REPORT FROM MORNING NURSE , PATIENT IS LYING ON BED , PATIENT IS ALERT AND ORIENTED X4, NO ANY COMPLAIN OF PAIN OR SOB NOTED AT THIS TIME.VITAL SIGN IS WITHIN THE RANGE, CALL LIGHT IS WITHIN THE REACH ,WILL CONTINUE TO MONITOR.
[2021-12-25] MEDS: APIXABAN 2.5 MG TAB PO SCH (20:52)
[2021-12-26] VITALS: BP 110/51
--- NOTE | 2021-12-26 | NUR ---
PATIENT IS LYING ON BED, NO ANY COMPLAIN OF PAIN OR SOB NOTED AT THIS TIME, VITAL SIGN IS WITHIN THE NORMAL RANGE ,ALL DUE MEDS MILLIE GIVEN PER DR ORDER,CALL LIGHT IS WITHIN THE REACH ,WILL CONTINUE TO MONITOR .
[2021-12-26 04:00] VITALS: BP 124/51
--- NOTE | 2021-12-26 04:00 | NUR ---
PATIENT IS LYING ON BED, NO ANY COMPLAIN OF PAIN OR SOB NOTED AT THIS TIME, VITAL SIGN IS WITHIN THE NORMAL RANGE ,CALL LIGHT IS WITHIN THE REACH ,WILL CONTINUE TO MONITOR
[2021-12-26] MEDS: NACL 0.9% 1,000 ML IV SCH (06:13)
[2021-12-26 07:01] LABS: BASOPHILS % (AUTO) 0.4 % (0.0-2.0); EOSINOPHILS # (AUTO) 0.2 K/uL (0-0.4); EOSINOPHILS % (AUTO) 4.8 % (0.0-4.0); HEMATOCRIT 34.5 % (36-48); HEMOGLOBIN 11.5 g/dL (12.0-16.0); LYMPHOCYTES # (AUTO) 1.9 K/uL (2.5-16.5); LYMPHOCYTES % (AUTO) 37.2 % (20.5-51.1); MEAN CORPUSCULAR HEMOGLOBIN 28 pg (27-31); MEAN CORPUSCULAR HGB CONC 33 g/dL (33-37); MEAN CORPUSCULAR VOLUME 84.4 fL (80-94); MONOCYTES # (AUTO) 0.4 K/uL (0.8-1.0); MONOCYTES % (AUTO) 6.9 % (1.7-9.3); NEUTROPHILS # (AUTO) 2.6 K/uL (1.8-7.7); NEUTROPHILS % (AUTO) 50.7 % (42.2-75.2); PLATELET COUNT (AUTO) 167 K/uL (140-450); RED BLOOD CELL COUNT(AUTO) 4.09 MIL/uL (4.20-5.40); RED CELL DISTRIBUTION WIDTH 12.7 % (11.6-13.7); WHITE BLOOD COUNT (AUTO) 5.2 K/uL (4.8-10.8)
[2021-12-26 07:12] LABS: ANION GAP 7.7 (8-16); CARBON DIOXIDE 28.1 mmol/L (21-32); CHLORIDE 108 mmol/L (98-107); CREATININE 1.1 mg/dL (0.6-1.3); GLUCOSE 89 mg/dL (74-106); POTASSIUM 3.8 mmol/L (3.5-5.1); SODIUM SERUM 140 mmol/L (136-145); UREA NITROGEN, BLOOD 25 mg/dL (7-18)
--- NOTE | 2021-12-26 07:13 | NUR ---
GAVE REPORT TO MORNING NURSE, PATIENT IS STABLE.
--- NOTE | 2021-12-26 07:14 | NUR ---
RECEIVED REPORT FROM MARKETING/SALES PERSON NURSE FOR CONTINUITY OF CARE. PATIENT ASLEEP NO DISTRESS NOTED. IV SITE ON RIGHT RISK FINESSE 24 INFUSING 80ML/HOUR OF NS. ALL SAFETY MEASURE IN PLACE.
[2021-12-26 08:00] VITALS: BP 141/69
[2021-12-26] MEDS ORDERED: ATORVASTATIN 20 MG TAB PO SCH (09:00)
[2021-12-26] MEDS ORDERED: NIFEdipine 30 MG TABER PO SCH (09:00)
[2021-12-26] MEDS ORDERED: PANTOPRAZOLE 40 MG TABEC PO SCH (09:00)
[2021-12-26] MEDS: APIXABAN 2.5 MG TAB PO SCH (09:05)
[2021-12-26] MEDS: HYDROcodone/APAP 5/325 MG 1 TAB TAB PO PRN (09:13)
--- NOTE | 2021-12-26 09:15 | NUR ---
ADMINISTERED ALL SCHEDULED MORNING MEDS. PT COMPLAINT OF PAIN 6/10 ON HER ABDOMEN. ADMINISTERED PRN MEDS ORDERED. EDUCATED ABOUT MEDS GIVEN. PT VERBALIZED UNDERSTANDING. CALL LIGHT WITHIN REACH. SAFETY PRECAUTIONS IN PLACE. WILL CONTINUE TO MONITOR.
--- NOTE | 2021-12-26 09:57 | NUR ---
PATIENT HAS BEEN SCREENED AND CATEGORIZED LOW NUTRITION RISK. PATIENT WILL BE SEEN WITHIN 7 DAYS OF ADMISSION. 01/01/[address]
--- NOTE | 2021-12-26 10:40 | NUR ---
DID PT ROUNDS. PT IN BED, WATCHING TV. RESPIRATIONS EVEN AND UNLABORED AT ROOM AIR. NO SIGNS OF DISTRESS NOTED. DENIES PAIN. CALL LIGHT WITHIN REACH. SAFETY PRECAUTIONS IN PLACE.
--- NOTE | 2021-12-26 11:42 | NUR ---
DR XAVIER AT BEDSIDE DISCUSSING ABOUT PLAN OF CARE.
[2021-12-26] MEDS ORDERED: MELO7.5T11 PO (11:59)
[2021-12-26 12:00] VITALS: BP 125/66
--- NOTE | 2021-12-26 12:15 | NUR ---
PT SITTING AT BED SIDE, EATING. NO DISTRESS NOTED. DENIES PAIN. INFORMED PT ABOUT THE DISCHARGE ORDER. SAID THAT HER DAUGHTER WILL BE THE ONE TO PICK HER UP, THAT SHE WILL GIVE HER A CALL ONCE EVERYTHING IS READY.
[2021-12-26 12:22] VITALS: BP 125/66
--- NOTE | 2021-12-26 13:20 | NUR ---
DISCHARGE ORDER DISCUSSED WITH THE PT. PT ASKED QUESTIONS. VERBALIZED UNDERSTANDING. PT IS GETTING READY TO GO HOME. AWAITING FOR TRANSPORTATION. PT IS STABLE. NO SIGNS OF DISTRESS NOTED.
--- NOTE | 2021-12-26 14:57 | NUR ---
PT DC HOME. REMOVED IV CATHETER INTACT. REMOVED NAME BAND. ALL BELONGINGS WITH THE PT UPON DISCHARGE. NURSE WHEELED THE OUT TO THE UNIT. PT IS STABLE.
== END 2021-12-26 14:35 | disposition home or self-care (01) ==
LOC: MED 11:27 → MTU 16:14
PROVIDERS: ADMIT Student in an Organized Health Care Education/Training Program; ATTEND Student in an Organized Health Care Education/Training Program
DX: R07.89 Other chest pain (principal); Z20.822 Contact with and (suspected) exposure to COVID-19; I48.91 Unspecified atrial fibrillation; J44.0 Chronic obstructive pulmonary disease with (acute) lower respiratory infection; I10 Essential (primary) hypertension; E78.5 Hyperlipidemia, unspecified; E11.9 Type 2 diabetes mellitus without complications; G89.29 Other chronic pain; M54.9 Dorsalgia, unspecified; E78.00 Pure hypercholesterolemia, unspecified; Z88.0 Allergy status to penicillin; Z79.899 Other long term (current) drug therapy
CPT/HCPCS: 36415; 71045; 80048; 80053; 81001; 83735; 84443; 84484; 85025; 87081; 87426; 93005; 96360; 96361; 99285; G0378; Q0092

== ENCOUNTER 2022-01-12 08:27 | Observation (INO) | payer OTHER ==
[~2022-01-12] VITALS: Ht 154.9 cm; Wt 71.7 kg
[~2022-01-12 08:27] MED LIST changes: +ATOR10TA PO; +MELO7.5T11 PO; +[UNRECOGNIZED DRUG - CODE] PO
[2022-01-12 08:35] VITALS: BP 123/99
--- NOTE | 2022-01-12 08:39 | NUR ---
pt ambulated to bed 07
[2022-01-12] MEDS ORDERED: MORPHINE SULFATE 4 MG/ML SYR IVP ONE (09:10)
[2022-01-12] MEDS ORDERED: ONDANSETRON 4 MG/2 ML VIAL IVP ONE (09:50)
[2022-01-12] MEDS ORDERED: fentaNYL citrate 0.05 MG/ML VIAL IVP ONE (09:50)
[2022-01-12 09:55] LABS: BASOPHILS % (AUTO) 0.6 % (0.0-2.0); EOSINOPHILS # (AUTO) 0.2 K/uL (0-0.4); EOSINOPHILS % (AUTO) 3.8 % (0.0-4.0); HEMATOCRIT 40.2 % (36-48); HEMOGLOBIN 13.4 g/dL (12.0-16.0); LYMPHOCYTES # (AUTO) 1.1 K/uL (2.5-16.5); LYMPHOCYTES % (AUTO) 23.9 % (20.5-51.1); MEAN CORPUSCULAR HEMOGLOBIN 28 pg (27-31); MEAN CORPUSCULAR HGB CONC 33 g/dL (33-37); MEAN CORPUSCULAR VOLUME 84.4 fL (80-94); MONOCYTES # (AUTO) 0.3 K/uL (0.8-1.0); MONOCYTES % (AUTO) 5.9 % (1.7-9.3); NEUTROPHILS % (AUTO) 65.8 % (42.2-75.2); PLATELET COUNT (AUTO) 171 K/uL (140-450); RED BLOOD CELL COUNT(AUTO) 4.76 MIL/uL (4.20-5.40); WHITE BLOOD COUNT (AUTO) 4.6 K/uL (4.8-10.8)
--- NOTE | 2022-01-12 10:05 | NUR ---
SPO2 DROPPED TO 88% AFTER FENTANYL ADMIN. PT PLACED ON 2L N/C. DR GIRARD MADE AWARE
[2022-01-12 10:08] LABS: PROTHROMBIN TIME 10.8 secs (10.8-13.4)
[2022-01-12 10:18] LABS: ALBUMIN 3.6 g/dL (3.4-5.0); ANION GAP 11.1 (8-16); ASPARTATE AMINOTRANSFERASE 27 U/L (15-37); CARBON DIOXIDE 26.8 mmol/L (21-32); CHLORIDE 106 mmol/L (98-107); GLUCOSE 114 mg/dL (74-106); LIPASE 125 U/L (73-393); POTASSIUM 3.9 mmol/L (3.5-5.1); SODIUM SERUM 140 mmol/L (136-145); TOTAL BILIRUBIN 0.6 mg/dL (0.0-1.0)
--- NOTE | 2022-01-12 10:23 | NUR ---
pt ambulated to restroom
[2022-01-12] MEDS ORDERED: ceFAZolin 1,000 MG VIAL ONE (11:07)
[2022-01-12] MEDS ORDERED: NITROGLYCERIN 0.4 MG TAB SL ONE (11:15)
--- NOTE | 2022-01-12 11:32 | NUR ---
PT TAKEN TO CT VIA MARK
[2022-01-12] MEDS ORDERED: NITROGLYCERIN 0.4 MG TAB SL PRN (11:45)
[2022-01-12] MEDS ORDERED: MORPHINE SULFATE 2 MG/ML SYR IVP PRN (11:45)
[2022-01-12] MEDS ORDERED: HYDROcodone/APAP 5/325 MG 1 TAB TAB PO PRN (11:45)
[2022-01-12] MEDS ORDERED: LORazepam 2 MG/ML VIAL IVP PRN (11:45)
[2022-01-12] MEDS ORDERED: ACETAMINOPHEN 325 MG TAB PO PRN (11:45)
[2022-01-12] MEDS ORDERED: ALUMINUM HYD/MAG/SIMETHICONE 30 ML UDC PO PRN (11:45)
[2022-01-12] MEDS ORDERED: ZOLPIDEM 5 MG TAB PO PRN (11:45)
[2022-01-12] MEDS ORDERED: ONDANSETRON 4 MG/2 ML VIAL IVP PRN (11:45)
[2022-01-12] MEDS ORDERED: KETOROLAC 30 MG/ML VIAL IVP PRN (11:45)
[2022-01-12] MEDS ORDERED: APIX2.5 PO (12:09)
[2022-01-12] MEDS ORDERED: ATOR10TA PO (12:12)
[2022-01-12] MEDS ORDERED: AMLO1CAP4 PO (12:13)
[2022-01-12] MEDS ORDERED: NACL 0.9% 1,000 ML IV ONE (12:25)
--- NOTE | 2022-01-12 12:30 | NUR ---
BP DROPPED TO 81/60 AFTER 2ND NITRO TAB (DR GIRARD ORDER), DR GIRARD MADE AWARE. WILL CARRY ORDERS. ADMITTING DR, DR GUALLPA PAGED TO NOTIFY HIM
[2022-01-12 12:44] LABS: CREATINE KINASE MB 1.1 ng/mL (0-3.6)
--- NOTE | 2022-01-12 13:01 | NUR ---
CARDIAC ECHO BEING PERFORMED AT BEDSIDE.
[2022-01-12] MEDS ORDERED: KETOROLAC 15 MG/ML VIAL IVP PRN (13:10)
--- NOTE | 2022-01-12 13:19 | NUR ---
DR GUALLPA AT BEDSIDE EVALUATING PT
--- NOTE | 2022-01-12 13:20 | NUR ---
PTS BP IMPROVED. DR GUALLPA AT BEDSIDE AND AWARE OF STATUS, NO ORDERS.
[2022-01-12 13:45] VITALS: BP 143/88
--- NOTE | 2022-01-12 13:45 | NUR ---
PT ARRIVED ONTO UNIT VIA GURNEY, ACCOMPANIED BY ER NURSE AND TRANSPORTER. PT IS AWAKE, ALERT, AND COOPERATIVE. RESPIRATIONS ARE EVEN AND UNLABORED. PT IS ON 2L 02 VIA NC. PT IS ON CLIENT DEVELOPMENT DIRECTOR, A FIB WITH PVCS/BBB. ABD IS NONTENDER, NONDISTENDED WITH BOWEL SOUNDS PRESENT. PT IS ABLE TO AMBULATE TO REST ROOM INDEPENDENTLY. PT IS CONTINENT OF BOWEL AND BLADDER. SKIN IS WARM, DRY, AND INTACT. PT HAS IV TO R HAND, 20G, SALINE LOCKED. MRSA SCREEN DONE. VITALS TAKEN. CALL LIGHT WITHIN REACH. ALL SAFETY MEASURES IN PLACE. WILL CONTINUE TO MONITOR.
--- NOTE | 2022-01-12 13:50 | NUR ---
Patient will be admitted to care of DR GUALLPA. Admited to TELE. Will go to room 106B. Belongings list completed. Report to JEFFREY MORENO.
--- NOTE | 2022-01-12 15:14 | NUR ---
PT STATED SHE WAS HUNGRY AND HAS NOT EATEN. REQUESTED TUNA SANDWICH AND WATER. PT TOLERATED WELL.
[2022-01-12 16:00] VITALS: BP 115/83
--- NOTE | 2022-01-12 16:42 | NUR ---
DID ROUNDS ON PT. PT IN BED WATCHING TELEVISION AT THIS TIME. NO S/S OF DISTRESS OR DISCOMFORT. WILL CONTINUE TO MONITOR.
[2022-01-12 17:26] LABS: UREA NITROGEN, BLOOD 23 mg/dL (7-18)
--- NOTE | 2022-01-12 19:19 | NUR ---
ENDORSED PT TO GEEK SQUAD AUTOTECH NURSE FOR CONTINUITY OF CARE. PT IS STABLE.
--- NOTE | 2022-01-12 19:20 | NUR ---
RECEIVED BEDSIDE REPORT FROM DAY SHIFT NURSE FOR CONTINUITY OF PATIENT CARE. PATIENT IS AWAKE, ALERT AND VERBALIZED NEEDS.
[2022-01-12 20:00] VITALS: BP 101/59
[2022-01-12] MEDS: METOPROLOL 25 MG TAB PO SCH (21:00)
--- NOTE | 2022-01-12 22:00 | NUR ---
LOPRESSOR MED IS HOLD PER MD ORDER, PT HAS LOW VY=268/59.
[2022-01-12] MEDS: APIXABAN 2.5 MG TAB PO SCH (22:02)
[2022-01-12] MEDS: HYDROcodone/APAP 5/325 MG 1 TAB TAB PO PRN (22:11)
--- NOTE | 2022-01-12 22:11 | NUR ---
PATIENT COMPLAINTS OF ABDOMINAL PAIN OF 5/10, PAIN MEDICATION ADMINISTERED ORDERED.
[2022-01-13] VITALS: BP 94/53
[2022-01-13 04:00] VITALS: BP 102/66
--- NOTE | 2022-01-13 07:05 | NUR ---
PATIENT HAS BEEN SCREENED AND CATEGORIZED MODERATE NUTRITION RISK. PATIENT WILL BE SEEN WITHIN 3-5 DAYS OF ADMISSION. 01/15/22-01/17/22 MIRACLE NEELY MS, RDN
[2022-01-13 07:25] LABS: ANION GAP 4.6 (8-16); CARBON DIOXIDE 29.4 mmol/L (21-32); CHLORIDE 111 mmol/L (98-107); CREATININE 0.9 mg/dL (0.6-1.3); GLUCOSE 87 mg/dL (74-106); SODIUM SERUM 141 mmol/L (136-145); UREA NITROGEN, BLOOD 19 mg/dL (7-18)
--- NOTE | 2022-01-13 07:27 | NUR ---
RECEIVED PATIENT REPORT FROM DIAMOND ASSORTER NURSE FOR CONTINUITY OF CARE. PT IS AOX4, ABLE TO MAKE NEEDS KNOWN. RESPIRATIONS EVEN AND UNLABORED. ON ROOM AIR WITH NO RESPIRATORY DISTRESS NOTED. SKIN IS WARM, DRY, AND INTACT. IV SITE ON RH 20G SALINE LOCKED. INTACT AND PATENT. PATIENT DENIES PAIN AT THE MOMENT. PLAN OF CARE DISCUSSED. SAFETY PRECAUTIONS IN PLACE. BED IN LOW POSITION. CALL LIGHT WITHIN REACH. WILL CONTINUE TO MONITOR.
[2022-01-13 07:33] LABS: BASOPHILS % (AUTO) 0.3 % (0.0-2.0); EOSINOPHILS # (AUTO) 0.2 K/uL (0-0.4); EOSINOPHILS % (AUTO) 4.5 % (0.0-4.0); HEMATOCRIT 34.2 % (36-48); HEMOGLOBIN 11.4 g/dL (12.0-16.0); LYMPHOCYTES # (AUTO) 1.8 K/uL (2.5-16.5); LYMPHOCYTES % (AUTO) 42.1 % (20.5-51.1); MEAN CORPUSCULAR HEMOGLOBIN 28 pg (27-31); MEAN CORPUSCULAR HGB CONC 33 g/dL (33-37); MEAN CORPUSCULAR VOLUME 84.7 fL (80-94); MONOCYTES # (AUTO) 0.3 K/uL (0.8-1.0); MONOCYTES % (AUTO) 6.8 % (1.7-9.3); NEUTROPHILS % (AUTO) 46.3 % (42.2-75.2); PLATELET COUNT (AUTO) 158 K/uL (140-450); RED BLOOD CELL COUNT(AUTO) 4.04 MIL/uL (4.20-5.40); RED CELL DISTRIBUTION WIDTH 12.7 % (11.6-13.7); WHITE BLOOD COUNT (AUTO) 4.2 K/uL (4.8-10.8)
[2022-01-13 08:00] VITALS: BP 126/75
[2022-01-13] MEDS: METOPROLOL 25 MG TAB PO SCH (08:44)
[2022-01-13] MEDS: APIXABAN 2.5 MG TAB PO SCH (08:44)
[2022-01-13] MEDS: HYDROcodone/APAP 5/325 MG 1 TAB TAB PO PRN (08:45)
[2022-01-13] MEDS ORDERED: NON-FORMULARY ITEM (Fenofibrate 1 TAB) PO SCH (09:00)
[2022-01-13] MEDS ORDERED: NIFEdipine 30 MG TABER PO SCH (09:00)
[2022-01-13] MEDS ORDERED: BENAZEPRIL PO SCH (09:00)
[2022-01-13] MEDS ORDERED: AMLODIPINE BESYLATE PO SCH (09:00)
[2022-01-13] MEDS ORDERED: ATORVASTATIN 20 MG TAB PO SCH (09:00)
[2022-01-13] MEDS ORDERED: DOCUSATE SODIUM 100 MG GELCAP PO SCH (09:00)
[2022-01-13] MEDS ORDERED: [UNRECOGNIZED DRUG - OTHER] PO SCH (09:00)
[2022-01-13] MEDS ORDERED: FENOFIBRATE 48 MG TAB PO SCH (09:00)
[2022-01-13] MEDS ORDERED: ENOXAPARIN 40 MG/0.4 ML SYR SUBQ SCH (09:00)
[2022-01-13] MEDS ORDERED: BENAZEPRIL 20 MG TAB PO SCH (09:00)
[2022-01-13] MEDS ORDERED: PANTOPRAZOLE 40 MG TABEC PO SCH (09:00)
[2022-01-13] MEDS ORDERED: ASPIRIN 81 MG TAB.CHEW PO SCH (09:00)
--- NOTE | 2022-01-13 09:35 | NUR ---
ALL SCHEDULED MEDS GIVEN. PT IS STABLE. NO DISTRESS NOTED. WILL CONTINUE TO MONITOR.
--- NOTE | 2022-01-13 11:15 | NUR ---
CHECKED ON PATIENT. PT IS STABLE. NO DISTRESS NOTED. WILL CONTINUE TO MONITOR.
[2022-01-13 12:00] VITALS: BP 103/57
[2022-01-13] MEDS ORDERED: SENNA 8.6 MG TAB PO PRN (12:15)
--- NOTE | 2022-01-13 13:12 | NUR ---
PATIENT COMPLAINED OF NAUSEA. ADMINISTERED PRN ZOFRAN IVP PER MD ORDERED
[2022-01-13 15:04] VITALS: BP 103/57
--- NOTE | 2022-01-13 15:20 | NUR ---
ENDORSED DISCHARGE INSTRUCTIONS TO PATIENT. PT VERBALIZED UNDERSTANDING AND SIGNED DISCHARGE FORMS.
--- NOTE | 2022-01-13 15:31 | NUR ---
PATIENT DISCHARGED OFF THE UNIT. REMOVED IV AND ID BAND. ESCORTED TO THE FRONT LOBBY WITH W/C. PATIENT WAS STABLE PRIOR TO DISCHARGE.
[2022-01-13 15:40] LABS: CREATINE KINASE MB 1.3 ng/mL (0-3.6)
== END 2022-01-13 15:32 | disposition home or self-care (01) ==
LOC: MED 08:27 → MTU 11:44
PROVIDERS: ADMIT Hospitalist; ATTEND Hospitalist
DX: R07.89 Other chest pain (principal); R06.02 Shortness of breath; I25.10 Atherosclerotic heart disease of native coronary artery without angina pectoris; I48.20 Chronic atrial fibrillation, unspecified; I10 Essential (primary) hypertension; J44.9 Chronic obstructive pulmonary disease, unspecified; Z88.0 Allergy status to penicillin; M54.9 Dorsalgia, unspecified; Z79.02 Long term (current) use of antithrombotics/antiplatelets; Z79.899 Other long term (current) drug therapy
CPT/HCPCS: 36415; 71045; 74176; 80048; 80053; 82550; 82553; 83690; 83735; 83880; 84484; 85025; 85610; 85730; 87081; 87426; 93005; 93307; 96361; 96374; 96375; 96376; 99285; G0378; J2270; J2405; J3010; J0690

== ENCOUNTER 2022-03-15 12:39 | Emergency (ER) | payer OTHER ==
[~2022-03-15] VITALS: Ht 154.9 cm; Wt 70.8 kg
[~2022-03-15 12:39] MED LIST changes: +AMLO1CAP4 PO
[2022-03-15 12:49] VITALS: BP 160/93
--- NOTE | 2022-03-15 12:52 | NUR ---
PT TAKEN TO LOBBY.
--- NOTE | 2022-03-15 13:02 | NUR ---
81 Y/O FEMALE C/O ABD PAIN 04/11 DESCRIBES ACHING AND RADIATES TO LOWER BACK X1DAY. STATES +N/-V. DENIES FEVER/CHILLS. SPO2 IN TRIAGE 96% ON RA. PMH: AFIB, HTN, COPD, HLD ALLERGIES: PCN, SULFA, MORPHINE, AND BACTRIM
--- NOTE | 2022-03-15 13:45 | NUR ---
PATIENT TAKEN TO CT VIA MARK
--- NOTE | 2022-03-15 13:45 | NUR ---
PT AMBULATED TO ER BED 12
[2022-03-15] MEDS: fentaNYL citrate 0.05 MG/ML VIAL IVP ONE (13:55)
[2022-03-15 14:34] LABS: BASOPHILS % (AUTO) 0.4 % (0.0-2.0); EOSINOPHILS # (AUTO) 0.2 K/uL (0-0.4); EOSINOPHILS % (AUTO) 3.6 % (0.0-4.0); HEMATOCRIT 41.5 % (36-48); HEMOGLOBIN 13.7 g/dL (12.0-16.0); LYMPHOCYTES # (AUTO) 1.8 K/uL (2.5-16.5); LYMPHOCYTES % (AUTO) 29.2 % (20.5-51.1); MEAN CORPUSCULAR HEMOGLOBIN 28 pg (27-31); MEAN CORPUSCULAR HGB CONC 33 g/dL (33-37); MEAN CORPUSCULAR VOLUME 83.3 fL (80-94); MONOCYTES # (AUTO) 0.4 K/uL (0.8-1.0); MONOCYTES % (AUTO) 6.1 % (1.7-9.3); NEUTROPHILS # (AUTO) 3.7 K/uL (1.8-7.7); NEUTROPHILS % (AUTO) 60.7 % (42.2-75.2); PLATELET COUNT (AUTO) 211 K/uL (140-450); RED BLOOD CELL COUNT(AUTO) 4.98 MIL/uL (4.20-5.40); RED CELL DISTRIBUTION WIDTH 13.1 % (11.6-13.7)
[2022-03-15 14:51] LABS: ALBUMIN 3.6 g/dL (3.4-5.0); ANION GAP 10.2 (8-16); ASPARTATE AMINOTRANSFERASE 21 U/L (15-37); CARBON DIOXIDE 28.1 mmol/L (21-32); CHLORIDE 106 mmol/L (98-107); GLUCOSE 95 mg/dL (74-106); LIPASE 188 U/L (73-393); POTASSIUM 4.3 mmol/L (3.5-5.1); SODIUM SERUM 140 mmol/L (136-145); TOTAL BILIRUBIN 0.6 mg/dL (0.0-1.0); UREA NITROGEN, BLOOD 23 mg/dL (7-18)
[2022-03-15] MEDS: ONDANSETRON 4 MG/2 ML VIAL IVP ONE (14:51)
--- NOTE | 2022-03-15 15:30 | NUR ---
pt. ambulated to BR, urine collected
--- NOTE | 2022-03-15 15:58 | NUR ---
Note crystalnate in EDM - 03/15/22 at 1602 by ARIANNE Patient discharged with v/s stable. Written and verbal after care instructions given and explained. Patient alert, oriented and verbalized understanding of instructions. Ambulatory with steady gait. All questions addressed prior to discharge. ID band removed. Patient advised to follow up with PMD. Rx of Naproxen given. Patient educated on indication of medication including possible reaction and side effects. Opportunity to ask questions provided and answered.
[2022-03-15] MEDS ORDERED: DICYCLOMINE HCL LIQUID 10 MG/5 ML UDC ONE (16:08)
[2022-03-15] MEDS ORDERED: ALUMINUM HYD/MAG/SIMETHICONE 30 ML UDC ONE (16:08)
[2022-03-15] MEDS: DICYCLOMINE HCL LIQUID 20 MG, ALUMINUM HYD/MAG/SIMETHICONE 30 ML, LIDOCAINE VISCOUS 2% ... PO ONE ×3 (16:10)
[2022-03-15] MEDS ORDERED: ONDA8TAB87 PO (16:13)
[2022-03-15] MEDS ORDERED: PANT40EC PO (16:13)
[2022-03-15] MEDS ORDERED: ACET-8386 PO (16:13)
--- NOTE | 2022-03-15 16:55 | NUR ---
Patient discharged with v/s stable. Written and verbal after care instructions about abdominal pain given and explained. Patient alert, oriented and verbalized understanding of instructions. Ambulatory with steady gait. All questions addressed prior to discharge. ID band removed. Patient advised to follow up with PMD. Rx of Hydrocodone 5-325, Ondansteron, protonix given. Patient educated on indication of medication including possible reaction and side effects. Opportunity to ask questions provided and answered. Pt. educated on use of narcotics, advised to not drink or drive while using.
[2022-03-15 16:57] VITALS: BP 137/79
[2022-03-15 18:37] LABS: APPEARANCE,URINE CLEAR (CLEAR); BILIRUBIN,URINE NEGATIVE (NEGATIVE); BLOOD, URINE 1+ (NEGATIVE); COLOR,URINE YELLOW (YELLOW); LEUKOCYTE ESTERASE ,URINE NEGATIVE (NEGATIVE); NITRITE, URINE NEGATIVE (NEGATIVE); UGLUCOSE NEGATIVE (NEGATIVE)
[2022-03-15 19:08] LABS: RBC,URINE 0-5 /HPF (0-5)
[2022-03-15 19:09] LABS: OTHER CASTS, URINE None Seen /LPF (None Seen); WBC,URINE 0-5 /HPF (0-5)
== END 2022-03-15 16:55 | disposition home or self-care (01) ==
LOC: MED 12:39
DX: R10.11 Right upper quadrant pain (principal); R10.31 Right lower quadrant pain; I48.91 Unspecified atrial fibrillation; K57.92 Diverticulitis of intestine, part unspecified, without perforation or abscess without bleeding
CPT/HCPCS: 36415; 71045; 74176; 80053; 81001; 83690; 84484; 85025; 93005; 96374; 96375; 99285; J2405; J3010

== ENCOUNTER 2022-03-22 11:38 | Emergency (ER) | payer OTHER ==
[~2022-03-22] VITALS: Ht 154.9 cm; Wt 71.2 kg
[2022-03-22 11:42] VITALS: BP 131/81
--- NOTE | 2022-03-22 12:00 | NUR ---
PT AMBULTAED TO BED 4
--- NOTE | 2022-03-22 12:09 | NUR ---
81 Y/O C/O OF URINARY BURNING, DIFFICULTY URINATION, LOW BACK PAIN X YESTERDAY. 5/10 PAIN IN HER LOWER BACK AND GROIN THAT IS RADIATING TO HER ABDOMEN. PT STATED SHE HAS SOME CHEST PAIN AND NAUSEA. DENIES SOB AND V/D. A&OX4, VITALS WNL, SKIN INTACT, STEADY GAIT AND NO SIGNS OF RESPIRATORY DISTRESS. ALLERGY: PCN, MORPHINE, BENADRYL, SULFA PMH: COPD, HDL, HTN, AFIB
[2022-03-22] MEDS ORDERED: CIPR500T4 PO (13:02)
[2022-03-22 13:40] VITALS: BP 131/81
--- NOTE | 2022-03-22 13:41 | NUR ---
Patient discharged with v/s stable. Written and verbal after care instructions given and explained. Patient alert, oriented and verbalized understanding of instructions. Ambulatory with steady gait. All questions addressed prior to discharge. ID band removed. Patient advised to follow up with PMD. Rx of CIPRO given. Patient educated on indication of medication including possible reaction and side effects. Opportunity to ask questions provided and answered.
== END 2022-03-22 13:41 | disposition home or self-care (01) ==
LOC: MED 11:38
DX: N39.0 Urinary tract infection, site not specified (principal); R33.9 Retention of urine, unspecified; I10 Essential (primary) hypertension; J44.9 Chronic obstructive pulmonary disease, unspecified; Z88.0 Allergy status to penicillin; Z88.2 Allergy status to sulfonamides; Z88.5 Allergy status to narcotic agent; Z88.8 Allergy status to other drugs, medicaments and biological substances; Z79.899 Other long term (current) drug therapy; Z98.890 Other specified postprocedural states
CPT/HCPCS: 81002; 87086; 99283

== ENCOUNTER 2022-06-10 11:13 | Emergency (ER) | payer OTHER ==
[~2022-06-10] VITALS: Ht 152.4 cm; Wt 69.4 kg
[~2022-06-10 11:13] MED LIST changes: +CIPR500T4 PO
[2022-06-10 11:22] VITALS: BP 138/62
[2022-06-10] MEDS ORDERED: fentaNYL citrate 0.05 MG/ML VIAL IM ONE (13:20)
[2022-06-10] MEDS ORDERED: PRED20TA5 PO (13:54)
[2022-06-10] MEDS ORDERED: ACET-8386 PO (13:54)
[2022-06-10 14:20] VITALS: BP 138/78
== END 2022-06-10 14:21 | disposition home or self-care (01) ==
LOC: MED 11:13
DX: R06.02 Shortness of breath (principal); R10.13 Epigastric pain; R07.9 Chest pain, unspecified; K21.9 Gastro-esophageal reflux disease without esophagitis; I10 Essential (primary) hypertension; I48.91 Unspecified atrial fibrillation; E78.5 Hyperlipidemia, unspecified; Z90.49 Acquired absence of other specified parts of digestive tract; Z98.890 Other specified postprocedural states; Z90.710 Acquired absence of both cervix and uterus; Z79.899 Other long term (current) drug therapy; Z79.2 Long term (current) use of antibiotics; Z79.891 Long term (current) use of opiate analgesic; Z79.01 Long term (current) use of anticoagulants; Z88.0 Allergy status to penicillin; Z88.2 Allergy status to sulfonamides; Z88.8 Allergy status to other drugs, medicaments and biological substances; Z88.5 Allergy status to narcotic agent
CPT/HCPCS: 71045; 96372; 99283; J3010; Q0092

== ENCOUNTER 2022-06-15 17:39 | Emergency (ER) | payer OTHER ==
[~2022-06-15] VITALS: Ht 152.4 cm; Wt 69.4 kg
[~2022-06-15 17:39] MED LIST changes: +PRED20TA5 PO
[2022-06-15 17:42] VITALS: BP 139/85
--- NOTE | 2022-06-15 18:32 | NUR ---
PT C/O SOB WITH ACROSS THE CHEST PAIN X1 WEEK. PT STATES LAYING FLAT MAKES SOB WORSE. AFIB ON MONITOR. IV INSERTED TO RIGHT FA #20GUAGE. PENDING FURTHER RESULTS
[2022-06-15 18:51] LABS: BASOPHILS # (AUTO) 0.1 K/uL (0.00-0.22); BASOPHILS % (AUTO) 0.7 % (0.0-2.0); EOSINOPHILS % (AUTO) 0.1 % (0.0-4.0); HEMATOCRIT 44.5 % (36-48); HEMOGLOBIN 14.8 g/dL (12.0-16.0); LYMPHOCYTES % (AUTO) 16.6 % (20.5-51.1); MEAN CORPUSCULAR HEMOGLOBIN 28 pg (27-31); MEAN CORPUSCULAR HGB CONC 33 g/dL (33-37); MEAN CORPUSCULAR VOLUME 83.1 fL (80-94); MONOCYTES % (AUTO) 8.3 % (1.7-9.3); NEUTROPHILS # (AUTO) 8.8 K/uL (1.8-7.7); NEUTROPHILS % (AUTO) 74.3 % (42.2-75.2); PLATELET COUNT (AUTO) 292 K/uL (140-450); RED BLOOD CELL COUNT(AUTO) 5.36 MIL/uL (4.20-5.40); RED CELL DISTRIBUTION WIDTH 13.6 % (11.6-13.7); WHITE BLOOD COUNT (AUTO) 11.8 K/uL (4.8-10.8)
[2022-06-15 19:09] LABS: PROTHROMBIN TIME 11.8 secs (10.8-13.4)
[2022-06-15 19:12] LABS: ALBUMIN 3.1 g/dL (3.4-5.0); ANION GAP 12.8 (8-16); ASPARTATE AMINOTRANSFERASE 19 U/L (15-37); CARBON DIOXIDE 25.4 mmol/L (21-32); CHLORIDE 104 mmol/L (98-107); CREATININE 1.1 mg/dL (0.6-1.3); GLUCOSE 102 mg/dL (74-106); POTASSIUM 4.2 mmol/L (3.5-5.1); SODIUM SERUM 138 mmol/L (136-145); TOTAL BILIRUBIN 0.4 mg/dL (0.0-1.0); UREA NITROGEN, BLOOD 32 mg/dL (7-18)
[2022-06-15 19:39] LABS: D-DIMER < 100 ng/ml (0-400)
--- NOTE | 2022-06-15 20:00 | NUR ---
Assumed care of pt at this time. Pt in position of comfort. Pt c/o pain to left chest, radiating to back. Pt requesting medication. VSS. Will continue to monitor.
--- NOTE | 2022-06-15 20:37 | NUR ---
Lab at bedside for second troponin draw. Zulay also collected at this time. Awaiting results.
[2022-06-15] MEDS ORDERED: MORPHINE SULFATE 4 MG/ML SYR IVP ONE (21:05)
[2022-06-15 22:00] VITALS: BP 146/82
--- NOTE | 2022-06-15 22:05 | NUR ---
DC instructions given to pt at this time. VSS. Pt upset as she wanted more pain medication. But refused morphine that was ordered. Pt wanted Fentanyl. All labs WNL per Dr. Astorga. IV dc'd, Catheter intact. Small pressure dressing placed. Pt ambulates to exit with steady gait.
== END 2022-06-15 22:05 | disposition home or self-care (01) ==
LOC: MED 17:39
DX: R07.89 Other chest pain (principal); Z20.822 Contact with and (suspected) exposure to COVID-19; I10 Essential (primary) hypertension; K21.9 Gastro-esophageal reflux disease without esophagitis; I25.10 Atherosclerotic heart disease of native coronary artery without angina pectoris; Z79.899 Other long term (current) drug therapy; Z88.0 Allergy status to penicillin; Z88.2 Allergy status to sulfonamides; Z88.5 Allergy status to narcotic agent; Z88.8 Allergy status to other drugs, medicaments and biological substances
CPT/HCPCS: 36415; 71045; 80053; 83880; 84484; 85025; 85379; 85610; 85730; 87426; 93005; 99285; Q0092; J2270

== ENCOUNTER 2022-12-26 22:41 | Inpatient (IN) | payer OTHER ==
[~2022-12-26] VITALS: Ht 154.9 cm; Wt 65.8 kg
[~2022-12-26 22:41] MED LIST changes: -ACET-8386 PO; +ACET-8905 PO
--- NOTE | 2022-12-26 22:43 | NUR ---
PT BROUGHT TO BED 8 VIA JEFF[facility] FLORES
[2022-12-26 22:44] VITALS: BP 104/51
--- NOTE | 2022-12-26 22:59 | NUR ---
Patient resting in bed, A/Ox4, chest rise and fall symmetrical, no s/s of distress, on monitor.
[2022-12-26 23:16] LABS: BASOPHILS % (AUTO) 0.3 % (0.0-2.0); EOSINOPHILS # (AUTO) 0.4 K/uL (0-0.4); EOSINOPHILS % (AUTO) 4.1 % (0.0-4.0); HEMOGLOBIN 13.4 g/dL (12.0-16.0); LYMPHOCYTES # (AUTO) 0.8 K/uL (2.5-16.5); LYMPHOCYTES % (AUTO) 7.5 % (20.5-51.1); MEAN CORPUSCULAR HEMOGLOBIN 28 pg (27-31); MEAN CORPUSCULAR HGB CONC 33 g/dL (33-37); MEAN CORPUSCULAR VOLUME 85.8 fL (80-94); MONOCYTES # (AUTO) 0.3 K/uL (0.8-1.0); MONOCYTES % (AUTO) 2.8 % (1.7-9.3); NEUTROPHILS # (AUTO) 9.1 K/uL (1.8-7.7); NEUTROPHILS % (AUTO) 85.3 % (42.2-75.2); PLATELET COUNT (AUTO) 213 K/uL (140-450); RED BLOOD CELL COUNT(AUTO) 4.78 MIL/uL (4.20-5.40); RED CELL DISTRIBUTION WIDTH 13.8 % (11.6-13.7); WHITE BLOOD COUNT (AUTO) 10.7 K/uL (4.8-10.8)
[2022-12-26 23:33] LABS: ALBUMIN 2.7 g/dL (3.4-5.0); ANION GAP 16.3 (8-16); ASPARTATE AMINOTRANSFERASE 26 U/L (15-37); CARBON DIOXIDE 21.1 mmol/L (21-32); CHLORIDE 104 mmol/L (98-107); CREATININE 2.4 mg/dL (0.6-1.3); GLUCOSE 109 mg/dL (74-106); POTASSIUM 4.4 mmol/L (3.5-5.1); SODIUM SERUM 137 mmol/L (136-145); TOTAL BILIRUBIN 0.7 mg/dL (0.0-1.0); UREA NITROGEN, BLOOD 29 mg/dL (7-18)
[2022-12-26] MEDS ORDERED: NACL 0.9% 1,000 ML IV ONE (23:55)
[2022-12-26] MEDS ORDERED: MORPHINE SULFATE 2 MG/ML SYR IVP ONE (23:55)
[2022-12-27] MEDS ORDERED: fentaNYL citrate 0.05 MG/ML VIAL IVP ONE (00:15)
[2022-12-27] MEDS ORDERED: AZITHROMYCIN 500 MG in DEXTROSE 5% 250 ML IV ONE (00:15)
--- NOTE | 2022-12-27 00:20 | NUR ---
Patient resting in bed, A/Ox4, chest rise and fall symmetrical, no s/s of distress, on monitor.
[2022-12-27] MEDS ORDERED: cefTRIAXone 1,000 MG VIAL ONE (00:32)
[2022-12-27] MEDS ORDERED: MORPHINE SULFATE 2 MG/ML SYR IVP PRN (01:05)
[2022-12-27] MEDS ORDERED: LORazepam 2 MG/ML VIAL IVP PRN (01:05)
[2022-12-27] MEDS ORDERED: ONDANSETRON 4 MG/2 ML VIAL IVP PRN (01:05)
[2022-12-27] MEDS: NACL 0.9% 1,000 ML IV SCH ×3 (01:30→22:01)
[2022-12-27] MEDS ORDERED: FAMOTIDINE 20 MG/2 ML VIAL IV SCH (01:35)
--- NOTE | 2022-12-27 02:00 | NUR ---
Patient resting in bed, A/Ox4, chest rise and fall symmetrical, no s/s of distress, on monitor.
[2022-12-27] MEDS ORDERED: AZITHROMYCIN 500 MG INJ VIAL IV ONE (02:25)
--- NOTE | 2022-12-27 02:53 | NUR ---
Patient will be admitted to care of Dr. Bundy. Admited to Tele. Will go to room 121B. Belongings list completed. Report to Carlos MORENO. Carlos MORENO verbalized understanding of report, no further questions.
[2022-12-27] MEDS ORDERED: AZITHROMYCIN 500 MG in DEXTROSE 5% 250 ML IV SCH (03:00)
--- NOTE | 2022-12-27 03:07 | NUR ---
RECEIVED PATIENT FROM ER NURSE VIA [facility] FOR CONTINUITY OF CARE. ADMITTED WITH SOB AND GEN WEAKNESS. PT IS ALERT ORIENTED X 4, AMBULATORY. NO COMPLAIN OF PAIN AT THIS TIME. PIV INTACT AND PATENT . WILL CONTINUE TO MONITOR
[2022-12-27] MEDS: FLUCONAZOLE 200 MG/NS PREMIX 100 ML IV SCH (03:38)
[2022-12-27 04:00] VITALS: BP 124/54
[2022-12-27] MEDS: HYDROcodone/APAP 5/325 MG 1 TAB TAB PO PRN ×2 (05:10→20:44)
--- NOTE | 2022-12-27 07:10 | NUR ---
RECEIVED REPORT FROM NIGHTSHIFT NURSE. PT IS ASLEEP IN BED, WOKE TO NAME AND TOUCH. PT RETURNED TO SLEEP. NO SIGNS OF DISTRESS. NO FURTHER NEEDS ARE TO BE MET AT THIS TIME, WILL CONTINUE WITH CARE. BED IN LOWEST POSITION, 2 SIDE RAILS UP, CALL LIGHT PLACED WITHIN REACH.
[2022-12-27 08:00] VITALS: BP 117/44
--- NOTE | 2022-12-27 08:53 | NUR ---
PATIENT HAS BEEN SCREENED AND CATEGORIZED MODERATE NUTRITION RISK. PATIENT WILL BE SEEN WITHIN 3-5 DAYS OF ADMISSION. 12/27/22-01/01/[address] TALAT BE[address] RD
[2022-12-27] MEDS ORDERED: ENOXAPARIN 40 MG/0.4 ML SYR SUBQ SCH (09:00)
[2022-12-27] MEDS: ENOXAPARIN 30 MG/0.3 ML SYR SUBQ SCH (09:29)
--- NOTE | 2022-12-27 10:13 | NUR ---
DC [age] YRS OLD FEMALE PATIENT WAS ADMITTED FROM HOME WITH A DX OF PNEUMONIA, TI. PATIENT HAS A HX OF COPD, HTN, AND A-FIB ON ELIQUIS. CXR SHOWED NO ACUTE FINDINGS. RAPID COVID TEST NEGATIVE. ADMINISTERED IVF, IV ABX AZITHROMYCIN AND ROCEPHIN. DC PLAN TO GO HOME WHEN STABLE CM TO FOLLOW
--- NOTE | 2022-12-27 11:55 | NUR ---
DC PLANNING ASSESSMENT COMPLETE PLEASE REFER TO ASSESSMENT FOR ADDITIONAL DETAILS PT REPORTS DC PLAN IS TO RETURN HOME WITH GRAND DAUGHTER PROVIDING TRANSPORTATION, WHEN MEDICALLY STABLE. Addendum: 12/27/22 at 1156 by Miguel CORDON Amended: Links added.
[2022-12-27 12:00] VITALS: BP 117/49
--- NOTE | 2022-12-27 16:00 | NUR ---
IV PULLED OUT DUE TO PT MOVING ARM. REMOVED OLD IV IN UPPER LEFT AC TO LOWER LEFT AC. APPLIED DRESSING TO OLD IV SITE. NEW IV IN LOWER LEFT AC, 22G, CLEAN, INTACT, PATENT, LABELED WITH NAME/DATE/TIME. PT HAS NS RUNNING AT 100ML/HR. NO REPORTS OF PAIN OR DISCOMFORT AT NEW IV SITE. NO FURTHER NEEDS ARE TO BE MET AT THIS TIME. WILL CONTINUE WITH PT CARE.
[2022-12-27] MEDS ORDERED: hydrOXYzine PAMOATE 25 MG CAP PO SCH ×2 (16:35→21:30)
--- NOTE | 2022-12-27 19:25 | NUR ---
ENDORSED PT TO NIGHTSHIFT NURSE FOR CONTINUITY OF CARE. PT IS STABLE, IN BED, NO SIGNS OF DISTRESS. BED IN LOWEST POSITION, 2 SIDE RAILS UP, CALL LIGHT WITHIN REACH.
--- NOTE | 2022-12-27 19:26 | NUR ---
RECEIVED PATIENT IN BED RESTED. NO SOB NOTED. NO COMPLAINTS OF PAIN AT THIS TIME. IVF NS AT 100 ML/HR TO LEFT FOREARM. CALL LIGHT ON EASY REACH. ALL SAFETY PRECAUTIONS ARE IN PLACE.
[2022-12-27 20:00] VITALS: BP 116/40
--- NOTE | 2022-12-27 20:44 | NUR ---
PATIENT COMPLAINED OF BACK PAIN, MEDICATED.
[2022-12-27] MEDS: HYDROXYZINE HYDROCHLORIDE 25 MG TAB ONE ×2 (21:06→21:59)
--- NOTE | 2022-12-27 21:45 | NUR ---
PATIENT COMPLAINED OF ITCHING, MEDICATED ORDERED.
[2022-12-28] VITALS: BP 139/61
[2022-12-28] MEDS: FLUCONAZOLE 200 MG/NS PREMIX 100 ML IV SCH (01:08)
[2022-12-28] MEDS ORDERED: AZITHROMYCIN 500 MG in DEXTROSE 5% 250 ML IV SCH (02:30)
[2022-12-28 04:00] VITALS: BP 124/54
[2022-12-28 05:32] LABS: BASOPHILS % (AUTO) 0.1 % (0.0-2.0); EOSINOPHILS # (AUTO) 0.4 K/uL (0-0.4); EOSINOPHILS % (AUTO) 3.9 % (0.0-4.0); HEMATOCRIT 39.6 % (36-48); HEMOGLOBIN 12.9 g/dL (12.0-16.0); LYMPHOCYTES # (AUTO) 0.6 K/uL (2.5-16.5); LYMPHOCYTES % (AUTO) 6.7 % (20.5-51.1); MEAN CORPUSCULAR HEMOGLOBIN 28 pg (27-31); MEAN CORPUSCULAR HGB CONC 33 g/dL (33-37); MEAN CORPUSCULAR VOLUME 85.9 fL (80-94); MONOCYTES # (AUTO) 0.2 K/uL (0.8-1.0); NEUTROPHILS % (AUTO) 87.3 % (42.2-75.2); PLATELET COUNT (AUTO) 152 K/uL (140-450); RED BLOOD CELL COUNT(AUTO) 4.61 MIL/uL (4.20-5.40); RED CELL DISTRIBUTION WIDTH 14.1 % (11.6-13.7); WHITE BLOOD COUNT (AUTO) 9.1 K/uL (4.8-10.8)
[2022-12-28 05:55] LABS: ALBUMIN 2.3 g/dL (3.4-5.0); ANION GAP 11.1 (8-16); ASPARTATE AMINOTRANSFERASE 23 U/L (15-37); CHLORIDE 107 mmol/L (98-107); CREATININE 1.2 mg/dL (0.6-1.3); GLUCOSE 106 mg/dL (74-106); MAGNESIUM 1.6 mg/dL (1.8-2.4); POTASSIUM 4.1 mmol/L (3.5-5.1); SODIUM SERUM 138 mmol/L (136-145); TOTAL BILIRUBIN 0.5 mg/dL (0.0-1.0); UREA NITROGEN, BLOOD 15 mg/dL (7-18)
[2022-12-28] MEDS: NACL 0.9% 1,000 ML IV SCH ×2 (07:05→14:04)
--- NOTE | 2022-12-28 07:05 | NUR ---
RECEIVED BEDSIDE REPORT FROM SUPERINTENDENT STATIONS FOR CONTINUITY OF CARE. ALERT AND ORIENTED X4. RESP. EVEN AND UNLABORED. IVF INFUSING WELL. NO C/O PAIN OR DISCOMFORT. CALL LIGHT KEPT WITHIN REACH. WILL CONTINUE TO MONITOR.
--- NOTE | 2022-12-28 07:07 | NUR ---
GAVE BEDSIDE REPORT TO MORNING NURSE FOR CONTINUITY OF CARE. PATIENT STABLE AT THIS TIME.
[2022-12-28 08:00] VITALS: BP 114/34
--- NOTE | 2022-12-28 08:00 | NUR ---
MAGNESIUM 1.6, NOTIFIED DR. AUGUSTINE, RECEIVED NEW ORDER MAGNESIUM IV 2GM PRN. ORDER NOTED AND CARRIED OUT.
[2022-12-28] MEDS: HYDROcodone/APAP 5/325 MG 1 TAB TAB PO PRN ×2 (08:32→18:02)
[2022-12-28] MEDS: ENOXAPARIN 30 MG/0.3 ML SYR SUBQ SCH (08:32)
--- NOTE | 2022-12-28 08:32 | NUR ---
SCHEDULED LOVENOX SQ AND PRN NORCO FOR PAIN MANAGEMENT GIVEN. TOLERATING WELL.
[2022-12-28] MEDS ORDERED: hydrOXYzine PAMOATE 25 MG CAP PO SCH (11:10)
--- NOTE | 2022-12-28 11:10 | NUR ---
C/O OF ITCHING. DR. AUGUSTINE NOTIFIED WITH NEW ORDER VISTARIL 25 MG PO ONCE. MADE AWARE PT ALLERGIC TO BENADRYL. PHARMACY SHAHEEN MADE AWARE. NOTED AND CARRIED OUT.
[2022-12-28 12:00] VITALS: BP 126/48
--- NOTE | 2022-12-28 12:33 | NUR ---
VISTARIL PO WAS GIVEN. TOLERATED WELL.
[2022-12-28 12:56] LABS: APPEARANCE,URINE CLEAR (CLEAR); BILIRUBIN,URINE 1+ (NEGATIVE); BLOOD, URINE 1+ (NEGATIVE); COLOR,URINE YELLOW (YELLOW); LEUKOCYTE ESTERASE ,URINE NEGATIVE (NEGATIVE); NITRITE, URINE NEGATIVE (NEGATIVE); UGLUCOSE NEGATIVE (NEGATIVE)
--- NOTE | 2022-12-28 13:33 | NUR ---
REASSESS PT, NO ADVERSE REACTION D/T VISTARIL.
[2022-12-28 16:00] VITALS: BP 120/60
--- NOTE | 2022-12-28 17:29 | NUR ---
IV ACCESS UNABLE TO FLUSH. ATTEMPTED MULTIPLE TIMES UNSUCCESSFUL. WILL RE ATTEMPT TO REINSERT. MAGNESIUM 1.6. DR. AUGUSTINE NOTIFIED, RECEIVED NEW ORDER MAG OXIDE 400 MG PO ONCE. ORDER NOTED AND CARRIED OUT.
[2022-12-28] MEDS ORDERED: MAGNESIUM OXIDE 400 MG TAB PO SCH (17:45)
--- NOTE | 2022-12-28 18:01 | NUR ---
MAG OXIDE ONCE AND PRN NORCO GIVEN. TOLERATED WELL.
--- NOTE | 2022-12-28 19:00 | NUR ---
RECEIVED CALLED FROM DR. FINK WITH NEW ORDERS: MURALI AZITHROMYCIN, ROCEPHIN, AZITHROMYCIN. NOTED AND CARRIED OUT.
--- NOTE | 2022-12-28 19:30 | NUR ---
BEDSIDE REPORT GIVEN TO GREEN BUILDING ARCHITECT FOR CONTINUITY OF CARE. ENDORSED TO JOCELIN, NO IV ACCESS, ATTEMPTED RO REINSERT BUT UNSUCCESSFUL. REMAINS STABLE.
[2022-12-28 20:00] VITALS: BP 98/41
--- NOTE | 2022-12-28 20:33 | NUR ---
RECEIVED PATIENT WITH NO IV ACCESS. STARTED A NEW IV TO LEFT HAND 22 GAUGE WITH GOOD RETURN OF BLOOD. TOLERATED WELL. PATIENT AWAKE ALERT VERBALLY RESPONSIVE. ABLE TO MAKE NEEDS KNOWN. NO SOB NOTED. NO COMPLAINTS OF PAIN AT THIS TIME. IVF NS INFUSING ORDERED. CALL LIGHT WITHIN REACH.
[2022-12-29] VITALS: BP 123/51
[2022-12-29 04:00] VITALS: BP 130/46
--- NOTE | 2022-12-29 07:22 | NUR ---
RECEIVED REPORT FROM NIGHTSHIFT NURSE JOCELIN FOR CONTINUITY OF CARE. PT IN STABLE CONDITION.
--- NOTE | 2022-12-29 07:22 | NUR ---
GAVE REPORT TO AM NURSE FOR CONTINUITY OF CARE. PATIENT STABLE AT THIS TIME.
[2022-12-29 08:00] VITALS: BP 112/56
--- NOTE | 2022-12-29 08:00 | NUR ---
PT THRUSH ON TONGUE HAS IMPROVED, LESSENED TO JUST MIDLINE OF TONGUE. PT'S RASH STILL BRIGHT RED, PAINFUL AND ITCHY, PT REQUESTED NORCO FOR PAIN.
[2022-12-29] MEDS: ENOXAPARIN 30 MG/0.3 ML SYR SUBQ SCH (08:52)
[2022-12-29] MEDS: HYDROcodone/APAP 5/325 MG 1 TAB TAB PO PRN (08:59)
--- NOTE | 2022-12-29 08:59 | NUR ---
MEDICATED PRN NORCO FOR GENERALIZED PAIN 8/10 AND MILD FEVER OF 99.9.
--- NOTE | 2022-12-29 10:00 | NUR ---
PT CURRENTLY SLEEPING, NO SIGNS OF PAIN OR DISTRESS NOTED AT THIS TIME.
--- NOTE | 2022-12-29 11:47 | NUR ---
PT'S GRANDDAUGHTER CALLED, WANTED TO TALK WITH PT. ASSISTED PT IN USING LANDLINE FROM ROOM TO CALL GRANDDAUGHTER.
[2022-12-29 12:00] VITALS: BP 118/46
[2022-12-29 13:34] LABS: BASOPHILS # (AUTO) 0.1 K/uL (0.00-0.22); BASOPHILS % (AUTO) 0.6 % (0.0-2.0); EOSINOPHILS # (AUTO) 0.4 K/uL (0-0.4); EOSINOPHILS % (AUTO) 4.3 % (0.0-4.0); HEMATOCRIT 40.1 % (36-48); HEMOGLOBIN 13.1 g/dL (12.0-16.0); LYMPHOCYTES # (AUTO) 0.9 K/uL (2.5-16.5); LYMPHOCYTES % (AUTO) 9.2 % (20.5-51.1); MEAN CORPUSCULAR HEMOGLOBIN 28 pg (27-31); MEAN CORPUSCULAR HGB CONC 33 g/dL (33-37); MEAN CORPUSCULAR VOLUME 85.7 fL (80-94); MONOCYTES # (AUTO) 0.1 K/uL (0.8-1.0); MONOCYTES % (AUTO) 1.5 % (1.7-9.3); NEUTROPHILS # (AUTO) 8.1 K/uL (1.8-7.7); NEUTROPHILS % (AUTO) 84.4 % (42.2-75.2); PLATELET COUNT (AUTO) 151 K/uL (140-450); RED BLOOD CELL COUNT(AUTO) 4.68 MIL/uL (4.20-5.40); RED CELL DISTRIBUTION WIDTH 13.9 % (11.6-13.7); WHITE BLOOD COUNT (AUTO) 9.6 K/uL (4.8-10.8)
[2022-12-29 14:04] LABS: ALBUMIN 1.7 g/dL (3.4-5.0); ANION GAP 11.6 (8-16); ASPARTATE AMINOTRANSFERASE 19 U/L (15-37); CARBON DIOXIDE 20.7 mmol/L (21-32); CHLORIDE 105 mmol/L (98-107); CREATININE 1.4 mg/dL (0.6-1.3); GLUCOSE 139 mg/dL (74-106); POTASSIUM 4.3 mmol/L (3.5-5.1); SODIUM SERUM 133 mmol/L (136-145); TOTAL BILIRUBIN 0.5 mg/dL (0.0-1.0); UREA NITROGEN, BLOOD 17 mg/dL (7-18)
[2022-12-29] MEDS: ACETAMINOPHEN 325 MG TAB PO PRN ×2 (15:00→20:43)
--- NOTE | 2022-12-29 15:00 | NUR ---
MEDICATED WITH PRN TYLENOL FOR GENERALIZED PAIN 4/10 PAIN.
[2022-12-29 16:00] VITALS: BP 108/46
--- NOTE | 2022-12-29 17:10 | NUR ---
PT HR ELEVATED TO 140-150'S WHILE AMBULATING TO BATHROOM. PT DENIED ANY ANXIETY, FLUTTERING, OR DIZZINESS. PT HR DECREASED TO 110'S WHEN BACK IN BED. PT DENIED ANY PAIN OR DISTRESS.
--- NOTE | 2022-12-29 19:07 | NUR ---
ENDORSED PT NIGHTSHIFT NURSE JOCELIN FOR CONTINUITY OF CARE. PT IN STABLE CONDITION.
[2022-12-29 20:00] VITALS: BP 107/32
[2022-12-29] MEDS: NACL 0.9% 1,000 ML IV SCH (20:35)
--- NOTE | 2022-12-29 20:44 | NUR ---
PATIENT COMPLAINED OF HEADACHE, MEDICATED WITH TYLENOL
[2022-12-30] VITALS: BP 106/45
[2022-12-30 04:00] VITALS: BP 110/61
[2022-12-30] MEDS: ACETAMINOPHEN 325 MG TAB PO PRN (05:20)
[2022-12-30 06:57] LABS: BASOPHILS % (AUTO) 0.3 % (0.0-2.0); EOSINOPHILS # (AUTO) 0.3 K/uL (0-0.4); EOSINOPHILS % (AUTO) 4.2 % (0.0-4.0); HEMATOCRIT 35.9 % (36-48); HEMOGLOBIN 11.9 g/dL (12.0-16.0); LYMPHOCYTES # (AUTO) 0.5 K/uL (2.5-16.5); LYMPHOCYTES % (AUTO) 7.2 % (20.5-51.1); MEAN CORPUSCULAR HEMOGLOBIN 28 pg (27-31); MEAN CORPUSCULAR HGB CONC 33 g/dL (33-37); MEAN CORPUSCULAR VOLUME 84.7 fL (80-94); MONOCYTES # (AUTO) 0.1 K/uL (0.8-1.0); MONOCYTES % (AUTO) 1.6 % (1.7-9.3); NEUTROPHILS # (AUTO) 6.3 K/uL (1.8-7.7); NEUTROPHILS % (AUTO) 86.7 % (42.2-75.2); PLATELET COUNT (AUTO) 158 K/uL (140-450); RED BLOOD CELL COUNT(AUTO) 4.24 MIL/uL (4.20-5.40); RED CELL DISTRIBUTION WIDTH 13.6 % (11.6-13.7); WHITE BLOOD COUNT (AUTO) 7.3 K/uL (4.8-10.8)
[2022-12-30 07:13] LABS: ALBUMIN 1.4 g/dL (3.4-5.0); ANION GAP 10.9 (8-16); ASPARTATE AMINOTRANSFERASE 11 U/L (15-37); CARBON DIOXIDE 21.3 mmol/L (21-32); CHLORIDE 106 mmol/L (98-107); CREATININE 1.2 mg/dL (0.6-1.3); GLUCOSE 113 mg/dL (74-106); MAGNESIUM 1.5 mg/dL (1.8-2.4); POTASSIUM 4.2 mmol/L (3.5-5.1); SODIUM SERUM 134 mmol/L (136-145); TOTAL BILIRUBIN 0.4 mg/dL (0.0-1.0); UREA NITROGEN, BLOOD 16 mg/dL (7-18)
--- NOTE | 2022-12-30 07:32 | NUR ---
GAVE REPORT TO AM NURSE FOR CONTINUITY OF CARE.
--- NOTE | 2022-12-30 07:36 | NUR ---
GOT REPORT FROM THE NIGHT NURSE, PT IS AWAKE DISCUSSED POC [id number]
[2022-12-30 08:00] VITALS: BP 107/32
[2022-12-30] MEDS: ENOXAPARIN 30 MG/0.3 ML SYR SUBQ SCH (09:20)
[2022-12-30 12:00] VITALS: BP 109/56
[2022-12-30] MEDS: MAG SULF 2000 MG/WATER PREMIX 50 ML IV PRN (12:19)
[2022-12-30] MEDS: HYDROcodone/APAP 5/325 MG 1 TAB TAB PO PRN (12:26)
--- NOTE | 2022-12-30 15:02 | NUR ---
pt itching given Ativan and comfort care.[email or web address]
[2022-12-30 16:00] VITALS: BP 94/35
--- NOTE | 2022-12-30 17:00 | NUR ---
STARTED IV WITH 20G ON THE LEFT FOREARM, PT GIVEN BENADRYL FOR ITCHING SEE MED RECORD, THE ITCHING GOT BETTER AFTER ADMINISTERING THE BENADRYL.[email or web address]
--- NOTE | 2022-12-30 19:47 | NUR ---
GAVE REPORT TO THE NIGHT NURSE.[id number]
--- NOTE | 2022-12-30 19:50 | NUR ---
PATIENT COMPLAINED OF PAIN ON IV SITE. IV REMOVED. INSERTED A NEW IV LINE TO LEFT FOREARM 22 GAUGE. TOLERATED WELL.
[2022-12-30 20:00] VITALS: BP 115/47
--- NOTE | 2022-12-30 20:05 | NUR ---
DAUGHTER CALLED ASKING IF HER MOTHER HAS CHANGES WITH HER MEDS BECAUSE HER MOM SEEMS TO BE CONFUSED WHILE TALKING TO HER. QUESTIONS ANSWERED. PATIENT WITH CONFUSION. ALL SAFETY PRECAUTIONS ARE IN PLACE. CALL LIGHT WITHIN REACH. IVF INFUSING ORDERED. NO ACUTE DISTRESS. WILL CONTINUE TO MONITOR PT.
[2022-12-31] VITALS: BP 100/43
[2022-12-31 04:00] VITALS: BP 104/35
[2022-12-31 05:41] LABS: ALBUMIN 1.5 g/dL (3.4-5.0); ANION GAP 11.5 (8-16); ASPARTATE AMINOTRANSFERASE 12 U/L (15-37); CARBON DIOXIDE 22.6 mmol/L (21-32); CHLORIDE 108 mmol/L (98-107); CREATININE 1.1 mg/dL (0.6-1.3); GLUCOSE 96 mg/dL (74-106); MAGNESIUM 1.7 mg/dL (1.8-2.4); POTASSIUM 4.1 mmol/L (3.5-5.1); SODIUM SERUM 138 mmol/L (136-145); TOTAL BILIRUBIN 0.4 mg/dL (0.0-1.0); UREA NITROGEN, BLOOD 16 mg/dL (7-18)
[2022-12-31 06:35] LABS: HEMATOCRIT 34.7 % (36-48); HEMOGLOBIN 11.4 g/dL (12.0-16.0); MEAN CORPUSCULAR HEMOGLOBIN 28 pg (27-31); MEAN CORPUSCULAR HGB CONC 33 g/dL (33-37); MEAN CORPUSCULAR VOLUME 84.6 fL (80-94); PLATELET COUNT (AUTO) 211 K/uL (140-450); RED BLOOD CELL COUNT(AUTO) 4.11 MIL/uL (4.20-5.40); WHITE BLOOD COUNT (AUTO) 5.6 K/uL (4.8-10.8)
[2022-12-31 06:38] LABS: BASOPHILS % (MANUAL) 2 % (0-2); EOSINOPHILS % (MANUAL) 15 % (0-4); LYMPHOCYTES % (MANUAL) 26 % (20-46); MONOCYTES % (MANUAL) 8 % (5-12)
--- NOTE | 2022-12-31 07:13 | NUR ---
GAVE REPORT TO MORNING NURSE FOR CONTINUITY OF CARE. PATIENT STABLE.
--- NOTE | 2022-12-31 07:26 | NUR ---
RECEIVED REPORT FROM INSPECTOR INSULATION NURSE, PT IS ASLEEP AWAKEN BY NAME. NO SOB. MNURUM
[2022-12-31 08:00] VITALS: BP 82/44
[2022-12-31] MEDS: MAG SULF 2000 MG/WATER PREMIX 50 ML IV PRN (09:02)
[2022-12-31] MEDS: ENOXAPARIN 30 MG/0.3 ML SYR SUBQ SCH (09:02)
[2022-12-31] MEDS: predniSONE 20 MG TAB PO SCH (09:07)
[2022-12-31] MEDS: TRIAMCINOLONE 0.1% CRM 15 GM TUBE TP SCH ×2 (09:27→21:19)
[2022-12-31] MEDS ORDERED: METOPROLOL 50 MG TAB PO SCH (11:00)
[2022-12-31 12:00] VITALS: BP 109/59
--- NOTE | 2022-12-31 14:38 | NUR ---
12/31/22 RD INITIAL ASSESSMENT COMPLETED PLEASE REFER TO NUTRITION ASSESSMENT UNDER CARE ACTIVITY FOR ESTIMATED NUTRITIONAL NEEDS. 1. RECOMMEND ADDING ENSURE ENLIVE BID FOR ADDITIONAL KCAL, PROTEIN TO REGULAR DIET TOLERATED -ENSURE PROVIDES 700 KCAL, 40G PROTEIN 2. MONITOR GI, PO INTAKE, NUTRITION RELATED LAB VALUES. 3. RD TO FOLLOW-UP 3-5 DAYS, MODERATE RISK REVIEWED BY TALAT BEAUCHAMP RD
[2022-12-31 16:00] VITALS: BP 99/33
[2022-12-31 20:00] VITALS: BP 112/41
--- NOTE | 2022-12-31 20:10 | NUR ---
PATIENT RESTING IN BED. NO ACUTE DISTRESS. IV SITE TO LEFT HAND SALINE LOCK. NO COMPLAINTS OF PAIN AT THIS TIME. CALL LIGHT WITHIN REACH. AMBULATORY.
[2022-12-31] MEDS: METOPROLOL 50 MG TAB PO SCH (21:20)
[2023-01-01] VITALS: BP 112/46
[2023-01-01 04:00] VITALS: BP 104/47
[2023-01-01] MEDS: ACETAMINOPHEN 325 MG TAB PO PRN ×2 (05:26→12:20)
[2023-01-01 06:11] LABS: ALBUMIN 1.6 g/dL (3.4-5.0); ASPARTATE AMINOTRANSFERASE 16 U/L (15-37); CARBON DIOXIDE 22.9 mmol/L (21-32); CHLORIDE 108 mmol/L (98-107); CREATININE 0.9 mg/dL (0.6-1.3); GLUCOSE 128 mg/dL (74-106); POTASSIUM 4.9 mmol/L (3.5-5.1); SODIUM SERUM 137 mmol/L (136-145); TOTAL BILIRUBIN 0.2 mg/dL (0.0-1.0); UREA NITROGEN, BLOOD 18 mg/dL (7-18)
[2023-01-01 06:16] LABS: BASOPHILS % (AUTO) 0.6 % (0.0-2.0); EOSINOPHILS # (AUTO) 0.1 K/uL (0-0.4); EOSINOPHILS % (AUTO) 1.9 % (0.0-4.0); HEMATOCRIT 32.4 % (36-48); HEMOGLOBIN 10.6 g/dL (12.0-16.0); LYMPHOCYTES # (AUTO) 1.6 K/uL (2.5-16.5); LYMPHOCYTES % (AUTO) 25.3 % (20.5-51.1); MEAN CORPUSCULAR HEMOGLOBIN 28 pg (27-31); MEAN CORPUSCULAR HGB CONC 33 g/dL (33-37); MEAN CORPUSCULAR VOLUME 84.8 fL (80-94); MONOCYTES # (AUTO) 0.5 K/uL (0.8-1.0); MONOCYTES % (AUTO) 7.6 % (1.7-9.3); NEUTROPHILS # (AUTO) 4.2 K/uL (1.8-7.7); NEUTROPHILS % (AUTO) 64.6 % (42.2-75.2); PLATELET COUNT (AUTO) 253 K/uL (140-450); RED BLOOD CELL COUNT(AUTO) 3.82 MIL/uL (4.20-5.40); RED CELL DISTRIBUTION WIDTH 13.9 % (11.6-13.7); WHITE BLOOD COUNT (AUTO) 6.4 K/uL (4.8-10.8)
--- NOTE | 2023-01-01 07:29 | NUR ---
BEDSIDE REPORT GIVEN TO AM NURSE FOR CONTINUITY OF CARE.
--- NOTE | 2023-01-01 07:40 | NUR ---
GOT REPORT FROM THE NIGHT NURSE, PT SLEEPING NO SOB .[id number]
[2023-01-01 08:00] VITALS: BP 94/36
[2023-01-01] MEDS: TRIAMCINOLONE 0.1% CRM 15 GM TUBE TP SCH ×2 (09:00→21:18)
[2023-01-01] MEDS: predniSONE 20 MG TAB PO SCH (09:08)
[2023-01-01] MEDS: METOPROLOL 50 MG TAB PO SCH ×2 (09:09→21:18)
[2023-01-01] MEDS: ENOXAPARIN 30 MG/0.3 ML SYR SUBQ SCH (09:09)
[2023-01-01 12:00] VITALS: BP 94/36
[2023-01-01 16:00] VITALS: BP 101/42
[2023-01-01 20:00] VITALS: BP 127/60
--- NOTE | 2023-01-01 21:20 | NUR ---
ADMINISTERED SCHEDULED DUE MEDICATIONS. PATIENT AWAKE ALERT VERBALLY RESPONSIVE. ABLE TO MAKE NEEDS KNOWN. NO ACUTE DISTRESS. BREATHING NORMAL UNLABORED. NO COMPLAINTS OF PAIN AT THIS TIME. WALKS TO THE RESTROOM. BED WHEELS LOCKED IN LOW POSITION. CALL LIGHT WITHIN REACH.
[2023-01-02] MEDS: ACETAMINOPHEN 325 MG TAB PO PRN (00:12)
[2023-01-02 04:00] VITALS: BP 127/60
[2023-01-02] MEDS: HYDROcodone/APAP 5/325 MG 1 TAB TAB PO PRN (04:57)
--- NOTE | 2023-01-02 04:57 | NUR ---
PATIENT COMPLAINED OF BACK PAIN, MEDICATED WITH NORCO PRN.
[2023-01-02 05:30] LABS: BASOPHILS % (AUTO) 0.6 % (0.0-2.0); EOSINOPHILS # (AUTO) 0.1 K/uL (0-0.4); EOSINOPHILS % (AUTO) 1.2 % (0.0-4.0); HEMATOCRIT 31.8 % (36-48); HEMOGLOBIN 10.3 g/dL (12.0-16.0); LYMPHOCYTES # (AUTO) 2.3 K/uL (2.5-16.5); LYMPHOCYTES % (AUTO) 29.3 % (20.5-51.1); MEAN CORPUSCULAR HEMOGLOBIN 28 pg (27-31); MEAN CORPUSCULAR HGB CONC 33 g/dL (33-37); MEAN CORPUSCULAR VOLUME 85.4 fL (80-94); MONOCYTES # (AUTO) 0.5 K/uL (0.8-1.0); NEUTROPHILS # (AUTO) 4.9 K/uL (1.8-7.7); NEUTROPHILS % (AUTO) 62.9 % (42.2-75.2); PLATELET COUNT (AUTO) 294 K/uL (140-450); RED BLOOD CELL COUNT(AUTO) 3.72 MIL/uL (4.20-5.40); RED CELL DISTRIBUTION WIDTH 13.8 % (11.6-13.7); WHITE BLOOD COUNT (AUTO) 7.7 K/uL (4.8-10.8)
[2023-01-02 05:53] LABS: ALBUMIN 1.9 g/dL (3.4-5.0); ASPARTATE AMINOTRANSFERASE 19 U/L (15-37); CARBON DIOXIDE 26.6 mmol/L (21-32); CHLORIDE 108 mmol/L (98-107); CREATININE 0.9 mg/dL (0.6-1.3); GLUCOSE 119 mg/dL (74-106); POTASSIUM 4.6 mmol/L (3.5-5.1); SODIUM SERUM 140 mmol/L (136-145); TOTAL BILIRUBIN 0.2 mg/dL (0.0-1.0); UREA NITROGEN, BLOOD 26 mg/dL (7-18)
--- NOTE | 2023-01-02 07:16 | NUR ---
ASSUMED CONTINUITY OF CARE. INITIAL ASSESSMENT DONE. KEEP COMFORTABLE ON BED. FALL PRECAUTION APPLIED. CALL LIGHT WITHIN REACH.
--- NOTE | 2023-01-02 07:16 | NUR ---
GAVE REPORT TO AM NURSE FOR CONTINUITY OF CARE. MNURVA
[2023-01-02 08:00] VITALS: BP 115/54
[2023-01-02] MEDS ORDERED: ALBUTEROL 0.083% 2.5 MG/3 ML NEBU INH PRN (08:05)
[2023-01-02] MEDS ORDERED: ALBUTEROL 0.083% 2.5 MG/3 ML NEBU INH ONE (08:06)
[2023-01-02] MEDS: TRIAMCINOLONE 0.1% CRM 15 GM TUBE TP SCH (08:59)
[2023-01-02] MEDS: predniSONE 20 MG TAB PO SCH (08:59)
[2023-01-02] MEDS: METOPROLOL 50 MG TAB PO SCH (09:00)
[2023-01-02] MEDS: ENOXAPARIN 30 MG/0.3 ML SYR SUBQ SCH (09:01)
[2023-01-02] MEDS ORDERED: ALBUTEROL 0.083% 2.5 MG/3 ML NEBU INH SCH (13:00)
[2023-01-02] MEDS ORDERED: KEN.025C TP (14:01)
--- NOTE | 2023-01-02 14:45 | NUR ---
Pt refused breathing tx, stated/ requested "Can I have it later, around six?" Explained medication schedule and pt would like to wait until next scheduled dose. Pt aware she can request a breathing tx as needed. No distress at this time. Pt appears comfortable.
[2023-01-02 16:00] VITALS: BP 123/64
--- NOTE | 2023-01-02 16:05 | NUR ---
PT REQUESTED PRN TX FOR SOB. STATES SHE IS SOB AFTER GETTING UP TO GO TO THE RESTROOM. PRN WAS EFFECTIVE PT STATED "I THINK THAT HELPED." AFTER TX. IMPROVED AERATION NOTED
--- NOTE | 2023-01-02 18:40 | NUR ---
D/C HOME VIA WHEELCHAIR. NO SOB NOTED. IN STABLE CONDITION. INFORMED CHARGE NURSE BRIGITTE BARNETT.
== END 2023-01-02 18:40 | disposition home or self-care (01) | DRG 871 ==
LOC: MED 22:41 → MTU 12-27 01:01
PROVIDERS: ADMIT Hospitalist; ATTEND Emergency Medicine
DX: A41.9 Sepsis, unspecified organism (principal); J18.9 Pneumonia, unspecified organism; N17.9 Acute kidney failure, unspecified; B37.0 Candidal stomatitis; J44.1 Chronic obstructive pulmonary disease with (acute) exacerbation; N39.0 Urinary tract infection, site not specified; E44.0 Moderate protein-calorie malnutrition; I50.9 Heart failure, unspecified; I11.0 Hypertensive heart disease with heart failure; I48.91 Unspecified atrial fibrillation; Z20.822 Contact with and (suspected) exposure to COVID-19; Z68.27 Body mass index [BMI] 27.0-27.9, adult; K21.9 Gastro-esophageal reflux disease without esophagitis; L27.0 Generalized skin eruption due to drugs and medicaments taken internally; E78.5 Hyperlipidemia, unspecified; Z87.891 Personal history of nicotine dependence; Z88.0 Allergy status to penicillin; Z88.2 Allergy status to sulfonamides; Z88.5 Allergy status to narcotic agent
CPT/HCPCS: 36415; 71045; 76770; 80053; 81001; 83735; 83880; 84484; 85025; 87040; 87081; 87086; 93005; 94640; 96365; 96375; 99285; J0456; J0696; J1450; J1650; J2060; J2405; J3010; J3475; J3490; J7060; J7512; J7613; Q0092; Q0177

== ENCOUNTER 2023-01-28 12:00 | Inpatient (IN) | payer OTHER ==
[~2023-01-28] VITALS: Ht 154.9 cm; Wt 66.2 kg
[~2023-01-28 12:00] MED LIST changes: -CIPR500T4 PO; +KEN.025C TP; -NIFE30TE5 PO; -PRED20TA5 PO; -[UNRECOGNIZED DRUG - CODE] PO
--- NOTE | 2023-01-28 12:01 | NUR ---
PT AMBULATED TO BED 3
[2023-01-28 12:10] VITALS: BP 104/56
--- NOTE | 2023-01-28 12:10 | NUR ---
PATIENT IS IN ROOM 9, NO QUESTIONS NOTED AT THE MOMENT AND WILL REINFORCE IF NEEDED THROUGHOUT THE SHIFT.
[2023-01-28] MEDS ORDERED: fentaNYL citrate 0.05 MG/ML VIAL IVP ONE (12:40)
[2023-01-28 13:17] LABS: BASOPHILS % (AUTO) 0.3 % (0.0-2.0); EOSINOPHILS # (AUTO) 0.3 K/uL (0-0.4); EOSINOPHILS % (AUTO) 6.8 % (0.0-4.0); HEMATOCRIT 38.1 % (36-48); HEMOGLOBIN 12.5 g/dL (12.0-16.0); LYMPHOCYTES # (AUTO) 1.9 K/uL (2.5-16.5); LYMPHOCYTES % (AUTO) 37.4 % (20.5-51.1); MEAN CORPUSCULAR HEMOGLOBIN 28 pg (27-31); MEAN CORPUSCULAR HGB CONC 33 g/dL (33-37); MEAN CORPUSCULAR VOLUME 84.3 fL (80-94); MONOCYTES # (AUTO) 0.3 K/uL (0.8-1.0); MONOCYTES % (AUTO) 6.8 % (1.7-9.3); NEUTROPHILS # (AUTO) 2.5 K/uL (1.8-7.7); NEUTROPHILS % (AUTO) 48.7 % (42.2-75.2); PLATELET COUNT (AUTO) 203 K/uL (140-450); RED BLOOD CELL COUNT(AUTO) 4.52 MIL/uL (4.20-5.40); RED CELL DISTRIBUTION WIDTH 14.2 % (11.6-13.7); WHITE BLOOD COUNT (AUTO) 5.1 K/uL (4.8-10.8)
[2023-01-28 13:30] LABS: ALBUMIN 3.2 g/dL (3.4-5.0); ASPARTATE AMINOTRANSFERASE 21 U/L (15-37); CARBON DIOXIDE 29.4 mmol/L (21-32); CHLORIDE 104 mmol/L (98-107); CREATININE 1.3 mg/dL (0.6-1.3); GLUCOSE 105 mg/dL (74-106); POTASSIUM 4.4 mmol/L (3.5-5.1); SODIUM SERUM 139 mmol/L (136-145); TOTAL BILIRUBIN 0.7 mg/dL (0.0-1.0); UREA NITROGEN, BLOOD 21 mg/dL (7-18)
[2023-01-28] MEDS ORDERED: MAGNESIUM OXIDE 400 MG TAB PO PRN (14:40)
[2023-01-28] MEDS ORDERED: ACETAMINOPHEN 325 MG TAB PO PRN (14:40)
[2023-01-28] MEDS ORDERED: MORPHINE SULFATE 2 MG/ML SYR IVP PRN (14:40)
[2023-01-28] MEDS ORDERED: NACL 0.9% 1,000 ML IV SCH (14:40)
[2023-01-28] MEDS ORDERED: POTASSIUM CHLORIDE 10 MEQ TABER PO PRN (14:40)
--- NOTE | 2023-01-28 17:00 | NUR ---
EDUCATED THE PATIENT ABOUT THE TRANSFER TO NEW ROOM, PATIENT UNDERSTANDS THE TEACHING AND HAS NO QUESTIONS NOTED AT THE MOMENT.
--- NOTE | 2023-01-28 17:04 | NUR ---
TRANSFERRED PATIENT TO ROOM 104B, PROVIDED BEDSIDE REPORT TO JOSH SANTOS AND HAS NO QUESTIONS NOTED DURING THE TRANSFER OVER WITH ACLS MEDICATIONS, AND EMT, AND PRIMARY RN.
--- NOTE | 2023-01-28 17:24 | NUR ---
RECEIVE ER NURSE REPORT THAT PATIENT COME FROM HOME FOR CHEST PAIN W/ SOB UNDER CARE OF DR. XAVIER OBSERVATION STATUS. PATIENT DIAGNOSIS W/ CHEST PAIN, MSK PAIN W/ HX OF COPD, GERD, HTN, HERNIA REPAIR. PATIENT MOST RECENT TROPONIN IS 14, ALLERGY TO PENICILLINS, SULFA, DIPHENHYDRAMINE, MORPHINE, NYSTATIN; PATIENT IS FULL CODE, ALERT X4, AMBULATORY; ADMISSION EKG SHOWS SR W/ PAC; ON 2 LITER VIA NC, CARDIAC DIET; IV NS INFUSING VIA LAC 20G SITE; L. INNER KNEE RASH W/ SCRATCH NOTED, VITAL WITHIN PATIENT'S BASELINE (T-P-R:96.8-57-20; BP: 119/54, O2 SAT: 99% ON 2 LITE VIA NC). WILL CONTINUE TO MONITOR Addendum: 01/28/23 at 1928 by Carey Delgado RN ENDORSE PATIENT IN STABLE CONDITION TO PM SHIFT NURSE WHILE NS INFUSING @80ML/HR VIA LAC. PATIENT ADMIT FOR CHEST PAIN W/ SOB, AND CHEST X-RAY IS NEGATIVE, CURRENT ON 2 LITER VIA NC AND BREATH TREATMENT IS ON SCHEDULE. MIGHT D/C HOME TOMORROW PER PCP
[2023-01-28 17:39] VITALS: BP 119/54
--- NOTE | 2023-01-28 19:05 | NUR ---
RECEIVED PT IN BED AWAKE, ALERT AND ORIENTED. DENIES PAIN AT THIS TIME. DENIES SHORTNESS OF BREATH. STARTED IV IN THE LEFT WRIST GAUGE 22 X1 ATTEMPT, PT TOLERATED WELL, PREVIOUS IV SITE NOT FLUSHING, REMOVED WITH INTACT CANNULA. SKIN WARM AND DRY TO TOUCH. SAFETY PRECAUTIONS IN PLACE, CALL LIGHT IN REACH, ENCOURAGED TO CALL IF ASSISTANCE IS NEEDED, PT VERBALLY ACKNOWLEDGED.
[2023-01-28 20:00] VITALS: BP 128/73
[2023-01-28] MEDS: HYDROcodone/APAP 5/325 MG 1 TAB TAB PO PRN (20:13)
[2023-01-29] VITALS: BP 119/69
--- NOTE | 2023-01-29 | NUR ---
IV GOT ACCIDENTALLY PULLED OUT WHEN PT WENT TO THE BATHROOM, PREVIOUS IV CAME OUT WITH INTACT CANNULA. INSERTED IV IN THE LEFT FOREARM GAUGE 20 X 1 ATTEMPT, PT TOLERATED WELL. VITAL SIGNS WITHIN NORMAL LIMITS. CALL LIGHT PLACED WITHIN REACH, INSTRUCTED TO CALL IF ASSISTANCE IS NEEDED, PT VERBALLY ACKNOWLEDGED.
[2023-01-29] MEDS: HYDROcodone/APAP 5/325 MG 1 TAB TAB PO PRN ×4 (03:50→18:03)
[2023-01-29 04:00] VITALS: BP 117/63
--- NOTE | 2023-01-29 06:16 | NUR ---
PATIENT IS ASLEEP. ALL NEEDS ATTENDED TO. NO DISTRESS NOTED. SAFETY PRECAUTIONS MAINTAINED DURING THE SHIFT. FREQUENT ROUNDING DONE. CALL LIGHT REMAINS WITHIN REACH.
[2023-01-29 07:11] LABS: BASOPHILS % (AUTO) 0.3 % (0.0-2.0); EOSINOPHILS # (AUTO) 0.5 K/uL (0-0.4); EOSINOPHILS % (AUTO) 10.1 % (0.0-4.0); HEMATOCRIT 34.4 % (36-48); HEMOGLOBIN 11.2 g/dL (12.0-16.0); LYMPHOCYTES # (AUTO) 2.2 K/uL (2.5-16.5); LYMPHOCYTES % (AUTO) 46.3 % (20.5-51.1); MEAN CORPUSCULAR HEMOGLOBIN 28 pg (27-31); MEAN CORPUSCULAR HGB CONC 33 g/dL (33-37); MEAN CORPUSCULAR VOLUME 84.4 fL (80-94); MONOCYTES # (AUTO) 0.4 K/uL (0.8-1.0); MONOCYTES % (AUTO) 7.9 % (1.7-9.3); NEUTROPHILS # (AUTO) 1.7 K/uL (1.8-7.7); NEUTROPHILS % (AUTO) 35.4 % (42.2-75.2); PLATELET COUNT (AUTO) 181 K/uL (140-450); RED BLOOD CELL COUNT(AUTO) 4.08 MIL/uL (4.20-5.40); RED CELL DISTRIBUTION WIDTH 14.1 % (11.6-13.7); WHITE BLOOD COUNT (AUTO) 4.8 K/uL (4.8-10.8)
[2023-01-29 07:18] LABS: ANION GAP 9.6 (8-16); CARBON DIOXIDE 30.4 mmol/L (21-32); CHLORIDE 105 mmol/L (98-107); GLUCOSE 88 mg/dL (74-106); SODIUM SERUM 141 mmol/L (136-145); UREA NITROGEN, BLOOD 24 mg/dL (7-18)
[2023-01-29 08:00] VITALS: BP 120/52
[2023-01-29] MEDS: DOCUSATE SODIUM 100 MG GELCAP PO SCH (08:32)
[2023-01-29] MEDS: ONDANSETRON 4 MG/2 ML VIAL IVP PRN ×2 (08:33→12:37)
[2023-01-29] MEDS: AZITHROMYCIN 250 MG TAB PO SCH (08:33)
--- NOTE | 2023-01-29 08:56 | NUR ---
PATIENT HAS BEEN SCREENED AND CATEGORIZED LOW NUTRITION RISK. PATIENT WILL BE SEEN WITHIN 7 DAYS OF ADMISSION. 02/04/[address]
--- NOTE | 2023-01-29 10:41 | NUR ---
ATTEMPTED TO WEAN PATIENT ON ROOM AIR, DESATTED TO 86% WHILE RESTING, PLACED BACK ON 2L N/C
[2023-01-29 12:00] VITALS: BP 139/62
[2023-01-29] MEDS ORDERED: PRED50TA2 PO (15:19)
--- NOTE | 2023-01-29 15:23 | NUR ---
INFORMED MD THAT PATIENT HAS BEEN UNABLE TO COME OFF OXYGEN, STATES WILL ORDER STEROIDS AND SOME FOR HOME AND IF PATIENT ABLE TO COME OFF O2 AFTER STEROIDS CAN BE DC'D TONIGHT
[2023-01-29] MEDS ORDERED: methylPREDNISolone SS 125 MG/2 ML VIAL IVP SCH (15:37)
[2023-01-29 16:00] VITALS: BP 136/82
[2023-01-29] MEDS: ALBUTEROL SULFATE/IPRATROPIU 3 ML SOL IH SCH (16:22)
--- NOTE | 2023-01-29 17:43 | NUR ---
NOTIFIED MD THAT PATIENT STILL DESATURATES ON ROOM AIR TO 86% AFTER STEROIDS. PER MD GET CXR AND GIVE LASIX 40 MG IVP X1
[2023-01-29] MEDS ORDERED: FUROSEMIDE 40 MG/4 ML VIAL IVP SCH (18:00)
--- NOTE | 2023-01-29 19:05 | NUR ---
MD MADE AWARE OF CXR AND THAT PT. IS STILL HYPOXIC
--- NOTE | 2023-01-29 19:05 | NUR ---
RECEIVED PT IN BED AWAKE, ALERT AND ORIENTED X4. DENIES PAIN. NO ACUTE RESPIRATORY DISTRESS. SKIN WARM AND DRY TO TOUCH. SAFETY PRECAUTIONS IN PLACE, CALL LIGHT IN REACH.
[2023-01-29 20:00] VITALS: BP 116/45
[2023-01-30] VITALS (7 sets, daily range): BP systolic 111–152; BP diastolic 52–71
[2023-01-30] MEDS: ONDANSETRON 4 MG/2 ML VIAL IVP PRN ×2 (00:59→05:23)
[2023-01-30] MEDS: HYDROcodone/APAP 5/325 MG 1 TAB TAB PO PRN ×4 (00:59→16:50)
--- NOTE | 2023-01-30 00:59 | NUR ---
PATIENT COMPLAINING OF BEING NAUSEOUS AND HAVING PAIN, MEDICATED ORDERED.
[2023-01-30] MEDS: ALBUTEROL SULFATE/IPRATROPIU 3 ML SOL IH SCH ×5 (01:27→18:56)
--- NOTE | 2023-01-30 01:30 | NUR ---
PER PT: " I FEEL BETTER." CALL LIGHT PLACED WITHIN REACH, ENCOURAGED TO CALL IF ASSISTANCE IS NEEDED, PT VERBALLY ACKNOWLEDGED.
--- NOTE | 2023-01-30 04:30 | NUR ---
PATIENT IS ASLEEP. NO S/SX OF PAIN NOR DISCOMFORT. CALL LIGHT WITHIN REACH.
--- NOTE | 2023-01-30 06:42 | NUR ---
PATIENT IS ASLEEP. NO DISTRESS NOTED. ALL NEEDS ATTENDED TO. SAFETY PRECAUTIONS MAINTAINED DURING THE SHIFT, CALL LIGHT REMAINS WITHIN REACH.
[2023-01-30 06:51] LABS: EOSINOPHILS % (AUTO) 0.1 % (0.0-4.0); HEMATOCRIT 39.7 % (36-48); HEMOGLOBIN 13.2 g/dL (12.0-16.0); LYMPHOCYTES # (AUTO) 0.7 K/uL (2.5-16.5); LYMPHOCYTES % (AUTO) 14.6 % (20.5-51.1); MEAN CORPUSCULAR HEMOGLOBIN 28 pg (27-31); MEAN CORPUSCULAR HGB CONC 33 g/dL (33-37); MONOCYTES % (AUTO) 0.9 % (1.7-9.3); NEUTROPHILS # (AUTO) 4.1 K/uL (1.8-7.7); NEUTROPHILS % (AUTO) 84.4 % (42.2-75.2); PLATELET COUNT (AUTO) 228 K/uL (140-450); RED BLOOD CELL COUNT(AUTO) 4.79 MIL/uL (4.20-5.40); RED CELL DISTRIBUTION WIDTH 13.7 % (11.6-13.7); WHITE BLOOD COUNT (AUTO) 4.8 K/uL (4.8-10.8)
[2023-01-30 07:05] LABS: ANION GAP 12.6 (8-16); CARBON DIOXIDE 28.3 mmol/L (21-32); CHLORIDE 98 mmol/L (98-107); CREATININE 1.1 mg/dL (0.6-1.3); GLUCOSE 170 mg/dL (74-106); POTASSIUM 3.9 mmol/L (3.5-5.1); SODIUM SERUM 135 mmol/L (136-145); UREA NITROGEN, BLOOD 25 mg/dL (7-18)
--- NOTE | 2023-01-30 07:30 | NUR ---
ROUNDED ON PT AND TRIED TO GIVE BREATHING TX. PT STATED SHE WASNT FEELING WELL AND SHE WAS GOING TO WAIT ON TX. I NOTIFIED THE RN MOR ABOUT PT NOT FEELING WELL. NO DISTRESS NOTED. WILL CONTINUE TO MONITOR PT.
[2023-01-30] MEDS ORDERED: CRUSHER, PILL MC ONE (08:32)
[2023-01-30] MEDS: DOCUSATE SODIUM 100 MG GELCAP PO SCH (09:31)
[2023-01-30] MEDS: AZITHROMYCIN 250 MG TAB PO SCH (09:33)
[2023-01-30] MEDS ORDERED: FURO-570 PO (13:39)
--- NOTE | 2023-01-30 14:50 | NUR ---
ASKED TO ASSESS PT FOR HOME OXYGEN. UPON ARRIVAL PT AT 92% ON ROOM AIR. WENT ON WALK WITH PT DUE TO CONCERN ABOUT HR AND STRENGTH LEVEL. WALKED FOR ONLY TWO MINUTES AND O2 SATURATION DECREASED TO 84%. BY THE TIME SHE GOT BACK TO BED SATURATION WAS 91%. ONCE LAYING BACK IN BED, TOOK 3 MINUTES FOR OXYGEN SATURATION TO INCREASE TO 92%. PT SAYS SHE FEELS WEIGHT ON HER ABACK AND A LITTLE SHORT OF BREATH. WENT BACK AFTER 10 MINUTES AND PT WAS NO LONGER FEWELING SOB, WEIGHT IS MOSTLY GONE, AND O2 WAS 89%.
--- NOTE | 2023-01-30 19:14 | NUR ---
ENDORSE PATIENT IN STABLE CONDITION TO PM SHIFT NURSE WHILE WAITING FOR HOME OXYGEN AVAILABLE FOR PATIENT DISCHARGE HOME. PATIENT CURRENT IS ON 1 LITER FOR OXYGEN SATURATION ABOVE 92% DURING REST, BUT PATIENT MIGHT DE-SATURATION WHEN UP AND WALKING. DISCHARGE PACKAGE STARTED.
--- NOTE | 2023-01-30 19:15 | NUR ---
RECEIVED PT IN BED AWAKE, ALERT AND ORIENTED X 4, CURRENTLY ON BREATHING TREATMENT. DENIES PAIN AT THIS TIME. NO ACUTE RESPIRATORY DISTRESS NOTED. SKIN WARM NAND DRY TO TOUCH. SAFETY PRECAUTION IN PLACE, CALL LIGHT IN REACH.
[2023-01-30] MEDS ORDERED: POLYETHYLENE GLYCOL 17 GM/PKT PO PRN (19:45)
[2023-01-30] MEDS ORDERED: MUPIROCIN CA NASAL 2% 1GM TUBE NS SCH (20:15)
[2023-01-30] MEDS ORDERED: CHLORHEXADINE GLUC 2% CLOTH TP SCH (20:15)
--- NOTE | 2023-01-30 22:27 | NUR ---
PATIENT HAD 2 LARGE BOWEL MOVEMENTS. HELPED CLEAN PT. ASSISTED BACK TO BED AND MADE COMFORTABLE. CALL LIGHT PLACED WITHIN REACH.
[2023-01-31] VITALS: BP 144/60
--- NOTE | 2023-01-31 | NUR ---
VITAL SIGNS TAKEN AND DOCUMENTED, WITHIN NORMAL LIMITS. DENIES SHORTNESS OF BREATH AT THIS TIME. CALL LIGHT WITHIN REACH.
[2023-01-31] MEDS: ALBUTEROL SULFATE/IPRATROPIU 3 ML SOL IH SCH ×3 (01:00→13:33)
--- NOTE | 2023-01-31 02:08 | NUR ---
ROUNDING DONE. PATIENT IS ASLEEP. BREATHING EVEN AND UNLABORED. CALL LIGHT WITHIN REACH.
[2023-01-31] MEDS: HYDROcodone/APAP 5/325 MG 1 TAB TAB PO PRN ×2 (03:58→11:01)
[2023-01-31 04:00] VITALS: BP 115/49
--- NOTE | 2023-01-31 06:29 | NUR ---
PATIENT IS ASLEEP. NO DISTRESS NOTED. ALL NEEDS ATTENDED TO. SAFETY PRECAUTIONS MAINTAINED DURING THE SHIFT, CALL LIGHT REMAINS WITHIN REACH.
[2023-01-31 06:44] LABS: BASOPHILS # (AUTO) 0.1 K/uL (0.00-0.22); BASOPHILS % (AUTO) 1.6 % (0.0-2.0); EOSINOPHILS # (AUTO) 0.1 K/uL (0-0.4); EOSINOPHILS % (AUTO) 0.7 % (0.0-4.0); HEMATOCRIT 35.5 % (36-48); HEMOGLOBIN 11.6 g/dL (12.0-16.0); LYMPHOCYTES # (AUTO) 2.1 K/uL (2.5-16.5); LYMPHOCYTES % (AUTO) 27.5 % (20.5-51.1); MEAN CORPUSCULAR HEMOGLOBIN 28 pg (27-31); MEAN CORPUSCULAR HGB CONC 33 g/dL (33-37); MEAN CORPUSCULAR VOLUME 83.8 fL (80-94); MONOCYTES # (AUTO) 0.4 K/uL (0.8-1.0); MONOCYTES % (AUTO) 5.7 % (1.7-9.3); NEUTROPHILS % (AUTO) 64.5 % (42.2-75.2); PLATELET COUNT (AUTO) 207 K/uL (140-450); RED BLOOD CELL COUNT(AUTO) 4.24 MIL/uL (4.20-5.40); RED CELL DISTRIBUTION WIDTH 13.9 % (11.6-13.7); WHITE BLOOD COUNT (AUTO) 7.7 K/uL (4.8-10.8)
[2023-01-31 07:08] LABS: ANION GAP 6.6 (8-16); CARBON DIOXIDE 32.9 mmol/L (21-32); CHLORIDE 102 mmol/L (98-107); CREATININE 1.2 mg/dL (0.6-1.3); GLUCOSE 93 mg/dL (74-106); POTASSIUM 4.5 mmol/L (3.5-5.1); SODIUM SERUM 137 mmol/L (136-145); UREA NITROGEN, BLOOD 30 mg/dL (7-18)
--- NOTE | 2023-01-31 07:10 | NUR ---
RECEIVED PATIENT FROM PM NURSE. PATIENT SEEN, ASLEEP ON BED WITH NORMAL RISE AND FALL OF CHEST. PATIENT CARE PLAN REVIEWED. DISCHARGE ORDER SEEN. TO FOLLOW UP HOME OXYGEN FOR PATIENT DISCHARGE
[2023-01-31 08:00] VITALS: BP 97/60
[2023-01-31] MEDS: AZITHROMYCIN 250 MG TAB PO SCH (09:47)
[2023-01-31] MEDS: DOCUSATE SODIUM 100 MG GELCAP PO SCH (09:47)
[2023-01-31 16:00] VITALS: BP 118/59
== END 2023-01-31 17:40 | disposition home or self-care (01) | DRG 189 ==
LOC: MED 12:00 → INTOOBSV 14:39 → MMU 14:39 → OBSVTOIN 14:44 → MTU 16:33
PROVIDERS: ADMIT Student in an Organized Health Care Education/Training Program; ATTEND Student in an Organized Health Care Education/Training Program
DX: J96.01 Acute respiratory failure with hypoxia (principal); E44.0 Moderate protein-calorie malnutrition; R07.89 Other chest pain; J44.9 Chronic obstructive pulmonary disease, unspecified; I48.91 Unspecified atrial fibrillation; E78.5 Hyperlipidemia, unspecified; Z20.822 Contact with and (suspected) exposure to COVID-19; Z88.0 Allergy status to penicillin; Z88.2 Allergy status to sulfonamides; Z88.5 Allergy status to narcotic agent; I11.0 Hypertensive heart disease with heart failure; I50.9 Heart failure, unspecified; Z68.27 Body mass index [BMI] 27.0-27.9, adult
CPT/HCPCS: 36415; 71045; 80048; 80053; 83735; 83880; 84484; 85025; 87081; 93005; 94617; 94640; 96374; 97110; 97116; 97530; 99285; J1644; J1940; J2405; J2930; J3010; Q0092

== ENCOUNTER 2023-05-05 16:30 | Observation (INO) | payer OTHER ==
[~2023-05-05] VITALS: Ht 154.9 cm; Wt 68.0 kg
[~2023-05-05 16:30] MED LIST changes: -AMLO1CAP4 PO; +FURO-570 PO; +PRED50TA2 PO
[2023-05-05 16:32] VITALS: BP 126/76; PULSE 57; RESP 18; TEMP 97.9; O2SAT 94
[2023-05-05 17:02] LABS: APPEARANCE,URINE CLEAR (CLEAR); BILIRUBIN,URINE NEGATIVE (NEGATIVE); BLOOD, URINE 1+ (NEGATIVE); COLOR,URINE YELLOW (YELLOW); LEUKOCYTE ESTERASE ,URINE NEGATIVE (NEGATIVE); NITRITE, URINE NEGATIVE (NEGATIVE); PROTEIN,URINE NEGATIVE (NEGATIVE); UGLUCOSE NEGATIVE (NEGATIVE); UROBILINOGEN,URINE 0.2 EU/dL (0.2 - 1)
[2023-05-05 17:14] LABS: BASOPHILS % (AUTO) 0.7 % (0.0-2.0); EOSINOPHILS # (AUTO) 0.2 K/uL (0-0.4); EOSINOPHILS % (AUTO) 3.7 % (0.0-4.0); HEMATOCRIT 39.6 % (36-48); HEMOGLOBIN 12.9 g/dL (12.0-16.0); LYMPHOCYTES # (AUTO) 1.7 K/uL (2.5-16.5); LYMPHOCYTES % (AUTO) 36.4 % (20.5-51.1); MEAN CORPUSCULAR HEMOGLOBIN 26 pg (27-31); MEAN CORPUSCULAR HGB CONC 33 g/dL (33-37); MEAN CORPUSCULAR VOLUME 80.8 fL (80-94); MONOCYTES # (AUTO) 0.3 K/uL (0.8-1.0); NEUTROPHILS # (AUTO) 2.4 K/uL (1.8-7.7); NEUTROPHILS % (AUTO) 52.2 % (42.2-75.2); PLATELET COUNT (AUTO) 195 K/uL (140-450); RED CELL DISTRIBUTION WIDTH 13.7 % (11.6-13.7); WHITE BLOOD COUNT (AUTO) 4.7 K/uL (4.8-10.8)
[2023-05-05 17:25] LABS: INR 1.01 (0.8-1.2); PROTHROMBIN TIME 10.6 secs (10.8-13.4)
[2023-05-05 17:29] LABS: ALANINE AMINOTRANSFERASE 25 U/L (12-78); ALBUMIN 3.4 g/dL (3.4-5.0); ALKALINE PHOSPHATASE 118 U/L (50-136); ANION GAP 10.3 (8-16); ASPARTATE AMINOTRANSFERASE 27 U/L (15-37); CALCIUM 8.3 mg/dL (8.5-10.1); CARBON DIOXIDE 28.2 mmol/L (21-32); CHLORIDE 106 mmol/L (98-107); CREATININE 1.4 mg/dL (0.6-1.3); GLUCOSE 126 mg/dL (74-106); POTASSIUM 4.5 mmol/L (3.5-5.1); SODIUM SERUM 140 mmol/L (136-145); TOTAL BILIRUBIN 0.5 mg/dL (0.0-1.0); TOTAL PROTEIN, SERUM 6.9 g/dL (6.4-8.2); UREA NITROGEN, BLOOD 34 mg/dL (7-18)
[2023-05-05] MEDS ORDERED: NITROGLYCERIN 0.4 MG TAB SL ONE (17:45)
[2023-05-05] MEDS ORDERED: MORPHINE SULFATE 2 MG/ML SYR IVP ONE (17:45)
[2023-05-05 18:01] LABS: BACTERIA,URINE FEW /HPF (None Seen); SQUAMOUS EPITHELIAL CELL,UR 4-10 (MOD) /LPF (0-3 (FEW)); WBC,URINE NONE SEEN /HPF (0-5)
[2023-05-05] MEDS ORDERED: fentaNYL citrate 0.05 MG/ML VIAL IVP ONE (18:10)
[2023-05-05] MEDS ORDERED: ONDANSETRON 4 MG/2 ML VIAL IVP PRN (20:15)
[2023-05-05] MEDS ORDERED: MORPHINE SULFATE 2 MG/ML SYR IVP PRN (20:15)
[2023-05-05] MEDS ORDERED: ACETAMINOPHEN 325 MG TAB PO PRN (20:15)
[2023-05-05] MEDS ORDERED: KCL 20 MEQ IN 100 mL PREMIX 200 ML IV PRN (20:15)
[2023-05-05] MEDS ORDERED: POTASSIUM CHLORIDE 10 MEQ TABER PO PRN (20:15)
[2023-05-05] MEDS ORDERED: MAGNESIUM OXIDE 400 MG TAB PO PRN (20:15)
[2023-05-05] MEDS ORDERED: MAG SULF 2000 MG/WATER PREMIX 50 ML IV PRN (20:15)
[2023-05-05 22:29] VITALS: PULSE 51; RESP 18; O2SAT 100; O2SAT 98
[2023-05-05 22:33] VITALS: PULSE 64
[2023-05-05] MEDS: HYDROcodone/APAP 5/325 MG 1 TAB TAB PO PRN (23:13)
[2023-05-06] VITALS: BP 112/52; PULSE 42; PULSE 51; RESP 18; TEMP 96.4; O2SAT 98
[2023-05-06 04:00] VITALS: BP 129/38; PULSE 52; PULSE 56; RESP 17; TEMP 96.2; O2SAT 98
[2023-05-06 05:35] LABS: BASOPHILS % (AUTO) 0.5 % (0.0-2.0); EOSINOPHILS # (AUTO) 0.1 K/uL (0-0.4); EOSINOPHILS % (AUTO) 3.2 % (0.0-4.0); HEMATOCRIT 36.7 % (36-48); HEMOGLOBIN 11.9 g/dL (12.0-16.0); LYMPHOCYTES # (AUTO) 2.1 K/uL (2.5-16.5); LYMPHOCYTES % (AUTO) 46.6 % (20.5-51.1); MEAN CORPUSCULAR HEMOGLOBIN 26 pg (27-31); MEAN CORPUSCULAR HGB CONC 32 g/dL (33-37); MEAN CORPUSCULAR VOLUME 80.3 fL (80-94); MONOCYTES # (AUTO) 0.3 K/uL (0.8-1.0); MONOCYTES % (AUTO) 6.1 % (1.7-9.3); NEUTROPHILS # (AUTO) 1.9 K/uL (1.8-7.7); NEUTROPHILS % (AUTO) 43.6 % (42.2-75.2); PLATELET COUNT (AUTO) 169 K/uL (140-450); RED BLOOD CELL COUNT(AUTO) 4.58 MIL/uL (4.20-5.40); RED CELL DISTRIBUTION WIDTH 13.2 % (11.6-13.7); WHITE BLOOD COUNT (AUTO) 4.5 K/uL (4.8-10.8)
[2023-05-06 05:53] LABS: ALANINE AMINOTRANSFERASE 24 U/L (12-78); ALBUMIN 3.1 g/dL (3.4-5.0); ALKALINE PHOSPHATASE 104 U/L (50-136); ANION GAP 8.9 (8-16); ASPARTATE AMINOTRANSFERASE 27 U/L (15-37); CARBON DIOXIDE 28.9 mmol/L (21-32); CHLORIDE 108 mmol/L (98-107); CREATININE 1.2 mg/dL (0.6-1.3); GLUCOSE 96 mg/dL (74-106); MAGNESIUM 2.1 mg/dL (1.8-2.4); POTASSIUM 3.8 mmol/L (3.5-5.1); SODIUM SERUM 142 mmol/L (136-145); TOTAL BILIRUBIN 0.5 mg/dL (0.0-1.0); TOTAL PROTEIN, SERUM 6.4 g/dL (6.4-8.2); UREA NITROGEN, BLOOD 30 mg/dL (7-18)
[2023-05-06 07:26] VITALS: O2SAT 97
[2023-05-06 08:00] VITALS: BP 114/43; PULSE 41; PULSE 63; PULSE 65; RESP 17; RESP 20; TEMP 97.9; O2SAT 98; O2SAT 99
[2023-05-06] MEDS: HYDROcodone/APAP 5/325 MG 1 TAB TAB PO PRN (11:03)
[2023-05-06 12:00] VITALS: BP 114/51; PULSE 52; PULSE 63; RESP 17; TEMP 97.5; O2SAT 100
[2023-05-06] MEDS ORDERED: ONDANSETRON 4 MG TAB PO PRN (12:46)
[2023-05-06] MEDS ORDERED: HYDROcodone/APAP 5/325 MG 1 TAB TAB PO PRN (12:50)
[2023-05-06 15:26] VITALS: BP 114/51; PULSE 63; RESP 17; TEMP 97.5
[2023-05-06] MEDS ORDERED: APIXABAN 2.5 MG TAB PO SCH (21:00)
[2023-05-07] MEDS ORDERED: ATORVASTATIN 20 MG TAB PO SCH (09:00)
[2023-05-07] MEDS ORDERED: FUROSEMIDE 40 MG TAB PO SCH (09:00)
== END 2023-05-06 16:16 | disposition home or self-care (01) ==
LOC: MED 16:30 → MTU 20:13
PROVIDERS: ADMIT Hospitalist; ATTEND Hospitalist
DX: R07.89 Other chest pain (principal); J44.9 Chronic obstructive pulmonary disease, unspecified; I10 Essential (primary) hypertension; E78.5 Hyperlipidemia, unspecified; I48.91 Unspecified atrial fibrillation; N17.9 Acute kidney failure, unspecified; D72.819 Decreased white blood cell count, unspecified; Z88.0 Allergy status to penicillin; Z79.01 Long term (current) use of anticoagulants; Z79.899 Other long term (current) drug therapy
CPT/HCPCS: 36415; 71045; 80053; 81001; 83735; 83880; 84484; 85025; 85610; 85730; 87081; 93005; 94760; 96372; 96374; 99285; G0378; J1644; J3010; J2270

== ENCOUNTER 2023-06-17 12:17 | Emergency (ER) | payer OTHER ==
[~2023-06-17] VITALS: Ht 154.9 cm; Wt 70.3 kg
[2023-06-17 12:29] VITALS: BP 158/68; PULSE 71; RESP 18; TEMP 97.6; O2SAT 98
[2023-06-17 13:47] LABS: BASOPHILS % (AUTO) 0.3 % (0.0-2.0); EOSINOPHILS # (AUTO) 0.1 K/uL (0-0.4); EOSINOPHILS % (AUTO) 2.6 % (0.0-4.0); HEMATOCRIT 39.7 % (36-48); LYMPHOCYTES # (AUTO) 1.6 K/uL (2.5-16.5); LYMPHOCYTES % (AUTO) 33.3 % (20.5-51.1); MEAN CORPUSCULAR HEMOGLOBIN 27 pg (27-31); MEAN CORPUSCULAR HGB CONC 33 g/dL (33-37); MEAN CORPUSCULAR VOLUME 80.9 fL (80-94); MONOCYTES # (AUTO) 0.3 K/uL (0.8-1.0); MONOCYTES % (AUTO) 6.5 % (1.7-9.3); NEUTROPHILS # (AUTO) 2.8 K/uL (1.8-7.7); NEUTROPHILS % (AUTO) 57.3 % (42.2-75.2); PLATELET COUNT (AUTO) 205 K/uL (140-450); RED BLOOD CELL COUNT(AUTO) 4.91 MIL/uL (4.20-5.40); RED CELL DISTRIBUTION WIDTH 14.6 % (11.6-13.7); WHITE BLOOD COUNT (AUTO) 4.9 K/uL (4.8-10.8)
[2023-06-17 14:02] LABS: ALANINE AMINOTRANSFERASE 23 U/L (12-78); ALBUMIN 3.6 g/dL (3.4-5.0); ALKALINE PHOSPHATASE 123 U/L (50-136); ANION GAP 8.9 (8-16); ASPARTATE AMINOTRANSFERASE 22 U/L (15-37); CARBON DIOXIDE 30.4 mmol/L (21-32); CHLORIDE 103 mmol/L (98-107); CREATININE 1.2 mg/dL (0.6-1.3); GLUCOSE 102 mg/dL (74-106); LIPASE 61 U/L (16-77); POTASSIUM 4.3 mmol/L (3.5-5.1); SODIUM SERUM 138 mmol/L (136-145); TOTAL BILIRUBIN 0.5 mg/dL (0.0-1.0); TOTAL PROTEIN, SERUM 7.6 g/dL (6.4-8.2); UREA NITROGEN, BLOOD 23 mg/dL (7-18)
[2023-06-17] MEDS ORDERED: HYDROcodone/APAP 5/325 MG 1 TAB TAB PO ONE (15:25)
[2023-06-17 16:12] LABS: APPEARANCE,URINE CLEAR (CLEAR); BILIRUBIN,URINE NEGATIVE (NEGATIVE); BLOOD, URINE TRACE-I (NEGATIVE); COLOR,URINE YELLOW (YELLOW); LEUKOCYTE ESTERASE ,URINE NEGATIVE (NEGATIVE); NITRITE, URINE POSITIVE (NEGATIVE); PROTEIN,URINE TRACE (NEGATIVE); UGLUCOSE TRACE (NEGATIVE)
[2023-06-17 16:23] LABS: BACTERIA,URINE FEW /HPF (None Seen); RBC,URINE 0-5 /HPF (0-5); SQUAMOUS EPITHELIAL CELL,UR 0-3 (FEW) /LPF (0-3 (FEW)); WBC,URINE 0-5 /HPF (0-5)
[2023-06-17] MEDS ORDERED: ACET-5629 PO (16:40)
[2023-06-17] MEDS ORDERED: CIPR500T4 PO (16:40)
[2023-06-17 16:57] VITALS: BP 158/68; PULSE 71; RESP 18; TEMP 97.6; O2SAT 98
== END 2023-06-17 16:56 | disposition home or self-care (01) ==
LOC: MED 12:17
DX: N39.0 Urinary tract infection, site not specified (principal); I48.91 Unspecified atrial fibrillation; J44.9 Chronic obstructive pulmonary disease, unspecified; K21.9 Gastro-esophageal reflux disease without esophagitis; I10 Essential (primary) hypertension; Z79.899 Other long term (current) drug therapy; Z79.2 Long term (current) use of antibiotics; Z79.01 Long term (current) use of anticoagulants; Z88.0 Allergy status to penicillin; Z88.8 Allergy status to other drugs, medicaments and biological substances; Z88.2 Allergy status to sulfonamides; Z88.5 Allergy status to narcotic agent
CPT/HCPCS: 36415; 80053; 81001; 83690; 85025; 99284

== ENCOUNTER 2023-10-31 12:05 | Observation (INO) | payer OTHER ==
[~2023-10-31] VITALS: Ht 154.9 cm; Wt 69.4 kg
[~2023-10-31 12:05] MED LIST changes: +ACET-5629 PO; +CIPR500T4 PO
[2023-10-31 12:15] VITALS: BP 144/92; PULSE 115; RESP 20; TEMP 98.6; O2SAT 96
[2023-10-31] MEDS: NACL 0.9% 1,000 ML IV ONE (12:41)
[2023-10-31 12:42] LABS: BASOPHILS % (AUTO) 0.5 % (0.0-2.0); EOSINOPHILS # (AUTO) 0.2 K/uL (0-0.4); EOSINOPHILS % (AUTO) 3.4 % (0.0-4.0); HEMATOCRIT 41.8 % (36-48); HEMOGLOBIN 14.1 g/dL (12.0-16.0); LYMPHOCYTES # (AUTO) 1.6 K/uL (2.5-16.5); LYMPHOCYTES % (AUTO) 30.4 % (20.5-51.1); MEAN CORPUSCULAR HEMOGLOBIN 28 pg (27-31); MEAN CORPUSCULAR HGB CONC 34 g/dL (33-37); MEAN CORPUSCULAR VOLUME 81.7 fL (80-94); MONOCYTES # (AUTO) 0.3 K/uL (0.8-1.0); MONOCYTES % (AUTO) 5.7 % (1.7-9.3); NEUTROPHILS # (AUTO) 3.2 K/uL (1.8-7.7); PLATELET COUNT (AUTO) 223 K/uL (140-450); RED BLOOD CELL COUNT(AUTO) 5.12 MIL/uL (4.20-5.40); RED CELL DISTRIBUTION WIDTH 14.6 % (11.6-13.7); WHITE BLOOD COUNT (AUTO) 5.3 K/uL (4.8-10.8)
[2023-10-31] MEDS ORDERED: ONDANSETRON 4 MG/2 ML VIAL ONE (12:42)
[2023-10-31] MEDS: ONDANSETRON 4 MG/2 ML VIAL IVP ONE (12:49)
[2023-10-31 12:57] LABS: ANION GAP 6.4 (8-16); CALCIUM 8.7 mg/dL (8.5-10.1); CARBON DIOXIDE 32.4 mmol/L (21-32); CHLORIDE 104 mmol/L (98-107); CREATININE 1.2 mg/dL (0.6-1.3); GLUCOSE 114 mg/dL (74-106); POTASSIUM 4.8 mmol/L (3.5-5.1); SODIUM SERUM 138 mmol/L (136-145); UREA NITROGEN, BLOOD 24 mg/dL (7-18)
[2023-10-31] MEDS: fentaNYL citrate 0.05 MG/ML VIAL IVP ONE (13:47)
[2023-10-31] MEDS ORDERED: ZOLPIDEM 5 MG TAB PO PRN (14:05)
[2023-10-31] MEDS ORDERED: KCL 20 MEQ IN 100 mL PREMIX 200 ML IV PRN (14:05)
[2023-10-31] MEDS ORDERED: MORPHINE SULFATE 4 MG/ML SYR IVP PRN (14:05)
[2023-10-31] MEDS ORDERED: POTASSIUM CHLORIDE 10 MEQ TABER PO PRN (14:05)
[2023-10-31] MEDS ORDERED: LORazepam 1 MG TAB PO PRN (14:05)
[2023-10-31] MEDS ORDERED: ACETAMINOPHEN 325 MG TAB PO PRN (14:05)
[2023-10-31] MEDS ORDERED: ONDANSETRON 4 MG/2 ML VIAL IVP PRN (14:05)
[2023-10-31] MEDS ORDERED: MAG SULF 2000 MG/WATER PREMIX 50 ML IV PRN (14:05)
[2023-10-31] MEDS ORDERED: MONT-72 PO (16:06)
[2023-10-31] MEDS: HYDROcodone/APAP 5/325 MG 1 TAB TAB PO PRN (17:15)
[2023-10-31 21:30] VITALS: BP 112/56; PULSE 77; RESP 20; TEMP 96.1; O2SAT 92; O2SAT 93
[2023-10-31] MEDS: APIXABAN 2.5 MG TAB PO SCH (21:41)
[2023-10-31 21:52] VITALS: PULSE 84
[2023-11-01] VITALS: BP 120/51; PULSE 74; PULSE 77; RESP 18; TEMP 96.2; O2SAT 92
[2023-11-01 04:00] VITALS: BP 112/53; PULSE 72; PULSE 89; RESP 18; TEMP 96.1; O2SAT 93
[2023-11-01 04:25] VITALS: O2SAT 95
[2023-11-01 05:33] LABS: BASOPHILS % (AUTO) 0.6 % (0.0-2.0); EOSINOPHILS # (AUTO) 0.2 K/uL (0-0.4); EOSINOPHILS % (AUTO) 4.3 % (0.0-4.0); HEMATOCRIT 38.3 % (36-48); HEMOGLOBIN 12.6 g/dL (12.0-16.0); LYMPHOCYTES # (AUTO) 1.7 K/uL (2.5-16.5); LYMPHOCYTES % (AUTO) 37.1 % (20.5-51.1); MEAN CORPUSCULAR HEMOGLOBIN 27 pg (27-31); MEAN CORPUSCULAR HGB CONC 33 g/dL (33-37); MEAN CORPUSCULAR VOLUME 82.5 fL (80-94); MONOCYTES # (AUTO) 0.4 K/uL (0.8-1.0); MONOCYTES % (AUTO) 7.5 % (1.7-9.3); NEUTROPHILS # (AUTO) 2.4 K/uL (1.8-7.7); NEUTROPHILS % (AUTO) 50.5 % (42.2-75.2); PLATELET COUNT (AUTO) 188 K/uL (140-450); RED BLOOD CELL COUNT(AUTO) 4.64 MIL/uL (4.20-5.40); RED CELL DISTRIBUTION WIDTH 14.4 % (11.6-13.7); WHITE BLOOD COUNT (AUTO) 4.7 K/uL (4.8-10.8)
[2023-11-01 05:56] LABS: ANION GAP 7.8 (8-16); CALCIUM 8.5 mg/dL (8.5-10.1); CARBON DIOXIDE 29.3 mmol/L (21-32); CHLORIDE 108 mmol/L (98-107); GLUCOSE 92 mg/dL (74-106); POTASSIUM 4.1 mmol/L (3.5-5.1); SODIUM SERUM 141 mmol/L (136-145); UREA NITROGEN, BLOOD 21 mg/dL (7-18)
[2023-11-01 08:00] VITALS: BP 107/61; PULSE 77; PULSE 80; RESP 17; TEMP 97.8; O2SAT 99
[2023-11-01] MEDS: PANTOPRAZOLE 40 MG TABEC PO SCH (08:58)
[2023-11-01] MEDS: FUROSEMIDE 40 MG TAB PO SCH (08:59)
[2023-11-01] MEDS ORDERED: ENOXAPARIN 40 MG/0.4 ML SYR SUBQ SCH (09:00)
[2023-11-01 12:00] VITALS: BP 119/64; PULSE 84; PULSE 90; RESP 18; TEMP 97; O2SAT 98
[2023-11-01 13:44] VITALS: BP 119/64; PULSE 84; RESP 18; TEMP 97
== END 2023-11-01 14:34 | disposition home or self-care (01) ==
LOC: MED 12:05 → MTU 14:06
PROVIDERS: ADMIT Internal Medicine; ATTEND Internal Medicine
DX: R07.9 Chest pain, unspecified (principal); I48.91 Unspecified atrial fibrillation; I10 Essential (primary) hypertension; J44.9 Chronic obstructive pulmonary disease, unspecified; K21.9 Gastro-esophageal reflux disease without esophagitis; R11.0 Nausea; Z88.0 Allergy status to penicillin; Z88.5 Allergy status to narcotic agent; Z88.1 Allergy status to other antibiotic agents; Z88.8 Allergy status to other drugs, medicaments and biological substances; Z79.899 Other long term (current) drug therapy; Z90.710 Acquired absence of both cervix and uterus; Z90.49 Acquired absence of other specified parts of digestive tract
CPT/HCPCS: 36415; 71045; 80048; 83880; 84484; 85025; 87081; 93005; 96374; 96375; 99285; G0378; J2405; J3010

== ENCOUNTER 2024-03-07 15:23 | Emergency (ER) | payer OTHER ==
[~2024-03-07] VITALS: Ht 154.9 cm; Wt 70.3 kg
[~2024-03-07 15:23] MED LIST changes: -ACET-5629 PO; -ACET-8905 PO; -CIPR500T4 PO; -FURO-570 PO; -KEN.025C TP; -MELO7.5T11 PO; +MONT-72 PO; -ONDA8TAB87 PO; -PRED50TA2 PO
[2024-03-07 15:43] VITALS: BP 151/67; PULSE 77; RESP 18; TEMP 97.5; O2SAT 94
[2024-03-07 16:16] LABS: APPEARANCE,URINE CLEAR (CLEAR); BILIRUBIN,URINE NEGATIVE (NEGATIVE); BLOOD, URINE TRACE-I (NEGATIVE); COLOR,URINE YELLOW (YELLOW); LEUKOCYTE ESTERASE ,URINE NEGATIVE (NEGATIVE); NITRITE, URINE NEGATIVE (NEGATIVE); PROTEIN,URINE NEGATIVE (NEGATIVE); UGLUCOSE NEGATIVE (NEGATIVE); UROBILINOGEN,URINE 0.2 EU/dL (0.2 - 1)
[2024-03-07] MEDS: KETOROLAC 30 MG/ML VIAL IM ONE (16:33)
[2024-03-07 16:53] VITALS: O2SAT 99
[2024-03-07 17:06] LABS: BASOPHILS % (AUTO) 0.6 % (0.0-2.0); EOSINOPHILS # (AUTO) 0.2 K/uL (0-0.4); EOSINOPHILS % (AUTO) 4.2 % (0.0-4.0); HEMATOCRIT 41.1 % (36-48); HEMOGLOBIN 13.4 g/dL (12.0-16.0); LYMPHOCYTES # (AUTO) 1.5 K/uL (2.5-16.5); LYMPHOCYTES % (AUTO) 35.7 % (20.5-51.1); MEAN CORPUSCULAR HEMOGLOBIN 27 pg (27-31); MEAN CORPUSCULAR HGB CONC 33 g/dL (33-37); MEAN CORPUSCULAR VOLUME 83.6 fL (80-94); MONOCYTES # (AUTO) 0.3 K/uL (0.8-1.0); MONOCYTES % (AUTO) 6.9 % (1.7-9.3); NEUTROPHILS # (AUTO) 2.3 K/uL (1.8-7.7); NEUTROPHILS % (AUTO) 52.6 % (42.2-75.2); PLATELET COUNT (AUTO) 196 K/uL (140-450); RED BLOOD CELL COUNT(AUTO) 4.91 MIL/uL (4.20-5.40); RED CELL DISTRIBUTION WIDTH 13.4 % (11.6-13.7); WHITE BLOOD COUNT (AUTO) 4.3 K/uL (4.8-10.8)
[2024-03-07 17:20] LABS: ANION GAP 12.3 (8-16); CALCIUM 8.8 mg/dL (8.5-10.1); CARBON DIOXIDE 26.9 mmol/L (21-32); CHLORIDE 104 mmol/L (98-107); CREATININE 1.1 mg/dL (0.6-1.3); GLUCOSE 99 mg/dL (74-106); POTASSIUM 4.2 mmol/L (3.5-5.1); SODIUM SERUM 139 mmol/L (136-145); UREA NITROGEN, BLOOD 20 mg/dL (7-18)
[2024-03-07 17:26] LABS: ALBUMIN 3.9 g/dL (3.4-5.0); BILIRUBIN,DIRECT 0.1 mg/dL (0.0-0.3); TOTAL BILIRUBIN 0.6 mg/dL (0.0-1.0); TOTAL PROTEIN, SERUM 7.8 g/dL (6.4-8.2)
[2024-03-07] MEDS ORDERED: ACET-8905 PO (17:28)
[2024-03-07 17:55] VITALS: BP 151/67; PULSE 77; RESP 18; TEMP 97.5; O2SAT 99
== END 2024-03-07 17:56 | disposition home or self-care (01) ==
LOC: MED 15:23
DX: N28.1 Cyst of kidney, acquired (principal); R10.31 Right lower quadrant pain; J44.9 Chronic obstructive pulmonary disease, unspecified; K21.9 Gastro-esophageal reflux disease without esophagitis; I10 Essential (primary) hypertension; Z79.899 Other long term (current) drug therapy; Z79.01 Long term (current) use of anticoagulants; Z88.0 Allergy status to penicillin; Z88.8 Allergy status to other drugs, medicaments and biological substances; Z88.2 Allergy status to sulfonamides; Z88.5 Allergy status to narcotic agent
CPT/HCPCS: 36415; 74176; 80048; 80076; 81003; 83690; 85025; 96372; 99285; J1885

== ENCOUNTER 2024-04-29 11:40 | Observation (INO) | payer OTHER ==
[~2024-04-29] VITALS: Ht 154.9 cm; Wt 63.5 kg
[~2024-04-29 11:40] MED LIST changes: +ACET-8905 PO
--- NOTE | 2024-04-29 11:50 | NUR ---
PT TO BED 12
[2024-04-29 11:53] VITALS: BP 147/56; PULSE 50; RESP 19; TEMP 97.7; O2SAT 96
[2024-04-29] MEDS: oxyCODONE/APAP 5/325 MG 1 TAB TAB PO ONE (12:09)
--- NOTE | 2024-04-29 12:18 | NUR ---
EKG performed at BS.Physician given copy of EKG for review.
[2024-04-29 12:40] LABS: BASOPHILS % (AUTO) 0.5 % (0.0-2.0); EOSINOPHILS # (AUTO) 0.2 K/uL (0-0.4); EOSINOPHILS % (AUTO) 4.7 % (0.0-4.0); HEMATOCRIT 40.5 % (36-48); HEMOGLOBIN 13.2 g/dL (12.0-16.0); LYMPHOCYTES # (AUTO) 1.3 K/uL (2.5-16.5); LYMPHOCYTES % (AUTO) 31.6 % (20.5-51.1); MEAN CORPUSCULAR HEMOGLOBIN 28 pg (27-31); MEAN CORPUSCULAR HGB CONC 33 g/dL (33-37); MEAN CORPUSCULAR VOLUME 85.8 fL (80-94); MONOCYTES # (AUTO) 0.3 K/uL (0.8-1.0); MONOCYTES % (AUTO) 7.1 % (1.7-9.3); NEUTROPHILS # (AUTO) 2.3 K/uL (1.8-7.7); NEUTROPHILS % (AUTO) 56.1 % (42.2-75.2); PLATELET COUNT (AUTO) 196 K/uL (140-450); RED BLOOD CELL COUNT(AUTO) 4.72 MIL/uL (4.20-5.40); RED CELL DISTRIBUTION WIDTH 13.3 % (11.6-13.7)
[2024-04-29 12:52] LABS: CALCIUM 8.9 mg/dL (8.5-10.1); CARBON DIOXIDE 27.6 mmol/L (21-32); CHLORIDE 105 mmol/L (98-107); CREATININE 1.6 mg/dL (0.6-1.3); GLUCOSE 96 mg/dL (74-106); POTASSIUM 4.6 mmol/L (3.5-5.1); SODIUM SERUM 139 mmol/L (136-145); UREA NITROGEN, BLOOD 15 mg/dL (7-18)
[2024-04-29] MEDS ORDERED: ONDANSETRON 4 MG/2 ML VIAL IVP PRN (13:45)
[2024-04-29] MEDS ORDERED: NITROGLYCERIN 0.4 MG TAB SL PRN (13:45)
[2024-04-29] MEDS ORDERED: ACETAMINOPHEN 325 MG TAB PO PRN (13:45)
[2024-04-29] MEDS ORDERED: MORPHINE SULFATE 2 MG/ML SYR IVP PRN (13:45)
[2024-04-29] MEDS ORDERED: ZOLPIDEM 5 MG TAB PO PRN (13:45)
[2024-04-29] MEDS ORDERED: ALUMINUM HYD/MAG/SIMETHICONE 30 ML UDC PO PRN (13:45)
--- NOTE | 2024-04-29 14:10 | NUR ---
Patient will be admitted to care of DR. GUALLPA. Admited to TELE OBS. Will go to room 108A. Belongings list completed. Report to VANDANA MORENO.
[2024-04-29 15:14] VITALS: RESP 18; O2SAT 95
[2024-04-29] MEDS: ASPIRIN 81 MG TAB.CHEW PO SCH (15:46)
[2024-04-29 16:00] VITALS: BP 118/56; PULSE 52; PULSE 60; RESP 18; TEMP 97.7; O2SAT 93
--- NOTE | 2024-04-29 16:00 | NUR ---
PATIENT ADMITTED FROM ER TO ROOM 108A. PATIENT IS IN GOOD SPIRITS. VSS, NO SOB, NO PAIN OR DISTRESS NOTED. CALL LIGHT WITHIN NORMAL REACH, BED IN LOW POSITION. OFFERED JELLO AND SANDWICH FOR SNACK AND FLUIDS; TOLERATED WELL. PLAN OF CARE ONGOING, NO FURTHER CONCERNS OF PRESENT. [id number]
--- NOTE | 2024-04-29 19:00 | NUR ---
GAVE BEDSIDE REPORT TO NIGHT RN FOR CONTINUITY OF CARE, NO SIGNS OF DISTRESS VISIBLE RISE AND FALL. CALL LIGHT WITHIN REACH
--- NOTE | 2024-04-29 19:01 | NUR ---
RECEIVED SHIFT REPORT FROM VANDANA RN, PATIENT NOTED IN BED RESTING ALERT TO INTRODUCE HERSELF. PATIENT CHEST NOTED RISING AND FALLING EVENLY. PATIENT COMPLAINED OF S/S OF OF PAIN/DISCOMFORT TO CHEST. IT WAS EXPLAINED THAT SHE WILL RECEIVE PAIN MANAGEMENT AFTER VITAL SIGNS ARE TAKEN AND VERIFICATION OF LAST MEDICATION GIVEN. NO NOTED S/S OR RESPIRATORY DISTRESS. ALL NEEDS MET AT THIS TIME. SIDE RAILS UP X 2 FOR SAFETY. CALL LIGHT WITHIN REACH FOR ASSISTANCE. [email or web address]
[2024-04-29 20:00] VITALS: BP 134/62; PULSE 50; PULSE 59; RESP 18; TEMP 98; O2SAT 93; O2SAT 94
[2024-04-29 20:15] VITALS: PULSE 56
[2024-04-29] MEDS: SIMVASTATIN 20 MG TAB PO SCH (20:53)
[2024-04-29] MEDS: HYDROcodone/APAP 5/325 MG 1 TAB TAB PO PRN (20:53)
[2024-04-29] MEDS: METOPROLOL 25 MG TAB PO SCH (20:54)
--- NOTE | 2024-04-29 23:48 | NUR ---
PATIENT NOTED IN BED RESTING. CHEST RISING AND FALLING EVENLY. NO NOTED RESPIRATORY DISTRESS. NO NOTED PAIN/DISCOMFORT. SIDE RAILS UP X 2 FOR SAFETY. CALL LIGHT WITHIN REACH FOR ASSISTANCE. [email or web address]
[2024-04-30] VITALS (8 sets, daily range): BP systolic 102–143; BP diastolic 46–69; PULSE 46–69; RESP 17–18; TEMP 96.8–98.1; O2SAT 93–96
--- NOTE | 2024-04-30 02:03 | NUR ---
PATIENT WAS NOTED IN BED RESTING. CHEST RISING AND FALLING EVENLY WITHOUT INCIDENT. NO S/S OF PAIN/DISCOMFORT. NO S/S OF RESPIRATORY DISTRESS. ALL NEEDS WERE MET. SIDE RAILS UP X 3. CALL LIGHT WITHIN REACH. [email or web address]
--- NOTE | 2024-04-30 07:00 | NUR ---
RECEIVED REPORT FROM NIGHT RN FOR CONTINUITY OF CARE, NO SIGNS OF DISTRESS VISIBLE RISE AND FALL CALL LIGHT WITHIN REACH. SAFETY PROTOCOL IN PLACE.
[2024-04-30 07:07] LABS: BASOPHILS % (AUTO) 0.5 % (0.0-2.0); EOSINOPHILS # (AUTO) 0.2 K/uL (0-0.4); EOSINOPHILS % (AUTO) 5.3 % (0.0-4.0); HEMATOCRIT 36.4 % (36-48); HEMOGLOBIN 11.8 g/dL (12.0-16.0); LYMPHOCYTES # (AUTO) 1.6 K/uL (2.5-16.5); LYMPHOCYTES % (AUTO) 45.3 % (20.5-51.1); MEAN CORPUSCULAR HEMOGLOBIN 28 pg (27-31); MEAN CORPUSCULAR HGB CONC 32 g/dL (33-37); MEAN CORPUSCULAR VOLUME 85.5 fL (80-94); MONOCYTES # (AUTO) 0.2 K/uL (0.8-1.0); MONOCYTES % (AUTO) 6.9 % (1.7-9.3); NEUTROPHILS # (AUTO) 1.5 K/uL (1.8-7.7); PLATELET COUNT (AUTO) 173 K/uL (140-450); RED BLOOD CELL COUNT(AUTO) 4.26 MIL/uL (4.20-5.40); RED CELL DISTRIBUTION WIDTH 12.9 % (11.6-13.7); WHITE BLOOD COUNT (AUTO) 3.5 K/uL (4.8-10.8)
--- NOTE | 2024-04-30 07:07 | NUR ---
ENDORSED PATIENT CARE TO VANDANA RN, PATIENT WAS STABLE DURING SHIFT REPORT. [email or web address]
[2024-04-30 07:27] LABS: ALANINE AMINOTRANSFERASE 17 U/L (12-78); ALBUMIN 3.1 g/dL (3.4-5.0); ALKALINE PHOSPHATASE 54 U/L (50-136); ANION GAP 12.7 (8-16); ASPARTATE AMINOTRANSFERASE 21 U/L (15-37); CALCIUM 8.5 mg/dL (8.5-10.1); CARBON DIOXIDE 24.6 mmol/L (21-32); CHLORIDE 106 mmol/L (98-107); CREATININE 1.5 mg/dL (0.6-1.3); GLUCOSE 95 mg/dL (74-106); MAGNESIUM 1.9 mg/dL (1.8-2.4); POTASSIUM 4.3 mmol/L (3.5-5.1); SODIUM SERUM 139 mmol/L (136-145); TOTAL BILIRUBIN 0.3 mg/dL (0.0-1.0); TOTAL PROTEIN, SERUM 6.3 g/dL (6.4-8.2); UREA NITROGEN, BLOOD 34 mg/dL (7-18)
[2024-04-30] MEDS: DOCUSATE SODIUM 100 MG GELCAP PO SCH (08:15)
[2024-04-30] MEDS: ENOXAPARIN 30 MG/0.3 ML SYR SUBQ SCH (08:18)
[2024-04-30] MEDS ORDERED: ENOXAPARIN 40 MG/0.4 ML SYR SUBQ SCH (09:00)
--- NOTE | 2024-04-30 17:38 | NUR ---
PATIENT LEFT UNIT VIA WHEELCHAIR, NO SIGNS OF DISTRESS IV OUT ALL BELONGINGS WITH PATIENT. PATIENT UNDERSTOOD DC INSTRUCTIONS
== END 2024-04-30 17:35 | disposition home or self-care (01) ==
LOC: MED 11:40 → MTU 13:46
PROVIDERS: ADMIT Hospitalist; ATTEND Hospitalist
DX: I20.9 Angina pectoris, unspecified (principal); R07.89 Other chest pain; I10 Essential (primary) hypertension; E78.5 Hyperlipidemia, unspecified; I48.91 Unspecified atrial fibrillation; J44.9 Chronic obstructive pulmonary disease, unspecified; K21.9 Gastro-esophageal reflux disease without esophagitis; Z88.0 Allergy status to penicillin; Z88.2 Allergy status to sulfonamides; Z88.6 Allergy status to analgesic agent; Z88.5 Allergy status to narcotic agent; Z79.899 Other long term (current) drug therapy
CPT/HCPCS: 36415; 71045; 80048; 80053; 83735; 84484; 85025; 87081; 93005; 96372; 99285; G0378; J1650

== ENCOUNTER 2024-06-28 12:05 | Observation (INO) | payer OTHER ==
[~2024-06-28] VITALS: Ht 154.9 cm; Wt 69.4 kg
[2024-06-28 12:06] VITALS: BP 110/83; PULSE 64; RESP 18; TEMP 97.8; O2SAT 93
[2024-06-28 13:20] LABS: BASOPHILS % (AUTO) 0.6 % (0.0-2.0); EOSINOPHILS # (AUTO) 0.2 K/uL (0-0.4); EOSINOPHILS % (AUTO) 4.5 % (0.0-4.0); HEMATOCRIT 41.4 % (36-48); HEMOGLOBIN 13.5 g/dL (12.0-16.0); LYMPHOCYTES # (AUTO) 1.3 K/uL (2.5-16.5); LYMPHOCYTES % (AUTO) 34.6 % (20.5-51.1); MEAN CORPUSCULAR HEMOGLOBIN 28 pg (27-31); MEAN CORPUSCULAR HGB CONC 33 g/dL (33-37); MEAN CORPUSCULAR VOLUME 84.1 fL (80-94); MONOCYTES # (AUTO) 0.3 K/uL (0.8-1.0); NEUTROPHILS # (AUTO) 1.9 K/uL (1.8-7.7); NEUTROPHILS % (AUTO) 52.3 % (42.2-75.2); PLATELET COUNT (AUTO) 232 K/uL (140-450); RED BLOOD CELL COUNT(AUTO) 4.92 MIL/uL (4.20-5.40); RED CELL DISTRIBUTION WIDTH 13.5 % (11.6-13.7); WHITE BLOOD COUNT (AUTO) 3.7 K/uL (4.8-10.8)
[2024-06-28 13:33] LABS: CALCIUM 8.6 mg/dL (8.5-10.1); CHLORIDE 103 mmol/L (98-107); CREATININE 1.8 mg/dL (0.6-1.3); GLUCOSE 97 mg/dL (74-106); POTASSIUM 4.2 mmol/L (3.5-5.1); SODIUM SERUM 140 mmol/L (136-145); UREA NITROGEN, BLOOD 37 mg/dL (7-18)
[2024-06-28 13:37] LABS: ANION GAP 8.4 (8-16); CARBON DIOXIDE 32.8 mmol/L (21-32)
[2024-06-28] MEDS ORDERED: fentaNYL citrate 0.05 MG/ML VIAL ONE (13:50)
[2024-06-28] MEDS: fentaNYL citrate 0.05 MG/ML VIAL IVP ONE (13:59)
[2024-06-28] MEDS ORDERED: ACETAMINOPHEN 325 MG TAB PO PRN (14:40)
[2024-06-28] MEDS ORDERED: ONDANSETRON 4 MG/2 ML VIAL IVP PRN (14:40)
[2024-06-28] MEDS: ONDANSETRON 4 MG/2 ML VIAL IVP ONE (15:14)
[2024-06-28 16:22] VITALS: RESP 68; O2SAT 68
[2024-06-28 16:55] VITALS: PULSE 53
[2024-06-28 19:29] VITALS: O2SAT 95
[2024-06-28 20:00] VITALS: BP 134/51; PULSE 52; RESP 18; TEMP 96.6; O2SAT 99
[2024-06-28] MEDS: APIXABAN 2.5 MG TAB PO SCH (21:00)
[2024-06-28] MEDS: HYDROcodone/APAP 5/325 MG 1 TAB TAB PO PRN (21:16)
[2024-06-28 22:48] VITALS: O2SAT 96
[2024-06-29] VITALS (7 sets, daily range): BP systolic 127–138; BP diastolic 40–56; PULSE 44–80; RESP 17–18; TEMP 96.6–98.4; O2SAT 95–100
[2024-06-29 05:36] LABS: BASOPHILS % (AUTO) 0.3 % (0.0-2.0); EOSINOPHILS # (AUTO) 0.2 K/uL (0-0.4); EOSINOPHILS % (AUTO) 4.3 % (0.0-4.0); HEMATOCRIT 36.8 % (36-48); HEMOGLOBIN 11.9 g/dL (12.0-16.0); LYMPHOCYTES # (AUTO) 1.8 K/uL (2.5-16.5); LYMPHOCYTES % (AUTO) 35.5 % (20.5-51.1); MEAN CORPUSCULAR HEMOGLOBIN 27 pg (27-31); MEAN CORPUSCULAR HGB CONC 32 g/dL (33-37); MEAN CORPUSCULAR VOLUME 84.7 fL (80-94); MONOCYTES # (AUTO) 0.4 K/uL (0.8-1.0); MONOCYTES % (AUTO) 8.6 % (1.7-9.3); NEUTROPHILS # (AUTO) 2.6 K/uL (1.8-7.7); NEUTROPHILS % (AUTO) 51.3 % (42.2-75.2); PLATELET COUNT (AUTO) 200 K/uL (140-450); RED BLOOD CELL COUNT(AUTO) 4.35 MIL/uL (4.20-5.40); RED CELL DISTRIBUTION WIDTH 13.3 % (11.6-13.7); WHITE BLOOD COUNT (AUTO) 5.1 K/uL (4.8-10.8)
[2024-06-29 06:27] LABS: ALANINE AMINOTRANSFERASE 16 U/L (12-78); ALBUMIN 3.1 g/dL (3.4-5.0); ALKALINE PHOSPHATASE 49 U/L (50-136); ASPARTATE AMINOTRANSFERASE 20 U/L (15-37); CALCIUM 8.3 mg/dL (8.5-10.1); CARBON DIOXIDE 28.3 mmol/L (21-32); CHLORIDE 104 mmol/L (98-107); CREATININE 1.8 mg/dL (0.6-1.3); GLUCOSE 96 mg/dL (74-106); MAGNESIUM 2.2 mg/dL (1.8-2.4); POTASSIUM 4.3 mmol/L (3.5-5.1); SODIUM SERUM 139 mmol/L (136-145); TOTAL BILIRUBIN 0.4 mg/dL (0.0-1.0); TOTAL PROTEIN, SERUM 6.4 g/dL (6.4-8.2); UREA NITROGEN, BLOOD 39 mg/dL (7-18)
[2024-06-29 06:50] LABS: FREE T4 (FREE THYROXINE) 1.1 ng/dL (0.76-1.46); THYROID STIMULATING HORMONE 0.86 uIU/mL (0.34-3.74)
[2024-06-29] MEDS: MONTELUKAST SODIUM 10 MG TAB PO SCH (08:27)
[2024-06-29] MEDS: PANTOPRAZOLE 40 MG TABEC PO SCH (08:27)
[2024-06-29] MEDS: ASPIRIN 81 MG TAB.CHEW PO SCH (08:27)
[2024-06-29] MEDS: ATORVASTATIN 20 MG TAB PO SCH (08:27)
[2024-06-29] MEDS: FENOFIBRATE 48 MG TAB PO SCH (08:28)
[2024-06-29] MEDS: POLYETHYLENE GLYCOL 17 GM/PKT PO PRN (12:33)
== END 2024-06-29 17:55 | disposition home or self-care (01) ==
LOC: MED 12:05 → MTU 14:40
PROVIDERS: ADMIT Internal Medicine; ATTEND Internal Medicine
DX: R07.89 Other chest pain (principal); R00.1 Bradycardia, unspecified; J44.9 Chronic obstructive pulmonary disease, unspecified; I10 Essential (primary) hypertension; E78.5 Hyperlipidemia, unspecified; I45.10 Unspecified right bundle-branch block; I48.91 Unspecified atrial fibrillation; K21.9 Gastro-esophageal reflux disease without esophagitis; Z88.0 Allergy status to penicillin; Z88.2 Allergy status to sulfonamides; Z88.5 Allergy status to narcotic agent; Z88.6 Allergy status to analgesic agent; Z90.49 Acquired absence of other specified parts of digestive tract; Z90.710 Acquired absence of both cervix and uterus; Z79.899 Other long term (current) drug therapy
CPT/HCPCS: 36415; 71045; 80048; 80053; 83735; 83880; 84439; 84443; 84484; 85025; 87081; 94760; 96374; 96375; 99284; G0378; J2405; J3010; Q0092